=== PATIENT | male | born 1940 | race Caucasian/White ===

== ENCOUNTER 2020-06-05 11:39 | Outpatient (RCR) | payer MEDICARE, BC, SELFPAY | END 2020-06-06 23:59 | disposition home or self-care (01) | LOC: SR3 11:39 | PROVIDERS: Family Provider Internal Medicine; PCP Internal Medicine; Referring Provider Family Medicine; Visit Provider Family Medicine | DX: Z86.73 Personal history of transient ischemic attack (TIA), and cerebral infarction without residual deficits (principal) | CPT/HCPCS: 92523; 92610; 97162; 97167 ==

== ENCOUNTER 2020-06-07 06:00 | Outpatient (RCR) | payer MEDICARE, BC, SELFPAY | END 2020-07-07 23:59 | disposition home or self-care (01) | LOC: SR3 06:00 | PROVIDERS: Family Provider Internal Medicine; PCP Internal Medicine; Referring Provider Family Medicine; Visit Provider Family Medicine | DX: I69.30 Unspecified sequelae of cerebral infarction (principal) | CPT/HCPCS: 92507; 92526; 97110; 97112; 97116 ==

== ENCOUNTER 2020-07-08 06:00 | Outpatient (RCR) | payer MEDICARE, BC, SELFPAY | END 2020-08-06 23:59 | disposition home or self-care (01) | LOC: SR3 06:00 | PROVIDERS: Family Provider Internal Medicine; PCP Family Medicine; Referring Provider Family Medicine; Visit Provider Family Medicine | DX: Z86.73 Personal history of transient ischemic attack (TIA), and cerebral infarction without residual deficits (principal) | CPT/HCPCS: 92507; 92523; 92526 ==

== ENCOUNTER 2020-09-03 12:13 | Emergency (ER) | payer MEDICARE, BC, SELFPAY ==
[2020-09-03 12:27] VITALS: BP 137/70; PULSE 73; RESP 19; TEMP 37.9; O2SAT 96; BMI 25.8
--- NOTE | 2020-09-03 12:33 | CT_ITS ---
WS: [id number] CT cervical spin wo con* [id number] REASON FOR EXAM: pain IV CONTRAST ADMINISTERED: Nonenhanced TOTAL EXAM DLP: 734.[address] scans at [facility] use at least one of these dose optimization techniques: automat ed exposure control; mA and/or kV adjustment per patient size (includes targeted exams where dose is matched to clinical indication); or iterative reconstruction. FINDINGS: The odontoid in the atlantoaxial articulations are intact. No significant cervical vertebral body compression deformity. Degenerative cervical disc disease from C4 to C7 which produces reversal of the normal lordosis of th e cervical spine with mild anterior subluxation of C4 on C5. Facet joints at C4-C5 demonstrate signif icant degenerative change with normal alignment and no fracture. CT/CT cervical spin wo con* [id number] IMPRESSION: Multilevel degenerative spondylosis. No fracture or dislocation.
--- NOTE | 2020-09-03 12:34 | CT_ITS ---
WS: [id number] CT head wo con* 10588 REASON FOR EXAM: fall, injury IV CONTRAST ADMINISTERED: Noncontrast. TOTAL EXAM DLP: 896.[address] scans at [facility] use at least one of these dose optimization techniques: automat ed exposure control; mA and/or kV adjustment per patient size (includes targeted exams where dose is matched to clinical indication); or iterative reconstruction. FINDINGS: Small soft tissue hematoma over the right frontal region. No midline shift or other significant mass effect. No findings of intracranial hemorrhage and no extra-axial fluid collection. Encephalomalacia in the right frontal region with dilatation of the ipsilateral ventricle. Small foci of CSF density just superior to the left basal ganglia. No acute focal brain parenchymal abnormality within the cerebral hemispheres, brainstem, or cerebellar hemispheres. Mild to moderate symmetric global atrophy with enlargement of CSF spaces. The bony calvarium is intact. There are findings of chronic inflammatory sinus disease involving the sphenoid and ethmoid sinuses. Degenerative changes in the right temporomandibular joint. CT/CT head wo con* [id number] IMPRESSION: Previous infarct right frontal region with encephalomalacia and anterior horn d ilatation. 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 No acute intracranial finding. Examination appears unchanged compared to 018.
--- NOTE | 2020-09-03 12:34 | CT_ITS ---
WS: [id number] CT facial bones wo con* [id number] REASON FOR EXAM: fall/injury IV CONTRAST ADMINISTERED: Noncontrast TOTAL EXAM DLP: 784.[address] scans at [facility] use at least one of these dose optimization techniques: automat ed exposure control; mA and/or kV adjustment per patient size (includes targeted exams where dose is matched to clinical indication); or iterative reconstruction. FINDINGS: Soft tissue hematoma over the right frontal region. Superior and inferior nasal spines are intact. Zygomatic arches and bony structure of the orbits are intact. Bony sinus structure are intact. Chronic sinusitis changes in the sphenoid and ethmoid sinuses. Iterative changes in the temporomandibular joint. CT/CT facial bones wo con* [id number] IMPRESSION: No facial bone fracture.
--- NOTE | 2020-09-03 12:37 | ED_ITS ---
HPI - Fall General: Chief Complaint: Fall Stated Complaint: FALL, HIT FACE, HEMATOMA, NOSE BLEED Time Seen by Provider: 09/03/20 12:14 Source: patient, family and EMS Mode of arrival: EMS Limitations: no limitations History of Present Illness: HPI Narrative: Mr. Guillen is a nice 80-year-old male who comes in after a fall at home. He was trying to get dressed with assistance of his as he is somewhat unstable normally. He fell forward landing on his face on the ground. He was not knocked unconscious but he has abrasions and bleeding from his nose and forehead. He denies any neck pain or stiffness. Of note the patient is on Eliquis. Patient denies any other complaints or injuries. EMS feels the patient may be a little confused and having a hard time recalling answers but otherwise he has no other complaints. Patient's states that he has been treated for cellulitis of his face. He is on antibiotics now for this. She says overall the cellulitis is better now than it was before although his nose looks somewhat more red since the fall. Associated symptoms-after fall: Denies abdominal pain, chest pain, confusion, difficulty walking, headache(s), hematuria, lightheadedness, neck pain or vertigo Review of Systems Const: Denies: fever(s), chills, body aches, fatigue, malaise or diaphoresis Eyes: Denies: change in vision, blurry vision, photophobia, eye discomfort, eye discharge, eye redness or yellow eyes ENMT: Denies: throat pain, odynophagia, hoarseness, swelling of lips/tongue, ear or mastoid pain, ear discharge, change in hearing or nasal discharge Card: Denies: chest pain, palpitations, irregular heart rhythm, edema, lightheadedness, syncope, pre-syncope, dyspnea on exertion or orthopnea Resp: Denies: dyspnea, productive cough, non-productive cough, wheezing, hemoptysis or chest congestion GI: Denies: abdominal pain, nausea, vomiting, hematemesis, coffee ground emesis, heartburn, diarrhea, constipation, GI cramping, hematochezia or melena : Denies: flank pain, dysuria, urinary frequency, urinary urgency or hematuria Musc: Denies: neck pain, back pain, extremity pain, extremity swelling, joint pain, joint swelling, joint redness, joint warmth or joint stiffness Skin/Breast: Denies: rash, pruritus, erythema, skin pain or skin tenderness Neuro: Denies: headache(s), numbness in extremities, weakness in extremities, sensory changes, lack of coordination, difficulty walking, dizziness, vertigo, confusion, Slurred speech present or seizure-like activity Cole/Lymph: Denies: easy bruising, easy bleeding, petechiae, purpura or enlarged lymph nodes All/Imm: Denies: urticaria, throat swelling, tongue swelling, facial swelling or acute wheezing PFSH ED PFSH: Social History (Updated 07/09/20 @ 10:26 by Sharon Coffman LPN) Smoking and tobacco status: never smoked Physical Exam Const: COMMON NORMALS: no acute distress, patient oriented x3, no limitations and alert GENERAL APPEARANCE: cooperative HENMT: COMMON NORMALS: normocephalic, external ears normal and EAC's normal HEAD & SCALP: normal to inspection, normocephalic and other (Abrasion noted over right eyebrow) FACE & SINUS: face symmetric and other (abrasions to the forehead) NOSE: Other nasal findings present (No septal hematoma. Nose with moderate cellulitis.) EXTERNAL EAR: Yes external ears normal EXTERNAL AUDITORY CANAL: EAC's normal MOUTH: Normal oral and palatal mucosa present, lip normal and tongue normal Eye: COMMON NORMALS: Equal, round and reactive pupils present and conjunctivae normal GENERAL EYE: appearance normal, both eyes and all related structures ALIGNMENT: Yes alignment normal PERIORBITAL: periorbital findings normal EYELID: eyelids normal CONJUNCTIVA: Yes conjunctivae normal SCLERA: sclerae normal PUPIL: Yes Equal, round and reactive pupils present Neck/C-Spine: COMMON NORMALS: full ROM, no lymphadenopathy, supple, no meningeal signs and no JVD GENERAL: Yes normal visual inspection and Yes trachea midline Chest: COMMONS NORMALS: normal inspection of the chest and normal palpation of entire chest wall Resp: COMMON NORMALS: normal respiratory effort, No retractions, No use of accessory muscles and clear to auscultation bilaterally EFFORT & INSPECTION: Yes able to speak in complete sentences and Yes symmetric chest movement AUSCULTATION: clear to auscultation bilaterally, no crackles, no rales, no rhonchi and no wheezes Cardio: COMMON NORMALS: no JVD, regular rate, regular rhythm, S1 normal heart sound present and S2 normal heart sound present RATE: regular rate RHYTHM: regular rhythm HEART SOUNDS: S1 normal heart sound present, S2 normal heart sound present, no click, no gallops, no murmurs and no rubs GI: COMMON NORMALS: Soft to palpation and No hepatosplenomegaly present PALPATION: Yes Soft to palpation, No Tenderness to palpation present (GI), No Guarding due to palpation present (GI), No Rigid due to palpation, Yes No hepatosplenomegaly present, No Hernia present, No Palpable mass present and No Pulsatile mass present : COMMON NORMALS: Yes no CVA tenderness BLADDER/KIDNEY EXAM: Yes no CVA tenderness Back/Pelvis: COMMON NORMALS: no CVA tenderness, thoracic and lumbar spine normal to inspection, no thoracic nor lumbar tenderness and thoraco-lumbar ROM normal Extremity: COMMON NORMALS: normal to inspection, full ROM, capillary refill normal, no joint enlargement, no clubbing, cyanosis or edema and no calf tenderness Neuro: COMMON NORMALS: patient oriented x3, CN's II-XII intact bilaterally, moves all extremities, no focal motor deficits and no sensory deficits noted SENSORIUM/ORIENTATION: Yes alert MENINGEAL SIGNS: Yes no meningeal signs SPEECH: speech normal Psych: COMMON NORMALS: mental status grossly normal, Normal thought process present, cooperative, normal affect, speech normal and activity/motor behavior normal SPEECH: Yes normal speech THOUGHT PROCESS: Normal thought process present Skin: COMMON NORMALS: no rashes or lesions noted, turgor normal, no jaundice, no petechiae and no mottling GENERAL SKIN EXAM: no rashes or lesions noted and turgor normal Course Vital Signs: Vital signs: Vital Signs Temperature 99.3 F 09/03/20 13:39 Pulse Rate 89 09/03/20 15:00 Respiratory Rate 19 H 09/03/20 15:00 Blood Pressure 124/70 09/03/20 15:00 Pulse Oximetry 94 09/03/20 15:00 MDM - Fall MDM Narrative: Medical decision making narrative: There is no evidence of intracranial hemorrhage, facial fractures or cervical spine fractures on the patient's CAT scans. Please see each individual CT scan for reports. Patient's creatinine was elevated but his states this has been this way since he had a injury to his kidney during an aortic procedure in the past. There is no evidence of hyperkalemia. Patient was given a liter normal saline here in gram of IV cefazolin for his nose. He is already on antibiotics for his nose. As time is gone on here his redness and erythema have markedly improved. I believe he can go home but I believe he is going to need another course of antibiotics. The agrees with this plan. She agrees to have him follow-up with his doctor this week for recheck. Lab Data: Labs: Lab Results 09/03/20 09/03/20 09/03/20 Range/Units 12:58 12:58 12:58 WBC 9.5 (4.0-10.0) 10^3/ uL RBC 4.08 L (4.1-5.3) 10^6/u L Hgb 12.6 (11.7-16.6) g/dL Hct 39.4 L (42.0-52.0) % MCV 96.6 H (80-94) fL MCH 30.9 (28.0-34.0) pg MCHC 32.0 (30.0-36.0) g/dL RDW 13.7 (12.1-15.1) % Plt Count 216 (130-400) 10^3/c mm MPV 10.6 H (7.4-10.4) fL Neut % (Auto) 76.1 % Lymph % (Auto) 5.4 % Emmons % (Auto) 13.6 % Eos % (Auto) 3.9 % Baso % (Auto) 0.6 % Neut # (Auto) 7.21 (1.8-7.7) 10^3/u L Lymph # (Auto) 0.5 L (0.8-4.8) 10^3/u L Emmons # (Auto) 1.3 H (0.2-0.9) 10^3/u L Eos # (Auto) 0.4 (0.0-0.8) 10^3/u L Baso # (Auto) 0.1 (0.0-0.1) 10^3/u L Nucleated RBC % (a uto) 0 % Nucleated RBCs # 0.0 /100WBC Sodium 132 L (136-145) mmol/L Potassium 5.0 (3.5-5.1) mmol/L Chloride 96 L (98-107) mmol/L Carbon Dioxide 25 (22-29) mmol/L Anion Gap 16.0 (5-19) BUN 25 H (8-23) mg/dL Creatinine 2.2 H (0.7-1.2) mg/dL GFR Calculation Not Reportable Glucose 135 H (65-115) mg/dL Calculated Osmolal ity 280 L (285-295) mOsm/k g Lactic Acid 1.3 (0.5-2.2) mmol/L Calcium 8.7 (8.5-10.5) mg/dL Total Bilirubin 0.5 (0.15-1.2) mg/dL AST 22 (0-40) U/L ALT 19 (0-41) U/L Alkaline Phosphata se 96 (40-130) IU/L Total Protein 7.2 (6.6-8.7) g/dL Albumin 3.8 (3.5-5.2) g/dL Globulin 3.4 (1.3-4.6) g/dL Urine Color (Yellow) Urine Appearance (CLEAR) Urine pH (5-7) Ur Specific Gravit y (1.005-1.030) Urine Protein (Negative) Urine Glucose (UA) (Normal) Urine Ketones (Negative) Urine Blood (Negative) Urine Nitrate (Negative) Urine Bilirubin (Negative) Urine Urobilinogen (Negative) mg/dL Ur Leukocyte Wendi ase (Negative) Urine RBC (0-2) /hpf Urine WBC (0-5) /hpf Ur Squamous Epith Cells (0-5) /hpf Amorphous Sediment Urine Bacteria (NONE) /hpf 09/03/20 Range/Units 14:50 WBC (4.0-10.0) 10^3/ uL RBC (4.1-5.3) 10^6/u L Hgb (11.7-16.6) g/dL Hct (42.0-52.0) % MCV (80-94) fL MCH (28.0-34.0) pg MCHC (30.0-36.0) g/dL RDW (12.1-15.1) % Plt Count (130-400) 10^3/c mm MPV (7.4-10.4) fL Neut % (Auto) % Lymph % (Auto) % Emmons % (Auto) % Eos % (Auto) % Baso % (Auto) % Neut # (Auto) (1.8-7.7) 10^3/u L Lymph # (Auto) (0.8-4.8) 10^3/u L Emmons # (Auto) (0.2-0.9) 10^3/u L Eos # (Auto) (0.0-0.8) 10^3/u L Baso # (Auto) (0.0-0.1) 10^3/u L Nucleated RBC % (a uto) % Nucleated RBCs # /100WBC Sodium (136-145) mmol/L Potassium (3.5-5.1) mmol/L Chloride (98-107) mmol/L Carbon Dioxide (22-29) mmol/L Anion Gap (5-19) BUN (8-23) mg/dL Creatinine (0.7-1.2) mg/dL GFR Calculation Glucose (65-115) mg/dL Calculated Osmolal ity (285-295) mOsm/k g Lactic Acid (0.5-2.2) mmol/L Calcium (8.5-10.5) mg/dL Total Bilirubin (0.15-1.2) mg/dL AST (0-40) U/L ALT (0-41) U/L Alkaline Phosphata se (40-130) IU/L Total Protein (6.6-8.7) g/dL Albumin (3.5-5.2) g/dL Globulin (1.3-4.6) g/dL Urine Color Yellow (Yellow) Urine Appearance Clear (CLEAR) Urine pH 5 (5-7) Ur Specific Gravit y 1.020 (1.005-1.030) Urine Protein Neg (Negative) Urine Glucose (UA) Norm (Normal) Urine Ketones Negative (Negative) Urine Blood Neg (Negative) Urine Nitrate Negative (Negative) Urine Bilirubin Neg (Negative) Urine Urobilinogen 1 H (Negative) mg/dL Ur Leukocyte Wendi ase Negative (Negative) Urine RBC None (0-2) /hpf Urine WBC 0-4 H (0-5) /hpf Ur Squamous Epith Cells 0-4 H (0-5) /hpf Amorphous Sediment Not Reportable Urine Bacteria None (NONE) /hpf Imaging Data^: CT Head: Radiologist's impression: [employer] [address] [address] Scan Report Signed Patient: Ap Guillen Unit #: [id number] : 1940 Age/Sex: 80 / M ADM Date: 09/03/20 Loc: ER Room/Bed: Attending Dr: Ordering Provider/Ordering MD: Va Mercer DO Date of Service: 09/03/20 Procedure(s): CT head wo con* [id number] Accession Number(s): [id number] Report Number: [id number] WS: [id number] CT head wo con* [id number] REASON FOR EXAM: fall, injury IV CONTRAST ADMINISTERED: Noncontrast. TOTAL EXAM DLP: 896.[address] scans at [facility] use at least one of these dose optimization techniques: automated exposure control; mA and/or kV adjustment per patient size (includes targeted exams where dose is matched to clinical indication); or iterative reconstruction. FINDINGS: Small soft tissue hematoma over the right frontal region. No midline shift or other significant mass effect. No findings of intracranial hemorrhage and no extra-axial fluid collection. Encephalomalacia in the right frontal region with dilatation of the ipsilateral ventricle. Small foci of CSF density just superior to the left basal ganglia. No acute focal brain parenchymal abnormality within the cerebral hemispheres, brainstem, or cerebellar hemispheres. Mild to moderate symmetric global atrophy with enlargement of CSF spaces. The bony calvarium is intact. There are findings of chronic inflammatory sinus disease involving the sphenoid and ethmoid sinuses. Degenerative changes in the right temporomandibular joint. CT/CT head wo con* [id number] IMPRESSION: Previous infarct right frontal region with encephalomalacia and anterior horn dilatation. 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 No acute intracranial finding. Examination appears unchanged compared to 018. Dictated By: Gonsalo Talbot Jr, MD Signed By: Gonsalo Talbot Jr, MD Signed Date/Time: 09/03/20 1330 DD/ 1323 CT Cervical Spine: Radiologist's impression: [facility] [address] [place] [address] CT Scan Report Signed Patient: Ap Guillen Unit #: [id number] : 1940 A cct#:[id number] Age/Sex: 80 / M ADM Date: 09/03/20 Loc: ER Room/Bed: Attending Dr: Ordering Provider/Ordering MD: Va Mercer DO Date of Service: 09/03/20 Procedure(s): CT cervical spin wo con* [id number] Accession Number(s): [id number] Report Number: [id number] WS: [id number] CT cervical spin wo con* [id number] REASON FOR EXAM: pain IV CONTRAST ADMINISTERED: Nonenhanced TOTAL EXAM DLP: 734.[address] scans at [facility] use at least one of these dose optimization techniques: automated exposure control; mA and/or kV adjustment per patient size (includes targeted exams where dose is matched to clinical indication); or iterative reconstruction. FINDINGS: The odontoid in the atlantoaxial articulations are intact. No significant cervical vertebral body compression deformity. Degenerative cervical disc disease from C4 to C7 which produces reversal of the normal lordosis of the cervical spine with mild anterior subluxation of C4 on C5. Facet joints at C4-C5 demonstrate significant degenerative change with normal alignment and no fracture. CT/CT cervical spin wo con* [id number] IMPRESSION: Multilevel degenerative spondylosis. No fracture or dislocation. Dictated By: Gonsalo Talbot Jr, MD Signed By: Gonsalo Talbot Jr, MD Signed Date/Time: 09/03/20 1337 DD/ 1334 CT Facial Bones: Radiologist's impression: [address] [address] [address] Scan Report Signed Patient: Ap Guillen Unit #: [id number] : 1940 Age/Sex: 80 / M ADM Date: 09/03/20 Loc: ER Room/Bed: Attending Dr: Ordering Provider/Ordering MD: Va Mercer DO Date of Service: 09/03/20 Procedure(s): CT facial bones wo con* [id number] Accession Number(s): [id number] Report Number: [id number] WS: [id number] CT facial bones wo con* [id number] REASON FOR EXAM: fall/injury IV CONTRAST ADMINISTERED: Noncontrast TOTAL EXAM DLP: 784.[address] scans at [facility] use at least one of these dose optimization techniques: automated exposure control; mA and/or kV adjustment per patient size (includes targeted exams where dose is matched to clinical indication); or iterative reconstruction. FINDINGS: Soft tissue hematoma over the right frontal region. Superior and inferior nasal spines are intact. Zygomatic arches and bony structure of the orbits are intact. Bony sinus structure are intact. Chronic sinusitis changes in the sphenoid and ethmoid sinuses. Iterative changes in the temporomandibular joint. CT/CT facial bones wo con* [id number] IMPRESSION: No facial bone fracture. Dictated By: Gonsalo Talbot Jr, MD Signed By: Gonsalo Talbot Jr, MD Signed Date/Time: 09/03/201332 DD/ 133 EKG Data^: EKG 1: Attestation: I personally reviewed and interpreted this EKG as follows: Interpretation: 1423 -normal sinus rhythm at 68 beats a minute, left axis deviation, no acute ST or T wave changes. No blocks, normal intervals Discharge Plan Discharge Patient Disposition: Home Clinical Impression: Cellulitis of face, Abrasion of face Condition: Stable Prescriptions: New Bactrim DS 800-160 mg tablet 2 tab PO Q12H 10 Days Qty: 40 RF: 0 Augmentin 875-125 mg tablet 1 tab PO BID 10 Days Qty: 20 RF: 0 No Action pantoprazole [Protonix] 40 mg tablet,delayed release (DR/EC) 40 mg PO DAILY RF: 0 Eliquis 5 mg tablet 5 mg PO BID@ RF: 0 lisinopril 30 mg tablet 30 mg PO DAILY@0900 RF: 0 tramadol 50 mg tablet 50 mg PO TID PRN (Reason: Pain) RF: 0 montelukast 10 mg tablet 10 mg PO DAILY@2100 RF: 0 venlafaxine 150 mg tablet extended release 24hr 150 mg PO DAILY@0900 RF: 0 alendronate 70 mg tablet 70 mg PO Q7D RF: 0 aspirin 81 mg tablet,delayed release (DR/EC) 81 mg PO DAILY@0900 RF: 0 atorvastatin 80 mg tablet 80 mg PO DAILY@2100 RF: 0 metoprolol tartrate 100 mg tablet 100 mg PO BID@ RF: 0 Bactrim DS 800-160 mg Tablet 1 tab PO BID RF: 0 cephalexin 500 mg Tablet 500 mg PO QID RF: 0 multivitamin Tablet 1 tab PO DAILY@09 RF: 0 Vitamin C 1,000 mg Tablet 1 g PO DAILY@2100 RF: 0 cetirizine 10 mg Tablet 10 mg PO DAILY@899 RF: 0 Fish Oil 1,000 mg Capsule 1 cap PO DAILY@899 RF: 0 Vitamin D3 25 mcg (1,000 unit) Tablet,Chewable 25 mcg PO BID@ RF: 0 Discharge Orders: Discharge ED (Routine); Ordered 09/03/20 Ordered By: Va Mercer Referrals: David Escobar MD [Primary Care Provider] - Patient Instructions: Cellulitis (ED) Activity Restrictions/Additional Instructions: Please return to the ER immediately for any of the signs or symptoms listed on your discharge instruction sheets, worsening/changing of your symptoms, you are not getting better as quickly as expected, or for ANY other cause or concerns. Return to the ER for worsening of the swelling on your face, new onset of fever, vomiting, or for any other cause for concern. Take the antibiotics as I have prescribed you and discard the remaining antibiotics you were previously taking. 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
[2020-09-03 12:48] VITALS: BP 137/70; PULSE 74; RESP 18; TEMP 37.9; O2SAT 94
[2020-09-03] MEDS: acetaminophen 500 mg Tablet 1000 MG PO (13:05)
[2020-09-03 13:10] LABS: Basophils # 0.1 10^3/uL (0.0-0.1); Basophils % 0.6 %; Eosinophils # 0.4 10^3/uL (0.0-0.8); Eosinophils % 3.9 %; Hematocrit 39.4 % (42.0-52.0); Hemoglobin 12.6 g/dL (11.7-16.6); Lymphocytes # 0.5 10^3/uL (0.8-4.8); Lymphocytes % 5.4 %; Mean Corpuscular Hemoglobin 30.9 pg (28.0-34.0); Mean Corpuscular Volume 96.6 fL (80-94); Mean Platelet Volume 10.6 fL (7.4-10.4); Monocytes # 1.3 10^3/uL (0.2-0.9); Monocytes % 13.6 %; Neutrophils # 7.21 10^3/uL (1.8-7.7); Neutrophils % 76.1 %; Nucleated Red Blood Cells % 0 %; Platelet Count 216 10^3/cmm (130-400); Red Blood Count 4.08 10^6/uL (4.1-5.3); Red Cell Distribution Width 13.7 % (12.1-15.1); White Blood Count 9.5 10^3/uL (4.0-10.0)
[2020-09-03 13:34] LABS: Alanine Aminotransferase 19 U/L (0-41); Albumin Level 3.8 g/dL (3.5-5.2); Alkaline Phosphatase 96 IU/L (40-130); Aspartate Amino Transferase 22 U/L (0-40); Blood Urea Nitrogen 25 mg/dL (8-23); Calcium 8.7 mg/dL (8.5-10.5); Carbon Dioxide 25 mmol/L (22-29); Chloride 96 mmol/L (98-107); Globulin 3.4 g/dL (1.3-4.6); Glucose 135 mg/dL (65-115); Lactic Sepsis W/Reflex 1.3 mmol/L (0.5-2.2); Osmolality Calculated 280 mOsm/kg (285-295); Sodium 132 mmol/L (136-145); Total Bilirubin 0.5 mg/dL (0.15-1.2); Total Protein 7.2 g/dL (6.6-8.7)
[2020-09-03 13:39] VITALS: BP 130/52; PULSE 70; RESP 16; TEMP 37.4; O2SAT 97
[2020-09-03 14:00] VITALS: BP 123/69; PULSE 94; RESP 17; O2SAT 96
[2020-09-03] MEDS: ceFAZolin 1,000 MG in sodium chloride 0.9% (plus) 50 ML 100 MG IV (14:09)
[2020-09-03] MEDS: sodium chloride 0.9% 1,000 ML 999 ML IV (14:13)
[2020-09-03 15:00] VITALS: BP 124/70; PULSE 89; RESP 19; O2SAT 94
[2020-09-03 15:31] LABS: Bilirubin Urine Neg (Negative); Blood Urine Neg (Negative); Glucose Urine UA Norm (Normal); Ketones Urine Negative (Negative); Leukocyte Esterase Urine Negative (Negative); Nitrate Urine Negative (Negative); Protein Urine Neg (Negative); Urine Appearance Clear (CLEAR); Urine Color Yellow (Yellow); Urobilinogen Urine 1 mg/dL (Negative); pH Urine 5 (5-7)
[2020-09-03 15:34] LABS: Squamous Epithelial Cell Urine 0-4 /hpf (0-5); WBC Urine 0-4 /hpf (0-5)
[2020-09-03 16:14] VITALS: BP 124/70; PULSE 68; RESP 18; TEMP 37.2; O2SAT 98
== END 2020-09-03 16:17 | disposition home or self-care (01) ==
PROVIDERS: Emergency Provider Emergency Medicine; PCP Family Medicine
DX: S00.31XA Abrasion of nose, initial encounter (principal); S00.81XA Abrasion of other part of head, initial encounter; W19.XXXA Unspecified fall, initial encounter; Y92.009 Unspecified place in unspecified non-institutional (private) residence as the place of occurrence of the external cause
CPT/HCPCS: 70450; 70486; 72125; 80053; 81001; 83605; 85025; 96365; 99284; J0690; J7030

== ENCOUNTER 2020-09-08 15:03 | Emergency (ER) | payer MEDICARE, BC, SELFPAY ==
[2020-09-08 15:53] VITALS: BP 100/68; PULSE 95; RESP 15; TEMP 36.7; O2SAT 95; BMI 25.8
[2020-09-08 17:46] LABS: Basophils # 0.1 10^3/uL (0.0-0.1); Basophils % 0.8 %; Eosinophils # 0.2 10^3/uL (0.0-0.8); Eosinophils % 2.6 %; Hematocrit 45.8 % (42.0-52.0); Hemoglobin 13.8 g/dL (11.7-16.6); Lymphocytes # 0.9 10^3/uL (0.8-4.8); Mean Corpuscular HGB Conc 30.1 g/dL (30.0-36.0); Mean Corpuscular Hemoglobin 31.2 pg (28.0-34.0); Mean Corpuscular Volume 103.6 fL (80-94); Mean Platelet Volume 10.7 fL (7.4-10.4); Monocytes # 0.9 10^3/uL (0.2-0.9); Monocytes % 10.7 %; Neutrophils # 6.53 10^3/uL (1.8-7.7); Neutrophils % 75.2 %; Nucleated Red Blood Cells % 0 %; Platelet Count 203 10^3/cmm (130-400); Red Blood Count 4.42 10^6/uL (4.1-5.3); Red Cell Distribution Width 13.3 % (12.1-15.1); White Blood Count 8.7 10^3/uL (4.0-10.0)
[2020-09-08 18:29] LABS: Albumin Level 3.4 g/dL (3.5-5.2); Alkaline Phosphatase 106 IU/L (40-130); Blood Urea Nitrogen 27 mg/dL (8-23); Calcium 9.2 mg/dL (8.5-10.5); Carbon Dioxide 16 mmol/L (22-29); Chloride 97 mmol/L (98-107); Globulin 4.1 g/dL (1.3-4.6); Glucose 140 mg/dL (65-115); Lipase 50 U/L (13-60); Osmolality Calculated 269 mOsm/kg (285-295); Sodium 126 mmol/L (136-145); Total Bilirubin 0.2 mg/dL (0.15-1.2); Total Protein 7.5 g/dL (6.6-8.7)
[2020-09-08 18:30] LABS: Alanine Aminotransferase 33 U/L (0-41); Anion Gap 19.3 (5-19); Aspartate Amino Transferase 43 U/L (0-40); Potassium 6.3 mmol/L (3.5-5.1)
== END 2020-09-08 18:31 | disposition left against medical advice (07) ==
LOC: ER 15:54
PROVIDERS: Physician Assistant; Emergency Provider Family Medicine; PCP Family Medicine
DX: Z53.21 Procedure and treatment not carried out due to patient leaving prior to being seen by health care provider (principal)
CPT/HCPCS: 80053; 83690; 85025

== ENCOUNTER 2020-09-09 15:07 | Inpatient (IN) | payer MEDICARE, BC, SELFPAY ==
[2020-09-09 15:21] VITALS: BP 105/59; PULSE 52; RESP 18; TEMP 36.7; O2SAT 96; BMI 25.8
[2020-09-09 15:51] VITALS: BP 122/66; PULSE 60; RESP 19; O2SAT 98
[2020-09-09] MEDS: ondansetron 2 mg/ML SDV 2 mL 4 MG IVP (16:25)
--- NOTE | 2020-09-09 16:44 | ED_ITS ---
HPI - Weakness General: Chief complaint: ER Hold Stated complaint: GENERAL WEAKNESS Time Seen by Provider: 09/09/20 15:38 History of Present Illness: MD Complaint: generalized weakness Onset (ago): week(s) Duration: constant and progressively worsening Location: generalized Severity: moderate Relieving factors: none Exacerbating factors: none Associated symptoms: Reports confusion and decreased appetite; Denies chest pain, chills, melena, diaphoresis, dysuria, easy bruising, fever(s), headache(s), myalgias, nausea, rash, short of breath, syncope or vomiting Review of Systems Const: Denies: fever(s), chills or diaphoresis ENMT: Denies: throat pain, ear or mastoid pain, nasal discharge or nasal congestion Card: Denies: chest pain or syncope Resp: Denies: dyspnea, productive cough or non-productive cough GI: Denies: nausea, vomiting or melena : Denies: dysuria Skin/Breast: Denies: rash or pruritus Neuro: Reports: confusion; Denies: headache(s) Cole/Lymph: Denies: easy bruising PFSH ED PFSH: Medical History (Updated 09/11/20 @ 07:20 by Ruddy Jackson DO) Aphasia CAD (coronary artery disease) Cellulitis of face CKD (chronic kidney disease) CVA (cerebral vascular accident) Right hemiparesis Surgical History (Updated 09/09/20 @ 20:24 by Chante Desir MD) H/O hernia repair History of cardiac cath Family History (Updated 09/09/20 @ 20:25 by Chante Desir MD) Other Cancer Social History (Updated 09/09/20 @ 20:25 by Chante Desir MD) Smoking and tobacco status: former smoker Alcohol intake: never Household members: spouse Housing: House Physical Exam Const: COMMON NORMALS: no acute distress GENERAL APPEARANCE: cooperative and comfortable ORIENTATION/CONSCIOUSNESS: Yes awake, Yes oriented to person, Yes oriented to place and Yes oriented to time HENMT: COMMON NORMALS: normocephalic, atraumatic and hearing grossly normal bilaterally HEAD & SCALP: normocephalic and atraumatic Eye: COMMON NORMALS: Equal, round and reactive pupils present, EOMs intact bilaterally, conjunctivae normal and no scleral icterus CONJUNCTIVA: Yes conjunctivae normal PUPIL: Yes Equal, round and reactive pupils present Neck/C-Spine: COMMON NORMALS: no JVD Resp: COMMON NORMALS: normal respiratory effort, No retractions, No use of accessory muscles and clear to auscultation bilaterally AUSCULTATION: clear to auscultation bilaterally Cardio: COMMON NORMALS: no JVD, regular rate, regular rhythm and No murmurs present (Cardio) RATE: regular rate RHYTHM: regular rhythm GI: COMMON NORMALS: Soft to palpation and No hepatosplenomegaly present AUSCULTATION: Yes normoactive bowel sounds PALPATION: Yes Soft to palpation, No Tenderness to palpation present (GI), No Guarding due to palpation present (GI) and Yes No hepatosplenomegaly present Extremity: COMMON NORMALS: normal to inspection, capillary refill normal, no clubbing, cyanosis or edema, no calf tenderness and no pedal edema Neuro: SENSORIUM/ORIENTATION: Yes oriented to person, Yes oriented to place and Yes oriented to time Skin: COMMON NORMALS: no rashes or lesions noted NARRATIVE SKIN EXAM: Evolving cellulitis with dry eschars in the bowl of the nose and the forehead. GENERAL SKIN EXAM: no rashes or lesions noted Course Vital Signs: Vital signs: Vital Signs Temperature 98.3 F 09/11/20 03:29 Pulse Rate 109 H 09/11/20 03:29 Respiratory Rate 23 H 09/11/20 03:29 Blood Pressure 130/65 09/11/20 03:29 Pulse Oximetry 97 09/11/20 03:29 MDM - Weakness MDM Narrative: Medical decision making narrative: Acute kidney injury with hyperkalemia. Will admit discussed with hospitalist orders are written Lab Data: Labs: Lab Results 09/09/20 09/09/20 09/09/20 Range/Units 16:25 16:25 16:25 WBC 7.7 (4.0-10.0) 10^3/ uL RBC 4.16 (4.1-5.3) 10^6/u L Hgb 12.8 (11.7-16.6) g/dL Hct 39.7 L (42.0-52.0) % MCV 95.4 H D (80-94) fL MCH 30.8 (28.0-34.0) pg MCHC 32.2 D (30.0-36.0) g/dL RDW 13.4 (12.1-15.1) % Plt Count 251 (130-400) 10^3/c mm MPV 10.7 H (7.4-10.4) fL Neut % (Auto) 64.9 % Lymph % (Auto) 16.6 % [place] % (Auto) 12.4 % Eos % (Auto) 5.0 % Baso % (Auto) 0.4 % Neut # (Auto) 4.98 (1.8-7.7) 10^3/u L Lymph # (Auto) 1.3 (0.8-4.8) 10^3/u L [place] # (Auto) 1.0 H (0.2-0.9) 10^3/u L Eos # (Auto) 0.4 (0.0-0.8) 10^3/u L Baso # (Auto) 0.0 (0.0-0.1) 10^3/u L Nucleated RBC % (a uto) 0 % Nucleated RBCs # 0.0 /100WBC Sodium 131 L (136-145) mmol/L Potassium 6.0 H (3.5-5.1) mmol/L Chloride 97 L (98-107) mmol/L Carbon Dioxide 21 L (22-29) mmol/L Anion Gap 19.0 (5-19) BUN 34 H (8-23) mg/dL Creatinine 2.9 H (0.7-1.2) mg/dL GFR Calculation Not Reportable Glucose 98 (65-115) mg/dL Calculated Osmolal ity 280 L (285-295) mOsm/k g Calcium 9.2 (8.5-10.5) mg/dL Total Bilirubin 0.2 (0.15-1.2) mg/dL AST 40 (0-40) U/L ALT 38 (0-41) U/L Alkaline Phosphata se 112 (40-130) IU/L Total Protein 7.5 (6.6-8.7) g/dL Albumin 3.9 (3.5-5.2) g/dL Globulin 3.6 (1.3-4.6) g/dL Vitamin B12 616 (232-1245) pg/mL TSH 0.51 (0.27-4.20) uIU/ mL Urine Color (Yellow) Urine Appearance (CLEAR) Urine pH (5-7) Ur Specific Gravit y (1.005-1.030) Urine Protein (Negative) Urine Glucose (UA) (Normal) Urine Ketones (Negative) Urine Blood (Negative) Urine Nitrate (Negative) Urine Bilirubin (Negative) Urine Urobilinogen (Negative) mg/dL Ur Leukocyte Wendi ase (Negative) 09/09/20 Range/Units 16:39 WBC (4.0-10.0) 10^3/ uL RBC (4.1-5.3) 10^6/u L Hgb (11.7-16.6) g/dL Hct (42.0-52.0) % MCV (80-94) fL MCH (28.0-34.0) pg MCHC (30.0-36.0) g/dL RDW (12.1-15.1) % Plt Count (130-400) 10^3/c mm MPV (7.4-10.4) fL Neut % (Auto) % Lymph % (Auto) % [place] % (Auto) % Eos % (Auto) % Baso % (Auto) % Neut # (Auto) (1.8-7.7) 10^3/u L Lymph # (Auto) (0.8-4.8) 10^3/u L [place] # (Auto) (0.2-0.9) 10^3/u L Eos # (Auto) (0.0-0.8) 10^3/u L Baso # (Auto) (0.0-0.1) 10^3/u L Nucleated RBC % (a uto) % Nucleated RBCs # /100WBC Sodium (136-145) mmol/L Potassium (3.5-5.1) mmol/L Chloride (98-107) mmol/L Carbon Dioxide (22-29) mmol/L Anion Gap (5-19) BUN (8-23) mg/dL Creatinine (0.7-1.2) mg/dL GFR Calculation Glucose (65-115) mg/dL Calculated Osmolal ity (285-295) mOsm/k g Calcium (8.5-10.5) mg/dL Total Bilirubin (0.15-1.2) mg/dL AST (0-40) U/L ALT (0-41) U/L Alkaline Phosphata se (40-130) IU/L Total Protein (6.6-8.7) g/dL Albumin (3.5-5.2) g/dL Globulin (1.3-4.6) g/dL Vitamin B12 (232-1245) pg/mL TSH (0.27-4.20) uIU/ mL Urine Color Yellow (Yellow) Urine Appearance Clear (CLEAR) Urine pH 5 (5-7) Ur Specific Gravit y 1.020 (1.005-1.030) Urine Protein Neg (Negative) Urine Glucose (UA) Norm (Normal) Urine Ketones Negative (Negative) Urine Blood Neg (Negative) Urine Nitrate Negative (Negative) Urine Bilirubin Neg (Negative) Urine Urobilinogen Norm (Negative) mg/dL Ur Leukocyte Wendi ase Negative (Negative) Discharge Plan Discharge Admit Provider: Chante Desir Clinical Impression: MOE (acute kidney injury), Hyperkalemia Condition: Stable Discharge Diet: As Directed Coding Level of Care Code ED [employer] Builder for g Fwd Exam Comprehensive
[2020-09-09 16:45] LABS: Add Urine Microscopic? NO; Charge for UA Resulting for Rev
[2020-09-09 16:53] LABS: Basophils % 0.4 %; Eosinophils # 0.4 10^3/uL (0.0-0.8); Hematocrit 39.7 % (42.0-52.0); Hemoglobin 12.8 g/dL (11.7-16.6); Lymphocytes # 1.3 10^3/uL (0.8-4.8); Lymphocytes % 16.6 %; Mean Corpuscular HGB Conc 32.2 g/dL (30.0-36.0); Mean Corpuscular Hemoglobin 30.8 pg (28.0-34.0); Mean Corpuscular Volume 95.4 fL (80-94); Mean Platelet Volume 10.7 fL (7.4-10.4); Monocytes % 12.4 %; Neutrophils # 4.98 10^3/uL (1.8-7.7); Neutrophils % 64.9 %; Nucleated Red Blood Cells % 0 %; Platelet Count 251 10^3/cmm (130-400); Red Blood Count 4.16 10^6/uL (4.1-5.3); Red Cell Distribution Width 13.4 % (12.1-15.1); White Blood Count 7.7 10^3/uL (4.0-10.0)
[2020-09-09 17:00] VITALS: BP 118/56; PULSE 54; RESP 18; O2SAT 98
[2020-09-09 17:02] LABS: Urine Color Yellow (Yellow)
[2020-09-09 17:03] LABS: Bilirubin Urine Neg (Negative); Blood Urine Neg (Negative); Glucose Urine UA Norm (Normal); Ketones Urine Negative (Negative); Leukocyte Esterase Urine Negative (Negative); Nitrate Urine Negative (Negative); Protein Urine Neg (Negative); Urine Appearance Clear (CLEAR); Urobilinogen Urine Norm (Negative); pH Urine 5 (5-7)
[2020-09-09 17:32] LABS: Alanine Aminotransferase 38 U/L (0-41); Albumin Level 3.9 g/dL (3.5-5.2); Alkaline Phosphatase 112 IU/L (40-130); Aspartate Amino Transferase 40 U/L (0-40); Blood Urea Nitrogen 34 mg/dL (8-23); Calcium 9.2 mg/dL (8.5-10.5); Carbon Dioxide 21 mmol/L (22-29); Chloride 97 mmol/L (98-107); Globulin 3.6 g/dL (1.3-4.6); Glucose 98 mg/dL (65-115); Osmolality Calculated 280 mOsm/kg (285-295); Sodium 131 mmol/L (136-145); Total Bilirubin 0.2 mg/dL (0.15-1.2); Total Protein 7.5 g/dL (6.6-8.7)
--- NOTE | 2020-09-09 17:49 | XRR_ITS ---
PROCEDURE INFORMATION: Exam: XR Chest Exam date and time: 09/09/2020 5:49 PM Age: 80 years old Clinical indication: Cough; Prior surgery; Surgery date: 6+ months; Surgery type: Stint; Additional info: Dyspnea/cough TECHNIQUE: Imaging protocol: XR of the chest. Views: 1 view. COMPARISON: [facility] Chest 2 views 09/19/2017 4:01 PM FINDINGS: Lungs: Unremarkable. No consolidation. Pleural spaces: Unremarkable. No pleural effusion. No pneumothorax. Heart/Mediastinum: Unremarkable. No cardiomegaly. Diaphragm: Nonspecific moderate elevation of the right hemidiaphragm, new from most recent comparison. Bones/joints: Unremarkable. XR/XR chest 1V portable [id number] IMPRESSION: No acute findings.
--- NOTE | 2020-09-09 17:49 | ECG_ITS ---
[facility] Test Date: 2020-09-09 Pat Name: Ap Guillen Department: Room: Gender: Male Vamp Throater: : 1940 Requested By: Ruddy Lopez Order Number: [id number] Reading MD: ROSA OCAMPO Measurements Intervals [place] Rate: 55 P: 37 TX: 169 QRS: 11 QRSD: 89 T: -2 QT: 435 QTc: 418 Interpretive Statements SINUS BRADYCARDIA Compared to ECG 06/17/2017 00:02:49 ST (T wave) deviation no longer present Electronically Signed On 09-09-2020 22:31:33 CDT by ROSA OCAMPO [id number]
[2020-09-09 18:00] VITALS: BP 120/76; PULSE 68; O2SAT 92
--- NOTE | 2020-09-09 19:21 | PC.NURSE ---
Report from NEFTALY Morgan
[2020-09-09 20:00] VITALS: BP 120/76; PULSE 57; RESP 19; O2SAT 97
--- NOTE | 2020-09-09 20:22 | P.HP_ITS ---
Providers/Chief Complaint Primary Care Provider: David Escobar MD Chief Complaint: GENERAL WEAKNESS History of Present Illness Ap Guillen is a 80 year old male who has history of chronic kidney disease, recurrent CVA, right-sided hemiparesis, aphasia presented today with chief complaint of generalized weakness and fatigue. is at the bedside who is stating that about 6 days ago he started experiencing swelling of his eyes bilaterally, CT scan of face was done which was unremarkable he was put on Bactrim and Augmentin. His eye swelling improved, cellulitis improved however 2 days before his arrival in the ER he started experiencing multiple episode of emesis. He has not taken Bactrim in last 2 days. Patient endorsing poor p.o. intake and decreased urine output. No active chest pain shortness of breath nausea, vomiting or abdominal pain Diagnostic work-up in the ER revealed normal CBC, BMP revealed hyperkalemia potassium 6.0, normal anion gap, he is not acidotic, I will give him Kayexalate, calcium gluconate, insulin 10 units along with D50 amp, albuterol and hold off on bicarb for now, UA unremarkable, chest x-ray unremarkable EKG showed sinus bradycardia, is concerned because he uses a walker for ambulation but in last 2 to 3 days he has not been able to do so however no new strokelike sympto ms noticed he has baseline aphasia/dysarthria and right-sided hemiparesis, he sustained a fall and hit his right side of forehead however no active bleeding noticed, CT head unremarkable Review of Systems Const: Reports: chills, body aches, change in weight and fatigue Eyes: Denies: change in vision ENMT: Denies: throat pain Card: Denies: chest pain Resp: Denies: dyspnea GI: Reports: nausea and vomiting : Denies: flank pain Musc: Denies: neck pain Skin/Breast: Reports: lesions Neuro: Reports: difficulty walking and frequent falls Psych: Denies: anxiety Endo: Denies: polyuria Cole/Lymph: Denies: easy bruising All/Imm: Denies: urticaria Medications/Allergies Home Medications Medication Instructions Recorded Confirmed Last Taken Type alendronate 70 mg tablet 70 mg PO Q7D tab 07/09/20 09/03/20 08/31/20 History apixaban 5 mg tablet 5 mg PO BID@07/09/20 09/03/20 09/03/20 History aspirin 81 mg tablet,delayed 81 mg PO DAILY@89907/09/20 09/03/20 09/03/20 History release lisinopril 30 mg tablet 30 mg PO DAILY@89907/09/20 09/03/20 09/03/20 History montelukast 10 mg tablet 10 mg PO DAILY@209907/09/20 09/03/20 09/02/20 History pantoprazole 40 mg tablet,delayed 40 mg PO DAILY 07/09/20 09/03/20 09/02/20 History release tramadol 50 mg tablet 50 mg PO TID PRN 07/09/20 09/03/20 Unknown History venlafaxine 150 mg tablet,extended 150 mg PO DAILY@89907/09/20 09/03/2008/08 History release 24 hr amoxicillin-pot clavulanate 1 tab PO BID 10 Days #20 tab 09/03/20 Unknown Rx [Augmentin] ascorbic acid (vitamin C) [Vitamin 1 g PO DAILY@209909/03/20 09/03/20 09/02/20 History C] atorvastatin 80 mg PO DAILY@209909/03/20 09/03/20 09/02/20 History cephalexin 500 mg PO QID 09/03/20 09/03/20 09/03/20 History cetirizine 10 mg PO DAILY@89909/03/20 09/03/20 09/03/20 History cholecalciferol (vitamin D3) 25 mcg PO BID@09/03/20 09/03/20 09/03/20 History [Vitamin D3] metoprolol tartrate 100 mg PO BID@09/03/20 09/03/20 09/03/20 History multivitamin 1 tab PO DAILY@89909/03/20 09/03/20 09/03/20 History omega-3 fatty acids-vitamin E 1 cap PO DAILY@89909/03/20 09/03/20 09/03/20 History [Fish Oil] sulfamethoxazole-trimethoprim 1 tab PO BID 09/03/20 09/03/20 09/03/20 History [Bactrim DS] sulfamethoxazole-trimethoprim 2 tab PO Q12H 10 Days #40 tab 09/03/20 Unknown Rx [Bactrim DS] Allergies Allergy/AdvReac Type Severity Reaction Status Date / Time acetylcysteine Allergy nausea/vomi Verified 09/03/20 12:27 ting PFSH Acute PFSH: Medical History (Updated 09/09/20 @ 20:24 by Chante Desir MD) Aphasia CAD (coronary artery disease) Cellulitis of face CKD (chronic kidney disease) CVA (cerebral vascular accident) Right hemiparesis Surgical History (Updated 09/09/20 @ 20:24 by Chante Desir MD) H/O hernia repair History of cardiac cath Family History (Updated 09/09/20 @ 20:25 by Chante Desir MD) Other Cancer Social History (Updated 09/09/20 @ 20:25 by Chante Desir MD) Smoking and tobacco status: former smoker Alcohol intake: never Substance/Drug Use: never Household members: spouse Housing: House Vitals/I&O/Wt Last Vital Signs Temp 98.1 F 09/09/20 15:21 Pulse 57 L 09/09/20 20:00 Resp 19 H 09/09/20 20:00 BP 120/76 09/09/20 20:00 Pulse Ox 97 09/09/20 20:00 Weight last 48 hrs Weight 79.379 kg Physical Exam Narrative: EXAM NARRATIVE: Elderly male Appears stated age Clinically looks dehydrated Right-sided hemiparesis Dysarthria noted EOMI, PERRLA GCS 15 awake alert oriented x3 at the bedside S1, S2 sinus rhythm Abdomen soft nontender bowel sound present Lower extremity no edema gangrene ulcer No new strokelike findings Appropriate mood and affect No joint swelling Right forehead bruise noticed without any active bleeding, mild swelling Data : 09/09/20 16:25 09/09/20 16:25 A&P Assessment and plan (1) MEO (acute kidney injury): Status: Acute (2) Abrasion of face: Status: Acute Qualifiers: Encounter type: initial encounter Qualified Code(s): S00.81XA - Abrasion of other part of head, initial encounter (3) Hyperkalemia: Status: Acute Additional A&P Information Acute on chronic kidney disease This seems secondary to dehydration and use of Bactrim Will start normal saline at 75 mL/h Face cellulitis has improved discontinue antibiotic Hold lisinopril Anticipating improvement with fluid resuscitation Patient does not have a learning center coordinator would recommend outpatient follow-up, is stating that he developed contrast-induced nephropathy after his cardiac cath and since then his kidney function has been abnormal Recurrent CVAs Last CVA 5 months ago He is on Eliquis is endorsing recurrent falls at home but would like to continue his antico agulation for now because of his history of recurrent strokes No new strokelike findings noted I will decrease the dose of Eliquis to 2.5 twice a day because of worsening creatinine PT evaluation in the morning Check TSH and B12 level Hyperkalemia: Given calcium gluconate, Kayexalate, albuterol, insulin and D50 He is not acidotic, EKG showing sinus bradycardia, hold metoprolol Full code Renal dialysis diet DVT prophylaxis not indicated currently on low-dose of Eliquis He is vaccinated with mRNA vaccine, completed both doses Attestations Medical Necessity Statement*: Anticipating discharge within 48 hours overnight monitoring needed because of risk of worsening kidney function Time Spent in Patient Care: 16 - 35 minutes Coding Level of Care Code Acute 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
--- NOTE | 2020-09-09 20:51 | PC.NURSE ---
Pt resting, at bedside. Repositioned for comfort; no further needs identified at this time.
[2020-09-09] MEDS: insulin regular-human 100 units/1 mL 10 UNIT IVP (20:56)
[2020-09-09] MEDS: calcium gluconate 0.1 gm/mL 10% SDV 10mL 1 GM IVP (21:03)
[2020-09-09] MEDS: dextrose 50% syringe 50 mL 25 ML IVP (21:03)
[2020-09-09] MEDS: sodium polystyrene sulfonate 15 gm/60 mL Btl PO (21:03)
[2020-09-09] MEDS: sodium chloride 0.9% 1,000 ML 75 ML IV (21:04)
[2020-09-09 21:54] VITALS: BP 122/80; PULSE 85; RESP 22; O2SAT 95
[2020-09-09 22:05] LABS: Thyroid Stimulating Hormone 0.51 uIU/mL (0.27-4.20); Vitamin B12 616 pg/mL (232-1245)
[2020-09-10] VITALS (11 sets, daily range): BP systolic 105–145; BP diastolic 62–83; PULSE 69–100; RESP 16–24; TEMP 36.7–36.9; O2SAT 95–98; BMI 24.9
[2020-09-10] MEDS: apixaban 5 mg Tablet 2.5 MG PO ×2 (04:03→16:18)
[2020-09-10] MEDS: atorvastatin 40 mg Tablet 80 MG PO ×2 (04:03→21:19)
[2020-09-10 04:37] LABS: Blood Urea Nitrogen 30 mg/dL (8-23); Carbon Dioxide 22 mmol/L (22-29); Chloride 97 mmol/L (98-107); Glucose 86 mg/dL (65-115); Osmolality Calculated 277 mOsm/kg (285-295); Sodium 131 mmol/L (136-145)
[2020-09-10] MEDS: aspirin 81 mg EC Tablet PO (09:32)
[2020-09-10] MEDS: pantoprazole DR 40 mg Tablet PO (09:32)
--- NOTE | 2020-09-10 10:55 | PC.NURSE ---
NS due at 0950 moved to 1230 d/t delay in infusion of previous bag. previous bag still running.
--- NOTE | 2020-09-10 12:36 | CT_ITS ---
WS: [id number] CT LUMBAR SPINE, noncontrast. HISTORY: difficulty walking TECHNIQUE: Contiguous 2.5 mm axial imaging are performed. Sagittal and coronal reformats are submitte d and reviewed. All CT scans at [facility] use at least one of these dose optimization te chniques: automated exposure control; mA and/or kV adjustment per patient size (includes targeted exa ms where dose is matched to clinical indication); or iterative reconstruction. IV contrast: None DLP: 1848.41 mGy.cm COMPARISON: None available. Severe degenerative changes throughout the lumbar spine. LEFT curvature of the lumbar spine with diff use osteopenia and advanced degenerative disc disease. Endplate osteophytes at all vertebral levels. L3 and L4 retrolisthesis by 4 mm. No fractures. Bilateral pars defects at L5. Endovascular stent grafting of the abdominal aorta. Very large [place] abdominal aortic aneurysm is in completely visualized but previously described on 07/15/2020. L1-2: Diffuse osteophytic ridging and annular disc bulging. Bilateral facet joint arthritis. Moderate to severe bilateral subarticular stenosis and mild bilateral foraminal stenosis. L2-3: Marked annular disc bulging and osteophytic ridging. Vertebral body osteophytes encroach upon t he ventral thecal sac. Osteophytes extend into the lateral and subarticular recesses causing signific ant stenosis. Mild central stenosis and bilateral foraminal stenosis, RIGHT greater than LEFT. L3-4: Diffuse osteophytic ridging with osteophytes encroaching upon the ventral thecal sac causing de formity. Moderate central stenosis with severe osteophyte encroachment into the lateral recesses and subarticular foramina. Mild RIGHT with severe LEFT foraminal stenosis. L4-5: Diffuse osteophytic ridging and annular disc bulging. Bilateral moderate facet joint arthritis. Osteophytes extend into the LEFT paracentral portion of the thecal sac. Severe LEFT subarticular rec ess and foraminal stenosis. Moderate on the RIGHT. L5-S1: Broad-based disc bulging to the RIGHT causing mild RIGHT subarticular recess and foraminal pk nosis. Mild bilateral facet joint arthritis. Age-indeterminate but at least partially healed L2 and L3 RIGHT transverse process fractures. Atrophied RIGHT kidney. CT/CT lumbar spine wo con* [id number] IMPRESSION: 1. 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 Multifocal a reas of stenosis. Majority of the stenosis is due to hypertrophic osteophyte di sease. 2. Moderate to severe bilateral subarticular recess stenosis at L1-2. 3. Mild central and bilateral foraminal stenosis at L2-3. 4. Moderate central stenosis with significant osteophyte encroachment into the lateral recesses and subarticular foramen at at L3-4 with severe LEFT foramina l stenosis. 5. LEFT subarticular recess and foraminal stenosis is severe with moderate on the RIGHT at L4-5. 6. Mild RIGHT subarticular recess and foraminal stenosis at L5-S1. 7. Bilateral pars defects at L5. 8. Status post endovascular stent grafting of the abdominal aorta. 9. At least subacute to remote fractures involving the RIGHT L2 and L3 transve rse processes.
--- NOTE | 2020-09-10 12:36 | CT_ITS ---
WS: [id number] CT THORACIC SPINE HISTORY: difficulty walking TECHNIQUE: Contiguous 2.5 mm axial images are reviewed to thoracic spine. Images are reformatted in s agittal and coronal planes. All CT scans at [facility] use at least one of these dose opt imization techniques: automated exposure control; mA and/or kV adjustment per patient size (includes targeted exams where dose is matched to clinical indication); or iterative reconstruction. DLP: 1215.91 mGy.cm COMPARISON: None available. Very slight straightening of the normal thoracic kyphosis. Minimal compression fracture involving the superior endplate of T3. Mild disc space narrowing throughout with small endplate osteophytes. Cervical vertebral body osteophytosis in the lower cervical spine. T1-2: No significant stenosis. T2-3: Normal. T3-4: No significant stenosis. T4-5: Very mild RIGHT foraminal narrowing. T5-6: Normal. T6-7: Normal. T7-8: Normal. T8-9: Vertebral body osteophytes causing mild foraminal narrowing. T9-10: Asymmetric hypertrophic bone formation on the LEFT. Facet joint osteophyte encroaching into t he LEFT lateral thecal sac with only mild foraminal narrowing on the LEFT. There is an additional timbo tral disc protrusion with mild deformity of the ventral thecal sac. T10-11: Small osteophytes encroach into the posterior lateral thecal sac with mild RIGHT foraminal n arrowing. T11-12: Bilateral hypertrophic changes involving the facet joint slightly greater on the RIGHT. Mode rate RIGHT and mild LEFT foraminal stenosis. Again noted is aneurysmal dilatation through the aortic arch with partial calcification. 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 Nevertheless this is been present on multiple prior years extending back at least u ntil 2016. CT/CT thoracic spin wo con* [id number] IMPRESSION: 1. No high-grade central or foraminal stenosis throughout the thoracic spine. 2. Age indeterminate but remote appearing minimal T3 compression fracture. 3. Moderate RIGHT foraminal stenosis at T11-12. Small central disc protrusion at T9-10 with minimal deformity of the ventral thecal sac.
[2020-09-10 13:35] LABS: Creatine Phosphokinase 55 U/L (39-308)
[2020-09-10] MEDS: sodium chloride 0.9% 1,000 ML 75 ML IV (17:01)
--- NOTE | 2020-09-10 18:12 | P.PN_ITS ---
Subjective Subjective: Interval history: He is hard of hearing, but currently denies any complaints. He is oriented x3. is accompanying him at bedside. He has had difficulty getting up to walk, requiring assistance reportedly from his menus to people. Previously walking with a walker. History of chronic back problems, prior CVA. Vitals/I&O/Wt Last Vital Signs Temp 98.4 F 09/10/20 15:58 Pulse 83 09/10/20 15:58 Resp 18 09/10/20 15:58 BP 112/70 09/10/20 15:58 Pulse Ox 97 09/10/20 15:58 09/10/20 09/10/20 09/10/20 06:59 14:59 22:59 Intake Total 1000 / 1000 Output Total 100 / 100 Balance 1000 / 1000 -100 / 900 Weight last 48 hrs Weight 76.657 kg Weight 79.379 kg Physical Exam Const: COMMON NORMALS: no acute distress, patient oriented x3 and alert GENERAL APPEARANCE: cooperative ORIENTATION/CONSCIOUSNESS: Yes awake OTHER : Hard of hearing, but answers questions, responds when spoken to loudly close to his ear. HENMT: COMMON NORMALS: oropharynx normal Neck/C-Spine: COMMON NORMALS: no meningeal signs and no JVD Resp: COMMON NORMALS: normal respiratory effort and clear to auscultation bilaterally AUSCULTATION: clear to auscultation bilaterally Cardio: COMMON NORMALS: no JVD, regular rhythm, S1 normal heart sound present, S2 normal heart sound present and No murmurs present (Cardio) RHYTHM: regular rhythm HEART SOUNDS: S1 normal heart sound present and S2 normal heart sound present GI: COMMON NORMALS: Normal to inspection, nondistended, normoactive bowel sounds present, Soft to palpation and non-tender PALPATION: Yes Soft to palpation Back/Pelvis: OTHER: Mild lower back pain with straight leg raise, but no s hooting pain Extremity: COMMON NORMALS: no joint enlargement and no pedal edema Neuro: RENY COMA SCALE: other (Somewhat sluggish, with hard of hearing, but cooperates well, follows commands.) COMMON NORMALS: patient oriented x3 and moves all extremities SENSORIUM/ORIENTATION: Yes alert MENINGEAL SIGNS: Yes no meningeal signs COORDINATION/BALANCE: [id number] test normal SPEECH: speech normal SENSORY EXAM: Yes Normal double simultaneous st imulation for sensation MOTOR EXAM: Pronator motor function not present ( Upper or lower.) and Other motor observations present (3+/5 BL LE) COORDINATION: [id number] test normal OTHER: No trouble tracking. Visual jones full to confrontation. Skin: COMMON NORMALS: no rashes or lesions noted GENERAL SKIN EXAM: no rashes or lesions noted Data : 09/09/20 16:25 09/10/20 04:10 Micro: Microbiology 09/09/20 21:31 Blood Culture - Preliminary Blood SPECIMEN COLLECTED 09/09/20 21:10 Blood Culture - Preliminary Blood SPECIMEN COLLECTED A&P Assessment and plan (1) Difficulty in walking: Acute metabolic encephalopathy if was present now appears to be resolving. Acute kidney injury appears to be improving. Hyperkalemia improved with treatment. He does have chronic problems with his back, normally walks with a walker. As well as history of prior CVA. Currently does not appear to exhibit new focal neurologic deficits. Here currently has been requiring assistance as per , who is concerned if things stayed that way would not be able to help him at home. Earlier reportedly required as many as 2 people to help him get up. We requested for orthostatic blood pressure assessment. COVID-19 antigen. CK, TSH requested and are normal. There is no sign of urinary tract infection. No sign of pneumonia on x-ray. He is not hypoxic. Blood pressure not orthostatic laying to sitting. We did request CT thoracic and lumbar spine, with finding of multilevel degenerative changes with neuroforaminal and central stenosis, as well as noted T3 compression fracture. He has not had severe pain. He appears to have cooperated well with therapy. We will go ahead and reassess with PT, OT. Discussed with his . He would benefit from continued therapy after discharge. If group home facility is not an option due to payment issues, perhaps home health could be considered if he is able to get up and around with minimal assistance required from his . Discussed other options including additional help from other family members or hiring caregiver. Status: Acute (2) MOE (acute kidney injury): Improving, creatinine down to 2.6. September 03 creatinine was noted 2.2. We do not have other more recent values. Discussed with him and his suspicion of chronic kidney disease. Discussed follow-up with nephrology, both verbalized agreement. Status: Acute (3) Hyperkalemia: Status: Acute Additional A&P Information Facial cellulitis: Resolving. Bactrim discontinued. Recurrent CVAs Last CVA 5 months ago He is on Eliquis is endorsing recurrent falls at home but would like to continue his anticoagulation for now because of his history of recurrent strokes No new strokelike findings noted Eliquis to 2.5 twice a day because of worsening creatinine Hyperkalemia: Resolved. Given calcium gluconate, Kayexalate, albuterol, insulin and D50 Attestations Medical Necessity Statement*: Continue hospitalization for reassessment of mobilization to allow return home where he lives with his elderly who is unable to assist him if he is requiring significant support to mobilize, reassessment of renal function response to gentle fluid challenge. Coding Level of Care Code Acute Licensed Psychologist Director for Art Villanueva Diagnoses Difficulty in walking R26.2 MOE (acute kidney injury) N17.9 Hyperkalemia E87.5
[2020-09-10 18:22] LABS: SARS Covid-2 Antigen Negative (Negative)
[2020-09-11 03:29] VITALS: BP 130/65; PULSE 109; RESP 23; TEMP 36.8; O2SAT 97
[2020-09-11 05:40] LABS: Basophils % 0.5 %; Eosinophils # 0.4 10^3/uL (0.0-0.8); Eosinophils % 5.5 %; Hematocrit 36.1 % (42.0-52.0); Hemoglobin 11.9 g/dL (11.7-16.6); Lymphocytes % 13.6 %; Mean Corpuscular Hemoglobin 31.3 pg (28.0-34.0); Mean Platelet Volume 10.5 fL (7.4-10.4); Monocytes # 0.9 10^3/uL (0.2-0.9); Monocytes % 11.4 %; Neutrophils # 5.19 10^3/uL (1.8-7.7); Neutrophils % 68.2 %; Nucleated Red Blood Cells % 0 %; Platelet Count 252 10^3/cmm (130-400); Red Cell Distribution Width 13.2 % (12.1-15.1); White Blood Count 7.6 10^3/uL (4.0-10.0)
--- NOTE | 2020-09-11 05:55 | PC.NURSE ---
Shift Note Frequent safety and comfort rounds continue. Orders and/or nursing care completed as indicated. Patient monitored for response to intervention and treatment(s). Education provided includes[how to use his call light and the importance of leaving his IV in his arm to maintain getting fluids and medications]. Patient and/or freight representative[verbalized understanding, but did require reinforcement along with another IV placement].
[2020-09-11 06:06] LABS: Blood Urea Nitrogen 22 mg/dL (8-23); Calcium 8.6 mg/dL (8.5-10.5); Carbon Dioxide 22 mmol/L (22-29); Chloride 97 mmol/L (98-107); Glucose 119 mg/dL (65-115); Osmolality Calculated 274 mOsm/kg (285-295); Sodium 130 mmol/L (136-145)
[2020-09-11 06:07] LABS: Anion Gap 16.3 (5-19); Potassium 5.3 mmol/L (3.5-5.1)
[2020-09-11 07:29] VITALS: BP 153/76; PULSE 115; RESP 18; TEMP 37.1; O2SAT 95
[2020-09-11] MEDS: pantoprazole DR 40 mg Tablet PO (07:45)
[2020-09-11] MEDS: apixaban 5 mg Tablet 2.5 MG PO ×2 (07:45→20:56)
[2020-09-11] MEDS: aspirin 81 mg EC Tablet PO (07:45)
[2020-09-11] MEDS: ondansetron 2 mg/ML SDV 2 mL 4 MG IVP (09:05)
--- NOTE | 2020-09-11 10:21 | PC.CHAP ---
Pastoral Care Encounter/Spiritual Assessment Type of Contact [] Declined attorney at law visit [] Patient/Family/Request visit [] Outpatient visit [] Follow-up visit [] Physician referral [] Code/Alert [X] Routine visit [] Staff referral [] Actively dying [] Patient sleeping [] Family support [] [] Out of room [] Palliative care [] [X] Receiving care in room [] Pre-surgical visit [] Trauma [x] Long length of stay [] ICU visit [] Other: Relational/Emotional Strength [x] Patient feels connected with others/family/visitors/staff [] Distress [] Loneliness/isolation [] Abandonment Spirituality of Patient [x] Person of Sneha [] Attends Jainism of their Sneha [x] Believes in Prayer [] Reads Bible or Muslim materials [] There are Spiritual issues to be addressed Launch Manager Interventions [x] Prayer [x] Active listening [x] Non-anxious presence [x] Spiritual/emotional support [] Crisis/trauma care [x] Spiritual counseling [] Bereavement support [] Provided bereavement packet [] Provided Bible/devotional materials [] Provided toy/stuffed animal, coloring book to patient or family member [] Provided Communion [] Anointing/[place] [] Salvation [x] Completed spiritual assessment [] Other: Impact on Illness or Injury [] Angry [x] Fearful [] Anxious [] Often cries [] Exhaustion [x] Unable to work [] Unable to attend mu-ism [] Unable to walk/stand [] Unable to read [] Unable to drive [] Unable to eat/drink [] Unable to sleep [] Unable to be with family [] Patient intubated [] Other: Summary he was sick at his stomic, his said she didn't know because of the complactions has had cancer what will need nto be done while is in [facility],or when he can go home +1 Time spent with patient 10 mins
[2020-09-11 11:28] VITALS: BP 144/77; PULSE 117; RESP 17; TEMP 36.8; O2SAT 95
--- NOTE | 2020-09-11 12:22 | P.PN_ITS ---
Subjective Subjective: Interval history: He did fairly well with physical therapy yesterday, got up. Today, however, he reported getting quite dizzy, was not able to work with PT or get up. Became nauseated, had to be given Zofran. Subsequently very sleepy, difficult to arouse. Vitals/I&O/Wt Last Vital Signs Temp 98.3 F 09/11/20 11:28 Pulse 117 H 09/11/20 11:28 Resp 17 09/11/20 11:28 BP 144/77 09/11/20 11:28 Pulse Ox 95 09/11/20 11:28 09/10/20 09/11/20 09/11/20 22:59 06:59 14:59 Intake Total 240 / 1240 0 / 0 Output Total 100 / 100 Balance 140 / 1140 0 / 0 Weight last 48 hrs Weight 76.657 kg Weight 79.379 kg Physical Exam Const: COMMON NORMALS: no acute distress GENERAL APPEARANCE: lethargic ORIENTATION/CONSCIOUSNESS: Yes lethargic OTHER: During my examination he is lethargic. HENMT: COMMON NORMALS: oropharynx normal Neck/C-Spine: COMMON NORMALS: no meningeal signs and no JVD Resp: COMMON NORMALS: normal respiratory effort and clear to auscultation bilaterally AUSCULTATION: clear to auscultation bilaterally Cardio: COMMON NORMALS: no JVD, regular rhythm, S1 normal heart sound present, S2 normal heart sound present and No murmurs present (Cardio) RHYTHM: regular rhythm HEART SOUNDS: S1 normal heart sound present and S2 normal heart sound present GI: COMMON NORMALS: Normal to inspection, nondistended, normoactive bowel sounds present, Soft to palpation and non-tender PALPATION: Yes Soft to palpation Back/Pelvis: OTHER: Mild lower back pain with straight leg raise, but no shooting pain Extremity: COMMON NORMALS: no joint enlargement and no pedal edema Neuro: COMMON NORMALS: moves all extremities SENSORIUM/ORIENTATION: Yes lethargic MENINGEAL SIGNS: Yes no meningeal signs Skin: COMMON NORMALS: no rashes or lesions noted GENERAL SKIN EXAM: no rashes or lesions noted Data : 09/11/20 04:39 09/11/20 04:39 Micro: Microbiology 09/09/20 21:31 Blood Culture - Preliminary Blood NEGATIVE TO DATE 09/09/20 21:10 Blood Culture - Preliminary Blood NEGATIVE TO DATE A&P Assessment and plan (1) Difficulty in walking: Today became dizzy, difficult to say for vertigo, but was visibly uncomfortable. Became nauseated, had to have Zofran. Subsequently somnolent. Difficult to arouse. Unclear whether he may have had vertigo, however, has history of prior CVA. Will request additional assessment by MRI brain. Another concern depending on how his mental status progresses through today may be secondary to over or under medication with venlafaxine given recent renal function fluctuations. For now the medication is on hold due to kidney injury. He otherwise did quite well with physical therapy yesterday. Pending additional reassessment given the above difficulties experienced today. Yesterday orthostatic blood pressures negative. CK, TSH normal. COVID-19 rapid antigen negative. No suggestion of pneumonia on chest x-ray. Urinalysis with UTI. CT thoracic and lumbar spine, with finding of multilevel degenerative changes with neuroforaminal and central stenosis, as well as noted T3 compression fracture. Discussed with his at bedside. Status: Acute (2) MOE (acute kidney injury): Improving. Creatinine down to 2.2. Status: Acute (3) Hyperkalemia: Potassium 5.3. Continue low potassium diet. Hold lisinopril. Status: Acute (4) Acute encephalopathy: As above Status: Acute (5) Degenerative joint disease of spine: Status: Acute Attestations Medical Necessity Statement*: Admission of over 2 midnights is going to needed for assessment and management of acute encephalopathy with fluctuating renal function, polypharmacy, possible vertigo, and gentleman with history of multiple prior CVA. Coding Level of Care Code Acute Education Faculty Member for g Fwd Diagnoses Difficulty in walking R26.2 MOE (acute kidney injury) N17.9 Hyperkalemia E87.5 Acute encephalopathy G93.40 Degenerative joint disease of spine M47.9
[2020-09-11 15:49] VITALS: BP 105/66; PULSE 111; RESP 18; TEMP 36.5; O2SAT 96
[2020-09-11 20:00] VITALS: BP 117/84; PULSE 117; RESP 18; TEMP 37.3; O2SAT 95
[2020-09-11] MEDS: atorvastatin 40 mg Tablet 80 MG PO (20:56)
[2020-09-11] MEDS: metoprolol tartrate 50 mg Tablet PO (20:56)
[2020-09-12 00:15] VITALS: BP 124/77; PULSE 75; RESP 18; TEMP 36.9; O2SAT 96
[2020-09-12 04:40] VITALS: BP 105/73; PULSE 85; RESP 18; TEMP 36.9; O2SAT 94
[2020-09-12 05:42] LABS: Basophils # 0.1 10^3/uL (0.0-0.1); Basophils % 0.7 %; Eosinophils # 0.7 10^3/uL (0.0-0.8); Eosinophils % 7.9 %; Hematocrit 40.7 % (42.0-52.0); Lymphocytes # 1.7 10^3/uL (0.8-4.8); Mean Corpuscular HGB Conc 31.9 g/dL (30.0-36.0); Mean Corpuscular Hemoglobin 30.8 pg (28.0-34.0); Mean Corpuscular Volume 96.4 fL (80-94); Mean Platelet Volume 10.5 fL (7.4-10.4); Monocytes # 1.1 10^3/uL (0.2-0.9); Monocytes % 13.5 %; Neutrophils # 4.75 10^3/uL (1.8-7.7); Neutrophils % 56.8 %; Nucleated Red Blood Cells % 0 %; Platelet Count 291 10^3/cmm (130-400); Red Blood Count 4.22 10^6/uL (4.1-5.3); Red Cell Distribution Width 13.5 % (12.1-15.1); White Blood Count 8.4 10^3/uL (4.0-10.0)
[2020-09-12 05:58] LABS: Alanine Aminotransferase 35 U/L (0-41); Albumin Level 3.3 g/dL (3.5-5.2); Alkaline Phosphatase 97 IU/L (40-130); Anion Gap 15.3 (5-19); Aspartate Amino Transferase 38 U/L (0-40); Blood Urea Nitrogen 20 mg/dL (8-23); Carbon Dioxide 23 mmol/L (22-29); Chloride 101 mmol/L (98-107); Globulin 3.6 g/dL (1.3-4.6); Glucose 100 mg/dL (65-115); Osmolality Calculated 281 mOsm/kg (285-295); Potassium 5.3 mmol/L (3.5-5.1); Sodium 134 mmol/L (136-145); Total Bilirubin 0.4 mg/dL (0.15-1.2); Total Protein 6.9 g/dL (6.6-8.7)
[2020-09-12 08:00] VITALS: BP 100/61; PULSE 79; RESP 14; TEMP 36.8; O2SAT 97
[2020-09-12] MEDS: apixaban 5 mg Tablet 2.5 MG PO ×2 (09:58→20:08)
[2020-09-12] MEDS: pantoprazole DR 40 mg Tablet PO (09:58)
[2020-09-12] MEDS: aspirin 81 mg EC Tablet PO (09:58)
[2020-09-12] MEDS: metoprolol tartrate 50 mg Tablet PO ×2 (09:58→20:08)
--- NOTE | 2020-09-12 10:15 | MR_ITS ---
WS: [id number] MRI BRAIN WITHOUT CONTRAST HISTORY: vertigo, Hx CVA COMPARISON: 04/24/2015, CT head 09/03/2020 TECHNIQUE: Diffusion imaging, multiplanar T1, T2 and FLAIR imaging obtained. No evidence for acute infarct or hemorrhage. Booker-white matter differentiation is normal. Moderate atrophy bilaterally. Moderate size remote LEFT MCA territory infarct. Moderate confluent per iventricular hyperintensities. Greatest involving the LEFT lateral ventricle and the area of prior in farct. There are multiple small lacunae in the [place] radiata on the LEFT. Ventricles and extra-axial spaces are prominent on the basis of atrophy. No inferior displacement of cerebellar tonsils. The sella turcica and pituitary gland are unremarkabl e. Dural venous sinuses and [place] of [place] demonstrate no abnormality on this unenhanced studies. Paranasal sinuses: Mucoperiosteal thickening in the RIGHT sphenoid sinus. There is a additional inter mediate signal within the LEFT sphenoid sinus from chronic sinus disease. Similar findings were seen on the prior examination. No air-fluid levels. Mastoid air cells: Normal. Calvarium and scalp: Intact. MR/MR head wo con* [id number] IMPRESSION: 1. No acute infarct. 2. Moderate atrophy remote LEFT MCA territory infarct. Numerous prior lacunar infarcts in the LEFT [place] radiata and moderate small vessel ischemic disease. 3. Sphenoid sinusitis.
[2020-09-12 11:47] VITALS: BP 111/61; PULSE 78; RESP 16; TEMP 36.8; O2SAT 97
--- NOTE | 2020-09-12 12:30 | PC.CHAP ---
Pastoral Care Encounter/Spiritual Assessment Type of Contact [] Declined oil field laborer visit [] Patient/Family/Request visit [] Outpatient visit [xx] Follow-up visit [] Physician referral [] Code/Alert [xx] Routine visit [] Staff referral [] Actively dying [] Patient sleeping [] Family support [] [] Out of room [] Palliative care [] [] Receiving care in room [] Pre-surgical visit [] Trauma [xx] Long length of stay [] ICU visit [] Other: Relational/Emotional Strength [xx] Patient feels connected with others/family/visitors/staff [] Distress [] Loneliness/isolation [] Abandonment Spirituality of Patient [xx] Person of Sneha [] Attends Sabianist of their Sneha [xx] Believes in Prayer [xx] Reads Bible or Mandaen materials [] There are Spiritual issues to be addressed Public Message Service Supervisor Interventions [xx] Prayer [xx] Active listening [xx] Non-anxious presence [] Spiritual/emotional support [] Crisis/trauma care [] Spiritual counseling [] Bereavement support [] Provided bereavement packet [] Provided Bible/devotional materials [] Provided toy/stuffed animal, coloring book to patient or family member [] Provided Communion [] Anointing/[place] [] Salvation [xx] Completed spiritual assessment [] Other: Impact on Illness or Injury [] Angry [] Fearful [] Anxious [] Often cries [] Exhaustion [] Unable to work [] Unable to attend taoism [] Unable to walk/stand [] Unable to read [] Unable to drive [] Unable to eat/drink [] Unable to sleep [] Unable to be with family [] Patient intubated [] Other: Summary Patient transferred to Med/Surg floor. Spouse was present. She and oil field laborer conversed as patient was not very communicative as he did not feel well. Patient stated he did feel better than when he arrived in [facility]. Time spent with patient 6 minutes
--- NOTE | 2020-09-12 14:35 | PC.NURSE ---
MRI Patient is off the med surg floor for scheduled MRI.
[2020-09-12 15:46] VITALS: BP 103/63; PULSE 72; RESP 14; TEMP 36.9; O2SAT 95
--- NOTE | 2020-09-12 17:14 | P.DS_ITS ---
Discharge Providers Date of Admission: 09/11/20 12:31 Date of Discharge: September 12, 2020 Attending Provider at Admission: Chante Desir MD Attending Provider at Discharge: Radames Joiner Primary Care Provider: David Escobar MD Diagnoses at Discharge Discharge Diagnosis (1) Difficulty in walking: Status: Acute (2) MOE (acute kidney injury): Status: Acute (3) Hyperkalemia: Status: Acute (4) Acute encephalopathy: Status: Acute (5) Degenerative joint disease of spine: Status: Acute Reason for Visit Reason for Visit: GENERAL WEAKNESS Hospital Course Hospital Course Pleasant 80-year-old gentleman with prior history of multiple CVA, chronic right-sided hemiparesis, aphasia, history of chronic back problems, following with pain clinic, history of chronic kidney disease, recently with facial cellulitis treated with Bactrim, Augmentin, was hospitalized after presenting with generalized weakness, difficulty walking, poor oral intake, decreased urine output, emesis, transient acute encephalopathy. Noted hyperkalemic on presentation with potassium of 6, with acute kidney injury, creatinine of 2.9. Baseline not entirely clear, but appears to be around 2.2. He received Kayexalate, calcium gluconate, insulin and dextrose, albuterol. Lisinopril was held. Bactrim was discontinued. Received fluid challenge, gentle IV hydration. Hyperkalemia had improved. MOE has been improving. During hospitalization due to some mental status change initially with lethargy, as well as nausea, vomiting, dizziness, venlafaxine has been held. Due to prior history of CVA, reported dizziness, as well as chronic focal findings and difficulty in determining whether fracture stroke may be present, was assessed by MRI which showed only old CVA. He has since been feeling much better. Has been working with physical therapy, getting up with a walker. Due to difficulties walking his back was assessed with thoracic and lumbar CT spine, with finding of age- indeterminate remote appearing minimal T3 compression fracture, moderate right foraminal stenosis at T11-12, small central disc protrusion at T9-T10, advanced degenerative spondylosis throughout lumbar spine, multifocal areas of stenosis with majority of stenosis due to hypertrophic osteophyte disease. Moderate to severe bilateral subarticular recess stenosis at L1-2, mild central and bilateral foraminal stenosis at L2-3, moderate central stenosis with significant osteophyte encroachment into the lateral recess and subarticular foramen at L3-4 with severe left femoral stenosis. Left subarticular recess and foraminal stenosis severe with moderate on the right at L4-5. Mild right subarticular recess and foraminal stenosis at L5-S1. Bilateral pars defects at L5. At least subacute to remote fractures involving right L2 and L3 transverse processes. Due to significant degenerative changes, compounded also by prior CVA, he would benefit from continued physical therapy which is requested for him through home health. Discussing with his she is agreeable with continuation of therapy at home with home health. Discussed follow-up with primary provider as well, consideration of discussion of referral to medical laboratory specialist. At the follow-up visit please additionally reassess renal function, potassium. For now he is asked to hold his usual venlafaxine dose of 150 mg. He will start in 2 days lower dose of venlafaxine 75 mg, however, please adjust as appropriate on reassessment of renal function. He is asked to hold lisinopril due to hyperkalemia, MOE. Antibiotics are discontinued, currently with noted resolution of facial cellulitis. He is asked to avoid Bactrim in the future. He is asked to follow-up with nephrology. Physical Exam Const: COMMON NORMALS: no acute distress GENERAL APPEARANCE: lethargic ORIENTATION/CONSCIOUSNESS: Yes lethargic OTHER: Awake, alert, pleasant, conversant but with moderate aphasia. HENMT: COMMON NORMALS: oropharynx normal Neck/C-Spine: COMMON NORMALS: no meningeal signs and no JVD Resp: COMMON NORMALS: normal respiratory effort and clear to auscultation bilaterally AUSCULTATION: clear to auscultation bilaterally Cardio: COMMON NORMALS: no JVD, regular rhythm, S1 normal heart sound present, S2 normal heart sound present and No murmurs present (Cardio) RHYTHM: regular rhythm HEART SOUNDS: S1 normal heart sound present and S2 normal heart sound present GI: COMMON NORMALS: Normal to inspection, nondistended, normoactive bowel sounds present, Soft to palpation and non-tender PALPATION: Yes Soft to palpation Back/Pelvis: OTHER: Mild lower back pain with straight leg raise, but no shooting pain Extremity: COMMON NORMALS: no joint enlargement and no pedal edema Neuro: RENY COMA SCALE: other (Somewhat sluggish, with hard of hearing, but cooperates well, follows commands.) COMMON NORMALS: moves all extremities SENSORIUM/ORIENTATION: Yes lethargic MENINGEAL SIGNS: Yes no meningeal signs COORDINATION/BALANCE: [id number] test normal SPEECH: abnormal speech Details: garbled (At least moderate chronic aphasia) SENSORY EXAM: Yes Normal double simultaneous stimulation for sensation MOTOR EXAM: Pronator motor function not present COORDINATION: [id number]-it-[id number] test normal OTHER: No trouble tracking. Skin: COMMON NORMALS: no rashes or lesions noted GENERAL SKIN EXAM: no rashes or lesions noted Discharge Data Data Completed and Pending: Completed Studies During Hospitalization Category Date Time Status CT lumbar spine w o con* [id number] Routi ne Cat Scan 09/10/20 12:[address] thoracic spin wo con* [id number] Rout ine Cat Scan 09/10/20 12:36 Completed XR chest 1V clive ble [id number] Stat Exams 09/09/20 17:49 Completed MR head wo con* [id number] Routine MRI 09/12/20 10:15 Completed Pending at discharge Category Date Time Status Blood Culture Sta t Lab 09/09/20 21:31 Results Complete Blood Co unt w/Auto AM LABS Lab 09/13/20 04:00 Ordered Complete Blood Co unt w/Auto AM LABS Lab 09/14/20 04:00 Ordered Comprehensive Met abolic Panel AM LA BS Lab 09/13/20 04:00 Ordered Comprehensive Met abolic Panel AM LA BS Lab 09/14/20 04:00 Ordered MR head wo con* [id number] Routine MRI 09/12/20 10:15 Unverified Labs from last 24 hours 09/12/20 09/12/20 04:35 04:35 WBC 8.4 RBC 4.22 Hgb 13.0 Hct 40.7 L MCV 96.4 H MCH 30.8 MCHC 31.9 RDW 13.5 Plt Count 291 MPV 10.5 H Neut % (Auto) 56.8 Lymph % (Auto) 20.0 [place] % (Auto) 13.5 Eos % (Auto) 7.9 Baso % (Auto) 0.7 Neut # (Auto) 4.75 Lymph # (Auto) 1.7 [place] # (Auto) 1.1 H Eos # (Auto) 0.7 Baso # (Auto) 0.1 Nucleated RBC % (a uto) 0 Nucleated RBCs # 0.0 Sodium 134 L Potassium 5.3 H Chloride 101 Carbon Dioxide 23 Anion Gap 15.3 BUN 20 Creatinine 2.1 H GFR Calculation Not Reportable Glucose 100 Calculated Osmolal ity 281 L Calcium 9.0 Total Bilirubin 0.4 AST 38 ALT 35 Alkaline Phosphata se 97 Total Protein 6.9 Albumin 3.3 L Globulin 3.6 Vitals: Last Vital Signs Temp 98.4 F 09/12/20 15:46 Pulse 72 09/12/20 15:46 Resp 14 09/12/20 15:46 BP 103/63 09/12/20 15:46 Pulse Ox 95 09/12/20 15:46 Discharge Plan Discharge Patient Disposition: Home Health Service Condition: Stable Prescriptions: New venlafaxine 75 mg tablet extended release 24hr 75 mg PO DAILY Qty: 14 RF: 0 Continued pantoprazole [Protonix] 40 mg tablet,delayed release (DR/EC) 40 mg PO DAILY@ RF: 0 Eliquis 5 mg tablet 5 mg PO BID@ RF: 0 tramadol 50 mg tablet 50 mg PO DAILY@ RF: 0 montelukast 10 mg tablet 10 mg PO DAILY@2099 RF: 0 alendronate 70 mg tablet 70 mg PO Q7D RF: 0 aspirin 81 mg tablet,delayed release (DR/EC) 81 mg PO DAILY@899 RF: 0 Flonase 50 mcg/actuation [place],Suspension 1 - 2 spray INTRANASAL DAILY PRN (Reason: Allergy Symptoms) RF: 0 atorvastatin 80 mg tablet 80 mg PO DAILY@2099 RF: 0 metoprolol tartrate 100 mg tablet 100 mg PO BID@ RF: 0 ascorbic acid (vitamin C) [Vitamin C] 1,000 mg Tablet 1 g PO DAILY@2099 RF: 0 cetirizine 10 mg Tablet 10 mg PO DAILY@899 RF: 0 Fish Oil 1,000 mg Capsule 1 cap PO DAILY@899 RF: 0 cholecalciferol (vitamin D3) [Vitamin D3] 25 mcg (1,000 unit) Tablet,Chewable 25 mcg PO BID@ RF: 0 Held multivitamin Tablet 1 tab PO DAILY@899 RF: 0 Hold Instructions: Resume on 10/10/20. Discontinued lisinopril 30 mg tablet 30 mg PO DAILY@ RF: 0 venlafaxine 150 mg tablet extended release 24hr 150 mg PO DAILY@0900 RF: 0 sulfamethoxazole-trimethoprim [Bactrim DS] 800-160 mg tablet 2 tab PO Q12H 10 Days Qty: 40 RF: 0 amoxicillin-pot clavulanate [Augmentin] 875-125 mg tablet 1 tab PO BID 10 Days Qty: 20 RF: 0 Discharge Orders: Discharge Order (Routine); Ordered 09/12/20 Ordered By: Radames Joiner Referrals: Nephrology [Provider Group] - 1 week [facility] ([facility]) [Outside] David Escobar MD [Primary Care Provider] - 4-7 days Discharge Diet: As Directed Discharge Activity: Increase activity as tolerated and As per PT/OT instructions Patient Instructions: Acute Kidney Injury (GEN), Potassium Content of Foods List (GEN), Hyperkalemia (GEN) Activity Restrictions/Additional Instructions: Please follow-up with your primary doctor to reassess your kidney function after acute kidney injury superimposed on chronic kidney disease, reassess potassium level due to hyperkalemia. Due to acute kidney injury, please hold venlafaxine usual dose for now. In 2 days time please start the lower dose prescribed venlafaxine 75 mg until you see your primary provider and kidney function is reassessed to determine whether he can resume your previous dose. Please avoid potassium supplements. Hold your multivitamin for now in case it contains potassium. Please avoid potassium rich foods (see attached list). Please hold lisinopril for now as it can also contribute to accumulation of potassium in your body and sometimes contribute to rising creatinine. Please talk to your doctor with regards to when you can restart lisinopril again. Please do not take Bactrim. Please continue to use your walker. Continue exercise as instructed by physical therapy. Please follow-up with your primary doctor with regards to multilevel degenerative changes seen on CT scan of your back with neuroforaminal and central canal narrowing. Discharge Attestations Time Spent in Discharge Care*: greater than 30 min Quality Metrics Clinical Quality Measures During this hospital stay, did patient experience: None Coding Level of Care Code Acute Chg FW DC note Diagnoses Difficulty in walking R26.2 MOE (acute kidney injury) N17.9 Hyperkalemia E87.5 Acute encephalopathy G93.40 Degenerative joint disease of spine M47.9
[2020-09-12 19:50] VITALS: BP 102/63; PULSE 83; RESP 18; TEMP 37.2; O2SAT 95
[2020-09-12] MEDS: atorvastatin 40 mg Tablet 80 MG PO (20:08)
[2020-09-13] VITALS (8 sets, daily range): BP systolic 88–118; BP diastolic 41–72; PULSE 61–98; RESP 15–20; TEMP 36.3–37.2; O2SAT 94–98
[2020-09-13 05:24] LABS: Basophils # 0.1 10^3/uL (0.0-0.1); Basophils % 0.7 %; Eosinophils # 0.7 10^3/uL (0.0-0.8); Eosinophils % 7.9 %; Hematocrit 39.5 % (42.0-52.0); Hemoglobin 12.9 g/dL (11.7-16.6); Lymphocytes # 2.2 10^3/uL (0.8-4.8); Lymphocytes % 25.6 %; Mean Corpuscular HGB Conc 32.7 g/dL (30.0-36.0); Mean Corpuscular Hemoglobin 31.1 pg (28.0-34.0); Mean Corpuscular Volume 95.2 fL (80-94); Mean Platelet Volume 10.1 fL (7.4-10.4); Monocytes % 11.9 %; Neutrophils # 4.65 10^3/uL (1.8-7.7); Nucleated Red Blood Cells % 0 %; Platelet Count 306 10^3/cmm (130-400); Red Blood Count 4.15 10^6/uL (4.1-5.3); Red Cell Distribution Width 13.5 % (12.1-15.1); White Blood Count 8.8 10^3/uL (4.0-10.0)
[2020-09-13 05:53] LABS: Alanine Aminotransferase 45 U/L (0-41); Albumin Level 3.3 g/dL (3.5-5.2); Alkaline Phosphatase 100 IU/L (40-130); Anion Gap 14.7 (5-19); Aspartate Amino Transferase 42 U/L (0-40); Blood Urea Nitrogen 24 mg/dL (8-23); Calcium 8.8 mg/dL (8.5-10.5); Carbon Dioxide 23 mmol/L (22-29); Chloride 98 mmol/L (98-107); Globulin 3.3 g/dL (1.3-4.6); Glucose 98 mg/dL (65-115); Osmolality Calculated 276 mOsm/kg (285-295); Potassium 4.7 mmol/L (3.5-5.1); Sodium 131 mmol/L (136-145); Total Bilirubin 0.4 mg/dL (0.15-1.2); Total Protein 6.6 g/dL (6.6-8.7)
--- NOTE | 2020-09-13 11:07 | P.PN_ITS ---
Subjective Subjective: Interval history: Yesterday just prior to discharge ate well. Then was getting up with the nurse to the bathroom, but was having more difficulty walking, nurse had to support him quite a bit. [place] dizzy. Subsequently became nauseated, vomited. Was unsteady on his legs. is concerned that he has a tendency to fall over backwards. She would not be able to catch him. At the moment while resting in bed he denies dizziness. Currently he is feeling okay. Denies chest pain or pressure. Vitals/I&O/Wt Last Vital Signs Temp 97.6 F 09/13/20 08:52 Pulse 82 09/13/20 08:52 Resp 15 09/13/20 08:52 BP 88/41 09/13/20 08:52 Pulse Ox 97 09/13/20 08:52 09/12/20 09/13/20 09/13/20 22:59 06:59 14:59 Intake Total 240 / 720 Balance 240 / 720 Physical Exam Const: COMMON NORMALS: no acute distress GENERAL APPEARANCE: lethargic ORIENTATION/CONSCIOUSNESS: Yes lethargic OTHER: Awake, alert, pleasant, conversant but with moderate aphasia. HENMT: COMMON NORMALS: oropharynx normal Neck/C-Spine: COMMON NORMALS: no meningeal signs and no JVD Resp: COMMON NORMALS: normal respiratory effort and clear to auscultation bilaterally AUSCULTATION: clear to auscultation bilaterally Cardio: COMMON NORMALS: no JVD, regular rhythm, S1 normal heart sound present, S2 normal heart sound present and No murmurs present (Cardio) RHYTHM: regular rhythm HEART SOUNDS: S1 normal heart sound present and S2 normal heart sound present GI: COMMON NORMALS: Normal to inspection, nondistended, normoactive bowel sounds present, Soft to palpation and non-tender PALPATION: Yes Soft to palpation Back/Pelvis: OTHER: Mild lower back pain with straight leg raise, but no shooting pain Extremity: COMMON NORMALS: no joint enlargement and no pedal edema Neuro: RENY COMA SCALE: other (Somewhat sluggish, with hard of hearing, but cooperates well, follows commands.) COMMON NORMALS: moves all extremities SENSORIUM/ORIENTATION: Yes lethargic MENINGEAL SIGNS: Yes no meningeal signs COORDINATION/BALANCE: [id number] test normal SPEECH: abnormal speech Details: garbled (At least moderate chronic aphasia) SENSORY EXAM: Yes Normal double simultaneous stimulation for sensation MOTOR EXAM: Pronator motor function not present COORDINATION: [id number]-ap-[id number] test normal OTHER: No trouble tracking. Skin: COMMON NORMALS: no rashes or lesions noted GENERAL SKIN EXAM: no rashes or lesions noted Data : 09/13/20 04:40 09/13/20 04:40 A&P Assessment and plan (1) Difficulty in walking: Yesterday prior to discharge had again difficulty getting to the bathroom, unsteady in his legs, felt dizzy, subsequently vomited. Added meclizine as needed. Unfortunately appears to have combination of prior CVA, with gait difficulties, chronic right-sided weakness, combined with severe degenerative changes of his spine, as well as currently episodes of vertigo. reports tendency to fall over backwards even with walker. She would not be able to support or catch him if he were to be falling. At this time continue meclizine. Continue working with physical therapy. Will reassess orthostatic blood pressure as well. Discussed with case management continued pursuit of placement to retirement facility given his significant difficulties with mobilization. He otherwise is motivated. MRI brain with multiple prior strokes. Venlafaxine on hold. Prior orthostatic blood pressures negative. CK, TSH normal. COVID-19 rapid antigen negative. No suggestion of pneumonia on chest x-ray. Urinalysis with UTI. CT thoracic and lumbar spine, with finding of multilevel degenerative changes with neuroforaminal and central stenosis, as well as noted T3 compression fracture. Status: Acute (2) MOE (acute kidney injury): Improving. Appears to have returned to his prior baseline. Status: Acute (3) Hyperkalemia: Resolved. Continue low potassium diet. Hold lisinopril. Status: Acute (4) Acute encephalopathy: As above Status: Acute (5) Degenerative joint disease of spine: Status: Acute Attestations Medical Necessity Statement*: Continue admission for assessment and management of difficulty with mobilization even with a walker, unsteady gait, episodes of vertigo, in a gentleman with multiple prior CVA, severe degenerative changes of his back, advanced age, unable currently to return home safely living only with elderly who could not assist him in case of loss of balance or fall. 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
[2020-09-13] MEDS: apixaban 5 mg Tablet 2.5 MG PO ×2 (11:15→21:20)
[2020-09-13] MEDS: aspirin 81 mg EC Tablet PO (11:16)
[2020-09-13] MEDS: pantoprazole DR 40 mg Tablet PO (11:17)
[2020-09-13] MEDS: metoprolol tartrate 50 mg Tablet PO ×2 (11:20→21:20)
[2020-09-13] MEDS: atorvastatin 40 mg Tablet 80 MG PO (21:20)
[2020-09-14 03:42] VITALS: BP 100/65; PULSE 68; RESP 18; TEMP 36.4; O2SAT 97
[2020-09-14 05:04] LABS: Basophils # 0.1 10^3/uL (0.0-0.1); Basophils % 0.7 %; Eosinophils # 0.7 10^3/uL (0.0-0.8); Eosinophils % 8.5 %; Hematocrit 39.8 % (42.0-52.0); Hemoglobin 12.8 g/dL (11.7-16.6); Lymphocytes # 2.4 10^3/uL (0.8-4.8); Lymphocytes % 27.4 %; Mean Corpuscular HGB Conc 32.2 g/dL (30.0-36.0); Mean Corpuscular Hemoglobin 30.4 pg (28.0-34.0); Mean Corpuscular Volume 94.5 fL (80-94); Mean Platelet Volume 9.7 fL (7.4-10.4); Monocytes % 11.3 %; Neutrophils # 4.41 10^3/uL (1.8-7.7); Neutrophils % 50.8 %; Nucleated Red Blood Cells % 0 %; Platelet Count 329 10^3/cmm (130-400); Red Blood Count 4.21 10^6/uL (4.1-5.3); Red Cell Distribution Width 13.4 % (12.1-15.1); White Blood Count 8.7 10^3/uL (4.0-10.0)
[2020-09-14 05:29] LABS: Alanine Aminotransferase 42 U/L (0-41); Albumin Level 3.4 g/dL (3.5-5.2); Alkaline Phosphatase 93 IU/L (40-130); Anion Gap 15.7 (5-19); Aspartate Amino Transferase 39 U/L (0-40); Blood Urea Nitrogen 21 mg/dL (8-23); Calcium 8.6 mg/dL (8.5-10.5); Carbon Dioxide 23 mmol/L (22-29); Chloride 97 mmol/L (98-107); Glucose 100 mg/dL (65-115); Osmolality Calculated 275 mOsm/kg (285-295); Potassium 4.7 mmol/L (3.5-5.1); Sodium 131 mmol/L (136-145); Total Bilirubin 0.4 mg/dL (0.15-1.2); Total Protein 6.4 g/dL (6.6-8.7)
[2020-09-14 07:29] VITALS: BP 119/72; PULSE 81; RESP 20; TEMP 36.9; O2SAT 98
[2020-09-14] MEDS: aspirin 81 mg EC Tablet PO (08:29)
[2020-09-14] MEDS: apixaban 5 mg Tablet 2.5 MG PO ×2 (08:30→21:22)
[2020-09-14] MEDS: metoprolol tartrate 50 mg Tablet PO ×2 (08:30→21:22)
[2020-09-14] MEDS: pantoprazole DR 40 mg Tablet PO (08:30)
[2020-09-14 12:00] VITALS: BP 99/62; PULSE 68; RESP 20; TEMP 36.8; O2SAT 95
--- NOTE | 2020-09-14 12:31 | PM.PN ---
Subjective Subjective: Interval history: Currently sitting up in a chair. Denies dizziness. Denies chest pain or pressure. Denies trouble breathing. No nausea. So far has not had recurrent vomiting. No abdominal discomfort. Vitals/I&O/Wt Last Vital Signs Temp 98.2 F 09/14/20 12:00 Pulse 68 09/14/20 12:00 Resp 20 H 09/14/20 12:00 BP 99/62 09/14/20 12:00 Pulse Ox 95 09/14/20 12:00 09/13/20 09/14/20 09/14/20 22:59 06:59 14:59 Intake Total 980 / 980 Output Total 0 / 0 Balance 980 / 980 0 / 980 Physical Exam Const: COMMON NORMALS: no acute distress GENERAL APPEARANCE: lethargic ORIENTATION/CONSCIOUSNESS: Yes lethargic OTHER: Awake, alert, pleasant, conversant but with moderate to severe aphasia. HENMT: COMMON NORMALS: oropharynx normal Neck/C-Spine: COMMON NORMALS: no meningeal signs and no JVD Resp: COMMON NORMALS: normal respiratory effort and clear to auscultation bilaterally AUSCULTATION: clear to auscultation bilaterally Cardio: COMMON NORMALS: no JVD, regular rhythm, S1 normal heart sound present, S2 normal heart sound present and No murmurs present (Cardio) RHYTHM: regular rhythm HEART SOUNDS: S1 normal heart sound present and S2 normal heart sound present GI: COMMON NORMALS: Normal to inspection, nondistended, normoactive bowel sounds present, Soft to palpation and non-tender PALPATION: Yes Soft to palpation Back/Pelvis: OTHER: Mild lower back pain with straight leg raise, but no shooting pain Extremity: COMMON NORMALS: no joint enlargement and no pedal edema Neuro: RENY COMA SCALE: other (Somewhat sluggish, with hard of hearing, but cooperates well, follows commands.) COMMON NORMALS: moves all extremities SENSORIUM/ORIENTATION: Yes lethargic MENINGEAL SIGNS: Yes no meningeal signs COORDINATION/BALANCE: [id number]-ow-[id number] test normal SPEECH: abnormal speech Details: garbled (At least moderate chronic aphasia) SENSORY EXAM: Yes Normal double simultaneous stimulation for sensation MOTOR EXAM: Pronator motor function not present COORDINATION: [id number]-qs-pvee test normal OTHER: No trouble tracking. Skin: COMMON NORMALS: no rashes or lesions noted GENERAL SKIN EXAM: no rashes or lesions noted Data : 09/14/20 04:33 09/14/20 04:33 A&P Assessment and plan (1) Difficulty in walking: Continue meclizine as needed for any episodes of vertigo. Repeat orthostatic blood pressure with mild decrease from laying to sitting from 118-108 systolic blood pressure. Renal function continues to improve. Will trial to resume lower dose of venlafaxine to see if might tolerate continuation at discharge. Continue attempts to mobilize with physical therapy. Attempts at discharge home unsuccessful. Unfortunately appears to have combination of prior CVA, with gait difficulties, chronic right-sided weakness, combined with severe degenerative changes of his spine, as well as currently episodes of vertigo. reports tendency to fall over backwards even with walker. She would not be able to support or catch him if he were to be falling. At this time continue meclizine. Continue working with physical therapy. Discussed with case management continued pursuit of placement to [facility] given his significant difficulties with mobilization. He otherwise is motivated. MRI brain with multiple prior strokes. Venlafaxine on hold. Prior orthostatic blood pressures negative. CK, TSH normal. COVID-19 rapid antigen negative. No suggestion of pneumonia on chest x-ray. Urinalysis with UTI. CT thoracic and lumbar spine, with finding of multilevel degenerative changes with neuroforaminal and central stenosis, as well as noted T3 compression fracture. Status: Acute (2) MOE (acute kidney injury): Improving. Appears to have returned to his prior baseline. Status: Acute (3) Hyperkalemia: Resolved. Continue low potassium diet. Hold lisinopril. Status: Acute (4) Acute encephalopathy: As above Status: Acute (5) Degenerative joint disease of spine: Status: Acute Attestations Medical Necessity Statement*: Continue admission for attempted resumption of venlafaxine to see if may be able to continue after discharge, optimization of treatment of episodes of vertigo, continued attempts at mobilization, physical therapy secondary to multifactorial inability to ambulate, with multiple prior CVA, with chronic right-sided weakness, with severe degenerative changes of the spine, episodic vertigo. Unable to return home. Coding Level of Care Code Acute [employer]essel [employer] for [employer] Diagnoses Difficulty in walking R26.2 MOE (acute kidney injury) N17.9 Hyperkalemia E87.5 Acute encephalopathy G93.40 Degenerative joint disease of spine M47.9
--- NOTE | 2020-09-14 12:34 | PC.SOCIAL ---
IMM Update Pg. 2of IMM Updated and reviewed with patient, verbalized understanding. Copy provided. Initialed, dated, and timed copy in chart.
[2020-09-14 16:00] VITALS: BP 109/66; PULSE 67; RESP 16; TEMP 36.8; O2SAT 92
[2020-09-14] MEDS: venlafaxine 75 mg Tablet 37.5 MG PO (17:36)
--- NOTE | 2020-09-14 18:30 | PC.NURSE ---
incontinent of urine. clean depend put on, dario area cleaned, protective barrier cream put on. staff assist x2
[2020-09-14 20:00] VITALS: BP 114/67; PULSE 84; RESP 18; TEMP 37.1; O2SAT 95
[2020-09-14] MEDS: atorvastatin 40 mg Tablet 80 MG PO (21:22)
[2020-09-15] VITALS: BP 102/63; PULSE 65; RESP 18; TEMP 36.9; O2SAT 92
[2020-09-15 03:58] VITALS: BP 120/78; PULSE 75; RESP 18; TEMP 37.1; O2SAT 97
--- NOTE | 2020-09-15 06:33 | PC.NURSE ---
Shift Note Frequent safety and comfort rounds continue. Orders and/or nursing care completed as indicated. Patient monitored for response to intervention and treatment(s). Education provided includes the use of call light when needing assistance. Patient and/or inside sales account representative verbalized understanding, yet requires reinforcement. Will continue to monitor.
[2020-09-15 07:52] VITALS: BP 106/66; BP 109/63; PULSE 113; PULSE 77; RESP 18; TEMP 36.3; TEMP 36.8; O2SAT 94; O2SAT 96
[2020-09-15] MEDS: aspirin 81 mg EC Tablet PO (09:02)
[2020-09-15] MEDS: pantoprazole DR 40 mg Tablet PO (09:02)
[2020-09-15] MEDS: venlafaxine 75 mg Tablet 37.5 MG PO (09:02)
[2020-09-15] MEDS: apixaban 5 mg Tablet 2.5 MG PO (09:02)
[2020-09-15] MEDS: metoprolol tartrate 50 mg Tablet PO (09:02)
[2020-09-15 10:28] LABS: SARS Covid-2 Antigen Negative (Negative)
--- NOTE | 2020-09-15 11:22 | P.DS_ITS ---
Discharge Providers Date of Admission: 09/11/20 12:31 Date of Discharge: September 15, 2020 Attending Provider at Admission: Chante Desir MD Attending Provider at Discharge: Juan Castle MD Primary Care Provider: David Escobar MD Diagnoses at Discharge Discharge Diagnosis (1) Difficulty in walking: Status: Acute (2) MOE (acute kidney injury): Status: Acute (3) Hyperkalemia: Status: Acute (4) Acute encephalopathy: Status: Acute (5) Degenerative joint disease of spine: Status: Acute Reason for Visit Reason for Visit: GENERAL WEAKNESS Hospital Course Hospital Course Pleasant 80-year-old gentleman with prior history of multiple CVA, chronic right-sided hemiparesis, aphasia, history of chronic back problems, following with pain clinic, history of chronic kidney disease, recently with facial cellulitis treated with Bactrim, Augmentin, was hospitalized after presenting with generalized weakness, difficulty walking, poor oral intake, decreased urine output, emesis, transient acute encephalopathy. Noted hyperkalemic on presentation with potassium of 6, with acute kidney injury, creatinine of 2.9. Baseline not entirely clear, but appears to be around 2.2. He received Kayexalate, calcium gluconate, insulin and dextrose, albuterol. Lisinopril was held. Bactrim was discontinued. Received fluid challenge, gentle IV hydration. Hyperkalemia had improved. MOE has been improving. During hospitalization due to some mental status change initially with lethargy, as well as nausea, vomiting, dizziness, venlafaxine has been held. Due to prior history of CVA, reported dizziness, as well as chronic focal findings and difficulty in determining whether fracture stroke may be present, was assessed by MRI which showed only old CVA. He has since been feeling much better. Has been working with physical therapy, getting up with a walker. Due to difficulties walking h is back was assessed with thoracic and lumbar CT spine, with finding of age- indeterminate remote appearing minimal T3 compression fracture, moderate right foraminal stenosis at T11-12, small central disc protrusion at T9-T10, advanced degenerative spondylosis throughout lumbar spine, multifocal areas of stenosis with majority of stenosis due to hypertrophic osteophyte disease. Moderate to severe bilateral subarticular recess stenosis at L1-2, mild central and bilateral foraminal stenosis at L2-3, moderate central stenosis with significant osteophyte encroachment into the lateral recess and subarticular foramen at L3-4 with severe left femoral stenosis. Left subarticular recess and foraminal stenosis severe with moderate on the right at L4-5. Mild right subarticular recess and foraminal stenosis at L5-S1. Bilateral pars defects at L5. At least subacute to remote fractures involving right L2 and L3 transverse processes. Due to significant degenerative changes, compounded also by prior CVA, he would benefit from continued physical therapy which is requested for him through home health. Discussing with his she is agreeable with continuation of therapy at home with home health. Discussed follow-up with primary provider as well, consideration of discussion of referral to contracts specialist. Patient remained in hospital after initial attempts at discharge secondary to concern of falls, dizziness. Toprol dosing was adjusted. Venlafaxine was eventually reinitiated. Meclizine was added as needed. MRI of brain was obtained which demonstrated prior left MCA territory infarct, but no acute infarct. Secondary to concerns of falling, weakness, he was transferred to a residential facility for further rehabilitation. Physical Exam Narrative: EXAM NARRATIVE: General exam no apparent distress Neurologic: Conversive, right upper extremity weakness noted. Neck is supple no lymphadenopathy thyromegaly Cardiovascular regular rate and rhythm Lungs clear Abdomen is soft with positive bowel sounds Extremities no cyanosis clubbing or edema Discharge Data Data Completed and Pending: Completed Studies During Hospitalization Category Date Time Status CT lumbar spine w o con* [id number] Routi ne Cat Scan 09/10/20 12:[address] thoracic spin wo con* [id number] Rout ine Cat Scan 09/10/20 12:36 Completed XR chest 1V clive ble [id number] Stat Exams 09/09/20 17:49 Completed MR head wo con* [id number] Routine MRI 09/12/20 10:15 Completed Pending at discharge Category Date Time Status Comprehensive Met abolic Panel AM LA BS Lab 09/16/20 04:00 Ordered Comprehensive Met abolic Panel AM LA BS Lab 09/17/20 04:00 Ordered Comprehensive Met abolic Panel Routi ne Lab 09/15/20 06:51 Ordered MR head wo con* [id number] Routine MRI 09/12/20 10:15 Unverified Labs from last 24 hours 09/15/20 09/15/20 09:00 04:27 Sodium Cancelled Potassium Cancelled Chloride Cancelled Carbon Dioxide Cancelled Anion Gap Cancelled BUN Cancelled Creatinine Cancelled GFR Calculation Cancelled Glucose Cancelled Calculated Osmolal ity Cancelled Calcium Cancelled Total Bilirubin Cancelled AST Cancelled ALT Cancelled Alkaline Phosphata se Cancelled Total Protein Cancelled Albumin Cancelled Globulin Cancelled SARS-CoV-2 Ag (Rap id) Negative Vitals: Last Vital Signs Temp 97.4 F L 09/15/20 07:52 Pulse 113 H 09/15/20 07:52 Resp 18 09/15/20 07:52 BP 106/66 09/15/20 07:52 Pulse Ox 94 09/15/20 07:52 Discharge Plan Discharge Patient Disposition: Xfer SNF Condition: Stable Prescriptions: New venlafaxine 75 mg tablet extended release 24hr 75 mg PO DAILY Qty: 14 RF: 0 meclizine 25 mg Tablet 25 mg PO TID PRN (Reason: Dizziness) Qty: 30 RF: 0 metoprolol tartrate 75 mg tablet 75 mg PO BID Qty: 60 RF: 0 Continued pantoprazole [Protonix] 40 mg tablet,delayed release (DR/EC) 40 mg PO DAILY@ RF: 0 Eliquis 5 mg tablet 5 mg PO BID@ RF: 0 montelukast 10 mg tablet 10 mg PO DAILY@2099 RF: 0 alendronate 70 mg tablet 70 mg PO Q7D RF: 0 aspirin 81 mg tablet,delayed release (DR/EC) 81 mg PO DAILY@899 RF: 0 fluticasone propionate 50 mcg/actuation [place],Suspension 1 - 2 spray INTRANASAL DAILY PRN (Reason: Allergy Symptoms) RF: 0 atorvastatin 80 mg tablet 80 mg PO DAILY@2099 RF: 0 ascorbic acid (vitamin C) [Vitamin C] 1,000 mg Tablet 1 g PO DAILY@2099 RF: 0 cetirizine 10 mg Tablet 10 mg PO DAILY@899 RF: 0 omega-3 fatty acids-vitamin E 1,000 mg Capsule 1 cap PO DAILY@899 RF: 0 cholecalciferol (vitamin D3) [Vitamin D3] 25 mcg (1,000 unit) Tablet,Chewable 25 mcg PO BID@ RF: 0 Discontinued lisinopril 30 mg tablet 30 mg PO DAILY@ RF: 0 tramadol 50 mg tablet 50 mg PO DAILY@ RF: 0 venlafaxine 150 mg tablet extended release 24hr 150 mg PO DAILY@899 RF: 0 metoprolol tartrate 100 mg tablet 100 mg PO BID@ RF: 0 multivitamin Tablet 1 tab PO DAILY@0900 RF: 0 Hold Instructions: Resume on 10/10/20. sulfamethoxazole-trimethoprim [Bactrim DS] 800-160 mg tablet 2 tab PO Q12H 10 Days Qty: 40 RF: 0 amoxicillin-pot clavulanate [Augmentin] 875-125 mg tablet 1 tab PO BID 10 Days Qty: 20 RF: 0 Discharge Orders: Discharge Order (Routine); Ordered 09/15/20 Ordered By: Juan Castle Referrals: Nephrology [Provider Group] - 1 week (Refferral needs to be sent by PCP ) [facility] ([facility]) [Outside] David Escobar MD [Primary Care Provider] - 4-7 days (Please call Tuesday to schedule a follow up appointment and send a refferal to nephrology.) Discharge Diet: As Directed Discharge Activity: Increase activity as tolerated and As per PT/OT instructions Patient Instructions: Acute Kidney Injury (GEN), Potassium Content of Foods List (GEN), Hyperkalemia (GEN) Activity Restrictions/Additional Instructions: Follow-up with primary care provider at residential facility 3 to 5 days. CBC and BMP on follow-up. Discharge Attestations Time Spent in Discharge Care*: greater than 30 min Quality Metrics Clinical Quality Measures During this hospital stay, did patient experience: None Coding Level of Care Code Acute Chg FW DC note Diagnoses Difficulty in walking R26.2 MOE (acute kidney injury) N17.9 Hyperkalemia E87.5 Acute encephalopathy G93.40 Degenerative joint disease of spine M47.9
[2020-09-15 11:29] VITALS: BP 107/59; PULSE 58; RESP 18; TEMP 36.8; O2SAT 97
[2020-09-15 12:18] LABS: Alanine Aminotransferase 38 U/L (0-41); Albumin Level 3.1 g/dL (3.5-5.2); Alkaline Phosphatase 88 IU/L (40-130); Anion Gap 11.9 (5-19); Aspartate Amino Transferase 34 U/L (0-40); Blood Urea Nitrogen 23 mg/dL (8-23); Calcium 8.5 mg/dL (8.5-10.5); Carbon Dioxide 26 mmol/L (22-29); Chloride 100 mmol/L (98-107); Globulin 3.1 g/dL (1.3-4.6); Glucose 120 mg/dL (65-115); Osmolality Calculated 281 mOsm/kg (285-295); Potassium 4.9 mmol/L (3.5-5.1); Sodium 133 mmol/L (136-145); Total Bilirubin 0.3 mg/dL (0.15-1.2); Total Protein 6.2 g/dL (6.6-8.7)
[2020-09-15 14:34] VITALS: BP 107/59; PULSE 58; RESP 18; TEMP 36.8; O2SAT 97
--- NOTE | 2020-09-15 14:34 | PC.NURSE ---
Discharge Note Patient discharged to SNF via [facility] accompanied by motorcoach driver. Discharge instructions reviewed with patient and/or passenger service representative. Mobile pharmacy medications and/or prescriptions provided. Belongings/home medications returned.
== END 2020-09-15 14:35 | disposition skilled nursing facility (03) | DRG 682 ==
LOC: ER 15:38 → ER IP 09-10 01:12 → MEDSURG 09-10 14:22
PROVIDERS: Internal Medicine; Admitting Provider Internal Medicine; Emergency Provider Family Medicine; PCP Family Medicine; Visit Provider Internal Medicine
DX: N17.9 Acute kidney failure, unspecified (principal); G93.41 Metabolic encephalopathy; L03.211 Cellulitis of face; I69.951 Hemiplegia and hemiparesis following unspecified cerebrovascular disease affecting right dominant side; N39.0 Urinary tract infection, site not specified; N18.9 Chronic kidney disease, unspecified; I69.920 Aphasia following unspecified cerebrovascular disease; E87.5 Hyperkalemia; W19.XXXA Unspecified fall, initial encounter; I25.10 Atherosclerotic heart disease of native coronary artery without angina pectoris; Z87.891 Personal history of nicotine dependence; S00.81XA Abrasion of other part of head, initial encounter; E86.0 Dehydration; M51.34 Other intervertebral disc degeneration, thoracic region; M48.061 Spinal stenosis, lumbar region without neurogenic claudication; Z79.01 Long term (current) use of anticoagulants; Z79.82 Long term (current) use of aspirin; M51.24 Other intervertebral disc displacement, thoracic region
CPT/HCPCS: 36415; 70551; 71045; 72128; 72131; 80048; 80053; 81003; 82550; 82607; 83690; 84443; 85025; 87040; 87426; 93005; 96361; 96374; 96375; 97116; 97162; 97530; 99285; G0378; J0610; J1815; J2405; J7030

== ENCOUNTER → 2020-11-12 14:09 | Outpatient (BNVA) | payer MEDICARE, BC, SELFPAY | PROVIDERS: PCP Family Medicine; Visit Provider Urology | DX: R31.0 Gross hematuria (principal); N17.9 Acute kidney failure, unspecified | CPT/HCPCS: 81003; 87086; 88112 ==

== ENCOUNTER 2021-05-07 09:36 | Emergency (ER) | payer MEDICARE, BC, SELFPAY ==
[2021-05-07] VITALS (7 sets, daily range): BP systolic 105–141; BP diastolic 67–90; PULSE 57–66; RESP 12–20; TEMP 36.6; O2SAT 92–97; BMI 25.8
--- NOTE | 2021-05-07 09:40 | W.ED.ABDPA2 ---
HPI - Abdominal Pain General: Chief Complaint: Abdominal Pain Stated Complaint: ABD PAIN LEFT QUAD Time Seen by Provider: 05/07/21 09:39 Source: patient Mode of arrival: EMS Limitations: other (Hearing impairment) History of Present Illness: 80-year-old male presents emergency room with epigastric left upper quadrant abdominal pain. Patient's reports he was diagnosed with cancer in [place] but he cannot tell me what kind of cancer he has there is no indication of a diagnosis of the records really have here. EMS reported he has been dry heaving he denies any chest pain or shortness of breath he denies any hematemesis coffee-ground emesis. Is difficult to communicate with because of hearing impairment. No dysuria urgency or frequency no hematuria. He does have a history of BPH. During exam and history patient intermittently complains of pain in the epigastric left upper quadrant area has a spasmodic-like nature to it. MD elicited complaint: abdominal pain Pertinent past history: other (Report the patient has been diagnosed with cancer although he cannot tell me what kind he states he was at [place]) Onset (ago): unknown Pain Consistency: constant Location: Epigastric and LUQ Severity: moderate Quality: stabbing Radiation: none Migration to: no migration Exacerbating factors: nothing Relieving factors: nothing Associated Symptoms: Reports anorexia and bloating; Denies belching Review of Systems GI: Reports: bloating; Denies: belching [facility] ED PFSH: Medical History Aphasia CAD (coronary artery disease) Cellulitis of face CKD (chronic kidney disease) CVA (cerebral vascular accident) Dyslipidemia Hypertension Surgical History History of coronary artery stent placement Status post colonoscopy Status post endovascular aneurysm repair (EVAR) Status post right inguinal hernia repair Family History Mother , at age 93 No problems noted. Father , at age 77 AA (aortic aneurysm) Cancer throat and lung Social History Smoking and tobacco status: never smoked Alcohol intake: never Household members: spouse Housing: House Marital status: Current occupational status: retired History of recent travel: No Physical Exam Const: COMMON NORMALS: no acute distress GENERAL APPEARANCE: cooperative and comfortable ORIENTATION/CONSCIOUSNESS: Yes awake, Yes oriented to person, Yes oriented to place and Yes oriented to time HENMT: COMMON NORMALS: normocephalic, atraumatic, hearing grossly normal bilaterally, external ears normal, EAC's normal, TM's normal bilaterally, Normal nasal mucous membranes and turbinates present, moist oral mucous membranes and oropharynx normal HEAD & SCALP: normocephalic and atraumatic NOSE: Normal nasal mucous membranes and turbinates present EXTERNAL EAR: Yes external ears normal EXTERNAL AUDITORY CANAL: EAC's normal TYMPANIC MEMBRANE: TM's normal bilaterally Neck/C-Spine: COMMON NORMALS: no JVD Resp: COMMON NORMALS: normal respiratory effort, No retractions, No use of accessory muscles and clear to auscultation bilaterally AUSCULTATION: clear to auscultation bilaterally Cardio: COMMON NORMALS: no JVD, regular rate, regular rhythm and No murmurs present (Cardio) RATE: regular rate RHYTHM: regular rhythm GI: COMMON NORMALS: Soft to palpation and No hepatosplenomegaly present AUSCULTATION: Yes normoactive bowel sounds PALPATION: Yes Soft to palpation, No Tenderness to palpation present (GI), No Guarding due to palpation present (GI) and Yes No hepatosplenomegaly present Extremity: COMMON NORMALS: normal to inspection, capillary refill normal, no clubbing, cyanosis or edema, no calf tenderness and no pedal edema Neuro: SENSORIUM/ORIENTATION: Yes oriented to person, Yes oriented to place and Yes oriented to time Skin: COMMON NORMALS: no rashes or lesions noted GENERAL SKIN EXAM: no rashes or lesions noted Course Vital Signs: Vital signs: Vital Signs Temperature 97.8 F 05/07/21 09:45 Pulse Rate 60 05/07/21 13:45 Respiratory Rate 13 05/07/21 13:45 Blood Pressure 133/77 05/07/21 13:45 Pulse Oximetry 94 05/07/21 13:45 MDM - Abdominal Pain Medical Decision Making CT normal white count normal. Question on the CT of possible basilar pneumonia he does have a little bit of increased cough we will start him on some oral antibiotics his sats have been good discharge patient on increase his tramadol to every 6 out of as needed usually to head trauma as needed evidently there is a diagnosis of cancer but I do not have record of it we are unable to get it in the patient told us he did not want to discuss his he has only evidently keeping it from her. When she was in the room he did not ask about the diagnosis specifically to avoid that when she was outside the room I asked he said it was diagnosed in [place] but with not give any more specifics. Medical Records I reviewed the patient's medical records. Lab Data I reviewed the patient's lab results. : 05/07/21 09:30 05/07/21 09:30 Labs/Radiology: Radiology Impressions Abdomen/Pelvis CT 05/07/21 09:48 IMPRESSION: 1. Large hiatal hernia. 2. Stable noncontrast evaluation of the endovascular graft repair of abdominal aortic aneurysm. No increase in size of the [place] aneurysm and no periaortic fluid collection. 3. No adenopathy or ascites. 4. Bilateral lower lobe areas of pneumonitis and emphysema. 5. Severe RIGHT renal atrophy and mild LEFT renal atrophy. Laboratory Results WBC 7.5 10^3/uL (4.0-10.0) 05/07/21 09:30 RBC 3.07 10^6/uL (4.1-5.3) L 05/07/21 09:30 Hgb 8.0 g/dL (11.7-16.6) L 05/07/21 09:30 Hct 26.8 % (42.0-52.0) L 05/07/21 09:30 MCV 87.3 fl (80-94) 05/07/21 09:30 MCH 26.1 pg (28.0-34.0) L 05/07/21 09:30 MCHC 29.9 g/dL (30.0-36.0) L 05/07/21 09:30 RDW 14.7 % (12.1-15.1) 05/07/21 09:30 Plt Count 293 10^3/cmm (130-400) 05/07/21 09:30 MPV 10.7 fL (7.4-10.4) H 05/07/21 09:30 Neut % (Auto) 54.6 % 05/07/21 09:30 Lymph % (Auto) 20.1 % 05/07/21 09:30 [place] % (Auto) 8.4 % 05/07/21 09:30 Eos % (Auto) 15.7 % 05/07/21 09:30 Baso % (Auto) 0.8 % 05/07/21 09:30 Neut # (Auto) 4.08 10^3/uL (1.8-7.7) 05/07/21 09:30 Lymph # (Auto) 1.5 10^3/uL (0.8-4.8) 05/07/21 09:30 [place] # (Auto) 0.6 10^3/uL (0.2-0.9) 05/07/21 09:30 Eos # (Auto) 1.2 10^3/uL (0.0-0.8) H 05/07/21 09:30 Baso # (Auto) 0.1 10^3/uL (0.0-0.1) 05/07/21 09:30 Nucleated RBC % (auto) 0 % 05/07/21 09:30 Nucleated RBCs # 0.0 /100WBC 05/07/21 09:30 Sodium 138 mmol/L (136-145) 05/07/21 09:30 Potassium 4.4 mmol/L (3.5-5.1) 05/07/21 09:30 Chloride 102 mmol/L (98-107) 05/07/21 09:30 Carbon Dioxide 26 mmol/L (22-29) 05/07/21 09:30 Anion Gap 14.4 (5-19) 05/07/21 09:30 BUN 23 mg/dL (8-23) 05/07/21 09:30 Creatinine 2.2 mg/dL (0.7-1.2) H 05/07/21 09:30 GFR Calculation Not Reportable 05/07/21 09:30 Glucose 123 mg/dL (65-115) H 05/07/21 09:30 Calculated Osmolality 291 mOsm/kg (285-295) 05/07/21 09:30 Calcium 9.5 mg/dL (8.5-10.5) 05/07/21 09:30 Total Bilirubin 0.3 mg/dL (0.15-1.2) 05/07/21 09:30 AST 20 U/L (0-40) 05/07/21 09:30 ALT 13 U/L (0-41) 05/07/21 09:30 Alkaline Phosphatase 93 IU/L (40-130) 05/07/21 09:30 Creatine Kinase 36 U/L (39-308) L 05/07/21 09:30 Total Protein 6.8 g/dL (6.6-8.7) 05/07/21 09:30 Albumin 4.2 g/dL (3.5-5.2) 05/07/21 09:30 Globulin 2.6 g/dL (1.3-4.6) 05/07/21 09:30 Lipase 49 U/L (13-60) 05/07/21 09:30 Urine Color Yellow (Yellow) 05/07/21 12:21 Urine Appearance Clear (CLEAR) 05/07/21 12:21 Urine pH 6.5 (5-7) 05/07/21 12:21 Ur Specific [place] 1.010 (1.005-1.030) 05/07/21 12:21 Urine Protein Neg (Negative) 05/07/21 12:21 Urine Glucose (UA) Norm (Normal) 05/07/21 12:21 Urine Ketones Negative (Negative) 05/07/21 12:21 Urine Blood Neg (Negative) 05/07/21 12:21 Urine Nitrate Negative (Negative) 05/07/21 12:21 Urine Bilirubin Neg (Negative) 05/07/21 12:21 Urine Urobilinogen Neg mg/dL (Negative) 05/07/21 12:21 Ur Leukocyte Esterase Negative (Negative) 05/07/21 12:21 Discharge Plan Discharge Patient Disposition: Home Clinical Impression: Abdominal pain, Gastroesophageal reflux disease, Pneumonia Condition: Stable Prescriptions: New ondansetron HCl 4 mg tablet 4 mg PO Q6H PRN (Reason: nausea and vomiting) Qty: 20 0RF levofloxacin 750 mg tablet 750 mg PO DAILY 7 Days 0RF Changed tramadol 50 mg tablet 50 mg PO QID PRN (Reason: Abdominal Discomfort) Qty: 40 0RF Protonix 40 mg tablet,delayed release (DR/EC) 40 mg PO BID Qty: 60 0RF No Action Eliquis 5 mg tablet 5 mg PO BID@, 0RF montelukast 10 mg tablet 10 mg PO DAILY@2100 0RF alendronate 70 mg tablet 70 mg PO Q7D 0RF Rx Instructions: On Tuesday aspirin 81 mg tablet,delayed release (DR/EC) 81 mg PO DAILY@0900 0RF metoprolol tartrate 75 mg tablet 75 mg PO BID 0RF lisinopril 30 mg tablet 30 mg PO DAILY 0RF omega-3 fatty acids [Fish Oil Concentrate] 1,000 mg capsule 1,000 mg PO DAILY 0RF multivitamin Tablet 1 tab PO DAILY 0RF fluticasone propionate 50 mcg/actuation [place],Suspension 1 - 2 spray INTRANASAL DAILY PRN (Reason: Allergy Symptoms) 0RF venlafaxine 75 mg tablet extended release 24hr 75 mg PO DAILY Qty: 14 0RF meclizine 25 mg Tablet 25 mg PO TID PRN (Reason: Dizziness) Qty: 30 0RF atorvastatin 80 mg tablet 80 mg PO DAILY@2100 0RF ascorbic acid (vitamin C) [Vitamin C] 1,000 mg Tablet 1 g PO DAILY@2100 0RF cetirizine 10 mg Tablet 10 mg PO DAILY@0900 0RF cholecalciferol (vitamin D3) [Vitamin D3] 25 mcg (1,000 unit) Tablet,Chewable 25 mcg PO BID@,21 0RF Discharge Orders: Discharge ED (Routine); Ordered 05/07/21 Ordered By: Ruddy Jackson Referrals: David Escobar MD [Primary Care Provider] - Patient Instructions: Abdominal Pain (ED), Opioid Safety Coding Level of Care Code ED Bookkeeping Clerk for Art Villanueva
--- NOTE | 2021-05-07 09:48 | CT_ITS ---
WS: [id number] CT ABDOMEN AND PELVIS NONCONTRAST HISTORY: Abdominal pain. TECHNIQUE: Imaging performed through the abdomen and pelvis. Coronal and sagittal reformats are submi tted. All CT scans at [facility] use at least one of these dose optimization techniques: auto mated exposure control; mA and/or kV adjustment per patient size (includes targeted exams where dose is matched to clinical indication); or iterative reconstruction. DLP: 1878.63 mGy.cm COMPARISON: 07/15/2020 Lower thorax: Chronic emphysematous changes at the lung bases with mild pneumonitis. Small amount of pleural thickening at the lung bases. Heart is normal size. No pericardial effusion. Large hiatal her anuj. Liver: Normal size liver. No mass or bile duct dilatation. Gallbladder: Normal gallbladder. Pancreas: Normal size and attenuation. Normal pancreatic duct. No pancreatitis or mass. Spleen: Normal. Adrenal glands: Normal. No mass. Right kidney: Severe atrophy and cortical thinning. Left kidney: Mild atrophy and cortical thinning with perinephric stranding. Kidney measures 9.8 cm in length. Aorta: Extensive atherosclerotic plaque throughout the aorta. Patient is status post endovascular gra ft repair. The graft repair begins at the level of the renal arteries and extends to the anterior ane urysm. There are bilateral iliac artery extensions of the graft. The [place] aneurysm is lobulated wit h a maximum transverse diameter of 8.1 cm. Size of the aneurysm has not significantly increased or ch anged since the prior study. Calcifications are normally distributed in the periphery of the aneurysm . The lobulated contour is similar to the prior study. No periaortic hematoma. No increased density w ithin the thrombus. Iliac arteries are prominent bilaterally. Ectatic LEFT common iliac artery with s light aneurysmal dilatation to 1.6 cm is stable. Additional bilateral short segment renal artery sten ts. No free fluid, intraperitoneal air or significant lymphadenopathy. GI tract: No obstruction. Moderate fecal retention. No evidence for appendicitis. Abdominal wall: Negative. No hernia. Pelvis: Prostate gland encroachment into the urinary bladder. Normally distended urinary bladder. No free fluid or adenopathy within the pelvis. Inguinal canals are patent bilaterally containing fat . Osseous structures: Advanced degenerative changes in the lumbar spine. Bilateral pars defects at L5. No lumbar spine fracture. Prior healed fractures involving the transverse processes of L1 and L2 on t he LEFT. CT/CT abdomen pelvis wo con [id number] IMPRESSION: 1. Large hiatal hernia. 2. Stable noncontrast evaluation of the endovascular graft repair of abdominal aortic aneurysm. No increase in size of the [place] aneurysm and no periaortic fluid collection. 3. No adenopathy or ascites. 4. Bilateral lower lobe areas of pneumonitis and emphysema. 5. Severe RIGHT renal atrophy and mild LEFT renal atrophy.
[2021-05-07 10:04] LABS: Basophils # 0.1 10^3/uL (0.0-0.1); Basophils % 0.8 %; Eosinophils # 1.2 10^3/uL (0.0-0.8); Eosinophils % 15.7 %; Hematocrit 26.8 % (42.0-52.0); Lymphocytes # 1.5 10^3/uL (0.8-4.8); Lymphocytes % 20.1 %; Mean Corpuscular HGB Conc 29.9 g/dL (30.0-36.0); Mean Corpuscular Hemoglobin 26.1 pg (28.0-34.0); Mean Corpuscular Volume 87.3 fl (80-94); Mean Platelet Volume 10.7 fL (7.4-10.4); Monocytes # 0.6 10^3/uL (0.2-0.9); Monocytes % 8.4 %; Neutrophils # 4.08 10^3/uL (1.8-7.7); Neutrophils % 54.6 %; Nucleated Red Blood Cells % 0 %; Platelet Count 293 10^3/cmm (130-400); Red Blood Count 3.07 10^6/uL (4.1-5.3); Red Cell Distribution Width 14.7 % (12.1-15.1); White Blood Count 7.5 10^3/uL (4.0-10.0)
--- NOTE | 2021-05-07 10:24 | PC.NURSE ---
PT DENIES BEING ABLE TO PROVIDE URINE SPECIMEN AT THIS TIME. PROVIDED WITH URINAL IF HE IS ABLE TO PROVIDE SPECIMEN. PT HAS RIGHT SIDED WEAKNESS AND FACIAL ASYMMETRY FROM PREVIOUS STROKE.
[2021-05-07 10:29] LABS: Alanine Aminotransferase 13 U/L (0-41); Albumin Level 4.2 g/dL (3.5-5.2); Alkaline Phosphatase 93 IU/L (40-130); Anion Gap 14.4 (5-19); Aspartate Amino Transferase 20 U/L (0-40); Blood Urea Nitrogen 23 mg/dL (8-23); Calcium 9.5 mg/dL (8.5-10.5); Carbon Dioxide 26 mmol/L (22-29); Chloride 102 mmol/L (98-107); Creatine Phosphokinase 36 U/L (39-308); Globulin 2.6 g/dL (1.3-4.6); Glucose 123 mg/dL (65-115); Lipase 49 U/L (13-60); Osmolality Calculated 291 mOsm/kg (285-295); Potassium 4.4 mmol/L (3.5-5.1); Sodium 138 mmol/L (136-145); Total Bilirubin 0.3 mg/dL (0.15-1.2); Total Protein 6.8 g/dL (6.6-8.7)
[2021-05-07 12:31] LABS: Add Urine Microscopic? NO; Charge for UA Resulting for Rev
[2021-05-07 12:35] LABS: Bilirubin Urine Neg (Negative); Blood Urine Neg (Negative); Glucose Urine UA Norm (Normal); Ketones Urine Negative (Negative); Leukocyte Esterase Urine Negative (Negative); Nitrate Urine Negative (Negative); Protein Urine Neg (Negative); Urine Appearance Clear (CLEAR); Urine Color Yellow (Yellow); Urobilinogen Urine Neg (Negative); pH Urine 6.5 (5-7)
[2021-05-07] MEDS: morphine 4 mg/mL SDV 1 mL IVP (13:31)
[2021-05-07] MEDS: ondansetron 2 mg/ML SDV 2 mL 4 MG IVP (13:31)
== END 2021-05-07 14:20 | disposition home or self-care (01) ==
PROVIDERS: Emergency Provider Family Medicine; PCP Family Medicine
DX: K21.9 Gastro-esophageal reflux disease without esophagitis (principal); J18.9 Pneumonia, unspecified organism; I25.10 Atherosclerotic heart disease of native coronary artery without angina pectoris; I12.9 Hypertensive chronic kidney disease with stage 1 through stage 4 chronic kidney disease, or unspecified chronic kidney disease; N18.9 Chronic kidney disease, unspecified; H91.90 Unspecified hearing loss, unspecified ear; Z86.73 Personal history of transient ischemic attack (TIA), and cerebral infarction without residual deficits
CPT/HCPCS: 74176; 80053; 81003; 82550; 83690; 85025; 96374; 96375; 99284; J2270; J2405

== ENCOUNTER → 2021-06-03 14:31 | Outpatient (BNVA) | payer MEDICARE, BC, SELFPAY | PROVIDERS: PCP Family Medicine; Visit Provider Family Medicine | DX: E78.5 Hyperlipidemia, unspecified (principal); I10 Essential (primary) hypertension; I25.10 Atherosclerotic heart disease of native coronary artery without angina pectoris; I63.9 Cerebral infarction, unspecified; N18.9 Chronic kidney disease, unspecified; R47.01 Aphasia; Z76.89 Persons encountering health services in other specified circumstances | CPT/HCPCS: 80053; 85025 ==

== ENCOUNTER 2021-06-04 16:57 | Emergency (ER) | payer MEDICARE, BC, SELFPAY ==
[2021-06-04] VITALS (16 sets, daily range): BP systolic 122–143; BP diastolic 51–81; PULSE 60–90; RESP 13–26; TEMP 36.4–36.6; O2SAT 88–100; BMI 27.3
--- NOTE | 2021-06-04 17:30 | CTR_ITS ---
PROCEDURE INFORMATION: Exam: CT Angiography Abdomen and Pelvis With Contrast, GI Bleeding Exam date and time: 06/04/2021 7:26 PM Age: 80 years old Clinical indication: Other: Low hemoglobin; Prior surgery; Surgery date: 6+ months; Surgery type: History of evar S/P revision in 2019; Patient HX: Hemoglobin 6.3; Additional info: Evar, evaluate for leaking, low hemoglobin TECHNIQUE: Imaging protocol: Computed tomographic angiography of the abdomen and pelvis with contrast. 3D rendering (Not supervised by radiologist): MIP and/or 3D reconstructed images were created by the technologist. Radiation optimization: All CT scans at this facility use at least one of these dose optimization techniques: automated exposure control; mA and/or kV adjustment per patient size (includes targeted exams where dose is matched to clinical indication); or iterative reconstruction. Contrast material: VISI; Contrast volume: 95 ml; Contrast route: INTRAVENOUS (IV); COMPARISON: CT abdomen pelvis wo con [id number] 05/07/2021 10:49 AM RADIATION DOSE METRICS: Total DLP (mGy-cm): 912.95 FINDINGS: Diaphragm: Redemonstration of a large hiatal hernia without change from prior. Aorta: Large abdominal aortic aneurysm is treated with EVAR. Excluded aneurysm sac measures up to 8.2 cm in the transaxial plane; 8.4 cm diameter previously. Negative for periaortic fat stranding or hematoma. No definite endoleak seen. 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 Mild severity stenosis of the SMA origin. ROCKY origin is occluded. Renal arteries: Stent within the proximal left renal artery with moderate stenosis of the origin. Occluded stent of the right renal artery origin. 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 Previous stent graft placement. 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 Previous stent graft placement. Liver: No mass. Gallbladder and bile ducts: Unremarkable. No calcified stones. No ductal dilation. Pancreas: Unremarkable. No mass. No ductal dilation. Spleen: Unremarkable. No splenomegaly. Adrenal glands: Normal. No mass. 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 Mild to moderate left renal cortical atrophy unchanged from prior. No hydronephrosis. No renal stones. Stomach and bowel: Unremarkable. No active gastrointestinal bleeding. No obstruction. No mucosal thickening. No intraluminal contrast extravasation. Appendix: No evidence of appendicitis. Intraperitoneal space: Unremarkable. No free air. No significant fluid collection. Lymph nodes: Unremarkable. No enlarged lymph nodes. Urinary bladder: Unremarkable. No mass. Reproductive: Moderate severity prostatomegaly stable from comparison. Bones/joints: No acute fracture. No dislocation. Soft tissues: Unremarkable. CT/CT angio abdomen pelvis [id number] IMPRESSION: 1. Negative for acute abdominopelvic pathology. 2. Stable appearance from comparison imaging.
--- NOTE | 2021-06-04 17:48 | W.ED.GENADLT ---
HPI - General Adult General: Chief complaint: Recheck/Abnormal Lab/Rx Stated complaint: Rajendra Doc sent over Time Seen by Provider: 06/04/21 17:30 History of Present Illness: Patient is an 80-year-old male with history of EVAR s/p revision in [address] [place] [address] Townsend, CAD, CKD, CVA on Eliquis presenting to the emergency room for evaluation of low hemoglobin. Patient was seen and recently evaluated by Dr. Drew. Patient had routine blood work that was performed on 06/03 2021 which showed a hemoglobin 6.3. Patient denies any melena/hematochezia, hx of cirrhosis, hematemesis, or other source of bleeding. She tells me that he has been having intermittent abdominal pain for the last 3 weeks now is worsening. Patient denies any chest pain, shortness breath, palpitation, lightheadedness, nausea/vomiting, fever/chill, abdominal complaints or complaints. Onset: unknown Duration:ongoing Location:home Severity:moderate Associated symptoms: Deny chest pain, dyspnea, nausea, rash, palpitations or vomiting Review of Systems Const: Denies: fever(s) or chills Eyes: Denies: change in vision ENMT: Denies: mouth pain Card: Denies: chest pain or palpitations Resp: Denies: dyspnea or non-productive cough GI: Reports: abdominal pain; Denies: nausea, vomiting or diarrhea : Denies: dysuria Musc: Denies: extremity pain Skin/Breast: Denies: rash or new lesions Neuro: Denies: weakness in extremities Psych: Reports: other (Normal mood) Cole/Lymph: Denies: easy bruising PFS ED PFSH: Medical History Aphasia CAD (coronary artery disease) Cellulitis of face CKD (chronic kidney disease) CVA (cerebral vascular accident) Dyslipidemia Hypertension Surgical History History of coronary artery stent placement Status post colonoscopy Status post endovascular aneurysm repair (EVAR) Status post right inguinal hernia repair Family History Mother , at age 93 No problems noted. Father , at age 77 AA (aortic aneurysm) Cancer throat and lung Other Hypertension Social History Smoking and tobacco status: never smoked Alcohol intake: never Household members: spouse Housing: House Marital status: Current occupational status: retired History of recent travel: No Physical Exam Const: COMMON NORMALS: alert HENMT: COMMON NORMALS: atraumatic HEAD & SCALP: atraumatic MOUTH: moist mucous membranes not abnormal Eye: COMMON NORMALS: EOMs intact bilaterally and conjunctivae normal CONJUNCTIVA: Yes conjunctivae normal Neck/C-Spine: COMMON NORMALS: full ROM and supple Resp: COMMON NORMALS: normal respiratory effort and clear to auscultation bilaterally AUSCULTATION: clear to auscultation bilaterally Cardio: COMMON NORMALS: regular rate RATE: regular rate GI: COMMON NORMALS: Soft to palpation and non-tender PALPATION: Yes Soft to palpation OTHER: No focal TTP. NO guarding rebound, guarding, rigidity. No CVA tenderness to percussion. Neg Salazar/Neg McBurney's point tenderness, no suprabupic tenderness to palpation. +hemoocult positive brown/dark stool Extremity: COMMON NORMALS: full ROM Neuro: SENSORIUM/ORIENTATION: Yes alert MOTOR EXAM: No Abnormal motor strength present and Other motor observations present (no focal motor deficits) Psych: COMMON NORMALS: speech normal SPEECH: Yes normal speech MOOD & AFFECT: Yes euthymic mood Course Vital Signs: Vital signs: Vital Signs Temperature 98.2 F 06/05/21 00:50 Pulse Rate 65 06/05/21 02:00 Respiratory Rate 16 06/05/21 02:00 Blood Pressure 137/59 06/05/21 02:00 Pulse Oximetry 95 06/05/21 02:00 MDM - General Adult Medical Decision Making 80-year-old male with a history of EVAR s/p revision in 2019, CKD, CVA on Eliquis presenting to the emergency room for concerns for his low hemoglobin. Patient initially had a O2 sat in triag eof 88% that improved without any intervention to greater than 95%. Patient has no focal complaints at this time. Rectal exam showed hemoocult positive brown/dark stool Hemoglobin is of 6.2 CTA abdomen pelvis did not show any signs of endoleak or aortic complications. Rectal exam is negative for any hemoocult positive stool. Not suspect aortic endograft problem. Creatinine of 2.0 similar to baseline. He received IVF after CT study. patient received 2 units of blood in the emergency room. Given the patient has had Hemoccult positive stool, hemoglobin 6.2, ongoing abdominal pain, no GI services at our hospital, have offered transfer for EGD. Patient and family agrees with transfer for EGD. Case was discussed with Dr. Boyle who agreed with the transfer to [facility] for GI evaluation and possible EGD. Disposition: Transfer to outside hospital Lab Data : 06/04/21 18:30 06/04/21 18:30 Radiology Impressions Abdomen/Pelvis CTA 06/04/21 17:30 IMPRESSION: 1. Negative for acute abdominopelvic pathology. 2. Stable appearance from comparison imaging. Laboratory Results WBC 6.4 10^3/uL (4.0-10.0) 06/04/21 18:30 RBC 2.56 10^6/uL (4.1-5.3) L 06/04/21 18: Hgb 6.2 g/dL (11.7-16.6) L* 06/04/21 18: Hct 21.5 % (42.0-52.0) L 06/04/21 18: MCV 84.0 fl (80-94) 06/04/21 18: MCH 24.2 pg (28.0-34.0) L 06/04/21 18: MCHC 28.8 g/dL (30.0-36.0) L 06/04/21 18: RDW 15.3 % (12.1-15.1) H 06/04/21 18: Plt Count 244 10^3/cmm (130-400) 06/04/21 18: MPV 10.8 fL (7.4-10.4) H 06/04/21 18: Neut % (Auto) 56.1 % 06/04/21 18: Lymph % (Auto) 22.8 % 06/04/21 18: [place] % (Auto) 10.0 % 06/04/21 18: Eos % (Auto) 10.3 % 06/04/21 18: Baso % (Auto) 0.5 % 06/04/21 18: Neut # (Auto) 3.60 10^3/uL (1.8-7.7) 06/04/21 18:30 Lymph # (Auto) 1.5 10^3/uL (0.8-4.8) 06/04/21 18:30 [place] # (Auto) 0.6 10^3/uL (0.2-0.9) 06/04/21 18:30 Eos # (Auto) 0.7 10^3/uL (0.0-0.8) 06/04/21 18:30 Baso # (Auto) 0.0 10^3/uL (0.0-0.1) 06/04/21 18:30 Nucleated RBC % (auto) 0 % 06/04/21 18:30 Nucleated RBCs # 0.0 /100WBC 06/04/21 18:30 PT 16.60 SECONDS (12.1-14.9) H 06/04/21 18:30 INR 1.30 (0.8-1.2) H 06/04/21 18:30 APTT 35.9 SECONDS (23.9-36.7) 06/04/21 18:30 Sodium 135 mmol/L (136-145) L 06/04/21 18:30 Potassium 4.8 mmol/L (3.5-5.1) 06/04/21 18:30 Chloride 101 mmol/L (98-107) 06/04/21 18:30 Carbon Dioxide 25 mmol/L (22-29) 06/04/21 18:30 Anion Gap 13.8 (5-19) 06/04/21 18:30 BUN 22 mg/dL (8-23) 06/04/21 18:30 Creatinine 2.0 mg/dL (0.7-1.2) H 06/04/21 18:30 GFR Calculation Not Reportable 06/04/21 18:30 Glucose 107 mg/dL (65-115) 06/04/21 18:30 Calculated Osmolality 284 mOsm/kg (285-295) L 06/04/21 18:30 Calcium 9.2 mg/dL (8.5-10.5) 06/04/21 18:30 Total Bilirubin 0.2 mg/dL (0.15-1.2) 06/04/21 18:30 AST 24 U/L (0-40) 06/04/21 18:30 ALT 14 U/L (0-41) 06/04/21 18:30 Alkaline Phosphatase 96 IU/L (40-130) 06/04/21 18:30 Total Protein 7.2 g/dL (6.6-8.7) 06/04/21 18:30 Albumin 3.8 g/dL (3.5-5.2) 06/04/21 18:30 Globulin 3.4 g/dL (1.3-4.6) 06/04/21 18:30 Lipase 59 U/L (13-60) 06/04/21 18:30 Blood Type O Positive 06/04/21 18:59 Rho(D) Type Positive 06/04/21 18:59 Antibody Screen Negative 06/04/21 18:59 Crossmatch See Detail 06/04/21 18:59 Imaging Data Other Imaging: Radiologist's impression: [employer] [address] [address] Scan Report Signed Patient: Ap Guillen Unit #: [id number] : 1940 Age/Sex: 80 / M ADM Date: 06/04/21 Loc: ER Room/Bed: Attending Dr: Ordering Provider/Ordering MD: Siobhan Vogel MD Date of Service: 06/04/21 Procedure(s): CT angio abdomen pelvis [id number] Accession Number(s): [id number] Report Number: [id number] PROCEDURE INFORMATION: Exam: CT Angiography Abdomen and Pelvis With Contrast, GI Bleeding Exam date and time: 06/04/2021 7:26 PM Age: 80 years old Clinical indication: Other: Low hemoglobin; Prior surgery; Surgery date: 6+ months; Surgery type: History of evar S/P revision in 2019; Patient HX: Hemoglobin 6.3; Additional info: Evar, evaluate for leaking, low hemoglobin TECHNIQUE: Imaging protocol: Computed tomographic angiography of the abdomen and pelvis with contrast. 3D rendering (Not supervised by radiologist): MIP and/or 3D reconstructed images were created by the technologist. Radiation optimization: All CT scans at this facility use at least one of these dose optimization techniques: automated exposure control; mA and/or kV adjustment per patient size (includes targeted exams where dose is matched to clinical indication); or iterative reconstruction. Contrast material: VISI; Contrast volume: 95 ml; Contrast route: INTRAVENOUS (IV);? COMPARISON: CT abdomen pelvis con [id number] 05/07/2021 10:49 AM RADIATION DOSE METRICS: Total DLP (mGy-cm): 912.95 FINDINGS: Diaphragm: Redemonstration of a large hiatal hernia without change from prior. Aorta: Large abdominal aortic aneurysm is treated with EVAR. Excluded aneurysm sac measures up to 8.2 cm in the transaxial plane; 8.4 cm diameter previously. Negative for periaortic fat stranding or hematoma. No definite endoleak seen. 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 Mild severity stenosis of the SMA origin. ROCKY origin is occluded. Renal arteries: Stent within the proximal left renal artery with moderate stenosis of the origin. Occluded stent of the right renal artery origin. 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 Previous stent graft placement. 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 Previous stent graft placement. Liver: No mass. Gallbladder and bile ducts: Unremarkable. No calcified stones. No ductal dilation. Pancreas: Unremarkable. No mass. No ductal dilation. Spleen: Unremarkable. No splenomegaly. Adrenal glands: Normal. No mass. 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 Mild to moderate left renal cortical atrophy unchanged from prior. No hydronephrosis. No renal stones. Stomach and bowel: Unremarkable. No active gastrointestinal bleeding. No obstruction. No mucosal thickening.? No intraluminal contrast extravasation. Appendix: No evidence of appendicitis. Intraperitoneal space: Unremarkable. No free air. No significant fluid collection. Lymph nodes: Unremarkable. No enlarged lymph nodes. Urinary bladder: Unremarkable. No mass. Reproductive: Moderate severity prostatomegaly stable from comparison. Bones/joints: No acute fracture. No dislocation. Soft tissues: Unremarkable. CT/CT angio abdomen pelvis [id number] IMPRESSION: 1. Negative for acute abdominopelvic pathology. 2. Stable appearance from comparison imaging. ? Dictated By: George Ingram Signed By: George Ingram Signed Date/Time: 06/04/212011 DD/ 25 Discharge Plan Discharge Patient Disposition: Transfer to ED Clinical Impression: GI bleed, Anemia, Guaiac positive stools Condition: Stable Prescriptions: No Action Eliquis 5 mg tablet 5 mg PO BID@ 0RF montelukast 10 mg tablet 10 mg PO DAILY@2100 0RF alendronate 70 mg tablet 70 mg PO Q7D 0RF Rx Instructions: On Tuesday aspirin 81 mg tablet,delayed release (DR/EC) 81 mg PO DAILY@0900 0RF metoprolol tartrate 75 mg tablet 75 mg PO BID 0RF omega-3 fatty acids [Fish Oil Concentrate] 1,000 mg capsule 1,000 mg PO DAILY 0RF multivitamin Tablet 1 tab PO DAILY 0RF venlafaxine 150 mg capsule,extended release 24hr 150 mg PO DAILY 0RF valsartan 320 mg tablet 320 mg PO DAILY 0RF fluticasone propionate 50 mcg/actuation [place],Suspension 1 - 2 spray INTRANASAL DAILY PRN (Reason: Allergy Symptoms) 0RF meclizine 25 mg Tablet 25 mg PO TID PRN (Reason: Dizziness) Qty: 30 0RF atorvastatin 80 mg tablet 80 mg PO DAILY@2099 0RF ascorbic acid (vitamin C) [Vitamin C] 1,000 mg Tablet 1 g PO DAILY@2099 0RF cetirizine 10 mg Tablet 10 mg PO DAILY@0900 0RF cholecalciferol (vitamin D3) [Vitamin D3] 25 mcg (1,000 unit) Tablet,Chewable 25 mcg PO BID@ 0RF ondansetron HCl 4 mg tablet 4 mg PO Q6H PRN (Reason: nausea and vomiting) Qty: 20 0RF tramadol 50 mg tablet 50 mg PO QID PRN (Reason: Abdominal Discomfort) Qty: 40 0RF Protonix 40 mg tablet,delayed release (DR/EC) 40 mg PO BID Qty: 60 0RF Referrals: David Escobar MD [Primary Care Provider] - Coding Level of Care Code ED Sales Team Leader for Chg Fwd Exam Comprehensive
--- NOTE | 2021-06-04 18:30 | PC.NURSE ---
This RN and charge hand attempted IV placement, unable to get line. Notified Dr. Vogel, he is attempting placement at this time.
[2021-06-04 18:46] LABS: Basophils % 0.5 %; Eosinophils # 0.7 10^3/uL (0.0-0.8); Eosinophils % 10.3 %; Hematocrit 21.5 % (42.0-52.0); Lymphocytes # 1.5 10^3/uL (0.8-4.8); Lymphocytes % 22.8 %; Mean Corpuscular HGB Conc 28.8 g/dL (30.0-36.0); Mean Corpuscular Hemoglobin 24.2 pg (28.0-34.0); Mean Platelet Volume 10.8 fL (7.4-10.4); Monocytes # 0.6 10^3/uL (0.2-0.9); Neutrophils % 56.1 %; Nucleated Red Blood Cells % 0 %; Platelet Count 244 10^3/cmm (130-400); Red Blood Count 2.56 10^6/uL (4.1-5.3); Red Cell Distribution Width 15.3 % (12.1-15.1); White Blood Count 6.4 10^3/uL (4.0-10.0)
[2021-06-04 18:48] LABS: Hemoglobin 6.2 g/dL (11.7-16.6)
--- NOTE | 2021-06-04 18:49 | PC.NURSE ---
Dr. Vogel verbally given the critical value of hemoglobin of 6.2.
[2021-06-04 19:01] LABS: Partial Thromboplastin Time 35.9 SECONDS (23.9-36.7)
[2021-06-04 19:02] LABS: Alanine Aminotransferase 14 U/L (0-41); Albumin Level 3.8 g/dL (3.5-5.2); Alkaline Phosphatase 96 IU/L (40-130); Anion Gap 13.8 (5-19); Aspartate Amino Transferase 24 U/L (0-40); Blood Urea Nitrogen 22 mg/dL (8-23); Calcium 9.2 mg/dL (8.5-10.5); Carbon Dioxide 25 mmol/L (22-29); Chloride 101 mmol/L (98-107); Globulin 3.4 g/dL (1.3-4.6); Glucose 107 mg/dL (65-115); Lipase 59 U/L (13-60); Osmolality Calculated 284 mOsm/kg (285-295); Potassium 4.8 mmol/L (3.5-5.1); Sodium 135 mmol/L (136-145); Total Bilirubin 0.2 mg/dL (0.15-1.2); Total Protein 7.2 g/dL (6.6-8.7)
[2021-06-04] MEDS: iodixanol 320 mg/mL 100mL Btl IV (19:37)
[2021-06-04] MEDS: sodium chloride 0.9% 500 ML IV (20:18)
[2021-06-04] MEDS: sodium chloride 0.9% 100 mL Bag 50 ML IV (20:19)
--- NOTE | 2021-06-04 21:10 | PC.NURSE ---
pt tolerating infusing well at this time
[2021-06-05] VITALS: BP 138/60; PULSE 61; RESP 16; O2SAT 96
[2021-06-05 00:30] VITALS: BP 138/58; PULSE 60; RESP 15; O2SAT 97
[2021-06-05 00:50] VITALS: BP 138/48; PULSE 60; RESP 18; TEMP 36.8; O2SAT 98
[2021-06-05 01:00] VITALS: BP 136/48; PULSE 62; RESP 15; O2SAT 97
--- NOTE | 2021-06-05 01:23 | PC.NURSE ---
Intake called from [facility], with bed placement, pt going to [place], 6b RM 6222 bed 1. Report call to [phone]
[2021-06-05] MEDS: pantoprazole 40 mg SDV 80 MG IVP (01:25)
[2021-06-05 01:30] VITALS: BP 143/55; PULSE 62; RESP 16; O2SAT 96
[2021-06-05 02:00] VITALS: BP 137/59; PULSE 65; RESP 16; O2SAT 95
--- NOTE | 2021-06-05 02:06 | PC.NURSE ---
report called to [place] at [facility] at [phone] pt going to room 6167, spouse notified of pt's room number and where he is transfering, pt signed consent to transfer and has no questions at this time
== END 2021-06-05 02:54 ==
PROVIDERS: Emergency Provider Emergency Medicine; PCP Family Medicine
DX: K92.2 Gastrointestinal hemorrhage, unspecified (principal); D64.9 Anemia, unspecified; I12.9 Hypertensive chronic kidney disease with stage 1 through stage 4 chronic kidney disease, or unspecified chronic kidney disease; N18.9 Chronic kidney disease, unspecified; E78.5 Hyperlipidemia, unspecified; I25.10 Atherosclerotic heart disease of native coronary artery without angina pectoris; Z79.01 Long term (current) use of anticoagulants; Z86.73 Personal history of transient ischemic attack (TIA), and cerebral infarction without residual deficits
CPT/HCPCS: 36430; 74174; 80053; 83690; 85025; 85610; 85730; 86850; 86900; 86920; 96361; 96374; 99285; C9113; J7040; P9016; Q9967

== ENCOUNTER → 2021-06-10 16:17 | Outpatient (BNVA) | payer MEDICARE, BC, SELFPAY | PROVIDERS: PCP Family Medicine; Visit Provider Family Medicine | DX: D64.9 Anemia, unspecified (principal) | CPT/HCPCS: 85025 ==

== ENCOUNTER 2021-07-27 12:20 | Outpatient (CLI) | payer MEDICARE, BC, SELFPAY ==
[2021-07-27 12:41] LABS: Add Urine Microscopic? NO; Charge for UA Resulting for Rev
[2021-07-27 13:24] LABS: Bilirubin Urine Neg (Negative); Blood Urine Neg (Negative); Glucose Urine UA Norm (Normal); Ketones Urine Negative (Negative); Leukocyte Esterase Urine Negative (Negative); Nitrate Urine Negative (Negative); Protein Urine Neg (Negative); Urine Appearance Clear (CLEAR); Urine Color Yellow (Yellow); Urobilinogen Urine Norm (Negative); pH Urine 5 (5-7)
== END 2021-07-27 12:21 | disposition home or self-care (01) ==
LOC: LAB 12:23
PROVIDERS: PCP Family Medicine; Visit Provider Family Medicine
DX: Z01.89 Encounter for other specified special examinations (principal)
CPT/HCPCS: 81003

== ENCOUNTER 2021-09-04 11:27 | Outpatient (CLI) | payer MEDICARE, BC, SELFPAY ==
[2021-09-04 11:43] LABS: Basophils # 0.1 10^3/uL (0.0-0.1); Basophils % 0.7 %; Eosinophils # 1.1 10^3/uL (0.0-0.8); Eosinophils % 15.6 %; Hematocrit 24.5 % (42.0-52.0); Lymphocytes # 1.4 10^3/uL (0.8-4.8); Lymphocytes % 19.9 %; Mean Corpuscular HGB Conc 28.6 g/dL (30.0-36.0); Mean Corpuscular Hemoglobin 23.2 pg (28.0-34.0); Mean Corpuscular Volume 81.1 fl (80-94); Mean Platelet Volume 10.6 fL (7.4-10.4); Monocytes # 0.7 10^3/uL (0.2-0.9); Monocytes % 9.6 %; Neutrophils # 3.67 10^3/uL (1.8-7.7); Neutrophils % 53.9 %; Nucleated Red Blood Cells % 0 %; Platelet Count 284 10^3/cmm (130-400); Red Blood Count 3.02 10^6/uL (4.1-5.3); Red Cell Distribution Width 16.2 % (12.1-15.1); White Blood Count 6.8 10^3/uL (4.0-10.0)
== END 2021-09-04 11:28 | disposition home or self-care (01) ==
LOC: LAB 11:32
PROVIDERS: PCP Family Medicine; Visit Provider Family Medicine
DX: D50.9 Iron deficiency anemia, unspecified (principal); R53.1 Weakness
CPT/HCPCS: 85025

== ENCOUNTER 2021-09-21 12:11 | Observation (INO) | payer MEDICARE, BC, SELFPAY ==
[2021-09-21] VITALS (12 sets, daily range): BP systolic 107–171; BP diastolic 55–91; PULSE 58–92; RESP 12–24; TEMP 36.4–36.8; O2SAT 90–99; BMI 25.8; BMI 27.2
--- NOTE | 2021-09-21 12:45 | W.ED.GENADLT ---
HPI - General Adult General: Chief complaint: Recheck/Abnormal Lab/Rx Stated complaint: abnormal labs Time Seen by Provider: 09/21/21 12:41 History of Present Illness: Patient is an 81-year-old male with a history of recurrent anemia presenting to the emergency room for evaluation of fatigue and lightheadedness in the setting of abnormal lab work-up. Patient had routine blood work that was performed earlier today showed hemoglobin 7. Patient tells me over the last few days she has been coming increasingly lightheaded. Patient denies any melena hematochezia. Most recently on 05/2021, patient was transferred to [facility] for concerns of anemia in the setting of Eliquis use. Patient had melanotic stool at that time. Patient did not undergo EGD or colonoscopy. Patient has EGD and colonoscopy scheduled outpatient for 09/28/2021. Patient is currently on Eliquis. Patient denies any history of cirrhosis, NSAID use, or recent melena/hematochezia. Onset: chronic Duration:ongoing Location:home Severity:moderate/severe Associated symptoms: Reports malaise; Deny chest pain, dyspnea, nausea, rash, palpitations or vomiting Review of Systems Const: Reports: fatigue, malaise and other (+generalized weakness); Denies: fever(s) or chills Eyes: Denies: change in vision ENMT: Denies: mouth pain Card: Denies: chest pain or palpitations Resp: Denies: dyspnea or non-productive cough GI: Denies: abdominal pain, nausea, vomiting or diarrhea : Denies: dysuria Musc: Denies: extremity pain Skin/Breast: Denies: rash or new lesions Neuro: Denies: weakness in extremities Psych: Reports: other (Normal mood) Cole/Lymph: Denies: easy bruising PFSH ED PFSH: Medical History Aphasia CAD (coronary artery disease) Cellulitis of face CKD (chronic kidney disease) CVA (cerebral vascular accident) Dyslipidemia Hypertension Surgical History History of coronary artery stent placement Status post colonoscopy Status post endovascular aneurysm repair (EVAR) Status post right inguinal hernia repair Family History Mother , at age 93 No problems noted. Father , at age 77 AA (aortic aneurysm) Cancer throat and lung Other Hypertension Social History Smoking and tobacco status: never smoked Alcohol intake: never Household members: spouse Housing: House Marital status: Current occupational status: retired History of recent travel: No Physical Exam Const: COMMON NORMALS: alert HENMT: COMMON NORMALS: atraumatic HEAD & SCALP: atraumatic MOUTH: moist mucous membranes not abnormal Eye: COMMON NORMALS: EOMs intact bilaterally OTHER: +conjunctival pallor b/l Neck/C-Spine: COMMON NORMALS: full ROM and supple Resp: COMMON NORMALS: normal respiratory effort and clear to auscultation bilaterally AUSCULTATION: clear to auscultation bilaterally Cardio: COMMON NORMALS: regular rate RATE: regular rate GI: COMMON NORMALS: Soft to palpation and non-tender PALPATION: Yes Soft to palpation OTHER: No focal TTP. NO guarding rebound, guarding, rigidity. No CVA tenderness to percussion. Neg Salazar/Neg McBurney's point tenderness, no suprabupic tenderness to palpation. Extremity: COMMON NORMALS: full ROM Neuro: SENSORIUM/ORIENTATION: Yes alert MOTOR EXAM: No Abnormal motor strength present and Other motor observations present (no focal motor deficits) Psych: COMMON NORMALS: speech normal SPEECH: Yes normal speech MOOD & AFFECT: Yes euthymic mood Course Vital Signs: Vital signs: Vital Signs Temperature 97.6 F 09/21/21 12:36 Pulse Rate 71 09/21/21 12:36 Respiratory Rate 16 09/21/21 12:36 Blood Pressure 107/65 09/21/21 12:36 Pulse Oximetry 98 09/21/21 12:36 Oxygen Delivery Me thod 09/21/21 12:36 MDM - General Adult Medical Decision Making 81-year-old male with history of recurrent anemia presenting to the emergency room for abnormal routine blood work in the setting of generalized weakness and fatigue. On exam, patient is noted to have conjunctival pallor. Rest of exam unremarkable. Patient is hemodynamically stable. Patient is noted to have hemoglobin 6.8. This point, patient still not underwent EGD or colonoscopy. Patient received Protonix. He received 2 units of blood. Patient will be admitted to hospital for EGD and colonoscopy for concerns of GI bleed. Patient received Protonix. I discussed with Dr. Russo who assessed patient at bedside with recommendation for EGD and bowel prep with colonoscopy tomorrow afternoon. Disposition: admission Lab Data : 09/21/21 12:55 09/21/21 12:55 Laboratory Results WBC 7.6 10^3/uL (4.0-10.0) 09/21/21 12:55 RBC 2.91 10^6/uL (4.1-5.3) L 09/21/21 12:55 Hgb 6.8 g/dL (11.7-16.6) L 09/21/21 12:55 Hct 23.9 % (42.0-52.0) L 09/21/21 12:55 MCV 82.1 fl (80-94) 09/21/21 12:55 MCH 23.4 pg (28.0-34.0) L 09/21/21 12:55 MCHC 28.5 g/dL (30.0-36.0) L 09/21/21 12:55 RDW 17.0 % (12.1-15.1) H 09/21/21 12:55 Plt Count 323 10^3/cmm (130-400) 09/21/21 12:55 MPV 10.5 fL (7.4-10.4) H 09/21/21 12:55 Neut % (Auto) 59.2 % 09/21/21 12:55 Lymph % (Auto) 15.6 % 09/21/21 12:55 [place] % (Auto) 11.6 % 09/21/21 12:55 Eos % (Auto) 12.5 % 09/21/21 12:55 Baso % (Auto) 0.7 % 09/21/21 12:55 Neut # (Auto) 4.49 10^3/uL (1.8-7.7) 09/21/21 12:55 Lymph # (Auto) 1.2 10^3/uL (0.8-4.8) 09/21/21 12:55 [place] # (Auto) 0.9 10^3/uL (0.2-0.9) 09/21/21 12:55 Eos # (Auto) 1.0 10^3/uL (0.0-0.8) H 09/21/21 12:55 Baso # (Auto) 0.1 10^3/uL (0.0-0.1) 09/21/21 12:55 Nucleated RBC % (auto) 0 % 09/21/21 12:55 Nucleated RBCs # 0.0 /100WBC 09/21/21 12:55 Sodium 137 mmol/L (136-145) 09/21/21 12:55 Potassium 4.5 mmol/L (3.5-5.1) 09/21/21 12:55 Chloride 101 mmol/L (98-107) 09/21/21 12:55 Carbon Dioxide 27 mmol/L (22-29) 09/21/21 12:55 Anion Gap 13.5 (5-19) 09/21/21 12:55 BUN 24 mg/dL (8-23) H 09/21/21 12:55 Creatinine 1.8 mg/dL (0.7-1.2) H 09/21/21 12:55 GFR Calculation Not Reportable 09/21/21 12:55 Glucose 154 mg/dL (65-115) H 09/21/21 12:55 Calculated Osmolality 291 mOsm/kg (285-295) 09/21/21 12:55 Calcium 8.8 mg/dL (8.5-10.5) 09/21/21 12:55 Blood Type O Positive 09/21/21 12:55 Rho(D) Type Positive 09/21/21 12:55 Discharge Plan Discharge Patient Disposition: Admitted As Inpatient Clinical Impression: Anemia, GI bleed Condition: Stable Coding Level of Care Code ED Tool Grinder Set Up Operator Gear for Chg Fwd Exam Comprehensive
[2021-09-21 13:05] LABS: Basophils # 0.1 10^3/uL (0.0-0.1); Basophils % 0.7 %; Eosinophils % 12.5 %; Hematocrit 23.9 % (42.0-52.0); Hemoglobin 6.8 g/dL (11.7-16.6); Lymphocytes # 1.2 10^3/uL (0.8-4.8); Lymphocytes % 15.6 %; Mean Corpuscular HGB Conc 28.5 g/dL (30.0-36.0); Mean Corpuscular Hemoglobin 23.4 pg (28.0-34.0); Mean Corpuscular Volume 82.1 fl (80-94); Mean Platelet Volume 10.5 fL (7.4-10.4); Monocytes # 0.9 10^3/uL (0.2-0.9); Monocytes % 11.6 %; Neutrophils # 4.49 10^3/uL (1.8-7.7); Neutrophils % 59.2 %; Nucleated Red Blood Cells % 0 %; Platelet Count 323 10^3/cmm (130-400); Red Blood Count 2.91 10^6/uL (4.1-5.3); White Blood Count 7.6 10^3/uL (4.0-10.0)
[2021-09-21 13:25] LABS: Anion Gap 13.5 (5-19); Blood Urea Nitrogen 24 mg/dL (8-23); Calcium 8.8 mg/dL (8.5-10.5); Carbon Dioxide 27 mmol/L (22-29); Chloride 101 mmol/L (98-107); Glucose 154 mg/dL (65-115); Osmolality Calculated 291 mOsm/kg (285-295); Potassium 4.5 mmol/L (3.5-5.1); Sodium 137 mmol/L (136-145)
[2021-09-21] MEDS: pantoprazole 40 mg SDV 80 MG IVP (13:36)
[2021-09-21] MEDS: sodium chloride 0.9% 100 mL Bag 50 ML IV (13:37)
--- NOTE | 2021-09-21 13:53 | P.HP_ITS ---
Providers/Chief Complaint Admitting Physician: Keily Leroy MD Primary Care Provider: Local: Zenon Sprague DO In [place]: David Escobar Chief Complaint: abnormal labs History of Present Illness Ap Guillen is a 81 year old male who presented to the emergency room with chief complaint of low blood count. Patient had had labs done last Tuesday and was called today and told to present to the emergency room as he needed a transfusion again. Mr. Guillen has been having issues with anemia for some time. Him and his have been in the process of slowly relocating to [facility]. They have established primary care there since they spend the majority of their time in that area but they also follow with tropin are not here locally when they come back to the [facility]. He has been having issues with significant anemia dating at least back to May or June of this year when he was found to have a very low hemoglobin. He received a blood transfusion at [facility] in [place] but did not have any invasive evaluation for source of bleeding. He is chronically on Eliquis due to a history of recurrent stroke and there had been concern about taking him off of Eliquis for procedure as I understand it. He had followed up here in August and was noted to have a hemoglobin of 7. About 2 weeks ago he saw primary care provider, electrician powerhouse and a GI specialist and [place]. He had lab work done at that time and again required transfusion of a unit of packed red blood cells. The lab that was done last Tuesday, collected via home health lab draw, was follow-up after that transfusion 2 weeks ago in [place]. I am not sure exactly what the value came back at but in the emergency room today hemoglobin is at 6.8 again. Patient has not been consistent with evaluating whether or not his stools are melanotic or getting his 's assistance in determining. He has not had any nosebleeds or other areas of bleeding reported. Back in December of last year he did have some bright red blood noted in his underwear at 1 point in time and was felt to have hemorrhoids. By the time he was seen by surgery symptoms had improved. Last colonoscopy was in 2014. He had an adenomatous polyp removed from the descending colon. reports that Mr. Guillen has frequent gagging. Not necessarily associated with oral intake, can occur at any point in time. He has cough that is more notable in the heading repairer hours of the day as is the gagging, but can occur anytime. With his prior strokes he has known expressive aphasia. He is better about it than he used to be after therapy. No known difficulty physically swallowing per . Has chronic right-sided weakness. When specifically questioned both Mr. Guillen and his indicate that he has been weaker than usual and more short of breath than usual lately. But it is only in retrospect that she can identify that as he has difficulty at baseline. Patient's primary care provider had scheduled him for EGD and colonoscopy in [place] on September 28. Given the recurrent blood loss and repeated need for transfusion, patient is being admitted for further evaluation of potential source of bleeding, particularly given that he needs to ideally stay on Eliquis. Eliquis was started after patient's strokes. He has no known history of atrial fibrillation or other arrhythmia. After his first stroke in which she had right-sided weakness, he underwent further evaluation with what sounds like a CHALINO and was found to have a hole in his heart . Eliquis was started after that. He had a subsequent stroke with expressive aphasia. Attempt was made to repair the hole in his heart but it was not able to be identified at that point in time. He has been told that he needs to stay on Eliquis or similar anticoagulant for the rest of his life. In addition patient has a history of aortic aneurysm with 2 stents placed. 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 History is obtained primarily from Mrs. Guillen although Mr. Guillen acknowledges parts that are correct or might need a little bit more explanation. He is aware when he is not able to get his words across appropriately and with time can get very close to what he is trying to say and will iterate if what was understood is what he meant with yes and no fairly consistently. Review of Systems Const: Denies: fever(s), chills, change in appetite or change in weight ENMT: Reports: other (Frequent gagging most notable in the morning associated with cough); Denies: throat pain, odynophagia, bleeding gums, nasal congestion or epistaxis Card: Reports: dyspnea on exertion; Denies: chest pain, irregular heart rhythm, edema or orthopnea Resp: Reports: dyspnea and non-productive cough (Frequent in the morning associated with some gagging); Denies: productive cough or hemoptysis GI: Reports: heartburn, constipation and other (Unclear if any blood in the stool or black tarry stool); Denies: abdominal pain, nausea, hematemesis, coffee ground emesis, dysphagia, early satiety, diarrhea, change in bowel habits, pain on defecation or rectal pain : Reports: other (No recent gross blood in urine); Denies: dysuria Musc: Reports: back pain (Chronic), limited range of motion (Primarily on right side but functional) and other (Right hand contractures) Skin/Breast: Denies: rash, pruritus or sores Neuro: Reports: numbness in extremities (Chronic right-sided weakness mild paresthesias), weakness in extremities (Chronic right-sided weakness), difficulty walking (No recent change from baseline) and other (Chronic expressive aphasia unchanged from baseline); Denies: headache(s) or involuntary movements Psych: Reports: depression; Denies: anxiety Cole/Lymph: Denies: easy bruising or easy bleeding Medications/Allergies Home Medications Medication Instructions Recorded Confirmed Last Taken Type alendronate 70 mg tablet 70 mg PO Q7D 07/09/20 09/21/21 09/16/21 History apixaban 5 mg tablet (Eliquis) 5 mg PO BID@07/09/20 09/21/21 09/21/21 History aspirin 81 mg tablet,delayed 81 mg PO DAILY@89907/09/20 09/21/21 09/21/21 History release montelukast 10 mg tablet 10 mg PO DAILY@209907/09/20 09/21/21 09/20/21 History ascorbic acid (vitamin C) 1,000 mg 1 g PO DAILY@209909/03/20 09/21/21 09/20/21 History tablet (Vitamin C) atorvastatin 80 mg tablet 80 mg PO DAILY@209909/03/20 09/21/21 09/20/21 History cetirizine 10 mg tablet 10 mg PO DAILY@89909/03/20 09/21/21 09/21/21 History cholecalciferol (vitamin D3) 25 25 mcg PO BID@09/03/20 09/21/21 09/21/21 History mcg (1,000 unit) chewable tablet (Vitamin D3) multivitamin 1 tab PO QAM 11/12/20 09/21/21 Unknown History ondansetron HCl 4 mg tablet 4 mg PO Q6H PRN nausea and 05/07/21 09/21/21 Unknown Rx vomiting #20 tabs pantoprazole 40 mg tablet,delayed 40 mg PO BID #60 tabs 05/07/21 09/21/21 09/21/21 Rx release (Protonix) valsartan 320 mg tablet 320 mg PO QPM 06/03/21 09/21/21 09/20/21 History venlafaxine 150 mg 150 mg PO QAM 06/03/21 09/21/21 09/21/21 09:00 History capsule,extended release 24 hr metoprolol tartrate 50 mg tablet 75 mg PO BID 09/21/21 09/21/21 09/21/21 History omega-3 fatty acids 1,000 mg 1,000 mg PO QAM 09/21/21 09/21/21 09/21/21 History capsule tramadol 50 mg tablet 50 mg PO BID@,09/21/21 09/21/21 09/21/21 History Allergies Allergy/AdvReac Type Severity Reaction Status Date / Time acetylcysteine Allergy nausea/vomi Verified 08/17/21 13:33 ting PFSH Acute PFSH: Medical History (Updated 09/21/21 @ 20:19 by Keily Leroy MD) CKD (chronic kidney disease) Single functioning kidney per CVA (cerebral vascular accident) 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 Reported to have hole in his heart but later when attempt was made to repair it was not identified. On chronic anticoagulation with Eliquis, initiated at outside facility, due to history of recurrent strokes. Degenerative joint disease of spine Dyslipidemia Expressive aphasia Hypertension Osteoporosis Peripheral artery disease Vitamin D deficiency Surgical History (Updated 09/21/21 @ 19:57 by Keily Leroy MD) History of cataract surgery History of intravascular stent placement renal artery and aortic stents Status post colonoscopy 2014 adenomatous polyp Status post endovascular aneurysm repair (EVAR) Status post herniorrhaphy right inguinal hernia Status post right inguinal hernia repair Family History Mother , at age 93 No problems noted. 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 Vitals/I&O/Wt Last Vital Signs Temp 97.6 F 09/21/21 12:36 Pulse 71 09/21/21 12:36 Resp 16 09/21/21 12:36 BP 107/65 09/21/21 12:36 Pulse Ox 98 09/21/21 12:36 O2 Del Method 09/21/21 12:36 Weight last 48 hrs Weight 79.379 kg Physical Exam Narrative: Constitutional: Awake and alert, able to agree with the history that provides as well as provide some information himself, cooperative HEENT: Normocephalic, pupils are equally reactive, extraocular movements intact, oropharynx with dentures noted, dry membranes Neck: Supple Respiratory: Clear to auscultation bilaterally without any rales rhonchi or wheezes noted Cardiovascular: Regular rate and rhythm, no murmurs gallops or rubs Abdomen: Soft, nontender, positive bowel sounds Extremities: Contractures noted of the right hand and to a lesser degree right foot primarily to the toes, able to use hand to vocational nurse, no pitting edema Skin: Pale, no rashes Neuro: Expressive aphasia apparent but with time patient can find words to get the majority of his points across, looks to his to do most of his talking, strength right upper extremity less than left upper extremity, strength right lower extremity also less than left lower extremity but not as apparent as in the upper, hyperreflexivity noted in both feet, toes upgoing, no tremors Psych: Normal affect Data : 09/21/21 12:55 09/21/21 12:55 Other Labs: Laboratory Results WBC 7.6 10^3/uL (4.0-10.0) 09/21/21 12:55 RBC 2.91 10^6/uL (4.1-5.3) L 09/21/21 12:55 Hgb 6.8 g/dL (11.7-16.6) L 09/21/21 12:55 Hct 23.9 % (42.0-52.0) L 09/21/21 12:55 MCV 82.1 fl (80-94) 09/21/21 12:55 MCH 23.4 pg (28.0-34.0) L 09/21/21 12:55 MCHC 28.5 g/dL (30.0-36.0) L 09/21/21 12:55 RDW 17.0 % (12.1-15.1) H 09/21/21 12:55 Plt Count 323 10^3/cmm (130-400) 09/21/21 12: MPV 10.5 fL (7.4-10.4) H 09/21/21 12:55 Neut % (Auto) 59.2 % 09/21/21 12:55 Lymph % (Auto) 15.6 % 09/21/21 12:55 Rooks % (Auto) 11.6 % 09/21/21 12:55 Eos % (Auto) 12.5 % 09/21/21 12:55 Baso % (Auto) 0.7 % 09/21/21 12:55 Neut # (Auto) 4.49 10^3/uL (1.8-7.7) 09/21/21 12:55 Lymph # (Auto) 1.2 10^3/uL (0.8-4.8) 09/21/21 12:55 Rooks # (Auto) 0.9 10^3/uL (0.2-0.9) 09/21/21 12:55 Eos # (Auto) 1.0 10^3/uL (0.0-0.8) H 09/21/21 12:55 Baso # (Auto) 0.1 10^3/uL (0.0-0.1) 09/21/21 12:55 Nucleated RBC % (auto) 0 % 09/21/21 12:55 Nucleated RBCs # 0.0 /100WBC 09/21/21 12:55 Sodium 137 mmol/L (136-145) 09/21/21 12:55 Potassium 4.5 mmol/L (3.5-5.1) 09/21/21 12:55 Chloride 101 mmol/L (98-107) 09/21/21 12:55 Carbon Dioxide 27 mmol/L (22-29) 09/21/21 12:55 Anion Gap 13.5 (5-19) 09/21/21 12:55 BUN 24 mg/dL (8-23) H 09/21/21 12:55 Creatinine 1.8 mg/dL (0.7-1.2) H 09/21/21 12:55 GFR Calculation Not Reportable 09/21/21 12:55 Glucose 154 mg/dL (65-115) H 09/21/21 12:55 Calculated Osmolality 291 mOsm/kg (285-295) 09/21/21 12:55 Calcium 8.8 mg/dL (8.5-10.5) 09/21/21 12:55 Blood Type O Positive 09/21/21 12:55 Rho(D) Type Positive 09/21/21 12:55 Antibody Screen Negative 09/21/21 12:55 Crossmatch See Detail 09/21/21 12:55 A&P Assessment and plan (1) Anemia: Type currently unknown, has been evaluated by hematology in [place], who has referred patient to GI for endoscopy. Requiring blood transfusion for 2nd time in several weeks. No reported gross blood loss, but preseumptively having GI losses based on history. Normocytic. Has had full workup with labs at hematology appointments though results not currently available. Patient is symptomatic with increased weakness and shortness of breath with activity on focussed review of how he has been doing last few days. Platelets are okay. No reported fever or new confusion. 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 (4) CKD (chronic kidney disease): Appears to be near baseline renal function, though BUN may be trending upwards Status: Chronic Qualifiers: Chronic kidney disease stage: stage 3 (moderate) Chronic kidney disease stage 3 subtype: stage 3b (GFR 30-44) Qualified Code(s): N18.32 - Chronic kidney disease, stage 3b (5) Hypertension: Chronically on metoprolol and valsartan Status: Chronic Qualifiers: Hypertension type: renovascular hypertension Qualified Code(s): I15.0 - Renovascular hypertension (6) Dyslipidemia: Chronically on statin Status: Chronic (7) Degenerative joint disease of spine: With chronic back pain for which he is on tramadol Status: Chronic (8) Aphasia: Chronic expressive aphasia secondary to CVA, can find many words but struggles with others, prefers conversations regarding history come from Status: Chronic (9) Osteoporosis: Chronically on alendronate, unclear if maintaining upright position 30 minutes after taking Status: Chronic Plan Seasonal allergies on chronic cetirizine and singulair Depression on chronic venlafaxine Peripheral artery disease Observation admission for now Repeat H&H after transfusion Continue PPI Hold alendronate and vitamin C pending results of EGD and colonoscopy GI prep for colonoscopy to begin this evening Consultation with Dr. Russo who will perform EGD and colonoscopy tomorrow Hold Eliquis and aspirin for now Holding unessential vitamins at least for now preprocedure Other home medications have been continued for now including beta-blockade, arb and statin therapy Home tramadol for back pain Supportive care otherwise SCDs for DVT prophylaxis while Eliquis is held No pharmacological DVT prophylaxis secondary to anemia requiring transfusion Findings, concerns and plans were discussed with patient's as well as him and both were given an opportunity to ask questions Disposition plans: Anticipate discharge home with and outpatient follow-up to primary care provider, hematology in [place] plus or minus GI provider there versus follow-up with Dr. Russo here depending on results of endoscopy tomorrow. Primary decision to make is whether or not it is safe to continue El iquis. Patient is at high risk of recurrent stroke not on anticoagulation based on available history but given need for transfusion twice in the past couple of weeks between 2 different facilities at significant risk if anticoagulation is continued in the setting of specified source of bleeding. CODE STATUS was discussed with Mr. Guillen as well as his . Patient is okay with short-term resuscitation but would not want long-term life support nor would he want resuscitative efforts if it was known ahead of time that his clinical condition would be even worse than it is now. Full code order has been entered per discussion. is his decision maker should he be unable to make his own decisions Attestations Medical Necessity Statement*: Currently anticipate a stay less than two midnights in a gentleman requiring transfusion for the second time in the last few weeks who is on chronic a nticoagulation. Hemoglobin was 6.8 with increased shortness of breath and weakness over the last couple of days on retrospective review. Plan is for endoscopy tomorrow to discern if there is an identifiable source of bleeding and facilitate future plan of care. 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
[2021-09-21] MEDS: pantoprazole DR 40 mg Tablet PO (18:11)
[2021-09-21] MEDS: sodium chloride 0.9% 1,000 ML 30 ML IV (18:12)
[2021-09-21] MEDS: bisacodyl 5 mg Tablet 10 MG PO ×2 (18:41→22:50)
[2021-09-21] MEDS: peg /e-lyte soln 4,000 mL Btl 4000 ML PO (18:42)
[2021-09-21] MEDS: ondansetron 2 mg/ML SDV 2 mL 4 MG IVP (19:15)
[2021-09-21 20:47] LABS: Iron 17 ug/dL (59-158); Percent Saturation 4.4 % (20-50); Total Iron Binding Capacity 386 mcg/dl; Unsaturated Iron Binding 369 ug/dL (112-347)
[2021-09-21] MEDS: metoprolol tartrate 50 mg Tablet 75 MG PO (21:07)
[2021-09-21] MEDS: TRAMadol 50 mg Tablet PO (21:07)
[2021-09-21] MEDS: montelukast sodium 10 mg Tablet PO (21:07)
[2021-09-21] MEDS: atorvastatin 40 mg Tablet 80 MG PO (21:08)
[2021-09-21] MEDS: losartan 50 mg Tablet 100 MG PO (22:50)
[2021-09-22] VITALS (9 sets, daily range): BP systolic 97–148; BP diastolic 54–81; PULSE 53–77; RESP 12–18; TEMP 35.7–37; O2SAT 91–100
[2021-09-22 05:39] LABS: Basophils # 0.1 10^3/uL (0.0-0.1); Basophils % 0.6 %; Eosinophils # 0.9 10^3/uL (0.0-0.8); Eosinophils % 11.5 %; Hemoglobin 8.5 g/dL (11.7-16.6); Lymphocytes # 1.7 10^3/uL (0.8-4.8); Lymphocytes % 21.9 %; Mean Corpuscular HGB Conc 29.3 g/dL (30.0-36.0); Mean Corpuscular Hemoglobin 25.1 pg (28.0-34.0); Mean Corpuscular Volume 85.8 fl (80-94); Mean Platelet Volume 10.2 fL (7.4-10.4); Monocytes # 1.2 10^3/uL (0.2-0.9); Monocytes % 15.3 %; Neutrophils # 3.96 10^3/uL (1.8-7.7); Neutrophils % 50.4 %; Nucleated Red Blood Cells % 0 %; Platelet Count 240 10^3/cmm (130-400); Red Blood Count 3.38 10^6/uL (4.1-5.3); Red Cell Distribution Width 16.8 % (12.1-15.1); White Blood Count 7.9 10^3/uL (4.0-10.0)
[2021-09-22 06:36] LABS: Vitamin B12 690 pg/mL (232-1245)
[2021-09-22] MEDS: venlafaxine ER (24HR) 150 mg Capsule PO (06:49)
[2021-09-22] MEDS: pantoprazole DR 40 mg Tablet PO ×2 (08:13→17:26)
[2021-09-22] MEDS: cetirizine 10 mg Tablet PO (08:13)
[2021-09-22] MEDS: TRAMadol 50 mg Tablet PO ×2 (08:13→22:43)
[2021-09-22] MEDS: metoprolol tartrate 50 mg Tablet 75 MG PO (08:14)
--- NOTE | 2021-09-22 11:06 | PC.NURSE ---
Patient taken to GI lab by GI lab staff.
--- NOTE | 2021-09-22 11:21 | ANES.PREANE2 ---
Pre-Anesthetic Assessment Height/Weight: Height 1.75 m Weight 83.642 kg Temp Pulse Resp BP Pulse Ox O2 Del Method 97.8 F 55 L 18 143/68 98 09/22/21 11:13 09/22/21 11:13 09/22/21 11:13 09/22/21 11:13 09/22/21 11:13 09/22/21 11:13 Preop Diagnosis: Blood loss anemia Operation Date: 09/22/21 12:00 Proposed Procedures p EGD(Not Applicable) - Sam Russo MD s Colonoscopy(Not Applicable) - Sam Russo MD Familial anesthetic complications: None Was Beta Mera taken within 24 hours: Yes Was Clonidine taken within 24 hours: N/A Last intake: > 8hrs Social No alcohol and No tobacco Exam alert, clear to auscultation bilaterally and regular rate & rhythm Airway Mallampati: Class III Dentition: false Pulmonary None reported CV/HEM Anemia and Hypertension aortic aneurysm w/ stents Chronic Renal Insufficiency GI Gastroesophageal Reflux Disease Metabolic Hyperlipidemia Neuropsych Cerebrovascular Accident (expressive aphasia and R hemiplegia) Anesthetic Plan ASA status: 4 Anesthesia: MAC Other: patient gags frequently per patient's . No hx of aspiration or difficulty swallowing. Occurs randomly Risk of > 500 ml blood loss (7ml/kg in children): No Medications/Allergies Home Medications Medication Instructions Recorded Confirmed Last Taken Type alendronate 70 mg tablet 70 mg PO Q7D 07/09/20 09/21/21 09/16/21 History apixaban 5 mg tablet (Eliquis) 5 mg PO BID@07/09/20 09/21/21 09/21/21 History aspirin 81 mg tablet,delayed 81 mg PO DAILY@89907/09/20 09/21/21 09/21/21 History release montelukast 10 mg tablet 10 mg PO DAILY@209907/09/20 09/21/21 09/20/21 History ascorbic acid (vitamin C) 1,000 mg 1 g PO DAILY@209909/03/20 09/21/21 09/20/21 History tablet (Vitamin C) atorvastatin 80 mg tablet 80 mg PO DAILY@209909/03/20 09/21/21 09/20/21 History cetirizine 10 mg tablet 10 mg PO DAILY@89909/03/20 09/21/21 09/21/21 History cholecalciferol (vitamin D3) 25 25 mcg PO BID@09/03/20 09/21/21 09/21/21 History mcg (1,000 unit) chewable tablet (Vitamin D3) multivitamin 1 tab PO QAM 11/12/20 09/21/21 Unknown History ondansetron HCl 4 mg tablet 4 mg PO Q6H PRN nausea and 05/07/21 09/21/21 Unknown Rx vomiting #20 tabs pantoprazole 40 mg tablet,delayed 40 mg PO BID #60 tabs 05/07/21 09/21/21 09/21/21 Rx release (Protonix) valsartan 320 mg tablet 320 mg PO QPM 06/03/21 09/21/21 09/20/21 History venlafaxine 150 mg 150 mg PO QAM 06/03/21 09/21/21 09/21/21 09:00 History capsule,extended release 24 hr metoprolol tartrate 50 mg tablet 75 mg PO BID 09/21/21 09/21/21 09/21/21 History omega-3 fatty acids 1,000 mg 1,000 mg PO QAM 09/21/21 09/21/21 09/21/21 History capsule tramadol 50 mg tablet 50 mg PO BID@09/21/21 09/21/21 09/21/21 History Allergies Allergy/AdvReac Type Severity Reaction Status Date / Time acetylcysteine Allergy nausea/vomi Verified 08/17/21 13:33 ting Current Medications Generic Name Dose Route Start Last Admin Trade Name Freq PRN Reason Stop Dose Admin Atorvastatin Calcium 80 mg 09/21/21 21:00 09/21/21 21:08 Atorvastatin 40 Mg Tablet PO 80 mg BEDTIME ENZO Administration Cetirizine HCl 10 mg 09/22/21 09:00 09/22/21 08:13 Cetirizine 10 Mg Tablet PO 10 mg DAILY@0900 ENZO Administration Sodium Chloride 1,000 mls @ 30 mls/hr 09/21/21 16:30 09/21/21 18:12 Sodium Chloride 0.9% IV 09/22/21 16:29 30 mls/hr .Q24H ONE Administration Losartan Potassium 100 mg 09/21/21 21:00 09/21/21 22:50 Losartan 50 Mg Tablet PO 100 mg BEDTIME ENZO Administration Metoprolol Tartrate 75 mg 09/21/21 21:00 09/22/21 08:14 Metoprolol Tartrate 50 Mg Tablet PO 75 mg BID@0900,2100 ENZO Administration Montelukast Sodium 10 mg 09/21/21 21:00 09/21/21 21:07 Montelukast Sodium 10 Mg Tablet PO 10 mg DAILY@2100 ENZO Administration Ondansetron HCl 4 mg 09/21/21 17:35 09/21/21 19:15 Ondansetron 2 Mg/Ml Sdv 2 Ml IVP 4 mg Q8H PRN Administration vomiting, or N/V if npo Pantoprazole Sodium 40 mg 09/21/21 18:00 09/22/21 08:[address] 40 Mg Tablet PO 40 mg BID ENZO Administration Tramadol HCl 50 mg 09/21/21 21:00 09/22/21 08:13 Tramadol 50 Mg Tablet PO 50 mg BID@09,21 ENZO Administration Venlafaxine HCl 150 mg 09/22/21 06:00 09/22/21 06:49 Venlafaxine Er (24hr) 150 Mg Capsule PO 150 mg QAM ENZO Administration [facility] Anesthesia Medical History (Updated 09/21/21 @ 20:19 by Keily Leroy MD) CKD (chronic kidney disease) Single functioning kidney per CVA (cerebral vascular accident) 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 Reported to have hole in his heart but later when attempt was made to repair it was not identified. On chronic anticoagulation with Eliquis, initiated at outside facility, due to history of recurrent strokes. Degenerative joint disease of spine Dyslipidemia Expressive aphasia Hypertension Osteoporosis Peripheral artery disease Vitamin D deficiency Surgical History (Updated 09/21/21 @ 19:57 by Keily Leroy MD) History of cataract surgery History of intravascular stent placement renal artery and aortic stents Status post colonoscopy 2014 adenomatous polyp Status post endovascular aneurysm repair (EVAR) Status post herniorrhaphy right inguinal hernia Status post right inguinal hernia repair Family History Mother , at age 93 No problems noted. 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 Data Anesthesia : 09/22/21 05:32 09/21/21 12:55 Short CBC 09/21/21 09/22/21 Range/Units 12:55 05:32 WBC 7.6 7.9 (4.0-10.0) 10^3/uL Hgb 6.8 L 8.5 L (11.7-16.6) g/dL Hct 23.9 L 29.0 L (42.0-52.0) % MCV 82.1 85.8 (80-94) fl Plt Count 323 240 (130-400) 10^3/cmm Neut % (Auto) 59.2 50.4 % Neut # (Auto) 4.49 3.96 (1.8-7.7) 10^3/uL BMP 09/21/21 12:55 Sodium 137 Potassium 4.5 Chloride 101 Carbon Dioxide 27 BUN 24 H Creatinine 1.8 H Glucose 154 H Calcium 8.8 Blood Bank 09/21/21 12:55 Blood Type O Positive Rho(D) Type Positive Antibody Screen Negative Cardiac Studies: No Data to Display
[2021-09-22] MEDS: sodium chloride 0.9% 1,000 ML 30 ML IV (11:23)
--- NOTE | 2021-09-22 12:24 | P.PN_ITS ---
Subjective Subjective: H&P reviewed Patient is endorsing feeling better Hemoglobin 8.5, creatinine at baseline Patient looks euvolemic No active complaints is also at the bedside does not want to stop aspirin or Eliquis however this is third blood transfusion will be considered major GI bleed We will follow-up after endoscopy results, at this point I would hold the anti coagulating agent along aspirin Vitals/I&O/Wt Last Vital Signs Temp 97.8 F 09/22/21 11:13 Pulse 55 L 09/22/21 11:13 Resp 18 09/22/21 11:13 BP 143/68 09/22/21 11:13 Pulse Ox 98 09/22/21 11:13 O2 Del Method 09/22/21 11:13 09/21/21 09/22/21 09/22/21 22:59 06:59 14:59 Intake Total 470 / 470 120 / 590 504 / 504 Output Total 150 / 150 1000 / 1000 Balance 320 / 320 120 / 440 -496 / -496 Weight last 48 hrs Weight 83.642 kg Weight 79.379 kg Physical Exam Narrative: Patient looks euvolemic Hemodynamically stable Currently on room air at the bedside Patient has nonfocal neuro exam Currently saturating well on room air Abdomen is soft bowel sound present S1, S2 I do not appreciate any murmur Patient seems to have some underlying dementia he has poor attention span Data : 09/22/21 05:32 09/21/21 12:55 A&P Assessment and plan (1) Blood loss anemia: Status: Acute (2) CKD (chronic kidney disease): Status: Chronic Qualifiers: Chronic kidney disease stage: stage 3 (moderate) Chronic kidney disease stage 3 subtype: stage 3b (GFR 30-44) Qualified Code(s): N18.32 - Chronic kidney disease, stage 3b (3) CVA (cerebral vascular accident): Status: Chronic Qualifiers: CVA mechanism: thrombosis Precerebral and cerebral artery: other cer ebral artery Qualified Code(s): 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 Guillen is very skeptical about holding anticoagulating agent and is under the impression that he can list any antiplatelet or anticoagulating agent dose for risk of stroke I had a long discussion regarding ways benefits and the risk and then deciding with the help of a facility manager histology regarding continuation of anticoagulating agent is stating that facility manager histology is in [place] and she can probably get an early appointment Her biggest concern right now is related to stroke patient has had 3 blood transfusions which will be considered major GI bleed He also fell last week, has been using a walker Currently hemodynamically stable Will make further recommendations after EGD and colonoscopy report today Sinus bradycardia, cut back on metoprolol down to 25 mg from 75 mg Full code DVT prophylaxis SCDs He does take high-dose valsartan, currently on losartan watch closely his blood pressure for now Attestations Medical Necessity Statement*: Anticipating discharge later today versus tomorrow Time Spent in Patient Care: 30 Coding Level of Care Code Acute 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
--- NOTE | 2021-09-22 12:27 | PM.CONSULT ---
Providers/Reason For Consult Consulting Physician/Specialty*: Medicine endoscopy Reason for Consult*: Blood loss anemia Requesting Physician: Phrase Attending Physician: Keily Leroy MD Primary Care Provider: Zenon Sprague DO History of Present Illness History of Present Illness Ap Giullen is a 81 year old male who presented to the emergency department with a hemoglobin of 6.8. He has presented and represented with fairly significant anemia a time or 2. Once we transferred him to [place] and no endoscopic evaluation was undertaken. They kept him on his Eliquis and he continued to dwindle down on his hemoglobin. He has a history of A. fib and that is what the Eliquis is for. His last endoscopy was many many years ago. He has trouble deciding if he sees red blood in his stool or black tarry stool. Review of Systems Const: Denies: fever(s), chills, change in appetite or change in weight ENMT: Reports: other (Frequent gagging most notable in the morning associated with cough); Denies: throat pain, odynophagia, bleeding gums, nasal congestion or epistaxis Card: Reports: dyspnea on exertion; Denies: chest pain, irregular heart rhythm, edema or orthopnea Resp: Reports: dyspnea and non-productive cough (Frequent in the morning associated with some gagging); Denies: productive cough or hemoptysis GI: Reports: heartburn, constipation and other (Unclear if any blood in the stool or black tarry stool); Denies: abdominal pain, nausea, hematemesis, coffee ground emesis, dysphagia, early satiety, diarrhea, change in bowel habits, pain on defecation or rectal pain : Reports: other (No recent gross blood in urine); Denies: dysuria Musc: Reports: back pain (Chronic), limited range of motion (Primarily on right side but functional) and other (Right hand contractures) Skin/Breast: Denies: rash, pruritus or sores Neuro: Reports: numbness in extremities (Chronic right-sided weakness mild paresthesias), weakness in extremities (Chronic right-sided weakness), difficulty walking (No recent change from baseline) and other (Chronic expressive aphasia unchanged from baseline); Denies: headache(s) or involuntary movements Psych: Reports: depression; Denies: anxiety Cole/Lymph: Denies: easy bruising or easy bleeding Medications/Allergies Home Medications Medication Instructions Recorded Confirmed Last Taken Type alendronate 70 mg tablet 70 mg PO Q7D 07/09/20 09/21/21 09/16/21 History apixaban 5 mg tablet (Eliquis) 5 mg PO BID@07/09/20 09/21/21 09/21/21 History aspirin 81 mg tablet,delayed 81 mg PO DAILY@89907/09/20 09/21/21 09/21/21 History release montelukast 10 mg tablet 10 mg PO DAILY@209907/09/20 09/21/21 09/20/21 History ascorbic acid (vitamin C) 1,000 mg 1 g PO DAILY@209909/03/20 09/21/21 09/20/21 History tablet (Vitamin C) atorvastatin 80 mg tablet 80 mg PO DAILY@209909/03/20 09/21/21 09/20/21 History cetirizine 10 mg tablet 10 mg PO DAILY@89909/03/20 09/21/21 09/21/21 History cholecalciferol (vitamin D3) 25 25 mcg PO BID@09/03/20 09/21/21 09/21/21 History mcg (1,000 unit) chewable tablet (Vitamin D3) multivitamin 1 tab PO QAM 11/12/20 09/21/21 Unknown History ondansetron HCl 4 mg tablet 4 mg PO Q6H PRN nausea and 05/07/21 09/21/21 Unknown Rx vomiting #20 tabs pantoprazole 40 mg tablet,delayed 40 mg PO BID #60 tabs 05/07/21 09/21/21 09/21/21 Rx release (Protonix) valsartan 320 mg tablet 320 mg PO QPM 06/03/21 09/21/21 09/20/21 History venlafaxine 150 mg 150 mg PO QAM 06/03/21 09/21/21 09/21/21 09:00 History capsule,extended release 24 hr metoprolol tartrate 50 mg tablet 75 mg PO BID 09/21/21 09/21/21 09/21/21 History omega-3 fatty acids 1,000 mg 1,000 mg PO QAM 09/21/21 09/21/21 09/21/21 History capsule tramadol 50 mg tablet 50 mg PO BID@09/21/21 09/21/21 09/21/21 History Allergies Allergy/AdvReac Type Severity Reaction Status Date / Time acetylcysteine Allergy nausea/vomi Verified 08/17/21 13:33 ting Current Medications Generic Name Dose Route Start Last Admin Trade Name Davidq PRN Reason Stop Dose Admin Atorvastatin Calcium 80 mg 09/21/21 21:00 09/21/21 21:08 Atorvastatin 40 Mg Tablet PO 80 mg BEDTIME ENZO Administration Cetirizine HCl 10 mg 09/22/21 09:00 09/22/21 08:13 Cetirizine 10 Mg Tablet PO 10 mg DAILY@0900 ENZO Administration Sodium Chloride 1,000 mls @ 30 mls/hr 09/21/21 16:30 09/22/21 11:00 Sodium Chloride 0.9% IV 09/22/21 16:29 0 mls/hr .Q24H ONE Infusion Sodium Chloride 1,000 mls @ 30 mls/hr 09/22/21 11:15 09/22/21 11:23 Sodium Chloride 0.9% IV 09/23/21 11:14 30 mls/hr .Q24H ENZO Administration Losartan Potassium 100 mg 09/21/21 21:00 09/21/21 22:50 Losartan 50 Mg Tablet PO 100 mg BEDTIME ENZO Administration Metoprolol Tartrate 75 mg 09/21/21 21:00 09/22/21 08:14 Metoprolol Tartrate 50 Mg Tablet PO 75 mg BID@0900,2100 ENZO Administration Montelukast Sodium 10 mg 09/21/21 21:00 09/21/21 21:07 Montelukast Sodium 10 Mg Tablet PO 10 mg DAILY@2100 ENZO Administration Ondansetron HCl 4 mg 09/21/21 17:35 09/21/21 19:15 Ondansetron 2 Mg/Ml Sdv 2 Ml IVP 4 mg Q8H PRN Administration vomiting, or N/V if npo Pantoprazole Sodium 40 mg 09/21/21 18:00 09/22/21 08:[address] 40 Mg Tablet PO 40 mg BID ENZO Administration Tramadol HCl 50 mg 09/21/21 21:00 09/22/21 08:13 Tramadol 50 Mg Tablet PO 50 mg BID@ ENZO Administration Venlafaxine HCl 150 mg 09/22/21 06:00 09/22/21 06:49 Venlafaxine Er (24hr) 150 Mg Capsule PO 150 mg QAM ENZO Administration PFSH Acute PFSH: Medical History (Updated 09/22/21 @ 12:29 by Sam Russo MD) CKD (chronic kidney disease) Single functioning kidney per CVA (cerebral vascular accident) 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 Reported to have hole in his heart but later when attempt was made to repair it was not identified. On chronic anticoagulation with Eliquis, initiated at outside facility, due to history of recurrent strokes. Degenerative joint disease of spine Dyslipidemia Expressive aphasia Hypertension Osteoporosis Peripheral artery disease Vitamin D deficiency Surgical History (Updated 09/21/21 @ 19:57 by Keily Leroy MD) History of cataract surgery History of intravascular stent placement renal artery and aortic stents Status post colonoscopy 2014 adenomatous polyp Status post endovascular aneurysm repair (EVAR) Status post herniorrhaphy right inguinal hernia Status post right inguinal hernia repair Family History Mother , at age 93 No problems noted. Father , at age 77 AA (aortic aneurysm) Cancer throat and lung Other Hypertension Social History (Updated 09/21/21 @ 20:19 by Keily Leroy MD) Smoking and tobacco status: never smoked Alcohol intake: never Substance/Drug Use: never Household members: spouse Housing: House Marital status: Current occupational status: retired Vitals/I&O/Wt Last Vital Signs Temp 97.8 F 09/22/21 11:13 Pulse 55 L 09/22/21 11:13 Resp 18 09/22/21 11:13 BP 143/68 09/22/21 11:13 Pulse Ox 98 09/22/21 11:13 O2 Del Method 09/22/21 11:13 09/21/21 09/22/21 09/22/21 22:59 06:59 14:59 Intake Total 470 / 470 120 / 590 504 / 504 Output Total 150 / 150 1000 / 1000 Balance 320 / 320 120 / 440 -496 / -496 Weight last 48 hrs Weight 184 lb 6.4 oz Weight 175 lb Physical Exam Narrative: On examination he appeared in no distress. Vital signs as documented. Skin warm and dry and without overt rashes. Neck without JVD. Lungs clear. Heart exam notable for regular rhythm, normal sounds and absence of murmurs, rubs or gallops. Abdomen unremarkable and without evidence of organomegaly, masses, or abdominal aortic enlargement. Data : 09/22/21 05:32 09/21/21 12:55 A&P Assessment and plan (1) Blood loss anemia: If he is to stay on Eliquis, we will need to definitively outline his GI bleeding situation. He seems like he has been passed around quite a bit over the last year or so. We will plan on admission with inpatient upper and lower endoscopy. 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
--- NOTE | 2021-09-22 13:33 | ANE.PACU2 ---
Inpatient post-anesthesia follow up: Airway intact: Yes Vital signs: Temperature 97.0 F Pulse Rate 53 Respiratory Rate 18 Blood Pressure 107/56 Pulse Oximetry 98 Oxygen Delivery Me thod Room Air Oxygen Flow Rate 3 Fraction of Inspir ed Oxygen Hydration adequate: Yes Nausea and vomiting: No Pain level: 1 Mental status: Baseline
[2021-09-22] MEDS: losartan 50 mg Tablet 25 MG PO (22:42)
[2021-09-22] MEDS: atorvastatin 40 mg Tablet 80 MG PO (22:43)
[2021-09-23 05:33] LABS: Blood Urea Nitrogen 19 mg/dL (8-23); Calcium 8.5 mg/dL (8.5-10.5); Carbon Dioxide 24 mmol/L (22-29); Chloride 103 mmol/L (98-107); Glucose 90 mg/dL (65-115); Osmolality Calculated 286 mOsm/kg (285-295); Sodium 137 mmol/L (136-145)
[2021-09-23 05:34] LABS: Anion Gap 14.9 (5-19); Potassium 4.9 mmol/L (3.5-5.1)
[2021-09-23] MEDS: venlafaxine ER (24HR) 150 mg Capsule PO (05:54)
[2021-09-23] MEDS: pantoprazole DR 40 mg Tablet PO (08:10)
[2021-09-23] MEDS: cetirizine 10 mg Tablet PO (08:10)
[2021-09-23] MEDS: TRAMadol 50 mg Tablet PO (08:10)
[2021-09-23 08:18] VITALS: BP 155/59; PULSE 71; RESP 17; TEMP 36.7; O2SAT 89
[2021-09-23 08:27] LABS: Basophils % 0.6 %; Eosinophils # 0.9 10^3/uL (0.0-0.8); Eosinophils % 12.8 %; Hematocrit 29.4 % (42.0-52.0); Hemoglobin 8.9 g/dL (11.7-16.6); Lymphocytes # 1.3 10^3/uL (0.8-4.8); Lymphocytes % 17.6 %; Mean Corpuscular HGB Conc 30.3 g/dL (30.0-36.0); Mean Corpuscular Hemoglobin 25.2 pg (28.0-34.0); Mean Corpuscular Volume 83.3 fl (80-94); Mean Platelet Volume 10.2 fL (7.4-10.4); Monocytes # 0.9 10^3/uL (0.2-0.9); Monocytes % 12.3 %; Neutrophils % 56.4 %; Nucleated Red Blood Cells % 0 %; Platelet Count 238 10^3/cmm (130-400); Red Blood Count 3.53 10^6/uL (4.1-5.3); Red Cell Distribution Width 17.1 % (12.1-15.1); White Blood Count 7.1 10^3/uL (4.0-10.0)
[2021-09-23 10:15] VITALS: O2SAT 94
--- NOTE | 2021-09-23 11:10 | P.DS_ITS ---
Discharge Providers Date of Admission: 09/21/21 13:36 Date of Discharge: September 23, 2021 Attending Provider at Admission: Keily Leroy MD Attending Provider at Discharge: Chante Desir MD Primary Care Provider: Zenon Sprague DO Diagnoses at Discharge Discharge Diagnosis (1) Blood loss anemia: Status: Acute (2) CKD (chronic kidney disease): Status: Chronic Qualifiers: Chronic kidney disease stage: stage 3 (moderate) Chronic kidney disease stage 3 subtype: stage 3b (GFR 30-44) Qualified Code(s): N18.32 - Chronic kidney disease, stage 3b Permanent problem details: Single functioning kidney per (3) CVA (cerebral vascular accident): Status: Chronic Qualifiers: CVA mechanism: thrombosis Precerebral and cerebral artery: other cerebral artery Qualified Code(s): 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 Reported to have hole in his heart but later when attempt was made to repair it was not identified. On chronic anticoagulation with Eliquis, initiated at outside facility, due to history of recurrent strokes. 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 Leroy. Admitting detailed 81-year-old male who carries history of recurrent GI bleed, presented to the hospital for abnormal CBC with hemoglobin below 7. Patient was hemodynamically stable. He has seen chocolate maker and svp research & ebusiness operations at [facility]. He was supposed to get EGD and colonoscopy on September 28 however because of abnormal CBC he was referred to the ER. Received 2 unit PRBC, requiring blood transfusion for second time in the last few weeks. EGD and colonoscopy done by Dr. Russo which was unremarkable. I spoke with Dr. Naranjo his chocolate maker phone number [phone] who recommended continuing aspirin considering the fact EGD and colonoscopy did not show active ulcers. He told me that his Eliquis was for DVT not for prevention of stroke. CHALINO ruled out intracardiac shunt. This was conveyed to the as well who was present in the room. At the time of discharge she will get aspirin will CBC follow-up within 3 days and then after a week. Mrs. Guillen is very reluctant to discontinue any antiplatelet therapy for now. I did tell her that Eliquis was for prevention of DVT and PE it was not prescribed for CVA. No history of A. fib. No intracardiac shunt. Patient remained hemodynamically stable in the hospital. Hemoglobin at the time of discharge 8.9. H&H at admission 6.8 I have recommended pill endoscopy and follow-up with the GI in case of recurrent GI bleed, melanotic stools. Mrs. Guillen is aware Physical Exam Narrative: Patient has residual aphasia from previous CVA Baseline mild cognitive impairment S1, S2 Abdomen soft Awake and alert Currently doing well on room air Nonfocal neuro exam Hemodynamically stable Discharge Data Studies Completed and Pending Laboratory Results WBC 7.1 10^3/uL (4.0-10.0) 09/23/21 08:16 Corrected WBC Cancelled 09/23/21 05:00 RBC 3.53 10^6/uL (4.1-5.3) L 09/23/21 08:16 Hgb 8.9 g/dL (11.7-16.6) L 09/23/21 08:16 Hct 29.4 % (42.0-52.0) L 09/23/21 08:16 MCV 83.3 fl (80-94) 09/23/21 08:16 MCH 25.2 pg (28.0-34.0) L 09/23/21 08:16 MCHC 30.3 g/dL (30.0-36.0) 09/23/21 08:16 RDW 17.1 % (12.1-15.1) H 09/23/21 08:16 Plt Count 238 10^3/cmm (130-400) 09/23/21 08:16 MPV 10.2 fL (7.4-10.4) 09/23/21 08:16 Gran % Cancelled 09/23/21 05:00 Neut % (Auto) 56.4 % 09/23/21 08:16 Lymph % (Auto) 17.6 % 09/23/21 08:16 [place] % (Auto) 12.3 % 09/23/21 08:16 Eos % (Auto) 12.8 % 09/23/21 08:16 Baso % (Auto) 0.6 % 09/23/21 08:16 Neut # (Auto) 4.00 10^3/uL (1.8-7.7) 09/23/21 08:16 Lymph # (Auto) 1.3 10^3/uL (0.8-4.8) 09/23/21 08:16 [place] # (Auto) 0.9 10^3/uL (0.2-0.9) 09/23/21 08:16 Eos # (Auto) 0.9 10^3/uL (0.0-0.8) H 09/23/21 08:16 Baso # (Auto) 0.0 10^3/uL (0.0-0.1) 09/23/21 08:16 Absolute Gran (auto) Cancelled 09/23/21 05:00 Nucleated RBC % (auto) 0 % 09/23/21 08:16 Nucleated RBCs # 0.0 /100WBC 09/23/21 08:16 Sodium 137 mmol/L (136-145) 09/23/21 05:00 Potassium 4.9 mmol/L (3.5-5.1) 09/23/21 05:00 Chloride 103 mmol/L (98-107) 09/23/21 05:00 Carbon Dioxide 24 mmol/L (22-29) 09/23/21 05:00 Anion Gap 14.9 (5-19) 09/23/21 05:00 BUN 19 mg/dL (8-23) 09/23/21 05:00 Creatinine 1.9 mg/dL (0.7-1.2) H 09/23/21 05:00 GFR Calculation Not Reportable 09/23/21 05:00 Glucose 90 mg/dL (65-115) 09/23/21 05:00 Calculated Osmolality 286 mOsm/kg (285-295) 09/23/21 05:00 Calcium 8.5 mg/dL (8.5-10.5) 09/23/21 05:00 Iron 17 ug/dL (59-158) L 09/21/21 12:55 TIBC 386 mcg/dl 09/21/21 12:55 % Saturation 4.4 % (20-50) L 09/21/21 12:55 Unsat Iron Binding 369 ug/dL (112-347) H 09/21/21 12:55 Vitamin B12 690 pg/mL (232-1245) 09/21/21 12:55 Blood Type O Positive 09/21/21 12:55 Rho(D) Type Positive 09/21/21 12:55 Antibody Screen Negative 09/21/21 12:55 Crossmatch See Detail 09/21/21 12:55 Vitals Last Vital Signs Temp 98.0 F 09/23/21 08:18 Pulse 71 09/23/21 08:18 Resp 17 09/23/21 08:18 BP 155/59 09/23/21 08:18 Pulse Ox 94 09/23/21 10:15 O2 Del Method 09/23/21 10:15 O2 Flow Rate 3 09/22/21 13:01 Discharge Plan Discharge Patient Disposition: Home Condition: Stable Prescriptions: New sucralfate 100 mg/mL suspension 1 g PO BID 56 Days Qty: 1120 0RF Continued montelukast 10 mg tablet 10 mg PO DAILY@2100 alendronate 70 mg tablet 70 mg PO Q7D Rx Instructions: ON TUE aspirin 81 mg tablet,delayed release (DR/EC) 81 mg PO DAILY@0900 multivitamin Tablet 1 tab PO QAM venlafaxine 150 mg capsule,extended release 24hr 150 mg PO QAM valsartan 320 mg tablet 320 mg PO QPM atorvastatin 80 mg tablet 80 mg PO DAILY@2100 ascorbic acid (vitamin C) [Vitamin C] 1,000 mg Tablet 1 g PO DAILY@2100 cetirizine 10 mg Tablet 10 mg PO DAILY@0900 cholecalciferol (vitamin D3) [Vitamin D3] 25 mcg (1,000 unit) Tablet,Chewable 25 mcg PO BID@ ondansetron HCl 4 mg tablet 4 mg PO Q6H PRN (Reason: nausea and vomiting) Qty: 20 0RF metoprolol tartrate 50 mg tablet 75 mg PO BID Fish Oil Concentrate 1,000 mg Capsule 1,000 mg PO QAM tramadol 50 mg tablet 50 mg PO BID@ pantoprazole [Protonix] 40 mg tablet,delayed release (DR/EC) 40 mg PO BID Qty: 60 3RF Discontinued Eliquis 5 mg tablet 5 mg PO BID@, Discharge Orders: Discharge Order (Routine); Ordered 09/23/21 Ordered By: Chante Desir Other Ambulatory Orders: Complete Blood Count w/Auto (Routine) Timeframe: 3 Days Location: Determined by Patient Ordered By: Chante Desir Complete Blood Count w/Auto (Routine) Timeframe: 1 Week Location: Determined by Patient Ordered By: Chante Desir Referrals: Zenon Sprague DO [Primary Care Provider] - 7-10 days Discharge Diet: Cardiac Discharge Activity: Use walker/crutches as instructed Patient Instructions: GI Discharge Instructions, Opioid Safety Discharge Attestations Time Spent in Discharge Care*: less than 30 min Quality Metrics Clinical Quality Measures [ No reported AMI, CVA or VTE this stay] Coding Level of Care Code Acute Chg FW DC note Diagnoses Blood loss anemia D50.0 CKD (chronic kidney disease) N18.32 Chronic kidney disease stage: stage 3 (moderate) Chronic kidney disease stage 3 subtype: stage 3b (GFR 30-44) CVA (cerebral vascular accident) I63.39 CVA mechanism: thrombosis Precerebral and cerebral artery: other cerebral artery Aphasia R47.01 Degenerative joint disease of spine M47.9 Chronic anticoagulation Z79.01 Osteoporosis M81.0 Anemia D64.9
[2021-09-23 11:17] VITALS: BP 165/68; PULSE 74; RESP 16; TEMP 36.5; O2SAT 98
[2021-09-23 13:58] VITALS: BP 165/68; PULSE 74; RESP 16; TEMP 36.5; O2SAT 98
== END 2021-09-23 13:58 | disposition home health service (06) ==
LOC: ER 14:20 → MEDSURG 15:19
PROVIDERS: Internal Medicine; Admitting Provider Hospitalist; Emergency Provider Emergency Medicine; PCP Family Medicine; Visit Provider Internal Medicine
PROC: 0DJ08ZZ Inspection of Upper Intestinal Tract, Via Natural or Artificial Opening Endoscopic (ICD-10-PCS; CPT 43235; principal; 2021-09-22 12:00)
PROC: 0DJD8ZZ Inspection of Lower Intestinal Tract, Via Natural or Artificial Opening Endoscopic (ICD-10-PCS; CPT 45378; 2021-09-22 12:00)
DX: D50.0 Iron deficiency anemia secondary to blood loss (chronic) (principal); N18.32 Chronic kidney disease, stage 3b; I63.39 Cerebral infarction due to thrombosis of other cerebral artery; R47.01 Aphasia; M47.9 Spondylosis, unspecified; Z79.01 Long term (current) use of anticoagulants; M81.0 Age-related osteoporosis without current pathological fracture; D64.9 Anemia, unspecified; Z79.82 Long term (current) use of aspirin; Z86.73 Personal history of transient ischemic attack (TIA), and cerebral infarction without residual deficits; E55.9 Vitamin D deficiency, unspecified; E78.5 Hyperlipidemia, unspecified; I15.0 Renovascular hypertension
CPT/HCPCS: 36415; 36430; 43235; 45378; 80048; 82607; 83540; 83550; 85025; 86850; 86900; 86920; 96374; 99285; C9113; G0378; J2405; J2704; J7030; P9016

== ENCOUNTER 2021-09-30 15:19 | Outpatient (CLI) | payer MEDICARE, BC, SELFPAY ==
[2021-09-30 15:52] LABS: Basophils # 0.1 10^3/uL (0.0-0.1); Basophils % 0.7 %; Eosinophils # 1.3 10^3/uL (0.0-0.8); Eosinophils % 13.9 %; Hematocrit 34.8 % (42.0-52.0); Hemoglobin 10.3 g/dL (11.7-16.6); Lymphocytes # 1.4 10^3/uL (0.8-4.8); Lymphocytes % 14.4 %; Mean Corpuscular HGB Conc 29.6 g/dL (30.0-36.0); Mean Corpuscular Hemoglobin 25.1 pg (28.0-34.0); Mean Corpuscular Volume 84.7 fl (80-94); Mean Platelet Volume 11.2 fL (7.4-10.4); Monocytes # 1.1 10^3/uL (0.2-0.9); Monocytes % 11.6 %; Neutrophils # 5.62 10^3/uL (1.8-7.7); Neutrophils % 58.8 %; Nucleated Red Blood Cells % 0 %; Platelet Count 247 10^3/cmm (130-400); Red Blood Count 4.11 10^6/uL (4.1-5.3); Red Cell Distribution Width 17.6 % (12.1-15.1); White Blood Count 9.6 10^3/uL (4.0-10.0)
== END 2021-09-30 15:20 | disposition home or self-care (01) ==
LOC: LAB 15:24
PROVIDERS: PCP Family Medicine; Visit Provider Internal Medicine
DX: D64.9 Anemia, unspecified (principal)
CPT/HCPCS: 85025

== ENCOUNTER 2021-10-14 14:10 | Outpatient (CLI) | payer MEDICARE, BC, SELFPAY ==
[2021-10-14 15:38] LABS: Basophils # 0.1 10^3/uL (0.0-0.1); Basophils % 0.6 %; Eosinophils # 1.5 10^3/uL (0.0-0.8); Eosinophils % 15.6 %; Hematocrit 32.7 % (42.0-52.0); Hemoglobin 9.7 g/dL (11.7-16.6); Lymphocytes # 1.4 10^3/uL (0.8-4.8); Mean Corpuscular HGB Conc 29.7 g/dL (30.0-36.0); Mean Corpuscular Hemoglobin 25.2 pg (28.0-34.0); Mean Corpuscular Volume 84.9 fl (80-94); Mean Platelet Volume 10.7 fL (7.4-10.4); Monocytes % 10.8 %; Neutrophils # 5.63 10^3/uL (1.8-7.7); Neutrophils % 58.3 %; Nucleated Red Blood Cells % 0 %; Platelet Count 272 10^3/cmm (130-400); Red Blood Count 3.85 10^6/uL (4.1-5.3); Red Cell Distribution Width 19.7 % (12.1-15.1); White Blood Count 9.7 10^3/uL (4.0-10.0)
== END 2021-10-14 14:11 | disposition home or self-care (01) ==
PROVIDERS: PCP Family Medicine; Visit Provider Family Medicine
DX: R79.9 Abnormal finding of blood chemistry, unspecified (principal)
CPT/HCPCS: 85025

== ENCOUNTER 2023-02-14 14:40 | Outpatient (CLI) | payer MEDICARE, BC, SELFPAY ==
[2023-02-14 15:02] LABS: Basophils # 0.1 10^3/uL (0.0-0.1); Basophils % 0.6 %; Eosinophils # 1.4 10^3/uL (0.0-0.8); Eosinophils % 17.7 %; Hematocrit 42.5 % (37-53); Lymphocytes # 1.5 10^3/uL (0.8-4.8); Lymphocytes % 18.6 %; Mean Corpuscular Hemoglobin 31.3 pg (27-33); Mean Corpuscular Volume 97.9 fl (82-101); Mean Platelet Volume 9.9 fL (7.4-10.4); Monocytes # 0.7 10^3/uL (0.2-0.9); Monocytes % 8.6 %; Neutrophils # 4.33 10^3/uL (1.8-7.7); Neutrophils % 53.5 %; Nucleated Red Blood Cells % 0 %; Platelet Count 186 10^3/cmm (157-399); Red Blood Count 4.34 10^6/uL (3.85-5.65); Red Cell Distribution Width 13.8 % (12.1-15.1)
[2023-02-14 15:21] LABS: Alanine Aminotransferase 19 U/L (0-41); Albumin Level 3.6 g/dL (3.5-5.2); Alkaline Phosphatase 113 U/L (40-130); Anion Gap 14.4 (5-19); Aspartate Amino Transferase 18 U/L (0-40); Blood Urea Nitrogen 20 mg/dL (8-23); Calcium 9.1 mg/dL (8.5-10.5); Carbon Dioxide 27 mmol/L (22-29); Chloride 101 mmol/L (98-107); Ferritin 210 ng/mL (30-400); Globulin 3.4 g/dL (1.3-4.6); Glucose 128 mg/dL (65-115); Iron 74 ug/dL (59-158); Osmolality Calculated 290 mOsm/kg (285-295); Potassium 4.4 mmol/L (3.5-5.1); Sodium 138 mmol/L (136-145); Total Bilirubin 0.3 mg/dL (0.15-1.2)
== END 2023-02-14 14:41 | disposition home or self-care (01) ==
LOC: LAB 14:46
PROVIDERS: PCP Family Medicine; Visit Provider Nurse Practitioner
DX: N18.9 Chronic kidney disease, unspecified (principal); D63.1 Anemia in chronic kidney disease; H61.23 Impacted cerumen, bilateral; Z86.73 Personal history of transient ischemic attack (TIA), and cerebral infarction without residual deficits
CPT/HCPCS: 36415; 80053; 82728; 83540; 85025

== ENCOUNTER 2023-08-25 09:34 | Inpatient (IN) | payer MEDICARE, BC, SELFPAY ==
[2023-08-25 09:36] VITALS: BP 137/77; PULSE 82; TEMP 36.7; O2SAT 98
--- NOTE | 2023-08-25 09:45 | CT_ITS ---
WS: [id number] CT HEAD TECHNIQUE: Noncontrast CT of the head obtained from the skullbase to the vertex. CLINICAL INFORMATION: trauma COMPARISON: CT 09/03/2020 and MRI 09/12/2020 DLP: 2230.[address] scans at [facility] use at least one of these dose optimization techniques: automated e xposure control; mA and/or kV adjustment per patient size (includes targeted exams where dose is matc hed to clinical indication); or iterative reconstruction. FINDINGS: No evidence of intracranial hemorrhage or mass effect. Ventricular system and basal cisterns are dawkins nt. Moderate small vessel changes with moderate parenchymal volume loss. No extra-axial fluid collect ions. No evidence of mass or mass effect. Vascular calcification. Chronic infarct in the LEFT frontal lobe with encephalomalacia. Chronic lacunar infarcts in the LEFT centrum semiovale and basal ganglia . Tiny chronic lacunar infarct in the RIGHT caudate. Tiny chronic lacunar infarct LEFT thalamus. Wall erian degeneration of the midbrain. Increased attenuation inspissated secretions in the sphenoid sinus compatible with sinusitis. Vascula r calcification. Mastoid air cells are well aerated. CT/CT head wo con* [id number] IMPRESSION: 1. No evidence of intracranial hemorrhage or mass effect. 2. Sphenoid sinusitis with inspissated secretions. 3. Moderate small vessel changes with moderate parenchymal volume loss. 4. Vascular calcification. 5. No acute intracranial findings.
--- NOTE | 2023-08-25 09:45 | CT_ITS ---
WS: [id number] CT LUMBAR SPINE TECHNIQUE: Noncontrast CT of the lumbar spine with coronal and sagittal reformatted images. CLINICAL INFORMATION: low back pain COMPARISON: None. DLP: 598.[address] scans at [facility] use at least one of these dose optimization techniques: automated e xposure control; mA and/or kV adjustment per patient size (includes targeted exams where dose is matc hed to clinical indication); or iterative reconstruction. FINDINGS: Lumbar curve convex LEFT. Advanced spondylitic changes. No acute appearing compression fractures. Dis c space narrowing throughout the lumbar spine worse at L1-L2 L2-L3 and L3-L4 with disc osteophyte com plexes. 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 Partially visualized atr ophic RIGHT kidney. Chronic spondylolysis L5-S1. No significant anterolisthesis. L1-L2: Slight retrolisthesis with disc space narrowing. Disc osteophyte complex with mild bilateral f oraminal narrowing. L2-L3: Disc osteophyte complex with moderate central canal stenosis. Effacement of ventral thecal sac . Moderate facet arthropathy. Mild bilateral foraminal narrowing. L3-L4: Disc osteophyte complex with moderate central canal stenosis. Moderate facet arthropathy. Mild bilateral foraminal narrowing. L4-L5: Disc osteophyte complex with slight effacement of the ventral thecal sac and narrowing subarti cular recess. Moderate facet arthropathy. Mild RIGHT foraminal narrowing. L5-S1: Chronic spondylolysis. No significant anterolisthesis. Spinal canal is patent. Foramen are pat ent. Moderate facet arthropathy. CT/CT lumbar spine wo con* [id number] IMPRESSION: 1. Lumbar curve with moderate to advanced spondylitic changes 2. 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 No acute fractures.
--- NOTE | 2023-08-25 09:45 | W.ED.WEAKNES ---
HPI - Weakness General: Chief complaint: Weakness Stated complaint: fall, weakness Time Seen by Provider: 08/25/23 09:39 History of Present Illness: 83-year-old male with a history of previous stroke presents emergency room via EMS has had several falls at home. He slipped and fell to the floor yesterday did not seem to hurt anything his helped him get up his heard him fall to the floor as he was trying to get out of bed again this morning seem to complain of pain in his right hip and pelvic region. He previously had a pretty extensive stroke he is very difficult to understand and has significant loss of function on the right side. He appears to be at his baseline according to his there is no complaint of fever sweats chills chest pain. Associated symptoms: Denies chest pain, chills, dysuria or fever(s) Review of Systems Const: Denies: fever(s) or chills Card: Denies: chest pain Resp: Denies: dyspnea GI: Denies: abdominal pain : Denies: dysuria, urinary frequency or urinary urgency Musc: Denies: neck pain or back pain Skin/Breast: Denies: rash PFSH ED PFSH: Medical History (Updated 08/25/23 @ 16:29 by Ruddy Jackson DO) Hypertension Aphasia Expressive aphasia Vitamin D deficiency Peripheral artery disease Anemia Osteoporosis Expressive aphasia Chronic anticoagulation Eliquis due to CVA history Dyslipidemia Degenerative joint disease of spine CVA (cerebral vascular accident) 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 Reported to have hole in his heart but later when attempt was made to repair it was not identified. On chronic anticoagulation with Eliquis, initiated at outside facility, due to history of recurrent strokes. CKD (chronic kidney disease) Single functioning kidney per Surgical History Status post herniorrhaphy right inguinal hernia History of cataract surgery History of intravascular stent placement renal artery and aortic stents Status post endovascular aneurysm repair (EVAR) Status post right inguinal hernia repair Status post colonoscopy 2015 adenomatous polyp Family History Mother , at age 93 No problems noted. Father , at age 77 AA (aortic aneurysm) Cancer throat and lung Other Hypertension Social History Smoking and tobacco/nicotine status: never used tobacco/nicotine Alcohol intake: never Substance/Drug Use: never Household members: spouse Housing: House Marital status: Current occupational status: retired Physical Exam Const: COMMON NORMALS: no acute distress GENERAL APPEARANCE: cooperative and comfortable ORIENTATION/CONSCIOUSNESS: Yes awake, Yes oriented to person, Yes oriented to place and Yes oriented to time HENMT: COMMON NORMALS: normocephalic, atraumatic and hearing grossly normal bilaterally HEAD & SCALP: normocephalic and atraumatic Resp: COMMON NORMALS: normal respiratory effort, No retractions, No use of accessory muscles and clear to auscultation bilaterally AUSCULTATION: clear to auscultation bilaterally Cardio: COMMON NORMALS: regular rate, regular rhythm and No murmurs present (Cardio) RATE: regular rate RHYTHM: regular rhythm GI: COMMON NORMALS: Soft to palpation and No hepatosplenomegaly present AUSCULTATION: Yes normoactive bowel sounds PALPATION: Yes Soft to palpation, No Tenderness to palpation present (GI), No Guarding due to palpation present (GI) and Yes No hepatosplenomegaly present Extremity: COMMON NORMALS: normal to inspection, capillary refill normal, no clubbing, cyanosis or edema, no calf tenderness and no pedal edema Neuro: SENSORIUM/ORIENTATION: Yes oriented to person, Yes oriented to place and Yes oriented to time Skin: COMMON NORMALS: no rashes or lesions noted GENERAL SKIN EXAM: no rashes or lesions noted Course Vital Signs: Vital signs: Vital Signs Temperature 98.1 F 08/25/23 09:36 Pulse Rate 82 08/25/23 09:36 Blood Pressure 139/75 08/25/23 12:35 Pulse Oximetry 97 08/25/23 14:04 Oxygen Delivery Me thod Room Air 08/25/23 14:04 MDM - Weakness Medical Decision Making Chest x-ray shows bilateral basilar interstitial pneumonia. White count elevated increased confusion weakness will admit started on IV antibiotic discussed with hospitalist orders written Medical Records I reviewed the patient's medical records. Lab Data I reviewed the patient's lab results. 08/25/23 10:09 08/25/23 10:[address] 08/25/23 09:45 IMPRESSION: 1. No evidence of intracranial hemorrhage or mass effect. 2. Sphenoid sinusitis with inspissated secretions. 3. Moderate small vessel changes with moderate parenchymal volume loss. 4. Vascular calcification. 5. No acute intracranial findings. Lumbar Spine CT 08/25/23 09:45 IMPRESSION: 1. Lumbar curve with moderate to advanced spondylitic changes 2. 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 No acute fractures. Hip/Pelvis X-Ray 08/25/23 10:04 IMPRESSION: No acute findings. Chest X-Ray 08/25/23 10:42 IMPRESSION: Bibasilar interstitial pneumonia Laboratory Results WBC 16.31 10^3/uL (3.29-11.43) H 08/25/23 10:09 RBC 4.43 10^6/uL (3.85-5.65) 08/25/23 10:09 Hgb 13.70 g/dL (11.27-16.99) 08/25/23 10:09 Hct 42.0 % (37-53) 08/25/23 10:09 MCV 94.8 fl (82-101) 08/25/23 10:09 MCH 30.9 pg (27-33) 08/25/23 10:09 MCHC 32.6 g/dL (30-55) 08/25/23 10:09 RDW 14.0 % (12.1-15.1) 08/25/23 10:09 Plt Count 159 10^3/cmm (157-399) 08/25/23 10:09 MPV 10.1 fL (7.4-10.4) 08/25/23 10:09 Neut % (Auto) 85.8 % 08/25/23 10:09 Lymph % (Auto) 4.8 % 08/25/23 10:09 [place] % (Auto) 7.1 % 08/25/23 10:09 Eos % (Auto) 1.5 % 08/25/23 10:09 Baso % (Auto) 0.2 % 08/25/23 10:09 Neut # (Auto) 13.99 10^3/uL (1.8-7.7) H 08/25/23 10:09 Lymph # (Auto) 0.8 10^3/uL (0.8-4.8) 08/25/23 10:09 [place] # (Auto) 1.2 10^3/uL (0.2-0.9) H 08/25/23 10:09 Eos # (Auto) 0.3 10^3/uL (0.0-0.8) 08/25/23 10:09 Baso # (Auto) 0.0 10^3/uL (0.0-0.1) 08/25/23 10:09 Nucleated RBC % (auto) 0 % 08/25/23 10:09 Nucleated RBCs # 0.0 /100WBC 08/25/23 10:09 D-Dimer 5.58 ug/mLFEU (0-0.59) H 08/25/23 10:09 Sodium 136 mmol/L (136-145) 08/25/23 10:09 Potassium 4.1 mmol/L (3.5-5.1) 08/25/23 10:09 Chloride 101 mmol/L (98-107) 08/25/23 10:09 Carbon Dioxide 23 mmol/L (22-29) 08/25/23 10:09 Anion Gap 16.1 (5-19) 08/25/23 10:09 BUN 23 mg/dL (8-23) 08/25/23 10:09 Creatinine 1.9 mg/dL (0.7-1.2) H 08/25/23 10:09 GFR Calculation Not Reportable 08/25/23 10:09 Glucose 143 mg/dL (65-115) H 08/25/23 10:09 Estimat Average Glucose 128 08/25/23 10:09 Hemoglobin A1c 6.1 % (4.0-6.0) H 08/25/23 10:09 Calculated Osmolality 288 mOsm/kg (285-295) 08/25/23 10:09 Lactic Acid 1.7 mmol/L (0.5-2.2) 08/25/23 10:09 Calcium 8.8 mg/dL (8.5-10.5) 08/25/23 10:09 Total Bilirubin 0.8 mg/dL (0.15-1.2) 08/25/23 10:09 AST 15 U/L (0-40) 08/25/23 10:09 ALT 18 U/L (0-41) 08/25/23 10:09 Alkaline Phosphatase 100 U/L (40-130) 08/25/23 10:09 Total Protein 6.9 g/dL (6.6-8.7) 08/25/23 10:09 Albumin 3.6 g/dL (3.5-5.2) 08/25/23 10:09 Globulin 3.3 g/dL (1.3-4.6) 08/25/23 10:09 Vitamin B12 357 pg/mL (232-1245) 08/25/23 10:09 All radiology interpretation(s) finalized by discharge Discharge Plan Discharge Patient Disposition: Admitted As Inpatient Admit Provider: Chante Desir Clinical Impression: Pneumonia Condition: Stable Coding Level of Care Code ED 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
--- NOTE | 2023-08-25 10:04 | XRR_ITS ---
PROCEDURE INFORMATION: Exam: XR Right Hip Exam date and time: 08/25/2023 10:31 AM Age: 83 years old Clinical indication: Injury or trauma; Fall; Blunt trauma (contusions or hematomas); Right; Hip; Additional info: Pain TECHNIQUE: Imaging protocol: Radiologic exam of the right hip. Views: 1 view hip with pelvis when performed. COMPARISON: CT angio abdomen pelvis [id number] 06/04/2021 7:26 PM FINDINGS: Bones/joints: Unremarkable. No acute fracture. Soft tissues: Unremarkable. XR/XR hip RT 2-3V wo/w pel* [id number] IMPRESSION: No acute findings.
[2023-08-25 10:16] LABS: Basophils % 0.2 %; Eosinophils # 0.3 10^3/uL (0.0-0.8); Eosinophils % 1.5 %; Lymphocytes # 0.8 10^3/uL (0.8-4.8); Lymphocytes % 4.8 %; Mean Corpuscular HGB Conc 32.6 g/dL (30-55); Mean Corpuscular Hemoglobin 30.9 pg (27-33); Mean Corpuscular Volume 94.8 fl (82-101); Mean Platelet Volume 10.1 fL (7.4-10.4); Monocytes # 1.2 10^3/uL (0.2-0.9); Monocytes % 7.1 %; Neutrophils # 13.99 10^3/uL (1.8-7.7); Neutrophils % 85.8 %; Nucleated Red Blood Cells % 0 %; Platelet Count 159 10^3/cmm (157-399); Red Blood Count 4.43 10^6/uL (3.85-5.65); White Blood Count 16.31 10^3/uL (3.29-11.43)
[2023-08-25 10:34] LABS: Alanine Aminotransferase 18 U/L (0-41); Albumin Level 3.6 g/dL (3.5-5.2); Alkaline Phosphatase 100 U/L (40-130); Anion Gap 16.1 (5-19); Aspartate Amino Transferase 15 U/L (0-40); Blood Urea Nitrogen 23 mg/dL (8-23); Calcium 8.8 mg/dL (8.5-10.5); Carbon Dioxide 23 mmol/L (22-29); Chloride 101 mmol/L (98-107); Globulin 3.3 g/dL (1.3-4.6); Glucose 143 mg/dL (65-115); Osmolality Calculated 288 mOsm/kg (285-295); Potassium 4.1 mmol/L (3.5-5.1); Sodium 136 mmol/L (136-145); Total Bilirubin 0.8 mg/dL (0.15-1.2); Total Protein 6.9 g/dL (6.6-8.7)
--- NOTE | 2023-08-25 10:42 | XRR_ITS ---
PROCEDURE INFORMATION: Exam: XR Chest Exam date and time: 08/25/2023 10:57 AM Age: 83 years old Clinical indication: Cough and dyspnea; Prior surgery; Surgery date: 6+ months; Surgery type: Stint 5 years ago; Additional info: Dyspnea/cough TECHNIQUE: Imaging protocol: Radiologic exam of the chest. Views: 1 view. COMPARISON: CR XR chest 1V portable [id number] 09/09/2020 6:00 PM FINDINGS: Lungs: There is hazy interstitial infiltrate involving both lung bases. The upper lung jones are clear. Pleural spaces: Unremarkable. No pleural effusion. No pneumothorax. Heart/Mediastinum: Unremarkable. No cardiomegaly. Bones/joints: Unremarkable. XR/XR chest 1V portable [id number] IMPRESSION: Bibasilar interstitial pneumonia
--- NOTE | 2023-08-25 10:45 | PC.PHAR ---
PTS' CARRIES UPDATED LIST OF CURRENT MEDICATIONS FOR VERIFICATION, IF NEEDED.
[2023-08-25 11:36] VITALS: BP 119/72; O2SAT 99
--- NOTE | 2023-08-25 11:55 | P.HP_ITS ---
Providers/Chief Complaint 2 Primary Care Provider: Zenon Sprague DO Chief Complaint: fall, weakness History of Present Illness Ap Guillen is a 83 year old male with history of expressive aphasia, multiple strokes, chronic aspiration presented today with chief complaint of not doing well with generalized weakness and fatigue. As per the who is at the bedside stating that for last 3 to 4 days he has been very weak and lethargic normally he is very sedentary only walks from 1 room to another and watches TV most of the time, previously when he was at [facility] his physical therapy sessions really helped and he started walking more but at home he does not do much. Today she brought him in the hospital because his knees were buckling and she was scared that he will fall again he has had multiple falls in the last 3 days. There is no focal deficit, is stating that he normally eats in a reclined position which causes more coughing spells. No chest pain, fever or recent diarrhea. Patient does not use oxygen. Chest x-ray consistent with aspiration pneumonia Patient clinically is dry Patient is hypertensive Currently on room air requested D-dimer Review of Systems 2 Const: Denies: fever(s) Eyes: Denies: change in vision ENMT: Denies: throat pain Card: Denies: chest pain Resp: Reports: dyspnea Medications/Allergies Home Medications Medication Instructions Recorded Confirmed Last Taken Type aspirin 81 mg tablet,delayed 81 mg PO DAILY@89907/09/20 08/25/23 08/25/23 History release montelukast 10 mg tablet 10 mg PO DAILY@209907/09/20 08/25/23 08/24/23 History ascorbic acid (vitamin C) 1,000 mg 1 g PO DAILY@209909/03/20 08/25/23 08/24/23 History tablet (Vitamin C) atorvastatin 80 mg tablet 80 mg PO DAILY@209909/03/20 08/25/23 08/24/23 History cetirizine 10 mg tablet 10 mg PO DAILY@89909/03/20 08/25/23 08/25/23 History cholecalciferol (vitamin D3) 25 25 mcg PO BID@09/03/20 08/25/23 08/25/23 History mcg (1,000 unit) chewable tablet (Vitamin D3) multivitamin 1 tab PO QAM 11/12/20 08/25/23 08/25/23 History valsartan 320 mg tablet 320 mg PO QPM 06/03/21 08/25/23 08/24/23 History venlafaxine 150 mg 150 mg PO QAM 06/03/21 08/25/23 08/25/23 History capsule,extended release 24 hr metoprolol tartrate 50 mg tablet 75 mg PO BID 09/21/21 08/25/23 08/25/23 History omega-3 fatty acids 1,000 mg 1,000 mg PO QAM 09/21/21 08/25/23 08/25/23 History capsule tramadol 50 mg tablet 50 mg PO BID@09/21/21 08/25/23 08/25/23 History pantoprazole 40 mg tablet,delayed 40 mg PO BID #60 tabs 09/23/21 08/25/23 08/25/23 Rx release (Protonix) dextromethorphan-guaifenesin 30 1 tab PO Q12H PRN Congestion 08/25/23 08/25/23 Unknown History mg-600 mg tablet extended hr (Mucinex DM) ferrous sulfate 325 mg (65 mg 325 mg PO DAILY 08/25/23 08/25/23 08/25/23 History iron) tablet lidocaine 5 % topical patch 1 patch transdermal DAILY PRN Pain 08/25/23 08/25/23 Unknown History naloxone 4 mg/actuation nasal spray See Rx Instructions .Route .COMPLEX 08/25/23 08/25/23 Unknown History Allergies Allergy/AdvReac Type Severity Reaction Status Date / Time acetylcysteine Allergy nausea/vomi Verified 08/25/23 09:42 ting PFSH Acute 2 PFSH: Medical History (Updated 08/25/23 @ 12:18 by Chante Desir MD) Hypertension Aphasia Expressive aphasia Vitamin D deficiency Peripheral artery disease Anemia Osteoporosis Expressive aphasia Chronic anticoagulation Eliquis due to CVA history Dyslipidemia Degenerative joint disease of spine CVA (cerebral vascular accident) 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 Reported to have hole in his heart but later when attempt was made to repair it was not identified. On chronic anticoagulation with Eliquis, initiated at outside facility, due to history of recurrent strokes. CKD (chronic kidney disease) Single functioning kidney per Surgical History Status post herniorrhaphy right inguinal hernia History of cataract surgery History of intravascular stent placement renal artery and aortic stents Status post endovascular aneurysm repair (EVAR) Status post right inguinal hernia repair Status post colonoscopy 2015 adenomatous polyp Family History Mother , at age 93 No problems noted. Father , at age 77 AA (aortic aneurysm) Cancer throat and lung Other Hypertension Social History Smoking and tobacco/nicotine status: never used tobacco/nicotine Alcohol intake: never Substance/Drug Use: never Household members: spouse Housing: House Marital status: Current occupational status: retired Vitals/I&O/Wt Last Vital Signs Temp 98.1 F 08/25/23 09:36 Pulse 82 08/25/23 09:36 BP 119/72 08/25/23 11:36 Pulse Ox 99 08/25/23 11:36 O2 Del Method Room Air 08/25/23 09:36 Physical Exam 2 Narrative: Patient is dry Currently on room air Hypertensive Awake and alert Right-sided chronic weakness Expressive aphasia No swelling of lower extremity S1, S2 Currently on room air Abdomen soft Bilateral breath sound without adventitious rhonchi or crackles Data 08/25/23 10:09 08/25/23 10:09 Micro: Microbiology 08/25/23 11:05 Blood Culture - Preliminary Blood SPECIMEN COLLECTED 08/25/23 11:08 Blood Culture - Preliminary Blood SPECIMEN COLLECTED A&P Assessment and plan (1) Risk for falls: (2) Aspiration pneumonia: (3) Generalized weakness: (4) Acute kidney injury superimposed on chronic kidney disease: Plan Generalized weakness and fatigue Aspiration pneumonia Request PT and speech therapy Will start p.o. diet Patient was on regular diet at home Start Zosyn Patient not current oxygen, afebrile Sedentary lifestyle Recurrent stroke with expressive aphasia right-sided weakness Patient not on Eliquis anymore at risk of recurrent falls I would recommend holding off on Eliquis for now Hypertensive urgency, Hold valsartan, continue metoprolol, add hydralazine and amlodipine Acute on chronic kidney disease Patient looks dry Start IV fluids Hold losartan Bladder scan on as-needed basis Rule out post renal obstruction Full code . Diet Speech therapy recommended DVT prophylaxis covered with heparin Patient may need short-term rehab Most of the information has been taken from the , patient has aggressive failure, previous record reveals that patient has history of recurrent stroke with expressive aphasia, right-sided weakness, was on Eliquis Attestations 2 Medical Necessity Statement*: Patient will need short-term rehab Diagnoses Risk for falls Z91.81 Aspiration pneumonia J69.0 Generalized weakness R53.1 Acute kidney injury superimposed on chronic kidney disease N17.9; N18.9
[2023-08-25 12:09] LABS: Lactic Sepsis W/Reflex 1.7 mmol/L (0.5-2.2)
[2023-08-25 12:35] VITALS: BP 139/75; O2SAT 97
[2023-08-25 12:35] LABS: D Dimer 5.58 ug/mLFEU (0-0.59)
--- NOTE | 2023-08-25 13:16 | USCV_ITS ---
Ap Guillen Age: 83 Gender: M : 1940 Exam Date: 08/25/2023 18:09 Ordering Phys: Chante Desir MD Technologist: SAVANNA Exam Location: [facility] – [place] Indication: chf BP: 137 / 69 HR: 69 Rhythm: Sinus Technical Quality: Adequate MEASUREMENTS (Male / Female) Normal Values 2D ECHO LV Diastolic Diameter PLAX 3.4 cm 4.2 - 5.9 / 3.9 - 5.3 cm IVS Diastolic Thickness 2.1 cm 0.6 - 1.0 / 0.6 - 0.9 cm IVS Systolic Thickness 2.4 cm LVPW Diastolic Thickness 1.6 cm 0.6 - 1.0 / 0.6 - 0.9 cm LVPW Systolic Thickness 1.6 cm LVOT Diameter 1.9 cm LV Ejection Fraction 2D Teich 61.6 % LV Ejection Fraction MOD 4C 73.8 % LV Ejection Fraction MOD 2C 51.8 % LV Ejection Fraction 2C AL 52.6 % LA Diameter 3.0 cm Aorta at Sinotubular Diameter 3.4 cm IVC Diameter 1.9 cm M-MODE LA Ao Ratio MM 0.8 AV Cusp Separation MM 1.8 cm DOPPLER AV Peak Velocity 146.0 cm/s LVOT Peak Velocity 142.0 cm/s AV Area Cont Eq vti 3.1 cm squared AV Area Cont Eq pk 2.7 cm squared MV Peak Velocity 102.0 cm/s MV Area PHT 2.8 cm squared Mitral E to A Ratio 0.8 PV Peak Velocity 144.0 cm/s FINDINGS Left Ventricle Normal left ventricular size, systolic function and wall thickness, with no regional wall motion abnormalities. Grade I/IV diastolic dysfunction (abnormal relaxation filling pattern), normal to mildly elevated filling pressures. Left ventricular ejection fraction is estimated at 65 %. Right Ventricle Normal right ventricular size and systolic function. Normal right ventricular systolic pressure. Right Atrium The right atrium is normal in size. Left Atrium The left atrium is normal in size. Mitral Valve Structurally normal mitral valve without significant stenosis or prolapse. There is no mitral regurgitation. Aortic Valve Structurally normal aortic valve without significant sclerosis or stenosis. There is no aortic regurgitation. Tricuspid Valve Structurally normal tricuspid valve without significant stenosis or regurgitation. Pulmonary artery systolic pressure is normal. Pulmonic Valve Pulmonic valve not well visualized. Trace pulmonary valve regurgitation. Pericardium Normal pericardium without effusion. Aorta Normal ascending aorta dimension. IVC The inferior vena cava appears normal. CONCLUSIONS Normal left ventricular size, systolic function and wall thickness, with no regional wall motion abnormalities. Grade I/IV diastolic dysfunction (abnormal relaxation filling pattern), normal to mildly elevated filling pressures. Left ventricular ejection fraction is estimated at 65 %. No change from previous study of 04/23/15 Dr. George Junior MD (Electronically Signed) Final Date: 26 August 2023 12:44 S
--- NOTE | 2023-08-25 13:35 | ECG_ITS ---
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 Measurements Intervals [place] Rate: 72 P: 34 AR: 182 QRS: 9 QRSD: 78 T: 44 QT: 351 QTc: 385 Interpretive Statements SINUS RHYTHM Compared to ECG 09/09/2020 17:54:51 Sinus bradycardia no longer present Electronically Signed On 08-25-2023 22:29:18 CDT by Lucho Naik M.D. [email or web address] Medical [email or web address] citizens hospitalDigital Message [id number]
[2023-08-25 14:03] LABS: Vitamin B12 357 pg/mL (232-1245)
[2023-08-25 14:04] VITALS: O2SAT 97
[2023-08-25] MEDS: piperacillin-tazobactam 3.375 GM in sodium chloride 0.9% (plus) 50 ML IV ×2 (14:09→21:19)
[2023-08-25] MEDS: sodium chloride 0.9% 1,000 ML 75 ML IV (14:09)
[2023-08-25] MEDS: heparin 5,000 unit/mL INJ 1 mL 5000 UNIT SUBCUT (14:12)
[2023-08-25] MEDS: methylPREDNISolone sod succ 40 mg/mL INJ IVP (14:12)
[2023-08-25 14:14] VITALS: BP 137/69; PULSE 72; RESP 16; TEMP 36.6; O2SAT 94
[2023-08-25 14:19] LABS: Estmated Average Glucose 128; Hemoglobin A1C 6.1 % (4.0-6.0)
[2023-08-25] MEDS: metoprolol tartrate 50 mg Tablet 25 MG PO (17:16)
[2023-08-25] MEDS: hyDRALAzine 25 mg Tablet PO (17:17)
[2023-08-25 18:37] LABS: Urine Appearance Slightly Cloudy (CLEAR); Urine Color Yellow (Yellow)
[2023-08-25 18:38] LABS: Add Urine Microscopic? YES; Bilirubin Urine Neg (Negative); Blood Urine 3+ (Negative); Glucose Urine UA Norm (Normal); Ketones Urine 1+ (Negative); Leukocyte Esterase Urine 2+ (Negative); Nitrate Urine Positive (Negative); Protein Urine Trace (Negative); Specific Gravity, Urine 1.015 (1.005-1.030); Urobilinogen Urine Norm (Negative); pH Urine 5 (5-7)
[2023-08-25 18:42] LABS: Add Urine Culture? Yes; Bacteria Urine 2+ /hpf; Oval Fat Bodies Urine 1+ /hpf; RBC Urine 25-40 /hpf (0-2); Transitional Epi Cells Urine 0-4 /hpf; WBC Urine 80-100 /hpf (0-5)
[2023-08-25 20:00] VITALS: BP 121/61; PULSE 73; RESP 17; TEMP 36.6; O2SAT 92
[2023-08-25] MEDS: atorvastatin 40 mg Tablet 80 MG PO (21:19)
--- NOTE | 2023-08-25 22:19 | USCV_ITS ---
Ap Guillen Age: 83 Gender: M : 1940 Exam Date: 08/25/2023 22:58 Ordering Phys: Chante Desir MD Technologist: SAVANNA Exam Location: [facility] – [place] Indication: swelling HISTORY: swelling PROCEDURES: Venous duplex imaging was performed in bilateral lower extremities. The following venous structures were evaluated: common femoral vein, profunda vein, proximal portion of the greater saphenous vein, superficial femoral vein, and the popliteal vein. In addition, the posterior tibial veins were evaluated. Serial compression, augmentation maneuvers, and spectral Doppler flow evaluation were performed, which were normal. Bilaterally, the common femoral, superficial femoral, profunda femoral, popliteal, posterior tibial, and greater saphenous veins were identified and interrogated in the standard fashion. These veins were found to be easily compressible with spontaneous blood flow. No evidence of thrombus noted. CONCLUSIONS No evidence of right lower extremity DVT. No evidence of left lower extremity DVT. Oliver Berg MD (Electronically Signed) Final Date: 26 August 2023 12:28 S
[2023-08-26] VITALS: BP 119/60; PULSE 63; RESP 17; TEMP 36.6; O2SAT 92
[2023-08-26] MEDS: heparin 5,000 unit/mL INJ 1 mL 5000 UNIT SUBCUT ×2 (02:47→13:55)
[2023-08-26] MEDS: methylPREDNISolone sod succ 40 mg/mL INJ IVP (02:47)
[2023-08-26 04:00] VITALS: BP 143/65; PULSE 64; RESP 18; TEMP 36.5; O2SAT 96
[2023-08-26] MEDS: piperacillin-tazobactam 3.375 GM in sodium chloride 0.9% (plus) 50 ML IV ×3 (06:10→22:35)
[2023-08-26 06:20] LABS: Basophils % 0.1 %; Hematocrit 41.1 % (37-53); Lymphocytes # 0.7 10^3/uL (0.8-4.8); Lymphocytes % 3.4 %; Mean Corpuscular HGB Conc 33.1 g/dL (30-55); Mean Corpuscular Hemoglobin 31.1 pg (27-33); Mean Corpuscular Volume 94.1 fl (82-101); Mean Platelet Volume 10.5 fL (7.4-10.4); Monocytes # 0.3 10^3/uL (0.2-0.9); Monocytes % 1.5 %; Neutrophils # 18.22 10^3/uL (1.8-7.7); Neutrophils % 94.2 %; Nucleated Red Blood Cells % 0 %; Platelet Count 168 10^3/cmm (157-399); Red Blood Count 4.37 10^6/uL (3.85-5.65); White Blood Count 19.35 10^3/uL (3.29-11.43)
[2023-08-26 06:48] LABS: Potassium 4.3 mmol/L (3.5-5.1); Sodium 135 mmol/L (136-145)
[2023-08-26 06:49] LABS: Anion Gap 16.3 (5-19); Blood Urea Nitrogen 24 mg/dL (8-23); C Reactive Protein 110.4 mg/L (0.0-4.9); Calcium 8.4 mg/dL (8.5-10.5); Carbon Dioxide 21 mmol/L (22-29); Chloride 102 mmol/L (98-107); Creatinine Clr Calc Pharmacy 35.3011; Glucose 152 mg/dL (65-115); Magnesium 2.1 mg/dL (1.7-2.3); Osmolality Calculated 287 mOsm/kg (285-295); Phosphorus 2.4 mg/dL (2.5-4.5)
[2023-08-26 07:44] VITALS: BP 127/66; PULSE 60; RESP 16; TEMP 36.8; O2SAT 96
[2023-08-26] MEDS: aspirin 81 mg EC Tablet PO (08:32)
[2023-08-26] MEDS: hyDRALAzine 25 mg Tablet PO ×2 (08:32→17:40)
[2023-08-26] MEDS: metoprolol tartrate 50 mg Tablet 25 MG PO ×2 (08:32→17:40)
[2023-08-26] MEDS: amlodipine 10 mg Tablet PO (08:32)
[2023-08-26] MEDS: sennosides-docusate Tablet 1 TAB PO (08:33)
--- NOTE | 2023-08-26 11:05 | P.PN_ITS ---
Subjective 2 Subjective: Pt eating diet this morning WBC 19k steroids induced expressive aphasia Vitals/I&O/Wt Last Vital Signs Temp 98.2 F 08/26/23 07:44 Pulse 60 08/26/23 07:44 Resp 16 08/26/23 07:44 BP 127/66 08/26/23 07:44 Pulse Ox 96 08/26/23 07:44 O2 Del Method Room Air 08/26/23 07:44 08/25/23 08/26/23 08/26/23 22:59 06:59 14:59 Intake Total 290 / 290 1050 / 1340 290 / 290 Balance 290 / 290 1050 / 1340 290 / 290 Weight last 48 hrs Weight 83.461 kg Weight 81.647 kg Physical Exam 2 Narrative: Lying supine eating BF no new focal def expressive apahsia abd soft dehydartion improving on RA Data 08/26/23 05:55 08/26/23 05:55 Micro: Microbiology 08/25/23 18:05 Bacterial Antigens - Final Urine,Clean Catch 08/25/23 11:05 Blood Culture - Preliminary Blood SPECIMEN COLLECTED 08/25/23 11:08 Blood Culture - Preliminary Blood SPECIMEN COLLECTED A&P Assessment and plan (1) Risk for falls: (2) Acute kidney injury superimposed on chronic kidney disease: (3) Aphasia: (4) Aspiration pneumonia: (5) Bibasilar crackles: (6) Generalized weakness: Plan Aspiration pneumonia ST recommended level 5 dysphagia diet Dc steroids wbc worsenig due to steroids Continue zosyn No fever on RA culture neg Uti on zosyn bladder scan as needed Dimer high off eliquis for concern of gi bleed request venous doppler if cr below 1.7 then can do cta chest by tomorrow Acute on ch kidney dz improved with iv fluids lives w dvt on board disposition Home once wbc below 15K Attestations 2 Medical Necessity Statement*: dc in next 48 hrs Diagnoses Risk for falls Z91.81 Acute kidney injury superimposed on chronic kidney disease N17.9; N18.9 Aphasia R47.01 Aspiration pneumonia J69.0 Bibasilar crackles R09.89 Generalized weakness R53.1
[2023-08-26 11:33] VITALS: BP 103/58; PULSE 74; RESP 14; TEMP 36.8; O2SAT 96
--- NOTE | 2023-08-26 12:48 | PC.SOCIAL ---
IMM updated IMM dated placed in chart and copy given to patient
[2023-08-26 16:00] VITALS: BP 119/65; PULSE 76; RESP 16; TEMP 36.6; O2SAT 95
[2023-08-26 19:55] VITALS: BP 131/68; PULSE 86; RESP 15; TEMP 36.6; O2SAT 97
[2023-08-26] MEDS: atorvastatin 40 mg Tablet 80 MG PO (20:28)
[2023-08-27] VITALS (7 sets, daily range): BP systolic 113–138; BP diastolic 60–83; PULSE 67–88; RESP 12–17; TEMP 36.4–37.1; O2SAT 94–98
[2023-08-27] MEDS: heparin 5,000 unit/mL INJ 1 mL 5000 UNIT SUBCUT ×2 (01:18→14:25)
[2023-08-27 04:00] LABS: Basophils % 0.2 %; Eosinophils # 0.1 10^3/uL (0.0-0.8); Eosinophils % 0.2 %; Hematocrit 41.8 % (37-53); Lymphocytes # 1.6 10^3/uL (0.8-4.8); Lymphocytes % 6.7 %; Mean Corpuscular HGB Conc 32.1 g/dL (30-55); Mean Corpuscular Hemoglobin 30.9 pg (27-33); Mean Corpuscular Volume 96.5 fl (82-101); Mean Platelet Volume 10.8 fL (7.4-10.4); Monocytes # 1.4 10^3/uL (0.2-0.9); Neutrophils # 19.84 10^3/uL (1.8-7.7); Neutrophils % 86.3 %; Nucleated Red Blood Cells % 0 %; Platelet Count 199 10^3/cmm (157-399); Red Blood Count 4.33 10^6/uL (3.85-5.65); Red Cell Distribution Width 14.1 % (12.1-15.1); White Blood Count 22.99 10^3/uL (3.29-11.43)
[2023-08-27 04:30] LABS: Blood Urea Nitrogen 32 mg/dL (8-23); Calcium 8.7 mg/dL (8.5-10.5); Carbon Dioxide 22 mmol/L (22-29); Chloride 107 mmol/L (98-107); Creatinine Clr Calc Pharmacy 31.5852; Glucose 132 mg/dL (65-115); Osmolality Calculated 299 mOsm/kg (285-295); Sodium 140 mmol/L (136-145)
[2023-08-27] MEDS: piperacillin-tazobactam 3.375 GM in sodium chloride 0.9% (plus) 50 ML IV ×3 (06:23→21:11)
[2023-08-27] MEDS: hyDRALAzine 25 mg Tablet PO ×2 (08:31→17:39)
[2023-08-27] MEDS: sennosides-docusate Tablet 1 TAB PO (08:31)
[2023-08-27] MEDS: metoprolol tartrate 50 mg Tablet 25 MG PO ×2 (08:31→17:38)
[2023-08-27] MEDS: aspirin 81 mg EC Tablet PO (08:32)
[2023-08-27] MEDS: amlodipine 10 mg Tablet PO (08:32)
--- NOTE | 2023-08-27 11:54 | XRR_ITS ---
PROCEDURE INFORMATION: Exam: XR Chest Exam date and time: 08/27/2023 4:22 PM Age: 83 years old Clinical indication: Prior surgery; Surgery date: 6+ months; Surgery type: Thoracic aortic aneurism; Patient HX: Cough; Possible aspiration; Eval for pneumonia; Elevated wbc TECHNIQUE: Imaging protocol: Radiologic exam of the chest. Views: 1 view. COMPARISON: CR XR chest 1V portable [id number] 08/25/2023 10:57 AM FINDINGS: Lungs: No focal consolidation. Mild fibrotic changes in both lungs. Chronic right-sided rib fractures. Pleural spaces: No evidence of pneumothorax. No evidence of pleural effusion. Heart/Mediastinum: Cardiomediastinal silhouette is within normal limits. Moderate hiatal hernia. Bones/joints: No evidence of acute osseous abnormality. XR/XR chest 1V portable [id number] IMPRESSION: 1. No acute cardiopulmonary abnormality. 2. Hiatal hernia.
--- NOTE | 2023-08-27 17:26 | P.PN_ITS ---
Subjective 2 Subjective: Reports that he feels ok today. Was a little sick to his stomach earlier. Denies pain at this time. Vitals/I&O/Wt Last Vital Signs Temp 97.6 F 08/27/23 16:00 Pulse 67 08/27/23 16:00 Resp 16 08/27/23 16:00 BP 120/83 08/27/23 11:21 Pulse Ox 98 08/27/23 16:00 O2 Del Method Room Air 08/27/23 16:00 08/27/23 08/27/23 08/27/23 06:59 14:59 22:59 Intake Total 50 / 630.000 410 / 410 Output Total 0 / 0 Balance 50 / 630.000 410 / 410 Weight last 48 hrs Weight 183 lb 14.4 oz Weight 184 lb Physical Exam 2 Narrative: General: Cooperative patient in no apparent distress. HEENT: Normocephalic, Atraumatic. External ears normal. Nasal passages patent without drainage. MMM. Heart: RRR. Resp: bibasilar rales. Abd: Soft, non-tender. Non-distended. Extremities: No edema. Skin: No rash or lesions on exposed areas. Neuro: No new focal motor or sensory loss. apraxia of speech. Data 08/27/23 03:26 08/27/23 03:26 Micro: Microbiology 08/25/23 18:05 Urine Culture - Preliminary Urine,Clean Catch Gram Negative Rods A&P Assessment and plan (1) Risk for falls: (2) Acute kidney injury superimposed on chronic kidney disease: (3) Aphasia: (4) Aspiration pneumonia: (5) Bibasilar crackles: (6) Generalized weakness: Plan 83 y/o M admitted for aspiration pneumonia. Continue close inpatient monitoring. WBC count remains elevated. Up to 22k with neutrophilia. May be in part due to steroids. Currently D/C'd and will recheck counts in am. Will repeat CXR this afternoon. Recheck am labs. ST recommended level 5 dysphagia diet Urine Cx shows GNR. Will await ID and sensitivities. D-Dimer elevated. Currently on heparin for VTE ppx. No DVT seen on Doppler. Cr remains elevated to 1.9. Will hold on CTA for now. May consider if Cr improves. Will recheck AM labs. Continue Zosyn for UTI and Aspiration PNA treatment. Code Status: full IVF: None DVT PPx: Heparin GI PPx: None ABx: Zosyn Diet: Dysphagia Level 6 Discharge plan: Home when appropriate. Attestations 2 Medical Necessity Statement*: Will need continued hospital stay for UTI and aspiration PNA treatment, increasing WBC count, pending culture ID and Sensitivities and IV antibiotics. Coding Level of Care Code Acute Code for Chg Fwd Moderate MDM includes number and complexity of problems actively addressed during encounter, amount and/or complexity of data reviewed/ordered and described risk of complication, morbidity or mortality of management as documented Diagnoses Risk for falls Z91.81 Acute kidney injury superimposed on chronic kidney disease N17.9; N18.9 Aphasia R47.01 Aspiration pneumonia J69.0 Bibasilar crackles R09.89 Generalized weakness R53.1
[2023-08-27] MEDS: atorvastatin 40 mg Tablet 80 MG PO (21:11)
[2023-08-28] MEDS: heparin 5,000 unit/mL INJ 1 mL 5000 UNIT SUBCUT ×2 (02:18→15:00)
[2023-08-28 04:00] VITALS: BP 116/63; PULSE 67; RESP 15; TEMP 37.2; O2SAT 92
[2023-08-28 04:04] LABS: Basophils % 0.4 %; Eosinophils # 0.6 10^3/uL (0.0-0.8); Eosinophils % 6.4 %; Hematocrit 41.3 % (37-53); Lymphocytes # 1.7 10^3/uL (0.8-4.8); Lymphocytes % 18.3 %; Mean Corpuscular HGB Conc 32.7 g/dL (30-55); Mean Corpuscular Volume 94.9 fl (82-101); Mean Platelet Volume 11.3 fL (7.4-10.4); Monocytes # 0.9 10^3/uL (0.2-0.9); Monocytes % 9.7 %; Neutrophils # 5.94 10^3/uL (1.8-7.7); Neutrophils % 64.5 %; Nucleated Red Blood Cells % 0 %; Platelet Count 219 10^3/cmm (157-399); Red Blood Count 4.35 10^6/uL (3.85-5.65); Red Cell Distribution Width 14.1 % (12.1-15.1)
[2023-08-28 04:32] LABS: Procalcitonin 0.12 ng/mL (0-0.5)
[2023-08-28 04:37] LABS: Folate Level 5.5 ng/mL (4.5-32.2)
[2023-08-28 04:47] LABS: Alkaline Phosphatase 82 U/L (40-130); Calcium 8.5 mg/dL (8.5-10.5); Carbon Dioxide 22 mmol/L (22-29); Chloride 106 mmol/L (98-107); Creatinine Clr Calc Pharmacy 37.3906; Globulin 3.3 g/dL (1.3-4.6); Magnesium 2.1 mg/dL (1.7-2.3); Osmolality Calculated 291 mOsm/kg (285-295); Phosphorus 2.6 mg/dL (2.5-4.5); Sodium 138 mmol/L (136-145); Total Bilirubin 0.4 mg/dL (0.15-1.2)
[2023-08-28 05:12] LABS: Alanine Aminotransferase 25 U/L (0-41); Albumin Level 3.3 g/dL (3.5-5.2); Anion Gap 16.2 (5-19); Aspartate Amino Transferase 20 U/L (0-40); Blood Urea Nitrogen 26 mg/dL (8-23); Glucose 119 mg/dL (65-115); Potassium 4.2 mmol/L (3.5-5.1); Total Protein 6.2 g/dL (6.6-8.7)
[2023-08-28 05:25] LABS: C Reactive Protein 26.7 mg/L (0.0-4.9)
[2023-08-28 05:27] LABS: Vitamin B12 384 pg/mL (232-1245)
[2023-08-28] MEDS: piperacillin-tazobactam 3.375 GM in sodium chloride 0.9% (plus) 50 ML IV ×3 (06:36→21:02)
[2023-08-28 07:29] VITALS: BP 137/67; PULSE 80; RESP 16; TEMP 36.8; O2SAT 97
[2023-08-28] MEDS: sennosides-docusate Tablet 1 TAB PO (09:38)
[2023-08-28] MEDS: amlodipine 10 mg Tablet PO (09:38)
[2023-08-28] MEDS: metoprolol tartrate 50 mg Tablet 25 MG PO ×2 (09:39→17:45)
[2023-08-28] MEDS: hyDRALAzine 25 mg Tablet PO ×2 (09:39→17:45)
[2023-08-28] MEDS: aspirin 81 mg EC Tablet PO (09:39)
[2023-08-28 10:13] LABS: C.Diff PCR (Lab) NEGATIVE (Negative)
[2023-08-28] MEDS: acetaminophen 500 mg Tablet PO ×2 (11:10→17:42)
[2023-08-28 12:00] VITALS: BP 117/59; PULSE 73; RESP 18; TEMP 36.8; O2SAT 95
--- NOTE | 2023-08-28 13:24 | P.PN_ITS ---
Subjective 2 Subjective: Seen this morning. WBC count has normalized. Urine culture growing gram- negative rods. Bacterial antigens negative, blood cultures negative to date. Venous Dopplers negative for DVT Chest x-ray from admission does show bibasilar interstitial pneumonia. Head CT negative for acute stroke. Creatinine 1.7 today. D-dimer 5.58. Patient is not hypoxic and on room air saturating 95%. C-reactive protein 110 UA positive for 80-100 WBCs on admission. present at bedside Vitals/I&O/Wt Last Vital Signs Temp 98.8 F 08/27/23 23:54 Pulse 75 08/27/23 23:54 Resp 17 08/27/23 23:54 BP 116/60 08/27/23 23:54 Pulse Ox 95 08/27/23 23:54 O2 Del Method Room Air 08/27/23 23:54 08/27/23 08/27/23 08/28/23 14:59 22:59 06:59 Intake Total 410 / 410 290 / 700 50 / 750 Balance 410 / 410 290 / 700 50 / 750 Weight last 48 hrs Weight 83.416 kg Weight 83.461 kg Physical Exam 2 Narrative: General: Cooperative patient in no apparent distress. HEENT: Normocephalic, Atraumatic. External ears normal. Nasal passages patent without drainage. Heart: RRR. Normal S1-S2 Resp: Clear to auscultation bilaterally, mild rhonchi bilaterally Abd: Soft, non-tender. Non-distended. Extremities: No edema. Neuro: Able to move all 4 extremities, no focal deficits Data 08/28/23 03:31 08/28/23 03:31 Micro: Microbiology 08/25/23 18:05 Urine Culture - Preliminary Urine,Clean Catch Gram Negative Rods A&P Assessment and plan (1) Risk for falls: (2) Hypertension: Qualifiers: Hypertension type: renovascular hypertension Qualified Code(s): I15.0 - Renovascular hypertension (3) Aphasia: (4) Aspiration pneumonia: (5) Pneumonia: (6) Generalized weakness: (7) History of GI bleed: (8) History of stroke: Plan #Bilateral pneumonia #History of multiple strokes, expressive aphasia, chronic aspiration #Generalized weakness and fatigue most likely secondary to above #Hypertension #GERD #History of GI bleed? #CKD, creatinine at baseline 1.7-1.9 range. ? Patient presented to the hospital with generalized weakness fatigue and not feeling well for the last 3 to 4 days. He was previously at a [facility] and physical therapy sessions helped and patient started doing more but at home he does not do so much. He came to the hospital because his knees were buckling and family member was concerned that he will fall again. He did have multiple falls in the last couple of days. He was diagnosed with aspiration pneumonia. D-dimer 5.52. Patient not hypoxic and on room air saturating 95%. Does have chronic right-sided weakness. Expressive aphasia. Speech therapy, physical therapy requested. Placed on Zosyn. Held off of Eliquis secondary to risk of falls. Will not restart at this time either. Blood pressure was elevated on admission. Metoprolol hydralazine amlodipine continued. Valsartan was stopped. He was placed on IV fluids. Patient was given steroids on admission. WBC count 19,000. On admission was 16,000. It then trended up to 22,000 and then normalized. Speech therapy has recommended dysphagia level 5 diet. Steroids were discontinued due to of admission. Venous Dopplers negative for DVT. I will hold off on CTA secondary to CKD. Urine cultures are positive for gram- negative rods. May consider VQ scan. -Continue Zosyn at this time ? Await urine culture ? Blood cultures negative to date ? Patient is at risk of falls ? Physical therapy, Occupational Therapy ordered ? Continue Protonix 40 twice daily, atorvastatin 80, aspirin 81, amlodipine 10, metoprolol 50 twice daily. Losartan held. Continue venlafaxine 150 daily. ? Check sputum Gram stain culture ? Will check procalcitonin ? Check CRP, ESR ? DuoNeb every 6 hours as needed ? Aspiration precautions -Physical therapy has recommended home health ? if pt continues to improve, may dc home in next 24-48 hours Full code DVT prophylaxis: Heparin SQ twice daily Attestations 2 Medical Necessity Statement*: Plan for discharge in next 24 to 48 hours as leukocytosis improves. Diagnoses Risk for falls Z91.81 Renovascular hypertension I15.0 Hypertension type: renovascular hypertension Aphasia R47.01 Aspiration pneumonia J69.0 Pneumonia J18.9 Generalized weakness R53.1 History of GI bleed Z87.19 History of stroke Z86.73
[2023-08-28 14:50] VITALS: O2SAT 95
[2023-08-28 17:45] VITALS: BP 159/77
[2023-08-28 20:00] VITALS: BP 132/73; PULSE 85; RESP 17; TEMP 36.8; O2SAT 96
[2023-08-28] MEDS: atorvastatin 40 mg Tablet 80 MG PO (21:02)
[2023-08-29] VITALS (7 sets, daily range): BP systolic 118–149; BP diastolic 72–86; PULSE 75–100; RESP 17–20; TEMP 36.3–37; O2SAT 91–96
[2023-08-29] MEDS: heparin 5,000 unit/mL INJ 1 mL 5000 UNIT SUBCUT ×2 (02:26→15:07)
[2023-08-29 04:37] LABS: Basophils % 0.5 %; Eosinophils # 0.8 10^3/uL (0.0-0.8); Eosinophils % 9.6 %; Hematocrit 43.2 % (37-53); Lymphocytes # 1.8 10^3/uL (0.8-4.8); Lymphocytes % 19.9 %; Mean Corpuscular HGB Conc 31.9 g/dL (30-55); Mean Corpuscular Hemoglobin 30.5 pg (27-33); Mean Corpuscular Volume 95.4 fl (82-101); Mean Platelet Volume 10.3 fL (7.4-10.4); Monocytes # 0.9 10^3/uL (0.2-0.9); Monocytes % 10.7 %; Neutrophils # 5.12 10^3/uL (1.8-7.7); Neutrophils % 58.3 %; Nucleated Red Blood Cells % 0 %; Platelet Count 229 10^3/cmm (157-399); Red Blood Count 4.53 10^6/uL (3.85-5.65); Red Cell Distribution Width 14.2 % (12.1-15.1); White Blood Count 8.78 10^3/uL (3.29-11.43)
[2023-08-29 04:53] LABS: Anion Gap 15.1 (5-19); Blood Urea Nitrogen 19 mg/dL (8-23); Calcium 8.9 mg/dL (8.5-10.5); Carbon Dioxide 25 mmol/L (22-29); Chloride 106 mmol/L (98-107); Creatinine Clr Calc Pharmacy 34.8026; Glucose 126 mg/dL (65-115); Osmolality Calculated 298 mOsm/kg (285-295); Phosphorus 2.8 mg/dL (2.5-4.5); Potassium 4.1 mmol/L (3.5-5.1); Sodium 142 mmol/L (136-145)
[2023-08-29] MEDS: piperacillin-tazobactam 3.375 GM in sodium chloride 0.9% (plus) 50 ML IV (06:11)
[2023-08-29] MEDS: hyDRALAzine 25 mg Tablet PO ×2 (09:53→18:10)
[2023-08-29] MEDS: metoprolol tartrate 50 mg Tablet 25 MG PO ×2 (09:53→18:10)
[2023-08-29] MEDS: aspirin 81 mg EC Tablet PO (09:54)
[2023-08-29] MEDS: amlodipine 10 mg Tablet PO (09:54)
[2023-08-29] MEDS: morphine IR 15 mg Tablet PO (10:19)
--- NOTE | 2023-08-29 15:52 | P.PN_ITS ---
Subjective 2 Subjective: Leukocytosis remains resolved at 8.78 today. Urine culture updated to reflect E. coli sensitive to fluoroquinolones. Patient denies any new complaints today. Medications: Reviewed: Yes Vitals/I&O/Wt Last Vital Signs Temp 97.6 F 08/29/23 15:27 Pulse 91 08/29/23 15:27 Resp 17 08/29/23 15:27 BP 118/76 08/29/23 15:27 Pulse Ox 95 08/29/23 15:27 O2 Del Method Room Air 08/29/23 15:27 08/29/23 08/29/23 08/29/23 06:59 14:59 22:59 Intake Total 50 / 390 530 / 530 Balance 50 / 390 530 / 530 Weight last 48 hrs Weight 80.785 kg Weight 82.871 kg Physical Exam 2 Narrative: General: No acute distress, AO x3 HEENT: PERRLA, pupils bilaterally equal and reactive, pallors not present Chest: Normal vesicular breath sounds, no added sounds, equal good air entry bilaterally CVS: S1-S2 regular, no murmurs, no tachycardia, no gallops, no rubs Abdomen: Soft, nontender, no organomegaly, bowel sounds present Neuro: Residual right-sided neurodeficits, severe aphasia, extremely hard of hearing. Data 08/29/23 04:08 08/29/23 04:08 Micro: Microbiology 08/25/23 18:05 Urine Culture - Final Urine,Clean Catch Escherichia coli NAME: Ap Guillen LOC: [facility] U #: [id number] AGE/SX: 83/M ROOM: 273 R E08/25/[address]: Makayla Eastman MD : 1940 BED: 1 D IS: FAX #: STATUS: ADM IN TLOC: Spec #: [id number] [place]: 08/25/23 Status: COMP Req #: [id number] Recd: 08/25/23-[address]: Ruddy Jackson DO Src: Urine CC SpDesc: Ordered: Procedure Result Verified Site Urine Culture Final 08/28/23-1223 Organism 1 Escherichia coli [place] Count >100,000 CFU/ml DAY 2 E coli M.I.C. RX --------- ------ * Amikacin <=16 S * Amoxicillin/Clavulanate >16/8 R * Ampicillin >16 R * Ampicillin/Sulbactam 16/8 I * Aztreonam <=4 S * Cefepime <=8 S * Ceftriaxone <=1 S * Cefuroxime 16 I * Ciprofloxacin <=1 S * Gentamicin <=2 S * Imipenem <=1 S * Levofloxacin <=2 S * Nitrofurantoin <=32 S * Tetracycline <=4 S * Trimethoprim/Sulfamethoxazole <=2/38 S * Piperacillin/Tazobactam <=16 S Urine Culture Preliminary (changed) 08/27/23 Organism 1 Gram Negative Rods [place] Count >100,000 CFU/ml DAY 1, RESULTS TO FOLLOW A&P Assessment and plan (1) Risk for falls: (2) Hypertension: Qualifiers: Hypertension type: renovascular hypertension Qualified Code(s): I15.0 - Renovascular hypertension (3) Aphasia: (4) Aspiration pneumonia: (5) Pneumonia: (6) Generalized weakness: (7) History of GI bleed: (8) History of stroke: Plan #Bilateral pneumonia #History of multiple strokes, expressive aphasia, chronic aspiration #Generalized weakness and fatigue most likely secondary to above #Hypertension #GERD #History of GI bleed? #CKD, creatinine at baseline 1.7-1.9 range. ? Patient presented to the hospital with generalized weakness fatigue and not feeling well for the last 3 to 4 days. [facility] was [facility] at a [facility] and physical therapy sessions helped and patient started doing more but at home he does not do so much. He came to the hospital because his knees were buckling and family member was concerned that he will fall again. He did have multiple falls in the last couple of days. He was diagnosed with aspiration pneumonia. D-dimer 5.52. Patient not hypoxic and on room air saturating 95%. Does have chronic right-sided weakness. Expressive aphasia. Speech therapy, physical therapy requested. Placed on Zosyn. Held off of Eliquis secondary to risk of falls. Will not restart at this time either. Blood pressure was elevated on admission. Metoprolol hydralazine amlodipine continued. Valsartan was stopped. He was placed on IV fluids. Patient was given steroids on admission. WBC count 19,000. On admission was 16,000. It then trended up to 22,000 and then normalized. Speech therapy has recommended dysphagia level 5 diet. Steroids were discontinued due to of admission. Venous Dopplers negative for DVT. I will hold off on CTA secondary to CKD. Urine cultures are positive for gram- negative rods. May consider VQ scan. -Continue Zosyn at this time ? Await urine culture ? Blood cultures negative to date ? Patient is at risk of falls ? Physical therapy, Occupational Therapy ordered ? Continue Protonix 40 twice daily, atorvastatin 80, aspirin 81, amlodipine 10, metoprolol 50 twice daily. Losartan held. Continue venlafaxine 150 daily. ? Check sputum Gram stain culture ? Will check procalcitonin ? Check CRP, ESR ? DuoNeb every 6 hours as needed ? Aspiration precautions -Physical therapy has recommended home health ? if pt continues to improve, may dc home in next 24-48 hours Full code DVT prophylaxis: Heparin SQ twice daily August 29, 2023. Patient states he is starting to feel stronger. reports that patient was taken off Eliquis in the past due to a history of possible GI bleeding. She states that patient was initially diagnosed with a PFO which was thought to be a cause of his recurrent strokes in the past. He used to be on Eliquis for this reason. At some point he was taken to the OR for correction of PFO, however at the time of surgery it appears no PFO was found. Additionally patient was noted to have dropped his hemoglobin, he underwent EGD and colonoscopy, no active source of bleeding was found. He was thought to have slow GI bleeding and therefore Eliquis was discontinued. He has been off Eliquis for over a month now. 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 He was last admitted in [place] for an aspiration pneumonia approximately 1 year ago. The does not recall if he has ever had a formal modified barium swallow. PEG tube has not been needed to be recommended in the past. Patient has been evaluated by speech therapy and recommended dysphagia level 5 diet. There was some concern for possible PE given elevated D-dimer, however CTA was deferred given patient was not hypoxic, high risk of KIMBERLY for CTA evaluation. Lower extremity Doppler was negative for DVT.Chest x-ray upon admission had shown bibasilar interstitial pneumonia, most likely thought to be related to aspiration from chronic swallowing trouble. Patient was on Zosyn which has been changed today to levofloxacin 750 mg p.o. daily, this will provide coverage for both pneumonia and for UTI. Urine culture showing E. coli sensitive to fluoroquinolones. Change IV to oral antibiotics today. Anticipate discharge over the upcoming 24 hours if continues to do well. Arrangements being made for outpatient PT. Attestations 2 Medical Necessity Statement*: Change IV to oral antibiotics, assess for stability over the next 24 hours. Coding Level of Care Code Acute Code for Chg Fwd Moderate MDM includes number and complexity of problems actively addressed during encounter, amount and/or complexity of data reviewed/ordered and described risk of complication, morbidity or mortality of management as documented Diagnoses Risk for falls Z91.81 Renovascular hypertension I15.0 Hypertension type: renovascular hypertension Aphasia R47.01 Aspiration pneumonia J69.0 Pneumonia J18.9 Generalized weakness R53.1 History of GI bleed Z87.19 History of stroke Z86.73
[2023-08-29] MEDS: atorvastatin 40 mg Tablet 80 MG PO (20:51)
[2023-08-30] VITALS: BP 133/73; PULSE 67; RESP 16; TEMP 36.4; O2SAT 94
[2023-08-30] MEDS: heparin 5,000 unit/mL INJ 1 mL 5000 UNIT SUBCUT (01:24)
[2023-08-30 04:00] VITALS: BP 151/68; PULSE 79; RESP 18; TEMP 36.7; O2SAT 97
[2023-08-30 07:33] VITALS: BP 140/73; PULSE 76; RESP 16; TEMP 36.7; O2SAT 96
[2023-08-30] MEDS: levoFLOXacin 750 mg Tablet PO (08:11)
[2023-08-30] MEDS: sennosides-docusate Tablet 1 TAB PO (08:11)
[2023-08-30] MEDS: hyDRALAzine 25 mg Tablet PO (08:11)
[2023-08-30] MEDS: metoprolol tartrate 50 mg Tablet 25 MG PO (08:11)
[2023-08-30] MEDS: amlodipine 10 mg Tablet PO (08:11)
[2023-08-30] MEDS: aspirin 81 mg EC Tablet PO (08:12)
[2023-08-30] MEDS: acetaminophen 500 mg Tablet PO (10:57)
[2023-08-30 11:50] VITALS: BP 115/71; PULSE 81; RESP 17; TEMP 36.4; O2SAT 97
[2023-08-30 13:52] VITALS: BP 115/71; PULSE 81; RESP 17; TEMP 36.4; O2SAT 97
--- NOTE | 2023-08-30 16:31 | PM.DCS ---
Discharge Providers Date of Admission: 08/25/23 12:23 Date of Discharge: August 30, 2023 Attending Provider at Admission: Chante Desir MD Attending Provider at Discharge: Makayla Eastman MD Primary Care Provider: Zenon Sprague DO Diagnoses at Discharge Discharge Diagnosis (1) Risk for falls: Status: Chronic (2) Hypertension: Status: Acute Qualifiers: Hypertension type: renovascular hypertension Qualified Code(s): I15.0 - Renovascular hypertension (3) Aphasia: Status: Acute Permanent problem details: Expressive aphasia (4) Aspiration pneumonia: Status: Acute (5) Pneumonia: Status: Acute (6) Generalized weakness: Status: Acute (7) History of GI bleed: Status: Acute (8) History of stroke: Status: Acute Reason for Visit Reason for Visit: fall, weakness Hospital Course Hospital Course Ap Guillen is a 83 year old male with history of expressive aphasia, multiple strokes, chronic aspiration who was brought by his to the hospital after having sustained multiple recurrent falls at home. Typically he is able to ambulate with a walker in the house, however has not been able to do so recently over the past week due to increased lethargy. Patient had baseline right-sided weakness, no new focal deficits were found on exam. He was hypertensive upon admission and several medications were adjusted. Patient's valsartan was placed on hold due to MOE, changed to amlodipine 10 mg daily. He had leukocytosis initially upon arrival, was diagnosed with a UTI and aspiration pneumonia during course of his admission. He was evaluated by speech therapy and recommended dysphagia level 5 diet. reported that patient has had chronic aspiration for several years as well throughout the result of the stroke. Previously had required admission for an aspiration pneumonia 1 year ago in [place]. It appears he also used to be on Eliquis at this time and was then discontinued due to GI bleeding. Patient was treated during the course of his admission with IV piperacillin/tazobactam. Urine culture grew E. coli susceptible to fluoroquinolones. Antibiotics were transitioned to oral levofloxacin 750 mg daily at the time of discharge to provide coverage for both pneumonia and UTI. Leukocytosis resolved during admission course. He was evaluated by physical therapy, was found to have abnormal tonal influences as a result of the stroke, decreased endurance and decreased strength. Discussed acute rehab with the patient, however patient refused placement. He elected to return home with home health services. These were arranged at the time of discharge. Patient is back to baseline at the time of his discharge. Physical Exam Narrative: General: No acute distress, AO x3 HEENT: PERRLA, pupils bilaterally equal and reactive, pallors not present Chest: Normal vesicular breath sounds, no added sounds, equal good air entry bilaterally CVS: S1-S2 regular, no murmurs, no tachycardia, no gallops, no rubs Abdomen: Soft, nontender, no organomegaly, bowel sounds present Neuro: Baseline right-sided motor weakness, baseline expressive aphasia, baseline facial deformity, AO x3 Discharge Data Studies Completed and Pending Completed Studies During Hospitalization Category Date Time Status CT head wo con* [id number] Stat Cat Scan 08/25/23 09:[address] lumbar spine wo con* [id number] Stat Cat Scan 08/25/23 09:45 Completed XR chest 1V portable [id number] Routine Exams 08/27/23 11:54 Completed XR chest 1V portable [id number] Stat Exams 08/25/23 10:42 Completed XR hip RT 2-3V wo/w pel* [id number] Stat Exams 08/25/23 10:04 [place] [id number] Routine Ultrasound 08/25/23 22:19 Completed CV. echo complete* [id number] Routine Ultrasound 08/25/23 13:16 Completed Radiology Impressions Head CT 08/25/23 09:45 IMPRESSION: 1. No evidence of intracranial hemorrhage or mass effect. 2. Sphenoid sinusitis with inspissated secretions. 3. Moderate small vessel changes with moderate parenchymal volume loss. 4. Vascular calcification. 5. No acute intracranial findings. Lumbar Spine CT 08/25/23 09:45 IMPRESSION: 1. Lumbar curve with moderate to advanced spondylitic changes 2. 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 No acute fractures. Hip/Pelvis X-Ray 08/25/23 10:04 IMPRESSION: No acute findings. Chest X-Ray 08/27/23 11:54 IMPRESSION: 1. No acute cardiopulmonary abnormality. 2. Hiatal hernia. Laboratory Results WBC 8.78 10^3/uL (3.29-11.43) 08/29/23 04:08 RBC 4.53 10^6/uL (3.85-5.65) 08/29/23 04:08 Hgb 13.80 g/dL (11.27-16.99) 08/29/23 04:08 Hct 43.2 % (37-53) 08/29/23 04:08 MCV 95.4 fl (82-101) 08/29/23 04:08 MCH 30.5 pg (27-33) 08/29/23 04:08 MCHC 31.9 g/dL (30-55) 08/29/23 04:08 RDW 14.2 % (12.1-15.1) 08/29/23 04:08 Plt Count 229 10^3/cmm (157-399) 08/29/23 04:08 MPV 10.3 fL (7.4-10.4) 08/29/23 04:08 Neut % (Auto) 58.3 % 08/29/23 04:08 Lymph % (Auto) 19.9 % 08/29/23 04:08 Cameron % (Auto) 10.7 % 08/29/23 04:08 Eos % (Auto) 9.6 % 08/29/23 04:08 Baso % (Auto) 0.5 % 08/29/23 04:08 Neut # (Auto) 5.12 10^3/uL (1.8-7.7) 08/29/23 04:08 Lymph # (Auto) 1.8 10^3/uL (0.8-4.8) 08/29/23 04:08 Cameron # (Auto) 0.9 10^3/uL (0.2-0.9) 08/29/23 04:08 Eos # (Auto) 0.8 10^3/uL (0.0-0.8) 08/29/23 04:08 Baso # (Auto) 0.0 10^3/uL (0.0-0.1) 08/29/23 04:08 Nucleated RBC % (auto) 0 % 08/29/23 04:08 Nucleated RBCs # 0.0 /100WBC 08/29/23 04:08 D-Dimer 5.58 ug/mLFEU (0-0.59) H 08/25/23 10:09 Sodium 142 mmol/L (136-145) 08/29/23 04:08 Potassium 4.1 mmol/L (3.5-5.1) 08/29/23 04:08 Chloride 106 mmol/L (98-107) 08/29/23 04:08 Carbon Dioxide 25 mmol/L (22-29) 08/29/23 04:08 Anion Gap 15.1 (5-19) 08/29/23 04:08 BUN 19 mg/dL (8-23) 08/29/23 04:08 Creatinine 1.7 mg/dL (0.7-1.2) H 08/29/23 04:08 GFR Calculation Not Reportable 08/29/23 04:08 Glucose 126 mg/dL (65-115) H 08/29/23 04:08 Estimat Average Glucose 128 08/25/23 10:09 Hemoglobin A1c 6.1 % (4.0-6.0) H 08/25/23 10:09 Calculated Osmolality 298 mOsm/kg (285-295) H 08/29/23 04:08 Lactic Acid 1.7 mmol/L (0.5-2.2) 08/25/23 10:09 Calcium 8.9 mg/dL (8.5-10.5) 08/29/23 04:08 Phosphorus 2.8 mg/dL (2.5-4.5) 08/29/23 04:08 Magnesium 2.1 mg/dL (1.7-2.3) 08/28/23 03:31 Total Bilirubin 0.4 mg/dL (0.15-1.2) 08/28/23 03:31 AST 20 U/L (0-40) 08/28/23 03:31 ALT 25 U/L (0-41) 08/28/23 03:31 Alkaline Phosphatase 82 U/L (40-130) 08/28/23 03:31 C-Reactive Protein 26.7 mg/L (0.0-4.9) H 08/28/23 03:31 Total Protein 6.2 g/dL (6.6-8.7) L 08/28/23 03:31 Albumin 3.3 g/dL (3.5-5.2) L 08/28/23 03:31 Globulin 3.3 g/dL (1.3-4.6) 08/28/23 03:31 Vitamin B12 384 pg/mL (232-1245) 08/28/23 03:31 Folate 5.5 ng/mL (4.5-32.2) 08/28/23 03:31 Procalcitonin 0.12 ng/mL (0-0.5) 08/28/23 03:31 TSH 1.80 uIU/mL (0.27-4.20) 08/28/23 03:31 Urine Color Yellow (Yellow) 08/25/23 18:05 Urine Appearance Slightly cloudy (CLEAR) 08/25/23 18:05 Urine pH 5 (5-7) 08/25/23 18:05 Ur Specific [place] 1.015 (1.005-1.030) 08/25/23 18:05 Urine Protein Trace (Negative) 08/25/23 18:05 Urine Glucose (UA) Norm (Normal) 08/25/23 18:05 Urine Ketones 1+ (Negative) H 08/25/23 18:05 Urine Blood 3+ (Negative) H 08/25/23 18:05 Urine Nitrate Positive (Negative) A 08/25/23 18:05 Urine Bilirubin Neg (Negative) 08/25/23 18:05 Urine Urobilinogen Norm mg/dL (Negative) 08/25/23 18:05 Ur Leukocyte Esterase 2+ (Negative) H 08/25/23 18:05 Urine RBC 25-40 /hpf (0-2) H 08/25/23 18:05 Urine WBC 80-100 /hpf (0-5) H 08/25/23 18:05 Ur Squamous Epith Cells None /hpf (0-5) 08/25/23 18:05 Ur Transition Epith Cell 0-4 /hpf 08/25/23 18:05 Amorphous Sediment Not Reportable 08/25/23 18:05 Urine Bacteria 2+ /hpf (NONE) H 08/25/23 18:05 Urine Mucus None /hpf 08/25/23 18:05 Ur Oval Fat Bodies 1+ /hpf 08/25/23 18:05 C. difficile (PCR) Negative (Negative) 08/28/23 08:58 Vitals Last Vital Signs Temp 97.6 F 08/30/23 13:52 Pulse 81 08/30/23 13:52 Resp 17 08/30/23 13:52 BP 115/71 08/30/23 13:52 Pulse Ox 97 08/30/23 13:52 O2 Del Method Room Air 08/30/23 11:50 Discharge Plan Discharge Patient Disposition: Home Condition: Stable Prescriptions: New amlodipine 10 mg Tablet 10 mg PO DAILY Qty: 90 0RF levofloxacin 750 mg tablet 750 mg PO DAILY 5 Days Qty: 5 0RF atorvastatin 40 mg Tablet 80 mg PO DAILY@2100 Qty: 0 0RF Effexor XR 150 mg capsule,extended release 24hr 150 mg PO DAILY Qty: 30 0RF Continued montelukast 10 mg tablet 10 mg PO DAILY@2100 aspirin 81 mg tablet,delayed release (DR/EC) 81 mg PO DAILY@0900 multivitamin Tablet 1 tab PO QAM ascorbic acid (vitamin C) [Vitamin C] 1,000 mg Tablet 1 g PO DAILY@2100 cetirizine 10 mg Tablet 10 mg PO DAILY@0900 cholecalciferol (vitamin D3) [Vitamin D3] 25 mcg (1,000 unit) Tablet,Chewable 25 mcg PO BID@, omega-3 fatty acids 1,000 mg Capsule 1,000 mg PO QAM tramadol 50 mg tablet 50 mg PO BID@, pantoprazole [Protonix] 40 mg tablet,delayed release (DR/EC) 40 mg PO BID Qty: 60 3RF ferrous sulfate 325 mg (65 mg iron) Tablet 325 mg PO DAILY lidocaine 5 % adhesive patch,medicated 1 patch transdermal DAILY PRN (Reason: Pain) Mucinex DM 30-600 mg Tablet Extended Release 12 Hr 1 tab PO Q12H PRN (Reason: Congestion) naloxone 4 mg/actuation spray,non-aerosol See Rx Instructions .ROUTE .COMPLEX Rx Instructions: USE 1 SPRAY IN ONE NOSTRIL ALTERNATING NOSTRILS EVERY 3 MINUTES IF NO OR MINIMAL RESPONSE. Changed metoprolol tartrate 50 mg tablet 50 mg PO BID Qty: 30 0RF Discontinued venlafaxine 150 mg capsule,extended release 24hr 150 mg PO QAM valsartan 320 mg tablet 320 mg PO QPM atorvastatin 80 mg tablet 80 mg PO DAILY@2100 Discharge Orders: Discharge Order (Routine); Ordered 08/30/23 Ordered By: Makayla Eastman Other Ambulatory Orders: Physical Therapy Eval and Treat Outpatient (Order) Timeframe: 3 Days Facility: [facility] - Location: Physical Therapy Ordered By: Makayla Eastman Speech Language Pathology Eval and Treat Outpatient (Order) Timeframe: 3 Days Facility: [facility] - Location: [facility] Ordered By: Makayla Eastman Referrals: Zenon Sprague DO [Primary Care Provider] - 09/13/23 3:00 pm Discharge Diet: As Directed Discharge Activity: Resume usual activity Patient Instructions: Amoxicillin/Clavulanate Potassium (By mouth), Amlodipine (By mouth), Opioid Safety Discharge Attestations Time Spent in Discharge Care*: greater than 30 min Quality Metrics Clinical Quality Measures [ No reported AMI, CVA or VTE this stay] Coding Level of Care Code Acute Code for Chg Fwd Diagnoses Risk for falls Z91.81 Renovascular hypertension I15.0 Hypertension type: renovascular hypertension Aphasia R47.01 Aspiration pneumonia J69.0 Pneumonia J18.9 Generalized weakness R53.1 History of GI bleed Z87.19 History of stroke Z86.73
== END 2023-08-30 12:50 | disposition home health service (06) | DRG 178 ==
LOC: ER 10:16 → MEDSURG 12:24
PROVIDERS: Internal Medicine; Admitting Provider Internal Medicine; Emergency Provider Family Medicine; PCP Family Medicine; Visit Provider Student in an Organized Health Care Education/Training Program
DX: J69.0 Pneumonitis due to inhalation of food and vomit (principal); I69.351 Hemiplegia and hemiparesis following cerebral infarction affecting right dominant side; N17.9 Acute kidney failure, unspecified; N39.0 Urinary tract infection, site not specified; Z16.23 Resistance to quinolones and fluoroquinolones; I69.320 Aphasia following cerebral infarction; I16.0 Hypertensive urgency; I10 Essential (primary) hypertension; R29.6 Repeated falls; I73.9 Peripheral vascular disease, unspecified; E78.5 Hyperlipidemia, unspecified; I12.9 Hypertensive chronic kidney disease with stage 1 through stage 4 chronic kidney disease, or unspecified chronic kidney disease; N18.9 Chronic kidney disease, unspecified; Z86.718 Personal history of other venous thrombosis and embolism; Z79.01 Long term (current) use of anticoagulants; E86.0 Dehydration; K21.9 Gastro-esophageal reflux disease without esophagitis; B96.20 Unspecified Escherichia coli [E. coli] as the cause of diseases classified elsewhere
CPT/HCPCS: 36415; 70450; 71045; 72131; 73502; 80048; 80053; 81001; 82607; 82746; 83036; 83605; 83735; 84100; 84145; 84443; 85025; 85378; 86140; 86403; 87040; 87077; 87086; 87186; 87493; 92523; 92526; 92610; 93005; 93306; 93970; 94664; 96372; 97110; 97116; 97161; 97165; 97530; 97535; 99285; J1644; J2543; J2919; J7030

== ENCOUNTER 2023-08-31 08:37 | Emergency (ER) | payer MEDICARE, BC, SELFPAY ==
[2023-08-31 08:38] VITALS: BP 114/95; PULSE 96; RESP 20; TEMP 36.4; O2SAT 95
--- NOTE | 2023-08-31 08:42 | CT_ITS ---
WS: [id number] CT THORACIC SPINE HISTORY: Traumatic upper back pain TECHNIQUE: Contiguous 2.5 mm axial images are reviewed to thoracic spine. Images are reformatted in s agittal and coronal planes. All CT scans at [facility] use at least one of these dose optimiz ation techniques: automated exposure control; mA and/or kV adjustment per patient size (includes targ eted exams where dose is matched to clinical indication); or iterative reconstruction. DLP: 1528.26 mGy.cm COMPARISON: 09/10/2020 Mild curvature and scoliosis thoracic spine. Remote T3 mild anterior wedging is unchanged. Disc space s are mildly narrowed. No acute fractures are identified. Spinous processes and transverse processes appear intact and normal. Hypertrophic bone involving several of the ribs posteriorly in a paraspinal location from prior fractures with healing. No acute rib fracture identified. Interstitial lung disease and volume loss and poor inspiration. Atherosclerosis throughout the thorac ic aorta. 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 CT/CT thoracic spin wo con* [id number] IMPRESSION: 1. No acute thoracic spine fracture. 2. Degenerative changes as above. 3. 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
--- NOTE | 2023-08-31 08:42 | CT_ITS ---
WS: [id number] CT CERVICAL SPINE HISTORY: fall, neck pain TECHNIQUE: Contiguous 2.0 mm axial imaging performed through the entire cervical spine. Sagittal and coronal reformats also performed. All CT scans at [facility] use at least one of these dose o ptimization techniques: automated exposure control; mA and/or kV adjustment per patient size (include s targeted exams where dose is matched to clinical indication); or iterative reconstruction. DLP: 1759.35 mGy.cm COMPARISON: 09/03/2020 Scoliosis and degenerative changes throughout the cervical spine with mild progression since 1. No cervical spine fracture identified. Facet joints are normally aligned. Lateral masses of C1 and C2 are aligned. Odontoid process is intact. Multilevel facet joint arthritis with central and forami nal stenosis. Most severe stenosis at C5-6 and C6-7 due to osteophyte and facet disease. Lung apices are clear. Cervical carotid artery atherosclerotic plaque. CT/CT cervical spin wo con* [id number] IMPRESSION: 1. No acute cervical spine fracture. 2. Advanced degenerative changes and spondylosis throughout the cervical spine . Multilevel facet joint arthritis and stenoses.
--- NOTE | 2023-08-31 08:42 | CT_ITS ---
WS: [email or web address] CT HEAD NONCONTRAST HISTORY: fall, head injury TECHNIQUE: Contiguous axial imaging performed through the brain in 2.5 mm imaging. Bone and soft tiss ue windows. Sagittal and coronal reformats reviewed. All CT scans at [facility] use at least one of these dose optimization techniques: automated exposure control; mA and/or kV adjustment per pa tient size (includes targeted exams where dose is matched to clinical indication); or iterative recon struction. DLP: 1759.35 mGy.cm COMPARISON: 08/25/2023 No acute intracranial hemorrhage, midline shift or mass effect. Moderate volume loss and small vessel disease. Prior LEFT frontal lobe infarct. Prior lacunar infarct s LEFT [place] radiata and basal ganglia. Ventricles: Mild dilatation of the ventricles secondary to volume loss and atrophy. Paranasal sinuses: Dense inspissated secretions in the sphenoid sinuses similar to the prior study. Mastoid air cells: Well pneumatized. Calvarium and scalp: Skull is intact with no soft tissue edema or swelling. CT/CT head wo con* [id number] IMPRESSION: 1. No acute intracranial hemorrhage or edema. 2. Moderate volume loss and atrophy with small vessel disease. 3. Prior lacunar infarcts in the LEFT [place] radiata and basal ganglia.
--- NOTE | 2023-08-31 08:42 | CT_ITS ---
WS: [id number] CT LUMBAR SPINE, noncontrast. HISTORY: low back pain TECHNIQUE: Contiguous 2.0 mm axial imaging are performed. Sagittal and coronal reformats are submitte d and reviewed. All CT scans at [facility] use at least one of these dose optimization techni ques: automated exposure control; mA and/or kV adjustment per patient size (includes targeted exams w here dose is matched to clinical indication); or iterative reconstruction. IV contrast: None DLP: 1528.26 mGy.cm COMPARISON: 08/25/2023 Scoliosis with severe degenerative disc disease and spondylosis throughout the lumbar spine. Advanced degenerative changes throughout the disc spaces with osteophytosis. No acute lumbar spine fracture i s identified. Spinous processes and transverse processes are intact. There is mild retrolisthesis of L1-L4. Multilevel areas of central and foraminal stenosis as of facet arthritis is very similar to the prior study of 08/25/2023. Prior endovascular graft repair abdominal aorta. There is no adjacent hematoma. Severe atrophy of the RIGHT kidney. LEFT kidney is not identified. Proximal RIGHT renal artery stent. CT/CT lumbar spine wo con* [id number] IMPRESSION: 1. No acute lumbar spine fracture. Recent study from 08/25/2023 was reviewed. S imilar appearance of the vertebral bodies and discs. No acute fracture. 2. Severe lumbar spondylosis. 3. Endovascular graft repair abdominal aorta.
--- NOTE | 2023-08-31 08:58 | W.ED.FALL ---
HPI - Fall General: Chief Complaint: Fall Stated Complaint: fall, back/neck pain Time Seen by Provider: 08/31/23 08:41 History of Present Illness: 83-year-old man with a history of stroke with fairly severe right-sided deficit, hypertension, dyslipidemia, chronic kidney disease and a recent admission to the hospital where he was treated for pneumonia. He was sent home yesterday. This morning he fell between the toilet and the bathtub and could not get up so an ambulance was called. He was having some mild neck pain and may or may not of hit his head. He is pretty poor historian. No obvious deformities. No bruising. No lacerations. Review of Systems General: Reports: ROS unobtainable due to mental status PFSH ED PFSH: Medical History (Updated 08/31/23 @ 11:31 by Mary Ramos MD) Pneumonia Acute kidney injury superimposed on chronic kidney disease Generalized weakness Aspiration pneumonia Bibasilar crackles Risk for falls Hypertension Aphasia Expressive aphasia Vitamin D deficiency Peripheral artery disease Anemia Osteoporosis Expressive aphasia Chronic anticoagulation Eliquis due to CVA history Dyslipidemia Degenerative joint disease of spine CVA (cerebral vascular accident) 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 Reported to have hole in his heart but later when attempt was made to repair it was not identified. On chronic anticoagulation with Eliquis, initiated at outside facility, due to history of recurrent strokes. CKD (chronic kidney disease) Single functioning kidney per Surgical History Status post herniorrhaphy right inguinal hernia History of cataract surgery History of intravascular stent placement renal artery and aortic stents Status post endovascular aneurysm repair (EVAR) Status post right inguinal hernia repair Status post colonoscopy 2015 adenomatous polyp Family History Mother , at age 93 No problems noted. Father , at age 77 AA (aortic aneurysm) Cancer throat and lung Other Hypertension Social History Smoking and tobacco/nicotine status: never used tobacco/nicotine Alcohol intake: never Substance/Drug Use: never Household members: spouse Housing: House Marital status: Current occupational status: retired Physical Exam Narrative: EXAM NARRATIVE: General: Alert, no acute distress. Skin: Warm, dry. Head: Normocephalic, atraumatic. Neck: Supple, trachea midline. Eye: Extraocular movements are intact. Ears, nose, mouth and throat: mucosa moist. Cardiovascular: Regular, Normal peripheral perfusion. Respiratory: Some mild wheeze on exam, respirations are non-labored, breath sounds are equal, Symmetrical chest wall expansion. Gastrointestinal: Soft, Nontender, Non distended, Normal bowel sounds. Musculoskeletal: Normal ROM, no deformity. Neurological: Alert he is oriented to his , no new motor deficits. He does have right-sided weakness with right hand contracture. Has slurred speech. Psychiatric: Patient seems confused/demented. He does answer some questions appropriately Course Vital Signs: Vital signs: Vital Signs Temperature 97.5 F L 08/31/23 08:38 Pulse Rate 105 H 08/31/23 11:33 Respiratory Rate 18 08/31/23 11:19 Blood Pressure 114/95 08/31/23 08:38 Pulse Oximetry 97 08/31/23 11:19 Oxygen Delivery Me thod Room Air 08/31/23 11:19 MDM - Fall Medical Decision Making CT head: No acute intracranial process. no intracranial hemorrhage, no evidence of infarct. no evidence of acute fracture.This was reviewed and interpreted by myself the ER physician. CT of the cervical spine: No fracture. Degenerative changes. Good alignment. No step-offs. This was reviewed and interpreted by myself the emergency room physician. I also reviewed the radiologist report. CT of the thoracic spine: No fracture. Degenerative changes. Good alignment. No step-offs. This was reviewed and interpreted by myself the emergency room physician. CT of the lumbar spine: No fracture. Good alignment. No step-offs. This was reviewed and interpreted by myself the emergency room physician. I reviewed the patient's medical record. Reexamination: Initially the was requesting that the patient be placed in a care home. They were discussing it while he was in the hospital but he had said he did not want to so they went home. She is afraid she cannot take care of him. However after about an hour she has been talking with him and decided she is going to try to take him home again. He adamantly does not want to be in the care home. He remained stable. Stable right-sided weakness. No increased work of breathing. Consultation: I spoke with Dr. Eastman about the patient she had discharged him yesterday and believes he should go to a care home. Consultation: Case management was consulted. Ultimately they have talked with patient and the family and now they have decided they do want to go to the care home. He is already been accepted. Assessment and plan: Fall Head injury Pneumonia History of stroke with right-sided weakness ?IV Levaquin, IV Solu-Medrol and 2 updrafts were given. He had some mild wheeze and he is currently being treated for pneumonia so I gave him another IV dose while he was here thinking he might be going to the care home. However ultimately is decided she wants to take him home -And a turn of events after case management consult patient has decided he will go to the care home. ?IV morphine and Zofran for back pain - Discharged home - Discussed findings and plan with patient. Answered any questions. - All laboratory values were reviewed and interpreted personally by myself, the ER physician - All imaging was reviewed and interpreted personally by myself, the ER physician. - Evaluation and treatment of this problem were appropriate in the emergency setting Lab Data Radiology Impressions Cervical Spine CT 08/31/23 08:42 IMPRESSION: 1. No acute cervical spine fracture. 2. Advanced degenerative changes and spondylosis throughout the cervical spine. Multilevel facet joint arthritis and stenoses. Head CT 08/31/23 08:42 IMPRESSION: 1. No acute intracranial hemorrhage or edema. 2. Moderate volume loss and atrophy with small vessel disease. 3. Prior lacunar infarcts in the LEFT [place] radiata and basal ganglia. Lumbar Spine CT 08/31/23 08:42 IMPRESSION: 1. No acute lumbar spine fracture. Recent study from 08/25/2023 was reviewed. Similar appearance of the vertebral bodies and discs. No acute fracture. 2. Severe lumbar spondylosis. 3. Endovascular graft repair abdominal aorta. Thoracic Spine CT 08/31/23 08:42 IMPRESSION: 1. No acute thoracic spine fracture. 2. Degenerative changes as above. 3. 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 All radiology interpretation(s) finalized by discharge Discharge Plan Discharge Patient Disposition: Home Clinical Impression: Fall, History of stroke, Head injury, Pneumonia Condition: Stable Prescriptions: No Action montelukast 10 mg tablet 10 mg PO DAILY@2100 aspirin 81 mg tablet,delayed release (DR/EC) 81 mg PO DAILY@0900 multivitamin Tablet 1 tab PO QAM ascorbic acid (vitamin C) [Vitamin C] 1,000 mg Tablet 1 g PO DAILY@2100 cetirizine 10 mg Tablet 10 mg PO DAILY@0900 cholecalciferol (vitamin D3) [Vitamin D3] 25 mcg (1,000 unit) Tablet,Chewable 25 mcg PO BID@ omega-3 fatty acids 1,000 mg Capsule 1,000 mg PO QAM tramadol 50 mg tablet 50 mg PO BID@ pantoprazole [Protonix] 40 mg tablet,delayed release (DR/EC) 40 mg PO BID Qty: 60 3RF ferrous sulfate 325 mg (65 mg iron) Tablet 325 mg PO DAILY lidocaine 5 % adhesive patch,medicated 1 patch transdermal DAILY PRN (Reason: Pain) Mucinex DM 30-600 mg Tablet Extended Release 12 Hr 1 tab PO Q12H PRN (Reason: Congestion) naloxone 4 mg/actuation spray,non-aerosol See Rx Instructions .ROUTE .COMPLEX Rx Instructions: USE 1 SPRAY IN ONE NOSTRIL ALTERNATING NOSTRILS EVERY 3 MINUTES IF NO OR MINIMAL RESPONSE. amlodipine 10 mg Tablet 10 mg PO DAILY Qty: 90 0RF metoprolol tartrate 50 mg tablet 50 mg PO BID Qty: 30 0RF levofloxacin 750 mg tablet 750 mg PO DAILY 5 Days Qty: 5 0RF atorvastatin 40 mg Tablet 80 mg PO DAILY@2100 Qty: 0 0RF venlafaxine [Effexor XR] 150 mg capsule,extended release 24hr 150 mg PO DAILY Qty: 30 0RF valsartan 320 mg tablet 320 mg PO DAILY fluticasone propionate 50 mcg/actuation spray,suspension 1 spray INTRANASAL DAILY PRN (Reason: allergies) amoxicillin-pot clavulanate 875-125 mg tablet 1 tab PO BID Discharge Orders: Discharge ED (Routine); Ordered 08/31/23 Ordered By: Mary Ramos Referrals: Zenon Sprague DO [Primary Care Provider] - Discharge Diet: Usual diet Discharge Activity: Resume usual activity Patient Instructions: Fall Prevention for Older Adults (ED) Activity Restrictions/Additional Instructions: Thank you for choosing [facility] for your healthcare needs today. Please realize this is an emergency room and that we are providing you with a medical screening exam and this may not be complete and all inclusive of all the testing and or work up that you may need to determine your ailment or severity of your illness. You have been screened and evaluated and felt safe for discharge. Health conditions do change or evolve sometimes and as such it is important that you follow up with your Primary Doctor to be re checked, 3-5 days is a general good time frame for follow up. You are always welcome to return to the ED for re assessment if your symptoms are worsening or you have new concerns Coding Level of Care Code ED Circulation Clerk for Art Villanueva
--- NOTE | 2023-08-31 10:49 | PC.SOCIAL ---
SNF Placement: Referral was faxed to [facility] on 08/30/23 after patient DC'd home. [employer] Access code: [email or web address] has been completed and signed by Dr. Eastman. CM called and left message w/ Shanelle @ [facility] to f/up on referral and see if patient can DC from ER to SNF.
[2023-08-31 11:19] VITALS: PULSE 104; RESP 18; O2SAT 97
[2023-08-31] MEDS: methylPREDNISolone sod succ 125 mg/2 mL INJ IVP (11:20)
[2023-08-31] MEDS: levofloxacin-dextrose 5 % 750 MG/150 ML PREMIX 100 MG IV (11:21)
[2023-08-31] MEDS: ipratropium-albuterol 3 mL Neb INHALATION (11:23)
[2023-08-31] MEDS: albuterol 2.5 mg/3 mL Neb INHALATION (11:24)
[2023-08-31 11:33] VITALS: PULSE 105
[2023-08-31 12:45] VITALS: RESP 25; O2SAT 95
[2023-08-31] MEDS: ondansetron 2 mg/ML SDV 2 mL 4 MG IVP (12:45)
[2023-08-31] MEDS: morphine 4 mg/mL SDV 1 mL IVP (12:45)
[2023-08-31 12:46] VITALS: BP 122/78; PULSE 107; O2SAT 93
--- NOTE | 2023-08-31 13:07 | PC.SOCIAL ---
SNF Placement Shanelle from [facility] calls and reports that they can accept. Covid test ordered. Faxed DC orders and DC summary from 08/30/23. Instructed Adrianne patient care nurse in ER that she can call report and [facility] THE [facility] will come and transport.
[2023-08-31 13:33] LABS: SARS Covid-2 Antigen negative (Negative)
[2023-08-31 14:18] VITALS: BP 118/82; O2SAT 94
== END 2023-08-31 14:20 | disposition home or self-care (01) ==
PROVIDERS: Emergency Provider Emergency Medicine; PCP Family Medicine
DX: S09.90XA Unspecified injury of head, initial encounter (principal); J18.9 Pneumonia, unspecified organism; Z86.73 Personal history of transient ischemic attack (TIA), and cerebral infarction without residual deficits; Z79.82 Long term (current) use of aspirin; I12.9 Hypertensive chronic kidney disease with stage 1 through stage 4 chronic kidney disease, or unspecified chronic kidney disease; N18.9 Chronic kidney disease, unspecified; E78.5 Hyperlipidemia, unspecified; Z11.52 Encounter for screening for COVID-19; W19.XXXA Unspecified fall, initial encounter
CPT/HCPCS: 70450; 72125; 72128; 72131; 87426; 94640; 96374; 96375; 99285; J1956; J2270; J2405; J2919; J7613

== ENCOUNTER 2023-09-11 17:38 | Emergency (ER) | payer MEDICARE, BC, SELFPAY ==
[2023-09-11 17:39] VITALS: TEMP 37.4
[2023-09-11 17:48] VITALS: BP 138/69
--- NOTE | 2023-09-11 18:03 | XRR_ITS ---
PROCEDURE INFORMATION: Exam: XR Chest Exam date and time: 09/11/2023 6:07 PM Age: 83 years old Clinical indication: Prior surgery; Surgery date: 6+ months; Surgery type: Thoracic aortic stents; Patient HX: Fever; Weakness TECHNIQUE: Imaging protocol: Radiologic exam of the chest. Views: 1 view. COMPARISON: CR (CHEST, ) 08/27/2023 4:22 PM FINDINGS: Lungs: Central vascular prominence without overt edema. Mild bibasilar atelectasis. Chronic fibrotic changes of the bilateral lungs. Pleural spaces: Unremarkable. No pleural effusion. No pneumothorax. Heart/Mediastinum: Unremarkable. No cardiomegaly. Vasculature: Atherosclerotic calcifications. Diaphragm: Asymmetric elevation of the right hemidiaphragm. Bones/joints: Chronic right rib deformities. XR/XR chest 1V portable [id number] IMPRESSION: Chronic asymmetric elevation of the right hemidiaphragm and bilateral fibrotic changes. Central vascular prominence without overt edema.
--- NOTE | 2023-09-11 18:04 | ECG_ITS ---
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 Measurements Intervals [place] Rate: 79 P: 26 KS: 185 QRS: 0 QRSD: 88 T: 29 QT: 347 QTc: 398 Interpretive Statements SINUS RHYTHM WITH OCCASIONAL SUPRAVENTRICULAR PREMATURE COMPLEXES Compared to ECG 08/25/2023 13:35:40 No significant changes Electronically Signed On 09-12-2023 14:09:03 CDT by George Junior M.D. [email or web address]
--- NOTE | 2023-09-11 18:04 | W.ED.FEVER ---
HPI - Fever General: Chief Complaint: Fever Stated Complaint: fever Time Seen by Provider: 09/11/23 17:44 Source: patient and family Mode of arrival: EMS Limitations: no limitations History of Present Illness: This patient was transported from long-term care facility where the patient is undergoing [facility]ization [facility]. Recent hospitalization for pneumonia and was recovering in the long-term care facility. His reports that he has been making good progress and had a great day yesterday ate 3 meals and increased his physical activity however today when she went to see him he was much less active did not act like he felt well and did not have much in the way of food intake today. She discussed this with the staff and they evaluated him and took his temperature and noted he had a fever to 102. In addition to his pneumonia he apparently had a concomitant urinary tract infection as well. No history of known exposure to infectious disease however he is at a long-term care facility with patients, staff and visitors. He has not any nausea vomiting or diarrhea. His cough has been improving and there is no chest pain, abdominal pain etc. He had a prior history of aortic aneurysm that has been stented as well as bilateral hernia repairs. He does not have a history of congestive heart failure or COPD. He does have remote history of having a CVA that left him with expressive dysarthria, right arm and right leg weakness. He uses a walker to aid with ambulation and a splint to help maintain tone on his right forearm. MD elicited complaint: fever Context: recent hospitalization Associated symptoms: Deny flank pain, chest pain, diarrhea, dysuria, extremity pain, headache(s), nasal congestion, nausea or vomiting Review of Systems Const: Reports: fever(s), change in appetite and malaise ENMT: Denies: throat pain, odynophagia, nasal discharge or nasal congestion Card: Denies: chest pain or palpitations Resp: Reports: non-productive cough; Denies: wheezing GI: Denies: nausea, vomiting or diarrhea : Denies: flank pain, difficulty urinating, dysuria or urinary frequency Musc: Denies: back pain, extremity pain or extremity swelling Skin/Breast: Denies: rash Neuro: Denies: headache(s) or seizure-like activity [facility] PFSH: Medical History Pneumonia Acute kidney injury superimposed on chronic kidney disease Generalized weakness Aspiration pneumonia Bibasilar crackles Risk for falls Hypertension Aphasia Expressive aphasia Vitamin D deficiency Peripheral artery disease Anemia Osteoporosis Expressive aphasia Chronic anticoagulation Eliquis due to CVA history Dyslipidemia Degenerative joint disease of spine CVA (cerebral vascular accident) 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 Reported to have hole in his heart but later when attempt was made to repair it was not identified. On chronic anticoagulation with Eliquis, initiated at outside facility, due to history of recurrent strokes. CKD (chronic kidney disease) Single functioning kidney per Surgical History Status post herniorrhaphy right inguinal hernia History of cataract surgery History of intravascular stent placement renal artery and aortic stents Status post endovascular aneurysm repair (EVAR) Status post right inguinal hernia repair Status post colonoscopy 2015 adenomatous polyp Family History Mother , at age 93 No problems noted. Father , at age 77 AA (aortic aneurysm) Cancer throat and lung Other Hypertension Social History Smoking and tobacco/nicotine status: never used tobacco/nicotine Alcohol intake: never Substance/Drug Use: never Household members: spouse Housing: House Marital status: Current occupational status: retired Physical Exam Narrative: EXAM NARRATIVE: Patient is alert and responds to questions with a dysarthric voice. Appears to be comfortable Const: COMMON NORMALS: alert GENERAL APPEARANCE: cooperative NUTRITIONAL APPEARANCE: overweight ORIENTATION/CONSCIOUSNESS: Yes awake HENMT: COMMON NORMALS: normocephalic, Normal nasal mucous membranes and turbinates present and moist oral mucous membranes HEAD & SCALP: normocephalic FACE & SINUS: normal facial exam NOSE: Normal nasal mucous membranes and turbinates present Eye: COMMON NORMALS: Equal, round and reactive pupils present, EOMs intact bilaterally and conjunctivae normal CONJUNCTIVA: Yes conjunctivae normal PUPIL: Yes Equal, round and reactive pupils present Neck/C-Spine: COMMON NORMALS: full ROM, no lymphadenopathy and no JVD Chest: COMMONS NORMALS: normal inspection of the chest Resp: COMMON NORMALS: normal respiratory effort AUSCULTATION: crackles Laterality: left and diminished lung sounds Cardio: COMMON NORMALS: no JVD, regular rate, regular rhythm, No murmurs present (Cardio) and Peripheral pulses 2+ throughout RATE: regular rate RHYTHM: regular rhythm PERIPHERAL PULSES: Peripheral pulses 2+ throughout GI: COMMON NORMALS: Normal to inspection, nondistended, normoactive bowel sounds present, Soft to palpation, non-tender and no masses PALPATION: Yes Soft to palpation Back/Pelvis: COMMON NORMALS: thoracic and lumbar spine normal to inspection, no thoracic nor lumbar tenderness and thoraco-lumbar ROM normal Extremity: COMMON NORMALS: normal to inspection, capillary refill normal, no calf tenderness and no pedal edema Neuro: COMMON NORMALS: moves all extremities and no sensory deficits noted SENSORIUM/ORIENTATION: Yes alert CRANIAL NERVES: Yes CN VII (facial) Laterality: right MOTOR EXAM: Abnormal motor strength present (Right upper, right lower extremity) Skin: COMMON NORMALS: no rashes or lesions noted and turgor normal GENERAL SKIN EXAM: no rashes or lesions noted and turgor normal Course Reevaluation(s): Reevaluation #1: Discussed current findings with patient and spouse. According to current CDC recommendations even vaccinated individuals who have mild to moderate COVID who are at increased risk such as greater than 65 with other comorbidities may benefit from Paxlovid therapy. Time: 20:32 Vital Signs: Vital signs: Vital Signs Temperature 99.3 F 09/11/23 17:39 Blood Pressure 138/69 09/11/23 17:48 MDM - Fever Medical Decision Making This patient presented from [facility] as noted in the HPI. He was recently admitted to this facility for pneumonia and was [facility] and return to his former level of ADL. Differential included recurrent pneumonia, dehydration, urinary tract infection and other potential causes of acute illness. There was no symptoms to suggest ACS or other concerning conditions at this time. Ancillary studies were obtained including a chest x-ray which was reassuring. Other laboratories were reassuring without any evidence of anemia leukocytosis abnormal urinalysis, etc. He was found to be COVID-19 positive. Discussion was engaged with patient and spouse about possible Paxlovid administration due to his increased risk and institutionalization. This medication is being prescribed for this patient. He is stable without any oxygen requirement or other perturbations in his vital signs and is suitable to return to the long-term care facility with return precautions. Medical Records I reviewed the patient's medical records. Lab Data I reviewed the patient's lab results. 09/11/23 18:22 09/11/23 18:22 Radiology Impressions Chest X-Ray 09/11/23 18:03 IMPRESSION: Chronic asymmetric elevation of the right hemidiaphragm and bilateral fibrotic changes. Central vascular prominence without overt edema. Laboratory Results WBC 7.06 10^3/uL (3.29-11.43) 09/11/23 18:22 RBC 4.56 10^6/uL (3.85-5.65) 09/11/23 18:22 Hgb 13.80 g/dL (11.27-16.99) 09/11/23 18:22 Hct 42.5 % (37-53) 09/11/23 18: MCV 93.2 fl (82-101) 09/11/23 18:22 MCH 30.3 pg (27-33) 09/11/23 18: MCHC 32.5 g/dL (30-55) 09/11/23 18: RDW 13.8 % (12.1-15.1) 09/11/23 18: Plt Count 175 10^3/cmm (157-399) 09/11/23 18:22 MPV 10.5 fL (7.4-10.4) H 09/11/23 18:22 Neut % (Auto) 76.2 % 09/11/23 18:22 Lymph % (Auto) 7.2 % 09/11/23 18:22 [place] % (Auto) 12.5 % 09/11/23 18:22 Eos % (Auto) 2.4 % 09/11/23 18:22 Baso % (Auto) 0.6 % 09/11/23 18:22 Neut # (Auto) 5.38 10^3/uL (1.8-7.7) 09/11/23 18: Lymph # (Auto) 0.5 10^3/uL (0.8-4.8) L 09/11/23 18:22 [place] # (Auto) 0.9 10^3/uL (0.2-0.9) 09/11/23 18:22 Eos # (Auto) 0.2 10^3/uL (0.0-0.8) 09/11/23 18:22 Baso # (Auto) 0.0 10^3/uL (0.0-0.1) 09/11/23 18:22 Nucleated RBC % (auto) 0 % 09/11/23 18:22 Nucleated RBCs # 0.0 /100WBC 09/11/23 18:22 Sodium 138 mmol/L (136-145) 09/11/23 18:22 Potassium 4.4 mmol/L (3.5-5.1) 09/11/23 18:22 Chloride 101 mmol/L (98-107) 09/11/23 18:22 Carbon Dioxide 26 mmol/L (22-29) 09/11/23 18:22 Anion Gap 15.4 (5-19) 09/11/23 18:22 BUN 18 mg/dL (8-23) 09/11/23 18:22 Creatinine 1.6 mg/dL (0.7-1.2) H 09/11/23 18:22 GFR Calculation Not Reportable 09/11/23 18:22 Glucose 105 mg/dL (65-115) 09/11/23 18:22 Calculated Osmolality 288 mOsm/kg (285-295) 09/11/23 18:22 Lactic Acid 1.5 mmol/L (0.5-2.2) 09/11/23 18:22 Calcium 9.1 mg/dL (8.5-10.5) 09/11/23 18:22 Total Bilirubin 0.3 mg/dL (0.15-1.2) 09/11/23 18:22 AST 28 U/L (0-40) 09/11/23 18:22 ALT 39 U/L (0-41) 09/11/23 18:22 Alkaline Phosphatase 104 U/L (40-130) 09/11/23 18:22 Total Protein 7.0 g/dL (6.6-8.7) 09/11/23 18:22 Albumin 3.6 g/dL (3.5-5.2) 09/11/23 18:22 Globulin 3.4 g/dL (1.3-4.6) 09/11/23 18:22 Urine Color Yellow (Yellow) 09/11/23 18:49 Urine Appearance Clear (CLEAR) 09/11/23 18:49 Urine pH 7.0 (5-7) 09/11/23 18:49 Ur Specific [place] 1.014 (1.005-1.030) 09/11/23 18:49 Urine Protein Trace (Negative) A 09/11/23 18:49 Urine Glucose (UA) Negative (Normal) 09/11/23 18:49 Urine Ketones Negative (Negative) 09/11/23 18:49 Urine Blood Non-haemolysed trace (Negative) 09/11/23 18:49 Urine Nitrate Negative (Negative) 09/11/23 18:49 Urine Bilirubin Negative (Negative) 09/11/23 18:49 Urine Urobilinogen 0.2 mg/dL (Negative) 09/11/23 18:49 Ur Leukocyte Esterase Negative (Negative) 09/11/23 18:49 Urine RBC 6-10 /hpf (0-2) 09/11/23 18:49 Urine WBC 0-5 /hpf (0-5) 09/11/23 18:49 Ur Squamous Epith Cells 0-5 /hpf (0-5) 09/11/23 18:49 Amorphous Sediment Not Reportable 09/11/23 18:49 Urine Bacteria None seen /hpf (NONE) 09/11/23 18:49 Hyaline Casts 0.40 /lpf 09/11/23 18:49 SARS-CoV-2 Ag (Rapid) positive (Negative) H 09/11/23 18:30 All radiology interpretation(s) finalized by discharge EKG Data EKG 1: I personally reviewed and interpreted this EKG as follows: Interpretation: Contemporaneous review of resting EKG reveals ventricular rate of 79 bpm. Normal AR interval, QRS duration, corrected QT interval. Normal axis. No acute ST-T wave changes noted. Discharge Plan Discharge Patient Disposition: LTCH w Plan Readm Clinical Impression: COVID-19 Condition: Stable Prescriptions: New Paxlovid 150-100 mg tablets,dose pack See Rx Instructions .ROUTE .COMPLEX Qty: 20 0RF Rx Instructions: take ONE 150 mg tablet of nirmatrelvir with ONE 100 mg tablet of ritonavir twice daily for 5 days No Action montelukast 10 mg tablet 10 mg PO DAILY@2100 aspirin 81 mg tablet,delayed release (DR/EC) 81 mg PO DAILY@0900 multivitamin Tablet 1 tab PO QAM ascorbic acid (vitamin C) [Vitamin C] 1,000 mg Tablet 1 g PO DAILY@2100 cetirizine 10 mg Tablet 10 mg PO DAILY@0900 cholecalciferol (vitamin D3) [Vitamin D3] 25 mcg (1,000 unit) Tablet,Chewable 25 mcg PO BID@, omega-3 fatty acids 1,000 mg Capsule 1,000 mg PO QAM tramadol 50 mg tablet 50 mg PO BID@,21 pantoprazole [Protonix] 40 mg tablet,delayed release (DR/EC) 40 mg PO BID Qty: 60 3RF ferrous sulfate 325 mg (65 mg iron) Tablet 325 mg PO DAILY lidocaine 5 % adhesive patch,medicated 1 patch transdermal DAILY PRN (Reason: Pain) Mucinex DM 30-600 mg Tablet Extended Release 12 Hr 1 tab PO Q12H PRN (Reason: Congestion) naloxone 4 mg/actuation spray,non-aerosol See Rx Instructions .ROUTE .COMPLEX Rx Instructions: USE 1 SPRAY IN ONE NOSTRIL ALTERNATING NOSTRILS EVERY 3 MINUTES IF NO OR MINIMAL RESPONSE. amlodipine 10 mg Tablet 10 mg PO DAILY Qty: 90 0RF metoprolol tartrate 50 mg tablet 50 mg PO BID Qty: 30 0RF atorvastatin 40 mg Tablet 80 mg PO DAILY@2100 Qty: 0 0RF venlafaxine [Effexor XR] 150 mg capsule,extended release 24hr 150 mg PO DAILY Qty: 30 0RF valsartan 320 mg tablet 320 mg PO DAILY fluticasone propionate 50 mcg/actuation spray,suspension 1 spray INTRANASAL DAILY PRN (Reason: allergies) amoxicillin-pot clavulanate 875-125 mg tablet 1 tab PO BID Discharge Orders: Discharge ED (Routine); Ordered 09/11/23 Ordered By: Jeffery Dimas Discharge Diet: Advance as tolerated Discharge Activity: Increase activity as tolerated Activity Restrictions/Additional Instructions: As we discussed you have COVID-19. You do not have any findings at this time that required to be hospitalized. We have recommended that you take Paxlovid which is an antiviral medicine to help reduce your symptoms and reduce the likelihood of becoming more ill. Coding Level of Care Code ED Archeologist Classical for Art Villanueva
[2023-09-11 18:42] LABS: Basophils % 0.6 %; Eosinophils # 0.2 10^3/uL (0.0-0.8); Eosinophils % 2.4 %; Hematocrit 42.5 % (37-53); Lymphocytes # 0.5 10^3/uL (0.8-4.8); Lymphocytes % 7.2 %; Mean Corpuscular HGB Conc 32.5 g/dL (30-55); Mean Corpuscular Hemoglobin 30.3 pg (27-33); Mean Corpuscular Volume 93.2 fl (82-101); Mean Platelet Volume 10.5 fL (7.4-10.4); Monocytes # 0.9 10^3/uL (0.2-0.9); Monocytes % 12.5 %; Neutrophils # 5.38 10^3/uL (1.8-7.7); Neutrophils % 76.2 %; Nucleated Red Blood Cells % 0 %; Platelet Count 175 10^3/cmm (157-399); Red Blood Count 4.56 10^6/uL (3.85-5.65); Red Cell Distribution Width 13.8 % (12.1-15.1); White Blood Count 7.06 10^3/uL (3.29-11.43)
[2023-09-11] MEDS: lactated ringers 1,000 ML 999 ML IV (18:42)
[2023-09-11 18:54] LABS: Charge for UA Resulting for Rev
[2023-09-11 18:57] LABS: Bilirubin Urine Negative (Negative); Blood Urine Non-haemolysed trace (Negative); Glucose Urine UA Negative (Normal); Ketones Urine Negative (Negative); Leukocyte Esterase Urine Negative (Negative); Nitrate Urine Negative (Negative); Protein Urine Trace (Negative); Specific Gravity, Urine 1.014 (1.005-1.030); Urine Appearance Clear (CLEAR); Urine Color Yellow (Yellow); Urobilinogen Urine 0.2 mg/dL (Negative)
[2023-09-11 18:58] LABS: Alanine Aminotransferase 39 U/L (0-41); Albumin Level 3.6 g/dL (3.5-5.2); Alkaline Phosphatase 104 U/L (40-130); Anion Gap 15.4 (5-19); Aspartate Amino Transferase 28 U/L (0-40); Blood Urea Nitrogen 18 mg/dL (8-23); Calcium 9.1 mg/dL (8.5-10.5); Carbon Dioxide 26 mmol/L (22-29); Chloride 101 mmol/L (98-107); Creatinine Clr Calc Pharmacy 35.3529; Globulin 3.4 g/dL (1.3-4.6); Glucose 105 mg/dL (65-115); Lactic Sepsis W/Reflex 1.5 mmol/L (0.5-2.2); Osmolality Calculated 288 mOsm/kg (285-295); Potassium 4.4 mmol/L (3.5-5.1); Sodium 138 mmol/L (136-145); Total Bilirubin 0.3 mg/dL (0.15-1.2)
[2023-09-11 19:02] LABS: Bacteria Urine None Seen /hpf; Squamous Epithelial Cell Urine 0-5 /hpf (0-5); WBC Urine 0-5 /hpf (0-5)
[2023-09-11 19:14] LABS: SARS Covid-2 Antigen positive (Negative)
--- NOTE | 2023-09-11 19:47 | PC.NURSE ---
[facility] notified of positive covid result.
== END 2023-09-11 22:38 ==
PROVIDERS: Emergency Provider Emergency Medicine
DX: U07.1 COVID-19 (principal); Z79.82 Long term (current) use of aspirin; I12.9 Hypertensive chronic kidney disease with stage 1 through stage 4 chronic kidney disease, or unspecified chronic kidney disease; N18.9 Chronic kidney disease, unspecified; E78.5 Hyperlipidemia, unspecified; Z86.73 Personal history of transient ischemic attack (TIA), and cerebral infarction without residual deficits
CPT/HCPCS: 36415; 71045; 80053; 81003; 81015; 83605; 85025; 87040; 87426; 93005; 99285; J7120

== ENCOUNTER 2023-11-28 07:55 | Emergency (ER) | payer MEDICARE, BC, SELFPAY ==
[2023-11-28 07:56] VITALS: BP 148/88; PULSE 73; RESP 18; TEMP 36.3; O2SAT 95; BMI 25.1
--- NOTE | 2023-11-28 08:04 | ECG_ITS ---
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
--- NOTE | 2023-11-28 08:06 | CT_ITS ---
WS: [email or web address] Exam: CT chest abdpel w/*[id number] Date/Time of Exam: 11/28/2023 8:15 AM Reason For Exam: trauma - r chest wall pain DLP: 1341.[address] scans at [facility] use at least one of these dose optimization techniques: automated e xposure control; mA and/or kV adjustment per patient size (includes targeted exams where dose is matc hed to clinical indication); or iterative reconstruction. CT scan of the chest with contrast. Small saccular aneurysm identified along the LEFT margin of the aortic arch with thrombus. This measu res approximately 3 cm in greatest diameter and has rim calcification. There is no sign of dissection . The great vessels are patent. The main pulmonary arteries are clear. Coronary artery calcifications are noted. No pericardial effusion. The airway is patent however there is polypoid thickening identi fied along the RIGHT lateral aspect of the trachea at about the level of T1. A small mass in the trac hea is not excluded. No hilar or mediastinal lymphadenopathy. There are patchy infiltrates throughout the RIGHT lung with areas of plaque atelectasis. Mild infiltrates also noted in the LEFT lower lobe. No significant pleural effusion. No destructive bone lesion or chest wall defect. CT/CT chest abdpel w/*[id number] IMPRESSION: 1. Patchy infiltrates noted throughout the RIGHT lung and also of the LEFT lowe r lobe. Developing pneumonia not excluded. 2. 3 cm saccular aneurysm identified along the LEFT margin of the aortic arch w ith thrombus and wall calcification. 3. Polypoid thickening of the RIGHT lateral margin of the trachea at about the level of T1. A small tracheal mass is not excluded. Comparison 06/04/2021. CT scan of the abdomen and pelvis with contrast. Prominent hiatal hernia. Prominent gallbladder but no sign of cholelithiasis or acute cholecystitis. The liver and spleen are unremarkable. The pancreas is no t enlarged. The IVC is patent. Normal adrenal glands. Markedly atrophic RIGHT k idney that show some function. Unremarkable LEFT kidney. No renal obstruction. Lower abdominal aorta endostent secondary to aneurysm repair. 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 The SMA and ROCKY appear to be patent. Small bowel loops are not dilated. Moderate amount of stool in the large bowel . No sign of acute appendix. Aneurysmal dilatation of the common iliac arteries with endostent repair. The appearance is stable. No mass or lymphadenopathy in the pelvis. Wall thickening of the urinary bladder which may be due to under d istention. Prostatomegaly with heterogeneous prostate appearance. The prostate gland measures almost 6 cm in greatest diameter. No lymphadenopathy or mass in the pelvis. No destructive bone lesions are seen. Major arteries in the pelvis are patent. IMPRESSION: 1. Lower abdominal aortic aneurysm repaired with bifurcated endostent the appea chiqui is stable since prior study. 2. No acute process identified in the abdomen or pelvis. 3. Atrophic RIGHT kidney, prostatomegaly, large hiatal hernia as well as other chronic minor findings.
--- NOTE | 2023-11-28 08:06 | CT_ITS ---
WS: [email or web address] Exam: CT cervical spin wo con* [id number] Date/Time of Exam: 11/28/2023 8:15 AM Reason For Exam: trauma DLP: 1274.[address] scans at [facility] use at least one of these dose optimization techniques: automated e xposure control; mA and/or kV adjustment per patient size (includes targeted exams where dose is matc hed to clinical indication); or iterative reconstruction. Comparison 08/31/2023. No acute fracture or dislocation. Moderately advanced degenerative facet changes at all levels. Moder ately advanced degenerative disc changes at C5-6 and C6-7 with spondylosis. Areas of moderate foramin al stenosis seen at C5-6 and C6-7. Paraspinal soft tissues are unremarkable. Moderate calcific plaqui ng of the bilateral carotid arteries. The airway is patent. No neck mass or lymphadenopathy. CT/CT cervical spin wo con* [id number] IMPRESSION: 1. No fracture or malalignment identified. 2. Moderately advanced degenerative changes and spondylosis as detailed above. There is some foraminal stenosis at C5-6 and C6-7.
--- NOTE | 2023-11-28 08:06 | CT_ITS ---
WS: [email or web address] Exam: CT head wo con* [id number] Date/Time of Exam: 11/28/2023 8:15 AM Reason For Exam: trauma DLP: 1274.[address] scans at [facility] use at least one of these dose optimization techniques: automated e xposure control; mA and/or kV adjustment per patient size (includes targeted exams where dose is matc hed to clinical indication); or iterative reconstruction. Comparison 08/31/2023. No acute intracranial bleed or space-occupying mass. Moderately advanced cerebral and cerebellar atro phy with volume loss. Old infarction noted in the LEFT basal ganglia and the LEFT frontal lobe. No ex tra-axial fluid collection. Again noted is inspissated mucus in the sphenoid sinuses. Trace amount of fluid in the RIGHT mastoids. No bony injury or bone destruction. Orbits and optic globes are intact. CT/CT head wo con* [id number] IMPRESSION: 1. No acute intracranial process. 2. Moderately advanced atrophy and volume loss. Old lacunar infarcts in the LEF T basal ganglia. Old LEFT frontal lobe infarct.
--- NOTE | 2023-11-28 08:09 | W.ED.EXTPRO ---
HPI - Extremity Problem General: Chief complaint: Extremity Injury, Upper Stated complaint: shoulder/back pain, fall Time Seen by Provider: 11/28/23 08:01 History of Present Illness: 83-year-old male presents to the emergency room via EMS. He lives at home with his who reported that he fell 2 days ago complaining of severe right-sided chest pain. No reported there is loss consciousness. Patient was given tramadol this morning by his for pain he does seem a bit altered but we will have a UA hip to help establish his baseline. He is difficult to understand. Associated symptoms: Deny chest pain, fever(s) or rash Related Data Home Medications Medication Instructions Recorded Confirmed aspirin 81 mg tablet,delayed 81 mg PO DAILY@0900 07/09/20 11/28/23 release ascorbic acid (vitamin C) 1,000 mg 1 g PO DAILY@2100 09/03/20 11/28/23 tablet (Vitamin C) cetirizine 10 mg tablet 10 mg PO DAILY@0909/03/20 11/28/23 cholecalciferol (vitamin D3) 25 25 mcg PO BID@09/03/20 11/28/23 mcg (1,000 unit) chewable tablet (Vitamin D3) omega-3 fatty acids 1,000 mg 1,000 mg PO QAM 09/21/21 11/28/23 capsule tramadol 50 mg tablet 50 mg PO BID@09/21/21 11/28/23 lidocaine 5 % topical patch 1 patch transdermal DAILY PRN Pain 08/25/23 11/28/23 fluticasone propionate 50 1 spray intranasal DAILY PRN 08/31/23 11/28/23 mcg/actuation nasal allergies spray,suspension omega 4-oeq-ivx-fish oil 1,000 mg 1 cap PO BID 11/28/23 11/28/23 (120 mg-180 mg) capsule (Fish Oil) polyethylene glycol 3350 17 4 g PO DAILY 11/28/23 11/28/23 gram/dose oral powder Previous Rx's Medication Instructions Recorded pantoprazole 40 mg tablet,delayed 40 mg PO BID #60 tabs 09/23/21 release (Protonix) amlodipine 10 mg tablet 10 mg PO DAILY #90 tabs 08/26/23 metoprolol tartrate 50 mg tablet 50 mg PO BID #30 tabs 08/26/23 atorvastatin 40 mg tablet 80 mg (2 x 40 mg) PO DAILY@2100 #0 08/30/23 tabs venlafaxine 150 mg 150 mg PO DAILY #30 caps 08/30/23 capsule,extended release 24 hr (Effexor XR) diclofenac sodium 75 mg 75 mg PO Q12H PRN pain #20 tabs 11/28/23 tablet,delayed release Allergies Allergy/AdvReac Type Severity Reaction Status Date / Time acetylcysteine Allergy nausea/vomi Verified 11/28/23 08:08 ting Review of Systems Const: Denies: fever(s) or chills Card: Denies: chest pain Resp: Denies: dyspnea GI: Denies: abdominal pain : Denies: dysuria, urinary frequency or urinary urgency Musc: Denies: neck pain or back pain Skin/Breast: Denies: rash PFSH ED PFSH: Medical History Pneumonia Acute kidney injury superimposed on chronic kidney disease Generalized weakness Aspiration pneumonia Bibasilar crackles Risk for falls Hypertension Aphasia Expressive aphasia Vitamin D deficiency Peripheral artery disease Anemia Osteoporosis Expressive aphasia Chronic anticoagulation Eliquis due to CVA history Dyslipidemia Degenerative joint disease of spine CVA (cerebral vascular accident) 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 Reported to have hole in his heart but later when attempt was made to repair it was not identified. On chronic anticoagulation with Eliquis, initiated at outside facility, due to history of recurrent strokes. CKD (chronic kidney disease) Single functioning kidney per Surgical History Status post herniorrhaphy right inguinal hernia History of cataract surgery History of intravascular stent placement renal artery and aortic stents Status post endovascular aneurysm repair (EVAR) Status post right inguinal hernia repair Status post colonoscopy 2015 adenomatous polyp Family History Mother , at age 93 No problems noted. Father , at age 77 AA (aortic aneurysm) Cancer throat and lung Other Hypertension Social History Smoking and tobacco/nicotine status: never used tobacco/nicotine Alcohol intake: never Substance/Drug Use: never Household members: spouse Housing: House Marital status: Current occupational status: retired Physical Exam Const: GENERAL APPEARANCE: cooperative ORIENTATION/CONSCIOUSNESS: Yes awake HENMT: COMMON NORMALS: normocephalic, atraumatic and hearing grossly normal bilaterally HEAD & SCALP: normocephalic and atraumatic Chest: OTHER: Severe pain with palpation on the right lateral chest wall no crepitus no subcutaneous air Resp: COMMON NORMALS: normal respiratory effort, No retractions, No use of accessory muscles and clear to auscultation bilaterally AUSCULTATION: clear to auscultation bilaterally Cardio: COMMON NORMALS: regular rate, regular rhythm and No murmurs present (Cardio) RATE: regular rate RHYTHM: regular rhythm GI: COMMON NORMALS: Soft to palpation and No hepatosplenomegaly present AUSCULTATION: Yes normoactive bowel sounds PALPATION: Yes Soft to palpation, No Tenderness to palpation present (GI), No Guarding due to palpation present (GI) and Yes No hepatosplenomegaly present Extremity: COMMON NORMALS: normal to inspection, capillary refill normal, no clubbing, cyanosis or edema, no calf tenderness and no pedal edema Skin: COMMON NORMALS: no rashes or lesions noted GENERAL SKIN EXAM: no rashes or lesions noted Course Vital Signs: Vital signs: Vital Signs Temperature 97.4 F L 11/28/23 07:56 Pulse Rate 82 11/28/23 11:52 Respiratory Rate 18 11/28/23 07:56 Blood Pressure 160/88 11/28/23 11:52 Pulse Oximetry 96 11/28/23 11:52 Oxygen Delivery Me thod Room Air 11/28/23 10:30 MDM - Extremity (Nontraumatic) Medical Decision Making Labs and imaging reviewed no significant critical findings no signs of acute injury. Patient certainly does have a lot of soft tissue injury and discomfort. You can use Tylenol as needed. Will discharge patient home. Initially prescribed diclofenac on reviewing the chart his creatinine is at 1.5 will have him use just Tylenol. To follow-up with his primary care doctor as needed. Medical Records I reviewed the patient's medical records. Lab Data I reviewed the patient's lab results. 11/28/23 08:21 11/28/23 08:21 Radiology Impressions Cervical Spine CT 11/28/23 08:06 IMPRESSION: 1. No fracture or malalignment identified. 2. Moderately advanced degenerative changes and spondylosis as detailed above. There is some foraminal stenosis at C5-6 and C6-7. Chest/Abdomen/Pelvis CT 11/28/23 08:06 IMPRESSION: 1. Patchy infiltrates noted throughout the RIGHT lung and also of the LEFT lower lobe. Developing pneumonia not excluded. 2. 3 cm saccular aneurysm identified along the LEFT margin of the aortic arch with thrombus and wall calcification. 3. Polypoid thickening of the RIGHT lateral margin of the trachea at about the level of T1. A small tracheal mass is not excluded. Comparison 06/04/2021. CT scan of the abdomen and pelvis with contrast. Prominent hiatal hernia. Prominent gallbladder but no sign of cholelithiasis or acute cholecystitis. The liver and spleen are unremarkable. The pancreas is not enlarged. The IVC is patent. Normal adrenal glands. Markedly atrophic RIGHT kidney that show some function. Unremarkable LEFT kidney. No renal obstruction. Lower abdominal aorta endostent secondary to aneurysm repair. 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 The SMA and ROCKY appear to be patent. Small bowel loops are not dilated. Moderate amount of stool in the large bowel. No sign of acute appendix. Aneurysmal dilatation of the common iliac arteries with endostent repair. The appearance is stable. No mass or lymphadenopathy in the pelvis. Wall thickening of the urinary bladder which may be due to under distention. Prostatomegaly with heterogeneous prostate appearance. The prostate gland measures almost 6 cm in greatest diameter. No lymphadenopathy or mass in the pelvis. No destructive bone lesions are seen. Major arteries in the pelvis are patent. IMPRESSION: 1. Lower abdominal aortic aneurysm repaired with bifurcated endostent the appearance is stable since prior study. 2. No acute process identified in the abdomen or pelvis. 3. Atrophic RIGHT kidney, prostatomegaly, large hiatal hernia as well as other chronic minor findings. Head CT 11/28/23 08:06 IMPRESSION: 1. No acute intracranial process. 2. Moderately advanced atrophy and volume loss. Old lacunar infarcts in the LEFT basal ganglia. Old LEFT frontal lobe infarct. Laboratory Results WBC 7.85 10^3/uL (3.29-11.43) 11/28/23 08:21 RBC 4.47 10^6/uL (3.85-5.65) 11/28/23 08:21 Hgb 13.60 g/dL (11.27-16.99) 11/28/23 08:21 Hct 42.2 % (37-53) 11/28/23 08:21 MCV 94.4 fl (82-101) 11/28/23 08:21 MCH 30.4 pg (27-33) 11/28/23 08:21 MCHC 32.2 g/dL (30-55) 11/28/23 08:21 RDW 14.1 % (12.1-15.1) 11/28/23 08:21 Plt Count 184 10^3/cmm (157-399) 11/28/23 08:21 MPV 10.3 fL (7.4-10.4) 11/28/23 08:21 Neut % (Auto) 63.0 % 11/28/23 08:21 Lymph % (Auto) 14.0 % 11/28/23 08:21 Wheeler % (Auto) 9.2 % 11/28/23 08:21 Eos % (Auto) 12.5 % 11/28/23 08:21 Baso % (Auto) 0.8 % 11/28/23 08: Neut # (Auto) 4.95 10^3/uL (1.8-7.7) 11/28/23 08: Lymph # (Auto) 1.1 10^3/uL (0.8-4.8) 11/28/23 08:21 Wheeler # (Auto) 0.7 10^3/uL (0.2-0.9) 11/28/23 08:21 Eos # (Auto) 1.0 10^3/uL (0.0-0.8) H 11/28/23 08:21 Baso # (Auto) 0.1 10^3/uL (0.0-0.1) 11/28/23 08:21 Nucleated RBC % (auto) 0 % 11/28/23 08: Nucleated RBCs # 0.0 /100WBC 11/28/23 08:21 Sodium 135 mmol/L (136-145) L 11/28/23 08:21 Potassium 4.1 mmol/L (3.5-5.1) 11/28/23 08:21 Chloride 99 mmol/L (98-107) 11/28/23 08:21 Carbon Dioxide 27 mmol/L (22-29) 11/28/23 08:21 Anion Gap 13.1 (5-19) 11/28/23 08:21 BUN 13 mg/dL (8-23) 11/28/23 08:21 Creatinine 1.5 mg/dL (0.7-1.2) H 11/28/23 08:21 GFR Calculation Not Reportable 11/28/23 08:21 Glucose 123 mg/dL (65-115) H 11/28/23 08:21 Calculated Osmolality 281 mOsm/kg (285-295) L 11/28/23 08:21 Calcium 8.9 mg/dL (8.5-10.5) 11/28/23 08:21 Total Bilirubin 0.6 mg/dL (0.15-1.2) 11/28/23 08:21 AST 17 U/L (0-40) 11/28/23 08:21 ALT 17 U/L (0-41) 11/28/23 08:21 Alkaline Phosphatase 115 U/L (40-130) 11/28/23 08:21 Total Protein 6.8 g/dL (6.6-8.7) 11/28/23 08:21 Albumin 3.9 g/dL (3.5-5.2) 11/28/23 08:21 Globulin 2.9 g/dL (1.3-4.6) 11/28/23 08:21 Urine Color Yellow (Yellow) 11/28/23 08:20 Urine Appearance Clear (CLEAR) 11/28/23 08:20 Urine pH 7.0 (5-7) 11/28/23 08:20 Ur Specific [place] 1.008 (1.005-1.030) 11/28/23 08:20 Urine Protein Negative (Negative) 11/28/23 08:20 Urine Glucose (UA) Negative (Normal) 11/28/23 08:20 Urine Ketones Negative (Negative) 11/28/23 08:20 Urine Blood 1+ (Negative) A 11/28/23 08:20 Urine Nitrate Negative (Negative) 11/28/23 08:20 Urine Bilirubin Negative (Negative) 11/28/23 08:20 Urine Urobilinogen 0.2 mg/dL (Negative) 11/28/23 08:20 Ur Leukocyte Esterase Negative (Negative) 11/28/23 08:20 Urine RBC 11-20 /hpf (0-2) H 11/28/23 08:20 Urine WBC 0-5 /hpf (0-5) 11/28/23 08:20 Ur Squamous Epith Cells 0-5 /hpf (0-5) 11/28/23 08:20 Urine Bacteria None seen /hpf (NONE) 11/28/23 08:20 Hyaline Casts 0-4 /lpf H 11/28/23 08:20 All radiology interpretation(s) finalized by discharge Discharge Plan Discharge Patient Disposition: Home Clinical Impression: Fall, History of stroke, Acute chest wall pain Condition: Stable Prescriptions: New diclofenac sodium 75 mg tablet,delayed release (DR/EC) 75 mg PO Q12H PRN (Reason: pain) Qty: 20 0RF No Action aspirin 81 mg tablet,delayed release (DR/EC) 81 mg PO DAILY@0900 ascorbic acid (vitamin C) [Vitamin C] 1,000 mg Tablet 1 g PO DAILY@2100 cetirizine 10 mg Tablet 10 mg PO DAILY@0900 cholecalciferol (vitamin D3) [Vitamin D3] 25 mcg (1,000 unit) Tablet,Chewable 25 mcg PO BID@ omega-3 fatty acids 1,000 mg Capsule 1,000 mg PO QAM tramadol 50 mg tablet 50 mg PO BID@ pantoprazole [Protonix] 40 mg tablet,delayed release (DR/EC) 40 mg PO BID Qty: 60 3RF lidocaine 5 % adhesive patch,medicated 1 patch transdermal DAILY PRN (Reason: Pain) amlodipine 10 mg Tablet 10 mg PO DAILY Qty: 90 0RF metoprolol tartrate 50 mg tablet 50 mg PO BID Qty: 30 0RF atorvastatin 40 mg Tablet 80 mg PO DAILY@2100 Qty: 0 0RF venlafaxine [Effexor XR] 150 mg capsule,extended release 24hr 150 mg PO DAILY Qty: 30 0RF fluticasone propionate 50 mcg/actuation spray,suspension 1 spray INTRANASAL DAILY PRN (Reason: allergies) polyethylene glycol 3350 17 gram/dose Powder 4 g PO DAILY omega 1-xkk-mgs-fish oil [Fish Oil] 1,000 (120-180) mg Capsule 1 cap PO BID Discharge Orders: Discharge ED (Routine); Ordered 11/28/23 Ordered By: Ruddy Jackson Discharge Diet: Usual diet Discharge Activity: Resume usual activity Patient Instructions: Opioid Safety, Pain Management Activity Restrictions/Additional Instructions: Thank you for choosing [facility] for your healthcare needs today. It is very important that you follow up as instructed or that you return to the Emergency Department should you have concerns or if your condition changes or worsens in any way. You are seen in the emergency room after a fall. CTs of your head neck chest abdomen pelvis did not show any acute acute fractures. Continue your current medications follow-up your primary care doctor as needed Coding Level of Care Code ED Director Of Clinical Trials for Art Villanueva
[2023-11-28 08:38] LABS: Basophils # 0.1 10^3/uL (0.0-0.1); Basophils % 0.8 %; Eosinophils % 12.5 %; Hematocrit 42.2 % (37-53); Lymphocytes # 1.1 10^3/uL (0.8-4.8); Mean Corpuscular HGB Conc 32.2 g/dL (30-55); Mean Corpuscular Hemoglobin 30.4 pg (27-33); Mean Corpuscular Volume 94.4 fl (82-101); Mean Platelet Volume 10.3 fL (7.4-10.4); Monocytes # 0.7 10^3/uL (0.2-0.9); Monocytes % 9.2 %; Neutrophils # 4.95 10^3/uL (1.8-7.7); Nucleated Red Blood Cells % 0 %; Platelet Count 184 10^3/cmm (157-399); Red Blood Count 4.47 10^6/uL (3.85-5.65); Red Cell Distribution Width 14.1 % (12.1-15.1); White Blood Count 7.85 10^3/uL (3.29-11.43)
[2023-11-28 08:45] VITALS: BP 147/71; PULSE 67; O2SAT 94
[2023-11-28 08:58] LABS: Alanine Aminotransferase 17 U/L (0-41); Albumin Level 3.9 g/dL (3.5-5.2); Alkaline Phosphatase 115 U/L (40-130); Anion Gap 13.1 (5-19); Aspartate Amino Transferase 17 U/L (0-40); Blood Urea Nitrogen 13 mg/dL (8-23); Calcium 8.9 mg/dL (8.5-10.5); Carbon Dioxide 27 mmol/L (22-29); Chloride 99 mmol/L (98-107); Creatinine Clr Calc Pharmacy 38.6673; Globulin 2.9 g/dL (1.3-4.6); Glucose 123 mg/dL (65-115); Osmolality Calculated 281 mOsm/kg (285-295); Potassium 4.1 mmol/L (3.5-5.1); Sodium 135 mmol/L (136-145); Total Bilirubin 0.6 mg/dL (0.15-1.2); Total Protein 6.8 g/dL (6.6-8.7)
[2023-11-28 08:59] LABS: Bilirubin Urine Negative (Negative); Blood Urine 1+ (Negative); Glucose Urine UA Negative (Normal); Ketones Urine Negative (Negative); Leukocyte Esterase Urine Negative (Negative); Nitrate Urine Negative (Negative); Protein Urine Negative (Negative); Specific Gravity, Urine 1.008 (1.005-1.030); Urine Appearance Clear (CLEAR); Urine Color Yellow (Yellow); Urobilinogen Urine 0.2 mg/dL (Negative)
[2023-11-28 09:02] LABS: Add Urine Microscopic? YES; Bacteria Urine None Seen /hpf; Hyaline Casts Urine 0-4 /lpf; Squamous Epithelial Cell Urine 0-5 /hpf (0-5); WBC Urine 0-5 /hpf (0-5)
[2023-11-28 09:11] LABS: Add Urine Culture? No
[2023-11-28] MEDS: iohexol 350 mg/mL 500 mL Btl (per mL) IV (09:39)
[2023-11-28 10:30] VITALS: BP 154/81; PULSE 71; O2SAT 93
[2023-11-28 11:52] VITALS: BP 160/88; PULSE 82; O2SAT 96
--- NOTE | 2023-11-28 13:21 | PC.NURSE ---
PT NOTIFIED TO NOT GIVE PT THE PRESCRIBED DICLOFENAC DUE TO PT CREATININE LEVELS. PT VERBALIZED UNDERSTANDING AND DENIED FURTHER QUESTIONS.
== END 2023-11-28 11:55 | disposition home or self-care (01) ==
PROVIDERS: Emergency Provider Family Medicine
DX: R07.89 Other chest pain (principal); Z86.73 Personal history of transient ischemic attack (TIA), and cerebral infarction without residual deficits; W19.XXXA Unspecified fall, initial encounter
CPT/HCPCS: 70450; 71260; 72125; 74177; 80053; 81001; 85025; 93005; 99285

== ENCOUNTER 2024-06-06 14:12 | Outpatient (CLI) | payer MEDICARE, BC, SELFPAY ==
--- NOTE | 2024-06-06 14:28 | XR_ITS ---
WS: [id number] Chest with right rib detail, 4 views, 06/06/2024 Clinical Data: FALL Comparison: Two-view chest, 12/16/2023 Findings: There is opacity in the left lower lobe which could represent atelectasis and/or pneumonia. There is a hiatal hernia behind the heart. The right diaphragm is elevated. There are old right posterior lateral fifth, sixth and seventh rib fractures. No new fractures are seen. There is an old right mid humeral fracture. No pneumothorax or subcutaneous emphysema is noted. There is an aortic stent graft unchanged XR/XR ribs RT 2V* [id number] Impression: 1. Old right rib fractures but no new right rib fractures are seen. 2. Probable atelectasis and/or possible pneumonia in the left lower lobe. 3. Hiatal hernia behind the heart. 4. Elevation of the right diaphragm. 5. Old right mid humeral fracture.
== END 2024-06-06 14:13 | disposition home or self-care (01) ==
LOC: RAD 14:18
DX: Z87.81 Personal history of (healed) traumatic fracture (principal); W19.XXXA Unspecified fall, initial encounter; R91.8 Other nonspecific abnormal finding of lung field; K44.9 Diaphragmatic hernia without obstruction or gangrene; R93.5 Abnormal findings on diagnostic imaging of other abdominal regions, including retroperitoneum; Z96.89 Presence of other specified functional implants
CPT/HCPCS: 71100

== ENCOUNTER 2024-08-09 14:24 | Outpatient (RCR) | payer MEDICARE, BC, SELFPAY | END 2024-09-06 23:59 | disposition home or self-care (01) | LOC: SPT 14:24 | PROVIDERS: Visit Provider Family Medicine | DX: M62.81 Muscle weakness (generalized) (principal); R26.89 Other abnormalities of gait and mobility | CPT/HCPCS: 97110; 97116; 97161 ==

== ENCOUNTER 2024-08-13 21:46 | Emergency (ER) | payer MEDICARE, BC, SELFPAY ==
[2024-08-13 21:46] VITALS: BP 119/70; PULSE 68; RESP 18; TEMP 36.6; O2SAT 96; BMI 26.7
--- NOTE | 2024-08-13 21:54 | ECG_ITS ---
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 Measurements Intervals [place] Rate: 67 P: 36 TX: 210 QRS: -14 QRSD: 105 T: 69 QT: 406 QTc: 431 Interpretive Statements SINUS RHYTHM WITH FIRST DEGREE AV BLOCK MINIMAL VOLTAGE CRITERIA FOR LVH, CONSIDER NORMAL VARIANT [MEETS CRITERIA IN ONE OF: R(aVL), S(V1), R(V5), R(V5/V6)+S(V1)] POSSIBLE ANTERIOR MYOCARDIAL INFARCTION , OF INDETERMINATE AGE [30 ms Q WAVE IN V3/V4, OR R < 0.2 mV IN V4] Compared to ECG 11/28/2023 08:04:14 First degree AV block now present Myocardial infarct finding now present Electronically Signed On 08-14-2024 08:17:52 CDT by Darius Welch M.D. [email or web address] [id number]
--- OUTSIDE RECORDS SUMMARY | 2024-08-13 21:55 | XMS_ITS | Patient Health Record ---
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) Diagnosis 4 Sacroiliitis, not el sewhere classified (M46.1) Referring Provider First Name Oswaldo Referring Provider Last Name Wilfred Referring Provider Speciality Pain Medic ine Referred Organization [facility] Referred Provider Cari Alston Referred Address [address] [place] [id number], Referred Provider Specialty Pain Medicin e General Notes Isabelle Reaves 11:48:56 AM >pt will flower picker npp 05-28-24, Isabelle Reaves 05/29/2024 02:45:53 PM >picked up npp Referral Priority Routine Medications Medication SIG (Take, Route, Frequency, Duration) Notes Start Date End Date Status Vitamin C 1000 MG 1 tablet Orally Once a day Active [place] 3 Fish Oil 1000 MG 1 capsule Orally Three times a day Active traMADol HCl 50 MG 1 tablet as needed Orally Once a day Active Metoprolol Succinate 50 MG 1 capsule Orally Once a day Active MiraLax 17 GM/SCOOP 1 scoop mixed with 8 ounces of fluid Orally Once a day Active Venlafaxine HCl ER 150 MG 1 tablet with food Orally Once a day Active Aspirin 81 81 MG 1 tablet Orally Once a day Active Pantoprazole Sodium 40 MG 1 tablet 1/2 to 1 hour before morning meal Orally Once a day Active traMADol HCl 50 MG 1 tablet as needed Orally every 6 hours for 30 days Fill date 08/20/2024 Fill 08/16/2024 due to shipping 07/25/2024 09/19/2024 Active Lidocaine 5 % 1 patch remove after 12 hours Externally Once a day Active Mucinex 600 MG 1 tablet as needed Orally every 12 hrs Active Vitamin D3 25 MCG (1000 UT) 1 tablet Orally Once a day Active Atorvastatin Calcium 40 MG 1 tablet Orally Once a day Active amLODIPine Besylate 10 MG 1 tablet Orally Once a day Active Cetirizine HCl 10 MG 1 tablet Orally Once a day Active Fluticasone Furoate 50 MCG/ACT 1 puff Inhalation Once a day Active Social History Tobacco Use: Social History Observation Description Date Details (start date - stop date) Never Smoker NA - NA Tobacco Control (Standard) Question Answer Notes Tobacco use: Nonsmoker Section Notes: Currently taking medications for mental health reasons Problems Problem Type SNOMED Code ICD Code Onset Dates Problem Status W/U Status Risk Notes Problem Chronic pain syndrome (878881314) Chronic pain syndrome (G89.4) Active confirmed Problem 8894547967 Spondylolysis, lumbosacral region (M43.07) Active confirmed Problem 91472974 Sacroiliitis, no t elsewhere classified (M46.1) Active confirmed Problem 816533839 Spondylosis without myelopathy or radiculopathy, lumbar region (M47.816) Active confirmed Problem Lumbar radiculopathy (161117162) Lumbar radiculopathy (M54.16) Active confirmed Problem CVA - Cerebrovascular accident (781305767) CVA (cerebral vascular accident) (I63.9) Active confirmed Problem Abnormal gait (17062552) Abnormality of gait and mobility (R26.9) Active confirmed Problem Aphasia as late effect of cerebrovascular accident (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) 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) Active confirmed Problem Neurogenic claudication (918456934) 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) Active confirmed Vital Signs Height-cm 175.26 cm 07/25/2024 Weight-kg 81.65 kg 07/25/2024 Height 69 in 07/25/2024 Weight 180 lbs 07/25/2024 BMI 26.58 kg/m2 07/25/2024 Encounters Encounter Location Date Provider Diagnosis [facility] [place] [address] [place] [id number] 07/25/2024 Jeremie Gomez Chronic pain syndrom e G89.4 ; Neurogenic claudication due to lumbar spinal stenosis M48.062 ; CVA (cerebral vascular accident) I63.9 ; Aphasia as late effect of cerebrovascular accident I69.320 ; Lumbar radiculopathy M54.16 ; Abnormality of gait and mobility R26.9 and superintendent terminal (current) use of opiate analgesic Z79.891 Assessments Encounter Date Diagnosis (ICD Code) Assessment Notes Treatment Notes Treatment Clinical Notes Section Notes 07/25/2024 Chronic pain syndrome (ICD-10 - G89.4) I had a nice visit with the patient today regarding his chronic pain issues. As noted by his , who provided the vast majority of his history. Based on the history and older imaging, which I reviewed, the worst of his symptoms appear consistent with lumbar spinal stenosis and radiculitis in the setting of multiple CVAs with aphasia and some hemiparesis on the right side as well. At this point, I would like to see how he does with physical therapy, and we will order updated imaging with a lumbar MRI. We will take over prescribing his tramadol and provide 1 month so that he has sufficient medication to get him through the next 2 months. We will see him back in 2 months and proceed accordingly. 07/25/2024 Neurogenic claudication due to lumbar spinal stenosis (ICD-10 - M48.062) 07/25/2024 CVA (cerebral vascular accident) (ICD-10 - I63.9) 07/25/2024 Aphasia as late effect of cerebrovascular accident (ICD-10 - I69.320) 07/25/2024 Lumbar radiculopathy (ICD-10 - M54.16) 07/25/2024 Abnormality of gait and mobility (ICD-10 - R26.9) 07/25/2024 USP (current) use of opiate analgesic (ICD-10 - Z79.891) 07/25/2024 Other I, JULIA Crum, am scribing for Dr. Jeremie Gomez. I, Dr. Jeremie Gomez, personally performed the services described in this documentation, as scribed by JULIA Crum, and it is both accurate and complete. Plan Of Treatment Pending Test Test Name Order Date MRI Lumbar Spine w/o Cont-[id number] 07/26/19 Next Appt Details Provider Name:Jeremie Gomez, 09/19/2024 02:40:00 PM, [address] [place], [address], Insurance Providers Payer Name Payer Address Payer Phone Subscriber Number Group Number Insured Name Patient Relationship to Insured Coverage Start Date Coverage End Date [place] [address] [place] [id number] Ap Guillen Self - patient is the insured BCBS Supplement [address] [place] [address] [id number] Ap Guillen Self - patient is the insured Medical (General) History Medical History History ICD Code High Blood Pressure Heart Disease measles/mumps/rubella bronchitis stroke Depression Arthritis Prostate Problems kidney infection kidney stones Bleeding Disorder Surgical History Surgery Date(Month/Year) tonsillectomy hernia repair cataract removal aneurysm repair x2
--- OUTSIDE RECORDS SUMMARY | 2024-08-13 21:55 | XMS_ITS ---
Author Organization [facility] are Support Name Relationship Address Phone Sherine Bustamante Next of Kin Unknown Johanny Guillen Emergency Contact Unknown Ap Guillen Guarantor [address] [place] [address] Ap Guillen Agent [address] [place] [address] Mindy Nicho Emergency Contact Unknown Immunizations Immunization Status Vaccine Details Vaccine Code CodeSystem Date Notes Influenza completed Influenza, high-dose, split virus, quadrivalent, injectable, preservative free lotNumber: [id number] expiry: 07/30/2022 Mfg: Seqirus Given 0.5 ml Right Deltoid intramuscularly 197 CVX created date: 12/29/2021 consent date: 12/29/2021 administer ed date: 12/01/2021 given by: HERMES SARS-COV-2 (COVID-19) completed SARS-COV-2 (COVID-19) vaccine, D614, prefusion spike recombinant protein subunit (CoV2 preS dTM), AS03 adjuvant added, preservative free, 5mcg/0.5mL dose Mfg: Moderna Given 0.5 ml intramuscularly Step 1 of Multi-step with next step required 225 CVX created date: 07/22/2021 administer ed date: 03/14/2020 Mental Status Section Date Assessment Total Score Description 10/05/2020 BIMS 15 cognitively int act CAM 0 No delirium ind icated PHQ-9 00 09/22/2020 BIMS 09 moderate cognit oksana impairment CAM 0 No delirium ind icated PHQ-9 00 Reason for Referral No Reasons for Referral Entered Social History Social History Observation Description Start Date End Date Code Code System Current Smoking Status Tobacco smoking consumption unknown [id number] SNOMED CT Sex Assigned At Male 1940 [id number] [facility] Gender Identity
--- OUTSIDE RECORDS SUMMARY | 2024-08-13 21:55 | XMS_ITS | Clinical Summary ---
Author Organization [facility] Address [address] [place] [address] Care Team Providers Care Psychiatry Instructor Name Role Phone Jacobo Lubin MD Primary Care Provider Allergies Active Allergy Reactions Criticality Noted Date Comments Atorvastatin Other (See Comments) 08/12/2009 Muscle cramps Chocolate Flavor Anaphylaxis High 08/12/2009 Dark chocolate Oxycodone Other (See Comments) High 09/10/2011 Nightmares Medications METOPROLOL SUCCINATE (TOPROL XL ORAL) Take 100 mg by mouth daily at bedtime. 0 Active diltiazem SR 24 hour (DILTIA XT) 240 mg Oral capsule Take by mouth daily at bedtime. Takes (2) 240 mg strength at bedtime 0 Active TRAMADOL HCL (TRAMADOL ORAL) Take 50 mg by mouth every 4 hours as needed. 0 Active aspirin (TYLER) 81 mg Oral Tab Take 81 mg by mouth daily. 0 Active CALCIUM CARBONATE/VITAM IN D3 (CALCIUM + D ORAL) Take 1 Tab by mouth 2 times daily. 0 Active PANTOPRAZOLE SODIUM (PROTONIX ORAL) Take 40 mg by mouth 2 times daily. 0 Active 0mega-3 fatty acids-vitamin E (FISH OIL) 1,000 mg Oral Cap Take 1,000 mg by mouth 2 times daily. 0 Active tobramycin-dexa methasone (TOBRADEX) 0.3-0.1 % OP DrpS Administer 1 Drop in left eye 4 times daily. 1 Bottle 0 0 Active fosinopril (MONOPRIL) 40 mg Oral tablet Take 40 mg by mouth daily. Takes 2 tabs daily Active multivitamin (DAILY-SHIN) Oral tablet Take 1 Tab by mouth daily. Active ERGOCALCIFEROL, VITAMIN D2, (VITAMIN D ORAL) Take 2,000 Units by mouth daily. Active DULoxetine (CYMBALTA) 20 mg Oral CpDR Take 20 mg by mouth daily. Active amoxicillin-cla vulanate (AUGMENTIN) 875-125 mg tablet Take 1 Tab by mouth every 12 hours. 14 Tab None 3 Active HYDROcodone-johnny taminophen (NORCO) 5-325 mg tablet Take 1 Tab by mouth every 4 hours as needed for Pain, Moderate. 14 Tab None 3 Active promethazine (PHENERGAN) 25 mg tablet Take 1 Tab by mouth every 6 hours as needed for Nausea/Emesis. 8 Tab None 3 Active Active Problems Problem Noted Date Diagnosed Date Elevated LFTs 09/10/2011 Hypotropia 08/07/2009 Diplopia 08/07/2009 Pseudophakia 08/07/2009 Resolved Problems Problem Noted Date Diagnosed Date Resolved Date Nausea & vomiting 09/10/2011 09/12/2011 Abdominal pain, epigastric 09/10/2011 0 09/12/2011 Immunizations Immunization Administration Dates Next Due Influenza Seasonal Unspecified Formulation IM Pneumococcal conjugate, unspecified formulation 12/08/2005 Family History Medical History Relation Name Comments Cancer Father Heart Disease Father Hypertension Father Stroke Father Strabismus Grandchild Cataract Mother Hypertension Mother Relation Name Status Comments Father Grandchild Mother Social History Tobacco Use Types Packs/Day Years Used Date Smoking Tobacco: Former Cigarettes Smokeless Tobacco: Never Comments:quit age 21 Alcohol Use Standard Drinks/Week Comments No 0 (1 standard drink = 0.6 oz pur e alcohol) Sex and Gender Information Value Date Recorded Sex Assigned at Not on file 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 Gender Identity Not on file Sexual Orientation Not on file Occupation Industry Job Start Date Job End Date Not on file Not on file Not on file Not on file Last Filed Vital Signs Vital Sign Reading Time Taken Comments Blood Pressure 132/77 02/05/2013 8:20 PM 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 MECHANIC Pulse 64 02/05/2013 6:16 PM PLUMBING MECHANIC Temperature 37.1 C (98.8 F) 02/05/2013 1:01 PM PLUMBING MECHANIC Respiratory Rate 18 02/05/2013 8:20 PM PLUMBING MECHANIC Oxygen Saturation 95% 02/05/2013 8:20 PM PLUMBING MECHANIC Inhaled Oxygen Concentration - - Weight 77.1 kg (170 lb) 02/05/2013 1:01 PM PLUMBING MECHANIC Height 176.5 cm (5' 9.5 ) 02/05/2013 1:01 PM PLUMBING MECHANIC Body Mass Index 24.74 02/05/2013 1:01 PM PLUMBING MECHANIC Plan of Treatment Health Maintenance Due Date Last Done Comments DTAP/TDAP/TD VACCINES (1 - Tdap) 07/07/1959 PNEUMOCOCCAL VACCINE 50+ YEARS (1 of 1 - PCV) 07/06/18 91 12/08/2005 ZOSTER VACCINE (1 of 2) 1990 RSV VACCINE (60+ or ) (1 - 1-dose 75+ series) 07/07/2015 INFLUENZA VACCINE (#1) 2024 09/09/2011 Insurance [facility] [place] [id number] MEDICARE PART A AND B FIRST ADMINISTRATORS Advance Directives For more information, please contact: [phone] * Full Code (Latest Code Status on File) Date Activated Date Inactivated Comments 09/10/2011 1:18 AM 09/12/2011 3:10 PM * Full Code Date Activated Date Inactivated Comments 08/18/2009 12:38 PM 08/19/2009 2:31 AM * Full Code Date Activated Date Inactivated Comments 08/18/2009 11:54 AM 08/18/2009 12:38 PM * Full Code Date Activated Date Inactivated Comments 08/18/2009 11:37 AM 08/18/2009 11:54 AM Care Teams Psychiatry Instructor Relationship Specialty Start Date End Date Jacobo Lubin MD [address] [place] [id number] PCP - General Family Practice 08/08/09
--- OUTSIDE RECORDS SUMMARY | 2024-08-13 21:55 | XMS_ITS | Patient Health Record ---
Author Organization [facility] Address [address], [place] [id number] Care Team Providers Care Junior Legal Secretary Name Role Phone Luz PITTS, David Primary Care Provider Susan Hardin MD, Oswaldo Unavailable [phone] Govind CONCEPCIONPNati Unavailable [phone] Allergies Allergen (clinical drug ingredient) Drug/Non Drug Allergy documented on EMR Reaction Allergy Type Onset Date Status Chocolate Chocolate (uncoded) Unknown Allergy Active acetylcysteine acetylcysteine Unknown Drug Allergy Active Results Component Value Reference Range Notes Saliva Swab Toxicology Scree n Reviewed date:01/04/2024 06:48:37 AM Interpretation:Consistent Performing Lab: Notes/Report: Consistent Saliva Swab Toxicology Scree n Reviewed date:01/04/2024 06:48:37 AM Interpretation:Consistent Performing Lab: Notes/Report: Consistent Embedded PDF Reviewed date:01/04/2024 09:56:12 AM Interpretation: Performing Lab: Notes/Report: [email or web address], [id number] [address] [address], , L ab Director: Florecita Mendez MD, CLIA ID# [id number] [employer] Results Reviewed date:01/04/2024 09:56:22 AM Interpretation: Performing Lab:[id number] [email or web address], [id number] [facility] [id number] Florecita Mendez MD Notes/Report: [email or web address], [id number] [facility] [address], [place] [address], , L ab Director: Florecita Mendez MD, CLIA ID# [id number] [employer] SCREEN negative 40 ng/mL OXYCODONE SCREEN negative 40 ng/mL Oxymorphone negative 1 ng/mL Buprenorphine Quantification negative 1 ng/mL Norbuprenorphine Quantification negative 2 ng/mL Fentanyl Quantification negative 0.2 ng/mL Norfentanyl Quantification negative 1 ng/mL METHADONE SCREEN negative 50 ng/mL Tapentadol Quantification negative 5 ng/mL Tramadol Quantification positive-> 320 5 ng/mL P-Axlzmnqsf-Znkrhclm Quantification positive-> 320 5 n g/mL BENZODIAZEPINES SCREEN negative 20 ng/mL AMPHETAMINES SCREEN negative 50 ng/mL Carisoprodol Quantification negative 5 ng/mL Meprobamate Quantification negative 5 ng/mL Gabapentin Quantification negative 10 ng/mL Naltrexone Quantification negative 1 ng/mL Naltrexol (Naltrexone metabolite) Quantification negat oksana 1 ng/mL Pregabalin Quantification negative 5 ng/mL Zolpidem Quantification negative 1 ng/mL METHAMPHETAMINES SCREEN negative 50 ng/mL COCAINE METABOLITES SCREEN negative 20 ng/mL CANNABINOIDS SCREEN negative 8 ng/mL MDMA negative 5 ng/mL 6-MATIAS (Heroin metabolite) Quantification negative 1 ng/mL PHENCYCLIDINE SCREEN negative 10 ng/mL Reason For Referral Reason Evaluation for possi ble continuation of treatment (clinic closing due to provider's custodial) Diagnosis 1 Vertebrogenic low ba ck pain (M54.51) Diagnosis 2 Spondylosis without myelopathy or radiculopathy, lumbar region (M47.816) Diagnosis 3 Sacroiliitis, not el sewhere classified (M46.1) Diagnosis 4 Spondylolysis, 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) Referral Organization [facility] Referring Provider First Name Oswaldo Referring Provider Last Name Wilfred Referring Provider Speciality Pain Manag ement Referred Provider Jeremie Gomez Referred Provider Specialty Pain Managem ent General Notes Norah Mejia 10:49:03 AM > FAXED Referral Priority Routine Referral Appointment Date 07/25/2024 Medications Medication SIG (Take, Route, Frequency, Duration) Notes Start Date End Date Status aspirin 81 mg 1 tab orally once a day Active amLODIPine 10 mg 1 tab(s) orally once a day for 30 day(s) Active pantoprazole 40 mg 1 tab orally twice a day Active alendronate 70 mg 1 tab orally once a week Active Narcan 4 mg/0.1 mL as directed intranasally once 04/14/2021 Active multivitamin Multiple Vitamins 1 tab orally once a day Active Lidocaine, Topical 5% 1 patch applied topically 12H on / 12H off Active traMADol 50 mg 1/2 - 1 tab orally Q4-6H prn pain (max 3/day; hold within 4H of planned sleep) for 90 days ICD-10: G89.29 05/17/2024 Active cetirizine 10 mg 1 tab orally once a day Active atorvastatin 40 mg 1 tab orally once a day Active Tylenol Extra Strength 500 mg 2 tab(s) orally 1 X PRN Active Fish Oil 1000 mg 1 cap orally once a day Active Vitamin C 1000 mg 1 tab orally once a day Active venlafaxine 150 mg 1 cap orally once a day Active MiraLax - as directed orally once a day Active Metoprolol Tartrate 50 mg 1 tabs orally 2 times a day Active fluticasone nasal 50 mcg/inh 1 spray(s) in each nostril once a day Active Vitamin D3 10 mcg 1 cap orally twice a day Active Social History Tobacco Use: Social History Observation Description Date Details (start date - stop date) Former Smoker NA - NA Tobacco use: Question Answer Notes : former smoker How long has it been since you last smoked? > 10 years AUDIT-C (Standard) Question Answer Notes Did you have a drink containing alcohol in the p ast year? No Points 0 Interpretation Negative Problems Problem Type SNOMED Code ICD Code Onset Dates Problem Status W/U Status Risk Notes Problem Solitary sacroiliitis (892212425) Sacroiliitis, not elsewhere classified (M46.1) Active confirmed Problem Lumbosacral spondylosis without myelopathy (50670559) Spondylosis without myelopathy or radiculopathy, lumbar region (M47.816) Active confirmed Problem High risk drug monitoring status (413350271) [facility] (current) use of opiate analgesic (Z79.891) Active confirmed Problem Anxiety disorder (183878460) Other specified anxiety disorders (F41.8) Active confirmed Problem Hypersomnia (54496062) Hypersomnia, unspecified (G47.10) Active confirmed Problem Sleep disorder (40267270) Other sleep disorders (G47.8) Active confirmed Problem Chronic pain (34796454) Other chronic pain (G89.29) Active confirmed Problem Acquired spondylolisthesis (846438845) Spondylolysis, lumbosacral region (M43.07) Active confirmed Problem Acquired spondylolisthesis (605661957) Spondylolisthesi s, lumbar region (M43.16) Active confirmed Problem Long-term current use of drug therapy (155974062) Other longterm (current) drug therapy (Z79.899) Active confirmed Problem Neurogenic claudication (554269950) Spinal stenosis, lumbar region with neurogenic claudication (M48.062) Active confirmed Problem Low back pain (108072350) Low back pain, unspecified (M54.50) Active confirmed Problem Pain in lumbar spine (839886091) Vertebrogenic low back pain (M54.51) Active confirmed Vital Signs Temperature 97.6 degrees Fahrenheit 05/17/2024 Blood pressure diastolic 75 mm Hg 05/17/2024 Oximetry 95 % 05/17/2024 Height 70 in 05/17/2024 Blood pressure systolic 128 mm Hg 05/17/2024 Weight 189 lbs 05/17/2024 BMI 27.12 kg/m2 05/17/2024 Encounters Encounter Location Date Provider Diagnosis [facility] [address] [place], [place] [id number] 11/03/2023 Nati Faust Vertebrogenic low ba ck pain M54.51 ; Other chronic pain G89.29 ; Other sleep disorders G47.8 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 Z79.891 [facility] [address] [place], [place] [id number] 12/29/2023 Oswaldo Hardin Vertebrogenic low ba ck pain M54.51 ; Other chronic pain G89.29 ; Other sleep disorders G47.8 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 Z79.891 [facility] [address] [place], [place] [id number] 03/01/2024 Oswaldo Hardin Vertebrogenic low ba ck pain M54.51 ; Other chronic pain G89.29 and Other sleep disorders G47.8 [facility] [address] [place], [place] [id number] 05/17/2024 Oswaldo Hardin Vertebrogenic low ba ck pain M54.51 ; Other chronic pain G89.29 and Other sleep disorders G47.8 [facility] [address] [place], [place] [id number] 01/10/2024 Oswaldo Hardin [facility] [address], [place] [id number] 05/21/2024 Oswaldo Hardin Assessments Encounter Date Diagnosis (ICD Code) Assessment Notes Treatment Notes Treatment Clinical Notes Section Notes 11/03/2023 Vertebrogenic low back pain (ICD-10 - M54.51) Chronic axial lumbosacral spine pain. 12/29/2023 Other chronic pain (ICD-10 - G89.29) Patient's reports that taking his pain medication allows him to be more mobile. Plan to continue oral opioid medication management. 12/29/2023 Vertebrogenic low back pain (ICD-10 - M54.51) Chronic axial lumbosacral spine pain. 05/17/2024 Vertebrogenic low back pain (ICD-10 - M54.51) Chronic axial lumbosacral spine pain. 03/01/2024 Other chronic pain (ICD-10 - G89.29) Patient's reports that taking his pain medication allows him to be more mobile around his home. Plan to continue oral opioid medication management. 03/01/2024 Vertebrogenic low back pain (ICD-10 - M54.51) Chronic axial lumbosacral spine pain. 03/01/2024 Other sleep disorders (ICD-10 - G47.8) Plan to continue to restrict opioid use in relation to sleep for safety concerns. 05/17/2024 Other chronic pain (ICD-10 - G89.29) Patient's reports that taking his pain medication allows him to be more mobile around his home. Plan to continue oral opioid medication management. 12/29/2023 Other sleep disorders (ICD-10 - G47.8) Plan to continue to restrict opioid use in relation to sleep for safety concerns. 11/03/2023 Other sleep disorders (ICD-10 - G47.8) Plan to continue to restrict opioid use in relation to sleep for safety concerns. 11/03/2023 Other chronic pain (ICD-10 - G89.29) Patient's reports that taking his pain medication allows him to be more mobile. Plan to continue oral opioid medication management. 11/03/2023 [facility] (current) use of opiate analgesic (ICD-10 - Z79.891) Tox screen deferred today due to acute illness (curbside visit to protect other patients and some staff). 12/29/2023 [facility] (current) use of opiate analgesic (ICD-10 - Z79.891) 2022 opioid (OUD) risk tool score = 1. This places the patient in the low risk category. Plan oral fluid toxicology screen today with [facility] to monitor for presence of any unprescribed or illicit controlled substance(s), as well as prescribed tramadol (unable to test for tramadol in-office). 05/17/2024 Other sleep disorders (ICD-10 - G47.8) Plan to continue to restrict opioid use in relation to sleep for safety concerns. 12/29/2023 Other The service was provided by ALAN Linn, as part of the ongoing care plan established by Oswaldo Hardin MD, who was present in the office for direct supervision during the encounter. 03/01/2024 Other The service was provided by ALAN Linn, as part of the ongoing care plan established by Oswaldo Hardin MD, who was present in the office for direct supervision during the encounter. 05/17/2024 Other The service was provided by ALAN Linn, as part of the ongoing care plan established by Oswaldo Hardin MD, who was present in the office for direct supervision during the encounter. Patient was provided with a letter at today's visit informing patient that this clinic is closing due to Dr. Hardin's custodial; see scanned document. Terminal prescriptions were given to the patient along with tapering instructions. 11/03/2023 Other Plan Of Treatment No Information Insurance Providers Payer Name Payer Address Payer Phone Subscriber Number Group Number Insured Name Patient Relationship to Insured Coverage Start Date Coverage End Date [employer] Medicare Part B Claims Department [address] [address] [place] [address] [id number] Ap Guillen Self - patient is the insured [employer] [address] [place] [address] [id number] Ap Guillen Self - patient is the insured Medical (General) History Medical History History ICD Code Chronic pain Low back pain Arthritis Degenerative disc disease, lumbar Degenerative joint disease Anemia Arteriosclerotic cardiovascular disease Carotid stenosis, bilateral Chronic kidney disease Dysphagia GERD History of CVA with residual deficit Hypertension Moderate major depression Mixed hyperlipidemia Impaired mobility Osteoporosis Patent foramen ovale Pulmonary embolism Abdominal aortic aneursym Speech impairment, difficult to understa nd Thrombocytopenia Sleep disorder with hypersomnia Surgical History Surgery Date(Month/Year) Tonsillectomy Hernia repair, treated at [facility] by Dr. Des ozuna Vasectomy Cataract surgery, bilateral, performed a t [facility] by Dr. Kendall, 2009 Aneurysm surgery (endovascul ar abdominal aorta repair), performed at [facility] in [place], [place], 05/16/17 Angioplasty, bilateral, with placement of stent, and repair of aortic aneurysm, performed at [facility] in [place], [place] by Dr. Ramesh Lewis, 2018 Colonoscopy, performed at [facility] by Dr. Odin Russo, 11/2021 Hospitalization History Reason Date(Month/Year) COVID-19 and bladder infection, treated at [facility], 09/2023 Pneumoina, 04/2022 GI bleed, treated at [facility] in [place], [place], 05/2021 Cellulitus, treated at [facility], 12/2020 Stroke, treated [facility] in [place], [place] Stroke, treated at [facility]
--- OUTSIDE RECORDS SUMMARY | 2024-08-13 21:56 | XMS_ITS | Data Portability ---
Author Organization [facility] - Gennaro Chapin [facility] Fariba Monk [facility] Address [address] [facility] [address] [place] [address] Care Team Providers Care Dairy Nutrition Specialist Name Role Phone ALBERTA ARCHER Primary Care Provider Assessment Encounter Date Assessment Date Assessment LastModified by Organization Details LastModified Time 10/18/2023 10/18/2023 Has a history of multiple chronic medical issues that are stable on current medications. During the recent hospitalization they did increase his atorvastatin to 40 mg, so refills were provided. Will send referral to home health considering his persistent physical deconditioning and high risk for fall. Patient is homebound so we will send the referral to home health. expresses needs with some ADLs such as bathing as well. [email or web address] Not available 10/19/2023 11:13:12 Plan of Treatment Reminders Order Date Submit Date Provider Last Modified By Organization Details Last Modified Time Details Appointments None recorded. Lab urinalysis, complete 2023 024 [facility] ([facility]), [address] [place], [address], 4 13:40:05 culture, urine 2023 024 [place] [employer] [facility], [address] [place] [address] 248, [facility] [address] [place], [address], 4 04:31:59 Referral home health referral 2023 024 [email or web address] Not available 4 09:56:41 Procedures None recorded. Surgeries None recorded. Imaging [facility], [facility], [facility] ([facility]), [address] [facility], [place], [address], 13:14:02 Medication Orders atorvastati n 40 mg tablet 2023 [email or web address] [facility], [address] [facility], [place], [address], 11:08:56 Patient TargetsNo targets recorded. Patient Instructions Encounter Date Encounter Id Patient Instructions Last Modified By Organization Details Last Modified Time 09/08/2023 [id number] working with therapy, doing well. Blood pressure controlled. [email or web address] Not available 09/08/2023 12:02:54 09/27/2023 [id number] doing well, revovered from covid. Working with therapy. [email or web address] Not available 09/27/2023 13:53:23 10/11/2023 [id number] Doing well, planning to d/c home at the end of the week. Waning PCP closer to home. Not available 10/11/2023 12:45:31 Reason for Referral Home Health Referral for Phy sical deconditioning Referring Physician: Alberta Archer, Family Medicine, Encounter Date: 10/18/2023 Results Created Date Observation Date Name Description Value Unit Range Abnormal Flag Note LastModifiedBy Organization Detail LastModifiedTime 12/16/19 24 12/18/2023 CULTU RE, URINE , ROUTI NE culture, urine, routine SEE NOTE CULTU RE, URINE , ROUTI NE Micro Numbe r: [id number] Test Statu s: Final Speci men Sourc e: Urine Speci men Quali ty: Adequ ate Resul t: Mixed genit al paloma isola paris. These super ficia l bacte aga are not indic ative of a urina ry tract infec tion. No furth er organ ism ident ifica tion is warra nted on this speci men. If clini deanna indic ated, recol lect clean -catc h, mid-s tream urine and trans adwoa immed iatel y to Urine Cultu re Trans port Tube. Not Available [facility] [address] [place], [address], 12/18/2023 04:31:59 12/16/1912/16/2023 urina lysis , compl ete color yellow Not Available [facility] ([facility]) [address] [place], [address], 12/16/2023 12:48:53 12/16/1912/16/2023 urina lysis , compl ete clarity clear clear Not Available [facility] ([facility]) [address] [place] [address], [address], 12/16/2023 12:48:53 12/16/1912/16/2023 urina lysis , compl ete glucose NG negati ve Not Available [facility] ([facility]) [address] [place] [address], [address], 12/16/2023 12:48:53 12/16/19 24 12/16/2023 urina lysis , compl ete bilirubin NG negati ve Not Available [facility] ([facility]) [address] [place] [address], [address], 12/16/2023 12:48:53 12/16/19 24 12/16/2023 urina lysis , compl ete ketones NG negati ve Not Available [facility] ([facility]) [address] [place] [address], [address], 12/16/2023 12:48:53 12/16/19 24 12/16/2023 urina lysis , compl ete specific gravity 1.020 1.005- 1.025 Not Available [facility] ([facility]) [address] [place] [address], [address], 12/16/2023 12:48:53 12/16/19 24 12/16/2023 urina lysis , compl ete pH 6.0 5.0-7. 0 Not Available [facility] ([facility]) [address] [place], [address], 12/16/2023 12:48:53 12/16/19 24 12/16/2023 urina lysis , compl ete protein trace Not Available [facility] ([facility]) [address] [place], [address], 12/16/2023 12:48:53 12/16/19 24 12/16/2023 urina lysis , compl ete uro 0.2 Not Available [facility] ([facility]) [address] [place], [address], 12/16/2023 12:48:53 12/16/19 24 12/16/2023 urina lysis , compl ete nitrate NG negati ve Not Available [facility] ([facility]) [address] [place], [address], 12/16/2023 12:48:53 12/16/19 24 12/16/2023 urina lysis , compl ete blood NG negati ve Not Available [facility] ([facility]) [address] [place], [address], 12/16/2023 12:48:53 12/16/19 24 12/16/2023 urina lysis , compl ete leukocytes NG negati ve Not Available [facility] ([facility]) [address] [place], [address], 12/16/2023 12:48:53 12/16/19 24 12/16/2023 urina lysis , compl ete WBC 3-4 0 Not Available [facility] ([facility]) [address] [place], [address], 12/16/2023 12:48:53 12/16/19 24 12/16/2023 urina lysis , compl ete RBC NG 0 Not Available [facility] ([facility]) [address] [place], [address], 12/16/2023 12:48:53 12/16/19 24 12/16/2023 urina lysis , compl ete epi cells 2-3 0 Not Available [facility] ([facility]) [address] [place], [address], 12/16/2023 12:48:53 12/16/1912/16/2023 urina lysis , compl ete bacteria trace of mucus thread s abnormal Not Available [facility] ([facility]) [address] [place], [address], 12/16/2023 12:48:53 12/16/19 24 12/16/2023 urina lysis , compl ete other NG Not Available [facility] ([facility]) [address] [place], [address], 12/16/2023 12:48:53 12/16/19 24 04/29/2024 XR, chest , 2 view No observ ation record ed. [facility] [address] [place], [address], 04/30/2024 11:04:44 12/16/19 24 12/16/2023 XR, chest , 2 view No observ ation record ed. [facility] [address] [place], [address], 12/19/2023 08:33:39 Result Notes None recorded. Problems Name Problem SNOMED Code Status Onset Date Resolution Date Notes Provider Name and Address Organization Details Recorded Time Esophagog astroduod enoscopy Active 2003 EGD; from ; Date: 03/2003 Michelle sharp [facility] 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 4 09:09:09 Osteoarth ritis 290322383 Active 2020 Michelle Lito [facility] 4 09:09:29 Primary repair of inguinal hernia Active 2020 Inguinal Hernia Repair-Le ft Michelle Plkenzie [facility] 4 09:09:33 Colonosco py Active 2003 Colonosco py; Date: 03/2003 Michelle Lito [facility] 4 09:09:15 Viral hepatitis , type A 36060920 Active 2020 Michellefidencio Morse [facility] 4 09:09:37 Benign essential hypertens ion 6428104 Active 2020 Michelle Plkenzie [facility] 4 09:09:04 Gastroeso phageal reflux disease 162053252 Active 2020 Michellefidencio Morse [facility] 4 09:09:23 Hyperchol esterolem ia 54986888 Active 2020 Michelle Lito [facility] 4 09:09:26 Hospital inpatient stay within past 30 days 24676926631 06 Active 2023 ALLA ARRIOLA [facility]CW[facility] 4 13:34:54 Recurrent falls 090536324 Active 2023 ALLA ARRIOLA [facility] 13:35:06 Hypertens oksana heart disease 26543669 Active 2023 ALLA ARRIOLA aron [facility], L.L.CWindy 13:35:30 Acute kidney injury 23413683 Active 2023 ALLA sharp [facility]CW[facility] 13:35:31 Acute urinary tract infection 769773352 [facility] 13:35:34 Pneumonia 212469286 Active 2023 [facility] 13:35:47 Aortic aneurysm 50141267 Active 2023 CLEMENCIA sharp [facility], LWindyLWindyCWindy 09:56:42 Physical deconditi oning 29344907204 102 Active 2023 Alberta Archer MD [address] [place] [address], [address] , [facility], LWindyLWindyCWindy 10:34:49 Pleural effusion 59552215 Active 2023 Alberta Archer MD [address] [place] [address], [address] , [facility], L.L.CWindy 12:48:26 Dysuria 74574559 Active 2023 Alberta Archer MD [address] [place] [address], [address] , [facility], L.LWindyCWindy 12:48:41 Problem Notes None recorded. Procedures Surgical History Date Name Laterality Status Provider Name and Address Organization Details Recorded Time Hernia Repair completed CLEMENCIA MYRICK [facility], DeidraLVenice 10/18/2023 09:32:53 [facility] 10/18/2023 09:34:01 [facility] De[facility] 10/18/2023 09:34:09 Colonoscopy completed [facility], LWindyLWindyCWindy 10/18/2023 09:55:22 aneurysmectomy of aortic arch with anastomosis completed [facility], LWindyLWindyCWindy 10/18/2023 09:57:16 Imaging Results None recorded. Procedure Notes None recorded. Medical Equipment None Reported. Allergies Allergen ID Allergen Name Allergen Category Reaction Reaction Severity Criticality Documentation Date Start Date Code Code System Note Provider Name and Address Organization Details Recorded Time 67283 penicilli n V potassium medicatio n nausea Not available Not available 09/04/2022 06583 5 RxNorm React ion: Nause a;*in mahamed ance* ; Comme nt: Recor ded 09/30 7:27A M by Savanna piper RN, Offic e Visit ; Promo paris; Signi fican ce: *; Reaso n: Drug aller gy; ; [facility] LWindyLWindyCW[facility] 4 09:46:02 75437 Chocolate Flavor medicatio n swelling Not available Not available 09/04/2022 02392 UNK React ion: dark/ edema ; Comme nt: Recor ded 09/30 7:27A M by Savanna piper RN, Offic e Visit ; Promo paris; Signi fican ce: *; ; CLEMENCIA sharp [facility], LWindyLWindyCWindy 4 09:45:58 46604 acetylcys teine medicatio n hives Not available low 10/18/2023 197 RxNorm CLEMENCIA sharp [facility], LWindyLWindyCWindy 4 09:46:27 Medications Name Sig Start Date Stop Date Status Note LastModified by Organization Details LastModified Time Miralax 17 gram/dose oral powder Take 17 g every day by oral route. active Not Available Not Available No t Available atorvasta tin 40 mg tablet Take 1 tablet every day by oral route. 2023 active Not Available Not Available Not Avai lable atorvasta tin 80 mg tablet 10/17 completed Not Available Not Available Not Available cetirizin e 10 mg tablet Take 1 tablet every day by oral route at bedtime. active Not Available Not Available No t Available cetirizin e 5 mg tablet Take 1 tablet every day by oral route. 10/19 completed Not Available Not Available Not Available metoprolo l succinate ER 50 mg tablet,ex tended release 24 hr Take 1 tablet every day by oral route for 90 days. 10/30 completed Not Available Not Available Not Available sucralfat e 1 gram tablet three times daily 10/17 completed 0; Recorded 10/01/19 21 7:27AM by aRni Arriola RN, Office Visit; Not Available Not Available Not Available venlafaxi ne ER 150 mg capsule,e xtended release 24 hr Take 1 capsule every day by oral route for 90 days. active Not Available Not Available No t Available [facility] Vitamin E 1000 unit capsule Take 1 capsule every day by oral route. active Not Available Not Available No t Available tramadol 50 mg tablet Take 1 tablet twice a day by oral route for 30 days. 2023 active Not Available Not Available Not Avai lable ofloxacin 0.3 % ear drops INSTILL 5 DROPS INTO BOTH EARS TWICE DAILY FOR 7 DAYS active Not Available Not Available No t Available amlodipin e 10 mg tablet Take 1 tablet every day by oral route for 90 days. 2023 active Not Available Not Available Not Avai lable pantopraz ole 40 mg tablet,de layed release two times daily active Not Available Not Available No t Available lidocaine 5 % topical patch active Not Available Not Available Not Available valsartan 320 mg tablet 10/17 completed Not Available Not Available Not Available metoprolo l tartrate 50 mg tablet Take 1 tablet twice a day by oral route. active Not Available Not Available No t Available montel[address] st 10 mg tablet daily 10/17 completed Not Available Not Available Not Available levofloxa miryam 750 mg tablet TAKE 1 TABLET BY MOUTH DAILY FOR 5 DAYS 10/17 completed Not Available Not Available Not Available fluticaso ne propionat e 50 mcg/actua tion nasal spray,jocelynn pension Stevenson 1 spray every day by intranas al route. active Not Available Not Available No t Available Adult Aspirin EC Low Strength 81 mg tablet,de layed release Take 1 tablet every day by oral route. active Not Available Not Available No t Available amoxicill in 875 mg-potass ium clavulana te 125 mg tablet TAKE 1 TABLET BY MOUTH TWICE DAILY 10/17 completed Not Available Not Available Not Available metoprolo l tartrate two times daily 10/17 completed 0; Recorded 10/01/19 21 7:27AM by Rani Arriola, NEFTALY, Office Visit; Not Available Not Available Not Available lisinopri l daily 10/17 completed 0; Recorded 10/01/19 21 7:27AM by Rani Arriola RN, Office Visit; Not Available Not Available Not Available Multivita mins daily 10/17 completed 0; Recorded 10/01/19 21 7:27AM by Rani Arriola RN, Office Visit; Not Available Not Available Not Available Cymbalta daily 10/17 completed 0; Recorded 10/01/19 21 7:27AM by Rani Arriola RN, Office Visit; Not Available Not Available Not Available Fish Oil 300 mg-1,000 mg capsule daily active Not Available Not Available Not Available cholecalc iferol (vitamin D3) 100 mcg (4,000 unit) tablet Take 1 tablet every day by oral route. active Not Available Not Available No t Available Eliquis two times daily 10/17 completed 0; Recorded 10/01/19 21 7:27AM by Rani Arriola RN, Office Visit; Not Available Not Available Not Available naloxone 4 mg/actuat ion nasal spray active Not Available Not Available Not Available Paxlovid 150 mg-100 mg tablets in a dose pack (Moderate Renal Dose) TAKE 1 NIRMATRE LVIR TABLET WITH 1 RITONAVI R TABLET TWICE DAILY FOR 5 DAYS 10/17 completed Not Available Not Available Not Available Vitals Date Recorded Heart rate Respiratory rate Body temperature Oxygen saturation Oxygen saturation in Arterial blood by Pulse oximetry Systolic And Diastolic Provider Name and Address Organization Details Last Updated DateTime 4 80 /min 22 /min 96.8 [degF] 94 % 94 % 140/70 mm[Hg] ALLA ARRIOLA [facility] 4 12:01:24 Date Recorded Heart rate Respiratory rate Body temperature Oxygen saturation Oxygen saturation in Arterial blood by Pulse oximetry Systolic And Diastolic Provider Name and Address Organization Details Last Updated DateTime 4 74 /min 20 /min 98.6 [degF] 96 % 96 % 138/76 mm[Hg] ALLA [facility]CW[facility] 4 13:52:14 Date Recorded Heart rate Respiratory rate Body temperature Oxygen saturation Oxygen saturation in Arterial blood by Pulse oximetry Systolic And Diastolic Provider Name and Address Organization Details Last Updated DateTime 4 80 /min 20 /min 98.6 [degF] 94 % 94 % 140/76 mm[Hg] ALLA [facility] 4 12:43:46 Date Recorded Respiratory rate Body height Body mass index (BMI) Body weight Body temperature Heart rate Oxygen saturation Oxygen saturation in Arterial blood by Pulse oximetry Systolic And Diastolic Provider Name and Address Organization Details Last Updated DateTime 4 20 /min 175.26 cm 28.1 kg/m2 07194.5 5 g 97.5 [degF] 62 /min 99 % 99 % 110/60 mm[Hg] CLEMENCIA MYRICK [facility], L.L[facility]CW[facility] 4 09:45:29 Date Recorded Body height Body temperature Oxygen saturation Oxygen saturation in Arterial blood by Pulse oximetry Heart rate Systolic And Diastolic Provider Name and Address Organization Details Last Updated DateTime 4 175.26 cm 97.8 [degF] 95 % 95 % 65 /min 120/76 mm[Hg] ALY KEITA [facility], L[facility]CW[facility] 4 12:32:39 Social History Question Answer Notes LastModified by Organizat ion Details LastModified Time Tobacco Smoking Status Never Smoker [facility] 10/18/2023 09:57:51 Are You Blind Or Do You Have Difficulty Seeing? No Information not available 10/18/2023 What Is Your Level Of Caffeine Consumption? Moderate Information not available 10/18/2023 Are You Deaf Or Do You Have Serious Difficulty Hearing? Yes Information not available 10/18/2023 What Type Of Diet Are You Following? REGULAR Information not available 10/18/2023 What Is The Highest Grade Or Level Of School You Have Completed Or The Highest Degree You Have Received? [id number] Information not available 10/18/2023 Which Of Your Hands Is Dominant? Right Information not available 10/18/2023 Have You Recently Traveled Abroad? No Information not available 10/18/2023 Do You Have Difficulty Walking Or Climbing Stairs? Yes Information not available 10/18/2023 Are You Currently In School? No Information not available 10/18/2023 Do You Have Any Dietary Restrictions? No Information not available 10/18/2023 Sex: Unknown Functional Status Question Answer Note LastModified by [employer] ion Details LastModified Time Do you use any illicit or recreational drugs? No Information not available 10/18/2023 What is your level of alcohol consumption? None Information not available 10/18/2023 Are you currently employed? No Information not available 10/18/2023 Are you able to walk? NOCHAIR Information not available 10/18/2023 Do you have difficulty doing errands alone? Yes Information not available 10/18/2023 Are you able to care for yourself? No Information n ot available 10/18/2023 Do you have difficulty dressing or bathing? Yes Information not available 10/18/2023 What is your exercise level? None Information not available 10/18/2023 Mental Status Question Answer Note LastModified by Organization D etails LastModified Time Do you have difficulty concentrating, remembering or making decisions? Yes Information no t available 10/18/2023 Family History Relationship Description Onset Age of this Age Resolved Age Notes LastModified by Organization Details LastModified Time Father Malignant neoplastic disease [email or web address] Not available 2023 09:55:58 Medical History No medical history recorded. Immunizations Vaccine Type Date Status Note Provider Nam e and Address Organization Details Recorded Time Influenza, high-dose, quadrivalent, PF 3 completed Michelle Morse [facility], L.LWindyCWindy 10/22/2023 09:10:00 Influenza, high-dose, quadrivalent, PF 1 completed Michellefidencio Morse [facility], LWindyLWindyCWindy 10/22/2023 09:10:00 Influenza, high-dose, quadrivalent, PF 2 completed Michelle Lito [facility], LWindyLWindyCWindy 10/22/2023 09:10:00 COVID-19, mRNA, LNP-S, PF, 30 mcg/0.3 mL dose 1 completed Michellefidencio Morse [facility], LWindyLWindyCWindy 10/22/2023 09:10:00 COVID-19, mRNA, LNP-S, PF, 30 mcg/0.3 mL dose 1 completed Michelle Lito [facility], LWindyLWindyCWindy 10/22/2023 09:10:00 COVID-19, mRNA, LNP-S, PF, 30 mcg/0.3 mL dose 1 [facility], LWindyLWindyCWindy 10/22/2023 09:10:00 COVID-19, mRNA, LNP-S, bivalent, PF, 30 mcg/0.3 mL dose 2 completed [facility], LWindyLWindyCWinyd 10/22/2023 09:10:00 RSV, bivalent, protein subunit RSVpreF, diluent reconstituted, 0.5 mL, PF 3 completed Michelle Lito [facility], LWindyLWindyCWindy 10/22/2023 09:10:00 COVID-19, mRNA, LNP-S, PF, chino-sucrose, 30 mcg/0.3 mL 3 completed Michelle sharp [facility] 10/22/2023 09:10:00 Tdap 2 completed [facility] 10/22/2023 09:10:00 Pneumococcal conjugate PCV 13 8 completed Michelle Morse [facility] 10/22/2023 09:10:00 Influenza, high-dose, trivalent, PF 8 completed Michelle sharp [facility] 10/22/2023 09:10:00 Influenza, high-dose, trivalent, PF 6 completed Michelle sharp [facility] 10/22/2023 09:10:00 Influenza, high-dose, trivalent, PF 5 completed Michelle sharp [facility] 10/22/2023 09:10:00 Influenza, split virus, trivalent, preservative 4 completed Michelle sharp [facility] 10/22/2023 09:10:00 Influenza, split virus, quadrivalent, PF 9 completed Michellefidencio Morse [facility] 10/22/2023 09:10:00 Past Encounters Encounter ID Performer Location Encounter Start Date Encounter Closed Date Diagnosis/Indication Diagnosis SNOMED-CT Code Diagnosis ICD10 Code Diagnosis Note [id number] Dandre Mcmillan DO [facility] ([facility]) [address] [place] [phone] 09/01/2023 12:27:16 09/01/2023 15:54:13 Hospital inpatient stay within past 30 days 2868395187 106 Z76.89 Recurrent falls 79481528 2 R29.6 Hypertensi ve heart disease 18713565 I11.9 Acute kidney injury 1466 9001 N17.9 Acute urin franklin tract infection 081519077 N39.0 Pneumonia 749266538 J18. 9 [id number] Dandre Mcmillan DO [facility] ([facility]) [address] [place], [place] [phone] 5 09/08/2023 08:26:29 09/08/2023 15:41:21 Benign essential hypertension 0051215 I10 Cerebrovas cular accident 890701413 I63.9 Gastroesop hageal reflux disease 837121806 K21.9 [id number] Dandre Mcmillan DO [facility] ([facility]) [address] [place] [address] 5 09/27/2023 08:51:33 09/27/2023 16:44:55 Benign essential hypertension 0731627 I10 Cerebrovas cular accident 655525823 I63.9 [id number] Dandre Mcmillan DO [facility] ([facility]) [address] [place], [place] [phone] 5 10/11/2023 11:45:12 10/11/2023 16:04:30 Benign essential hypertension 0859655 I10 Cerebrovas cular accident 421821127 I63.9 Hypercholesterolemia 136 93451 E78.00 [id number] Alberta Archer MD [facility] ([facility]) [address] [place] [phone] 10/18/2023 09:28:05 10/18/2023 10:58:53 Hypertensive heart disease 92131494 I11.9 Hypercholesterolemia 136 06285 E78.00 Benign ess ential hypertension 3346936 I10 Cerebrovas cular accident 557620420 I63.9 Physical deconditioning 1595111458 9102 R68.89 [id number] Alberta Archer MD [facility] ([facility]) [address] [place], [place] [address] 12/16/2023 12:01:11 12/16/2023 13:14:02 Pleural effusion 23382784 J90 No significan t crackles noted on exam today. Will obtain a chest x-ray noting he had chronic lung changes but nothing acute. No significan t pleural effusion. Dysuria 37199034 R30.0 UA was obtained and did not demonstrat e signs of infection. Will wait urine culture. Health Concerns Section Related Observation LastModified by Organization Detai ls LastModified Time None Recorded Concern Status LastModified by Organization Details LastModified Time None Recorded Advance Directives Directive None Recorded Payers Insurance Date Sequence Insurance Name Policy Number Policy Woodson Covered Member ID Woodson Member ID Guarantor Name 09/02/2023 1 *SELF PAY* Das maxwell Guillen 01/21/2024 2 [place] [id number] Ap Gulilen [id number] Ap Guillen 01/21/2024 1 [place] Ap Guillen [id number] 5 Ap Cheathams 01/21/2024 [place] - [facility] (MEDICARE) Ap Guillen [id number] 5 Ap Guillen Notes Date Note Type Note Provider Name and Address Organization Details Recorded Time 09/08/2023 text/html Care Management - GeneralReported bypatient.Prognosis:e xpected outcome: Context:not current smoker Lifestyle Changes:motivated to continue lifestyle changes Dandre DO Hipolito [address] [place] [address], [phone], [facility] 09/12/2023 11:09:57 09/27/2023 text/html Care Management - GeneralReported bypatient.Prognosis:e xpected outcome: Context:not current smoker Lifestyle Changes:motivated to continue lifestyle changes Dandre DO Hipolito [address] [place] [address], [phone], [facility], LWindyLWindyCWindy 10/03/2023 09:38:15 10/11/2023 text/html Care Management - GeneralReported bypatient.Prognosis:e xpected outcome: Context:not current smoker Lifestyle Changes:motivated to continue lifestyle changes Dandre Mcmillan DO [address] [place] [address], [phone], [facility], LWindyLWindyC. 10/12/2023 08:48:51 10/18/2023 text/html This is a 89-yea r-old gentleman that comes in today to establish care. The patient was recently in the retirement for skilled care after having COVID. The patient has multiple chronic medical issues that are stable on current medications. Patient has had a history of stroke and has difficulty communicating. The patient is unable to care for himself and his does most of his caregiving. Patient is significantly weak still from his stent with COVID and the is requesting continue physical therapy through home health. Alberta Archer MD [address] [place] [address], [phone], [facility] 10/19/2023 11:13:26 12/16/2023 text/html This is a 3-year -old female presents today for evaluation. Patient was told by his home health nurse that he has fluid in his right lung. His is concerned about strong odor to his urine. The patient is incontinent at baseline and is difficult to determine if he needs to have increased frequency. Patient denies any significant shortness of breath. The patient does have issues with chronic aspiration after his stroke. Alberta Archer MD [address] [place] [address], [phone], [facility] 12/18/2023 12:15:38
--- OUTSIDE RECORDS SUMMARY | 2024-08-13 21:56 | XMS_ITS | Encounter Summary ---
Author Organization [facility] Address [address] [place] [address] Care Team Providers Care Radiologic Electronic Specialist Name Role Phone David Escobar MD Primary Care Provide r Encounter Details Date Type Department Care Team (Late st Contact Info) Description 08/07/2024 External Device Data ST[place] ABSTRACTION Provider, Abstract NO ADDRESS ON FILE Social History Tobacco Use Types Packs/Day Years Used Date Smoking Tobacco: Former Cigarettes 0.5 4 S tarted: 1957 Smokeless Tobacco: Never Comments:Quit smoking: quit age 21 Alcohol Use Standard Drinks/Week Comments No 0 (1 standard drink = 0.6 oz pur e alcohol) Sex and Gender Information Value Date Recorded Sex Assigned at Not on file Legal Sex Male 11:52 AM [employer]CRE[employer] Gender Identity Not on file Sexual Orientation Not on file documented as of this encounter Plan of Treatment Upcoming Encounters Date Type Department Care Team (Late st Contact Info) Description 08/15/2024 4:45 PM CDT Appointment [facility] [address] [place] [phone] Jeremie Gomez, DO [address] [place] [phone] 09/03/2024 2:00 PM CDT Office Visit [facility] Heart [facility] V[facility] [place] [address] [place] [phone] Lion Naranjo MD [address] [place] [address] 01/23/2025 2:00 PM [employer]CRE[employer]MER Office Visit [facility] Primary Care [address] [place] [address] David Escobar MD [address] [place] [address] 07/19/2025 1:00 PM CDT Appointment [facility] Laboratory Services [facility] [address] [place] [address] Marycarmen Marin, [facility] [address] [place] [address] 07/19/2025 2:00 PM CDT Office Visit [facility] Oncology and Hematology [address] [place] [address] Marycarmen Marin, [facility] [address] [place] [address] documented as of this encounter Visit Diagnoses Not on filedocumented in this encounter Care Teams Radiologic Electronic Specialist Relationship Specialty Start Date End Date David Escobar MD [address] [place] [address] PCP - General Family Practice 01/17/24 documented as of this encounter
--- OUTSIDE RECORDS SUMMARY | 2024-08-13 21:56 | XMS_ITS | Data Portability ---
Author Organization [place] - [facility], [facility], [facility] - IP Address [address] [place] [address] Assessment Encounter Date Assessment Date Assessment LastModified by Organization Details LastModified Time 12/03/2020 12/03/2020 I discussed the findings with the patient. He continues to be treated for his chronic lower back pain with tramadol and is Side Effects of This Medication. He Is Provided a Refill Today. He Denies Any Falls or Injury However He Was Hospitalized Recently. I Have Offered Him a Referral to Neurosurgery However He Does Not Wish to Proceed. We Will See Him Back in Follow-Up The pt is given a prescription of tramadol today and alternatives of opioid treatment with the patient have been discussed. The patient has tolerated the dose of medication so far. An opioid medication is appropriate for the patient's condition. Risks vs. benefits of opioid therapy have been discussed with the patient. This is a potentially dangerous, scheduled, and high risk medication. The patient understands this and we discussed the risks as well as the benefits of improved pain control with increased function. I reviewed the [place] prescription drug monitoring program today as the patient is on potentially dangerous medications. there is no record of the pt. edward Not available 12/03/2020 13:33:58 Plan of Treatment Reminders Order Date Submit Date Provider Last Modified By Organization Details Last Modified Time Details Appointments None recorded. Lab None recorded. Referral None recorded. Procedures None recorded. Surgeries None recorded. Imaging None recorded. Medication Orders tramadol 50 mg tablet 2020 021 [facility]acy #[id number], [address], [facility] [address], [place], [address], 13:35:04 Patient TargetsNo targets recorded. Patient InstructionsNo instructions recorded. Reason for Referral None Reported. 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 Not Available [facility] 07:20:12 Opioid dependenc e 70660707 Active 2018 (F11.20)Ch ronic narcotic dependence Not Available [facility] 07:20:12 Chronic pain syndrome 890018715 Active 2018 (G89.4)Chr onic pain syndrome Not Available [facility] 07:20:12 History of cerebrova scular accident 187832461 Active 2019 (Z86.73)Hx of stroke Not Available [facility] 07:20:12 Rib pain 876612916 Active 2020 (R07.81)Ri b pain, right sided Not Available [facility] 07:20:12 Lumbar radiculop athy 751856890 Active 2020 (M54.16)Nataliia mbar radiculopa thy Not Available [facility] 07:20:12 Notes:*Hypertension *Arthr itis *Stroke *Stents Problem Notes None recorded. Medical Equipment None Reported. Allergies Allergen ID Allergen Name Allergen Category Reaction Reaction Severity Criticality Documentation Date Start Date Code Code System Note Provider Name and Address Organization Details Recorded Time 94856 acetylcys teine medicatio n Not available Not available Not available 10/09/20202018 197 RxNorm PRELO AD Not Available [facility] 07:17:45 Medications Name Sig Start Date Stop Date Status Note LastModified by Organization Details LastModified Time atorvastatin 80 mg tablet active Not Available Not Available No t Available venlafaxine ER 75 mg capsule,extende d release 24 hr active Not Available Not Availa ble Not Available metoprolol tartrate 100 mg tablet active Not Available Not Available Not Available alendronate 70 mg tablet TAKE 1 TABLET BY MOUTH ONCE WEEKLY active Not Available Not Available No t Available venlafaxine ER 150 mg capsule,extende d release 24 hr active Not Available Not Availa ble Not Available sulfamethoxazol e 800 mg-trimethoprim 160 mg tablet TAKE 2 TABLETS BY MOUTH TWICE DAILY active Not Available Not Available No t Available aspirin 81 mg tablet,delayed release TAKE 1 TABLET BY MOUTH EVERY DAY active Not Available Not Available No t Available tramadol 50 mg tablet 1 tab po q 8 hrs prn pain max of 3 per day active Not Available Not Available No t Available meclizine 25 mg tablet TAKE 1 TABLET BY MOUTH THREE TIMES DAILY NEEDED active Not Available Not Available No t Available cephalexin 500 mg capsule TAKE ONE CAPSULE BY MOUTH FOUR TIMES DAILY FOR 5 DAYS active Not Available Not Available No t Available pantoprazole 40 mg tablet,delayed release active Not Available Not Available Not Available metoprolol tartrate 50 mg tablet TAKE 1 AND 1/2 TABLETS BY MOUTH TWICE DAILY active Not Available Not Available No t Available lisinopril 30 mg tablet active Not Available Not Available No t Available montelukast 10 mg tablet active Not Available Not Available No t Available fluticasone propionate 50 mcg/actuation nasal spray,suspensio n INSTILL 1-2 SPRAYS IN EACH NOSTRIL ONCE DAILY active Not Available Not Available No t Available amoxicillin 875 mg-potassium clavulanate 125 mg tablet TAKE 1 TABLET BY MOUTH TWICE DAILY active Not Available Not Available No t Available duloxetine 30 mg capsule,delayed release active Not Available Not Available Not Available metoprolol tartrate 75 mg tablet active Not Available Not Available Not Available Vitals Date Recorded Body height Body mass index (BMI) Body weight Body temperature Provider Name and Address Organization Details Last Updated DateTime 12/03/2020 175.26 cm 25.8 kg/m2 31450.66 g 96.9 [degF] [facility], [facility] 12/03/2020 12:17:13 Social History None recorded. Functional Status Question Answer Note LastModified by Organizat ion Details LastModified Time Do you use any illicit or recreational drugs? No Information not available 10/09/2020 What is your level of alcohol consumption? None Information not available 10/09/2020 Are you currently employed? No Information not available 10/09/2020 Mental Status None recorded. Family History Nothing Reported Notes:High blood pressure, C olon cancer, Heart disease, Diabetes, Medical History Condition Response Arthritis Y Stent Y Stroke Y Hypertension Y Past Encounters Encounter ID Performer Location Encounter Start Date Encounter Closed Date Diagnosis/Indication Diagnosis SNOMED-CT Code Diagnosis ICD10 Code Diagnosis Note [id number] Ranjan Zaragoza DO [facility] [address] [place] [address] 12/03/2020 11:50:40 12/03/2020 12:34:05 Chronic pain syndrome 709749625 G89.4 Health Concerns Section Related Observation LastModified by Organization Detai ls LastModified Time None Recorded Concern Status LastModified by Organization Details LastModified Time None Recorded Advance Directives Directive None Recorded Payers Insurance Date Sequence Insurance Name Policy Number Policy Woodson Covered Member ID Woodson Member ID Guarantor Name 12/03/2020 1 [place] Ap Guillen [id number] Ap Guillen 12/03/2020 2 [place] [id number] Ap Guillen [id number] Ap Guillen Notes Date Note Type Note Provider Name and Address Organization Details Recorded Time 12/03/2020 text/html 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 He has undergone injections, continued medications, physical therapy, heat, and activity modification with some improvement however he continues to have chronic stable lower back pain. He utilizes tramadol with greater than 50-60% reduction in the side effects. Since his last visit he was hospitalized however he feels his pain has remained stable. MERLINE Balbuena - [facility] 12/03/2020 13:35:16
--- OUTSIDE RECORDS SUMMARY | 2024-08-13 21:56 | XMS_ITS | Clinical Summary ---
[facility] Organization [facility] Address [facility] Attn: [place] [address] Care Team Providers Care Electrician Research Name Role Phone David Escobar MD Primary Care Provide r Allergies Active Allergy Reactions Criticality Noted Date Comments Acetylcysteine Nausea and Vomiting Low 06/05/2021 Chocolate Flavor Anaphylaxis High 08/12/2009 Dark chocolate Oxycodone Other (See Comments) High 09/10/2011 Nightmares Medications aspirin (ECOTRIN EC) 81 mg Tablet, Delayed Release (E.C.) Take 81 mg by mouth daily. Active omega-3 fatty acids-fish oil 300-1,000 mg Capsule Take 1 Capsule by mouth daily. Active venlafaxine (EFFEXOR XR) 150 mg Extended Release 24 hour capsule Take 150 mg by mouth daily. Active fluticasone propionate (FLONASE) 50 mcg/spray [place], Suspension nasal inhaler Administer 2 Sprays in each nostril 1 time daily as needed for Allergies. Active ascorbic acid, vitamin C, (VITAMIN C) 1,000 mg Tablet Take 1,000 mg by mouth daily at bedtime. Active cetirizine (ZyrTEC) 10 mg tablet Take 10 mg by mouth daily. Active cholecalciferol, vitamin D3, 1,000 unit Take 1,000 Units by mouth 2 times daily. Active traMADoL (ULTRAM) 50 mg tablet Take 50 mg by mouth 4 times daily as needed for Pain. Active lidocaine (LIDODERM) 5 % Adhesive Patch, Medicated Apply 1 Patch to affected area every 12 hours. Active amLODIPine (NORVASC) 10 mg tablet Take 1 Tablet (10 mg) by mouth daily. 100 Tablet 3 5 Active pantoprazole (PROTONIX) 40 mg Tablet, Delayed Release (E.C.) Take 1 Tablet (40 mg) by mouth 2 times daily. 200 Tablet 3 5 Active guaiFENesin (Mucinex) 600 mg Extended Release Biphasic tablet Take 600 mg by mouth 2 times daily. 3 Active metoprolol tartrate (LOPRESSOR) 50 mg tablet Take 50 mg by mouth 2 times daily. Dose decreased during NH stay after COVID Active atorvastatin (LIPITOR) 40 mg tabletIndications: Mixed hyperlipidemia Take 1 Tablet (40 mg) by mouth daily. 100 Tablet 3 5 Active Active Problems Problem Noted Date Diagnosed Date History of CVA (cerebrovascular accident) 2024 MGUS (monoclonal gammopathy of unknown significa nce) 01/27/2024 Assessment & Plan (07/20/2024 4:26 PM CDT): Chronic, stable Follows with oncology No recent changes to labs Monitor Anemia 01/27/2024 ASCVD (arteriosclerotic cardiovascular disease) 01/17/2024 MEDARDO (generalized anxiety disorder) 01/17/2024 Assessment & Plan (01/18/2024 7:45 AM LANDSCAPE ARCHITECTURE TEACHER): See above. History of multiple strokes 06/05/2021 Essential hypertension 06/05/2021 Assessment & Plan (07/20/2024 4:26 PM CDT): Chronic, controlled Continue current medication regimen Assessment & Plan (01/18/2024 7:45 AM LANDSCAPE ARCHITECTURE TEACHER): Chronic, stable, well controlled. Continue current management. Abdominal aortic aneurysm 06/05/2021 Osteoporosis 06/13/2020 Dysphagia 03/14/2020 Slurred speech 03/14/2020 Assessment & Plan (07/20/2024 4:26 PM CDT): Chronic, unchanged Monitor Carotid stenosis, bilateral 09/19/2019 Chronic kidney disease 07/12/2019 Assessment & Plan (07/20/2024 4:26 PM CDT): Chronic, stable Labs up-to-date Assessment & Plan (01/18/2024 7:45 AM LANDSCAPE ARCHITECTURE TEACHER): Chronic, stable. Continue current management and monitoring. Mixed hyperlipidemia 08/22/2017 Assessment & Plan (07/20/2024 4:26 PM CDT): Chronic, controlled Continue current medication regimen GERD (gastroesophageal reflux disease) 8 Impaired mobility 06/13/2017 Assessment & Plan (07/20/2024 4:26 PM CDT): S/P AAA (abdominal aortic aneurysm) repair 06/13 DDD (degenerative disc disease), lumbar 04/21/19 18 Patent foramen ovale 03/09/2017 Moderate major depression 01/19/2017 Assessment & Plan (07/20/2024 4:26 PM CDT): Chronic, controlled Continue current medication regimen Assessment & Plan (01/18/2024 7:45 AM LANDSCAPE ARCHITECTURE TEACHER): Stable and Controlled. Continue current treatment. Chronic anticoagulation Chronic anemia Assessment & Plan (07/20/2024 4:26 PM CDT): Chronic, stable Labs up-to-date Assessment & Plan (01/18/2024 7:45 AM LANDSCAPE ARCHITECTURE TEACHER): 2/2 to blood loss. Pt continues to f/u w/ hematology multiple times a year and sees them next week. Resolved Problems Problem Noted Date Diagnosed Date Resolved Date Acute gastrointestinal hemorrhage 06/05/2021 01/17/2024 Acute blood loss anemia 06/05/2021 06/1 04/2024 Wellness examination 04/21/2021 024 Anxiety and depression 06/13/201801/16 Pulmonary embolism 03/09/2017 4 Overview (01/17/2024): hx of PE Nausea \T\ vomiting 09/10/2011 09/12/19 12 Abdominal pain, epigastric 09/10/2011 0 09/12/2011 Elevated LFTs 09/10/2011 01/17/2024 Pseudophakia 08/07/2009 01/17/2024 Hypotropia 08/07/2009 01/17/2024 Diplopia 08/07/2009 01/17/2024 Encounters Date Type Department Care Team Description 08/07/2024 External Device Data STL ABSTRACTION Provider, Abstract 07/26/2024 Orders Only [facility] [address] [place] [address] Jeremie Gomez, Neurogenic claudication due to lumbar spinal stenosis (Primary Dx) 07/20/2024 2:15 PM CDT Office Visit [facility] [address] [place] [address] David Escobar MD Moderate major depression (CMS/HCC) (Primary Dx); Essential hypertension; Chronic anemia; Mixed hyperlipidemia; MGUS (monoclonal gammopathy of unknown significance); Slurred speech; Stage 3b chronic kidney disease (CMS/HCC); Impaired mobility; Physical deconditioning; History of CVA (cerebrovascular accident) 07/20/2024 1:30 PM CDT Office Visit [facility] Oncology and Hematology [address] [place] [phone] Mary[place]armen Marin FNP MGUS (monoclonal gammopathy of unknown significance); Anemia, unspecified type; Chronic kidney disease, unspecified CKD stage 07/20/2024 11:49 AM CDT - 07/20/2024 11:59 PM CDT Hospital Encounter [facility] Laboratory Services [facility] [address] [place] [phone] Marycarmen Marin FNP Discharge Disposition: Home or Self Care 07/20/2024 Telephone [facility] [address] [place] [address] David Escobar MD Referral 07/20/2024 Travel 06/05/2024 External Device Data STL ABSTRACTION Provider, Abstract 06/05/2024 Telephone [facility] Primary Care [address] [place] [phone] David Escobar MD Fall; ORDER FOR XRAY REQUEST from Last 3 Months Immunizations Immunization Administration Dates Next Due (ABRYSVO)(60 YR UP/GA 32-36 WKS) RSV, BIVALENT, PROTEIN SUBUNIT RSVPREF, DILUENT RECONSTITUTED, 0.5 ML, PF 12/14/2022 (ADACEL/BOOSTRIX)(10 YR UP) TDAP VACCINE, 0.5ML, IM 04/21/2021 (PREVNAR 13)(6 WKS UP) PNEUM OCOCCAL CONJUGATE (PCV13) 0.5 ML, IM 01/12/2018 INFLUENZA VACCINE HIGH DOSE QUADRIVALENT 65 YR UP PF IM 12/14/2023,11/18/2022,12/02/2021,2021,11/21/2020,11/25/2017,12/02/2015,1 02/16/2014 INFLUENZA VACCINE QUADRIVALE NT 6 MOS UP CELL DERIVED PF IM 11/10/2018 Influenza Seasonal Unspecifi ed Formulation IM 12/14/2023,11/10/2018,11/10/2013,2011 Influenza Vaccine High Dose 65+ Yrs IM 12/14/2019 Pneumococcal conjugate, unsp ecified formulation 12/08/2005 Td(adult) Unspecified Formulation 04/21/2021 Family History Medical History Relation Name Comments Cancer Father Colon Cancer Father Esophageal Cancer Father Heart Disease Father Hypertension Father Stroke Father Strabismus Grandchild Cataract Mother Hypertension Mother Stroke Mother Relation Name Status Comments Father Grandchild Mother Social History Tobacco Use Types Packs/Day Years Used Date Smoking Tobacco: Former Cigarettes 0.5 4 S tarted: 1957 Smokeless Tobacco: Never Tobacco Cessation:Counseling Given: Not Answered Comments:Quit smoking: quit age 21 Alcohol Use Standard Drinks/Week Comments No 0 (1 standard drink = 0.6 oz pur e alcohol) Sex and Gender Information Value Date Recorded Sex Assigned at Not on file Legal Sex Male 11:52 AM LANDSCAPE ARCHITECTURE TEACHER Gender Identity Not on file Sexual Orientation Not on file Last Filed Vital Signs Vital Sign Reading Time Taken Comments Blood Pressure 135/64 07/20/2024 2:20 PM CDT Pulse 78 07/20/2024 2:20 PM CDT Temperature 36.4 C (97.5 F) 07/20/2024 1:15 PM CDT Respiratory Rate 16 07/20/2024 1:15 PM CDT Oxygen Saturation 96% 07/20/2024 2:20 PM CDT Inhaled Oxygen Concentration - - Weight 82.2 kg (181 lb 3.2 oz) 07/20/2024 2:20 P M CDT Height 175.3 cm (5' 9 ) 07/20/2024 2:20 PM CDT Body Mass Index 26.76 07/20/2024 2:20 PM CDT Plan of Treatment Upcoming Encounters Date Type Department Care Team (Late st Contact Info) Description 08/15/2024 4:45 PM CDT Appointment [facility] [place] [address] [place] [phone] Jeremie Gomez, DO [address] [place] [phone] 09/03/2024 2:00 PM CDT Office Visit [facility] and Vascular [place] [address] [place] [phone] Lion Naranjo MD [address] [place] [phone] 01/23/2025 2:00 PM LANDSCAPE ARCHITECTURE TEACHER Office Visit [facility] [address] [place] [address] David Escobar MD [address] [place] [phone] 07/19/2025 1:00 PM CDT Appointment [facility] Laboratory Services [facility] [address] [place] [phone] Marycarmen Marin, [facility] [address] [place] [phone] 07/19/2025 2:00 PM CDT Office Visit [facility] Oncology and Hematology [address] [place] [address] Marycarmen Marin, [facility] [address] [place] [phone] Health Maintenance Due Date Last Done Comments ZOSTER VACCINE (1 of 2) 1990 PNEUMOCOCCAL VACCINE 50+ YEA RS (2 of 2 - PPSV23) 01/12/2019 01/12/2018, 12/08/2005 COVID-19 Vaccine (2023-2 5 season) 2024 12/14/2023, 11/18/2022, 11/04/2021, Additional history exists INFLUENZA VACCINE (#1) 2024 , 12/14/2023, 11/18/2022, Additional history exists Traditional Medicare (ACO) A nnual Wellness Visit 01/17/2025 01/17/2024 DTAP/TDAP/TD VACCINES (3 - T d or Tdap) 04/22/2031 04/21/2021, 04/21/2021 RSV VACCINE (60+ or ) Completed 12/14/2022 Procedures Procedure Name Priority Date/Time Associated Diagnosis Comments CBC WITH DIFFERENTIAL Routine 07/20/2024 11:54 AM CDT MGUS (monoclonal gammopathy of unknown significance) Anemia, unspecified type Chronic kidney disease, unspecified CKD stage KAPPA/LAMBDA LIGHT CHAINS Routine 07/20/2024 11:54 AM CDT MGUS (monoclonal gammopathy of unknown significance) Anemia, unspecified type Chronic kidney disease, unspecified CKD stage PROTEIN ELECTROPHORESIS W/REFLEX,SERUM Routine 07/20/2024 11:54 AM CDT MGUS (monoclonal gammopathy of unknown significance) Anemia, unspecified type Chronic kidney disease, unspecified CKD stage COMPREHENSIVE METABOLIC PANEL Routine 07/20/2024 11:54 AM CDT MGUS (monoclonal gammopathy of unknown significance) Anemia, unspecified type Chronic kidney disease, unspecified CKD stage FERRITIN Routine 07/20/2024 11:54 AM CDT MGUS (monoclonal gammopathy of unknown significance) Anemia, unspecified type Chronic kidney disease, unspecified CKD stage IMMUNOGLOBULINS IGG IGA IGM Routine 07/20/2024 11:54 AM CDT MGUS (monoclonal gammopathy of unknown significance) Anemia, unspecified type Chronic kidney disease, unspecified CKD stage from Last 3 Months Results * (ABNORMAL) KAPPA/LAMBDA, FREE LIGHT CHAINS (07/20/2024 11:54 AM CDT) [facility] KAPPA FREE LIGHT CHAIN 65.4(H) 3.3 - 19.4 mg/L 07/23/2024 12:52 PM CDT [facility] LAMBDA FREE LIGHT CHAIN 36.5(H) 5.7 - 26.3 mg/L 07/23/2024 12:52 PM CDT [facility] KAPPA/LAMBDA LIGHT CHAIN RATIO 1.79(H) 0.26 - 1.65 07/23/2024 12:52 PM CDT [facility] Comment: Free kappa/lambda ratio in serum of normal individuals is 0.26-1.65. Excess production of free kappa or lambda chains can alter this ratio. Monoclonal free light chains are found in serum of patients with multiple myeloma, Waldenstrom's macroglobulinemia, mu-heavy chain disease, primary amyloidosis, light chain deposition disease, monoclonal gammopathy of undetermined significance, and lymphoproliferative disorders. Measurement of free light chain concentration in serum is useful for diagnosis, prognosis, monitoring disease activity and following response to therapy of these disorders. Blood Venipuncture / Unknown 07/20/2024 11:54 AM CDT 07/20/2024 11:57 AM CDT Narrative [facility] - 07/23/2024 12:52 PM CDT Performing Organization Information: Site ID: [place] Name: [facility] Address: [address] [address] Director: Shoshana Duke MD Marycarmen PHILLIPS CHEMISTRY ORDERABLES Final R esult [facility] [phone] * (ABNORMAL) CBC WITH DIFFERENTIAL (07/20/2024 11:54 AM CDT) WBC 7.9 3.5 - 11.0 K/uL 07/20/2024 12:00 PM CDT [facility] RBC 4.60 4.40 - 5.90 M/uL 07/20/2024 12:00 PM CDT [facility] HEMOGLOBIN 14.1 13.3 - 17.7 g/dL 07/20/2024 12:00 PM CDT [facility] HEMATOCRIT 42.0 40.0 - 52.0 % 07/20/2024 12:00 PM CDT [facility] MCV 91.3 80.5 - 99.7 fL 07/20/2024 12:00 PM CDT [facility] MCH 30.6 26.4 - 34.0 pg 07/20/2024 12:00 PM CDT [facility] MCHC 33.5 31.4 - 36.3 g/dL 07/20/2024 12:00 PM CDT [facility] RDW 14.2 11.0 - 15.0 % 07/20/2024 12:00 PM CDT [facility] PLATELETS 183 150 - 450 K/uL 07/20/2024 12:00 PM CDT [facility] MPV 7.7 7.5 - 11.2 fL 07/20/2024 12:00 PM CDT [facility] NEUTROPHILS 62 50 - 75 % 07/20/2024 12:00 PM CDT [facility] LYMPHOCYTES 14(L) 19 - 48 % 07/20/2024 12:00 PM CDT [facility] MONOCYTES 9 0 - 10 % 07/20/2024 12:00 PM CDT [facility] EOSINOPHILS 14(H) 0 - 6 % 07/20/2024 12:00 PM CDT [facility] BASOPHILS 1 0 - 2 % 07/20/2024 12:00 PM CDT [facility] NEUTROPHIL ABSOLUTE 4.94 >=0.50 K/uL 07/20/2024 12:00 PM CDT [facility] LYMPHOCYTE ABSOLUTE 1.10 K/uL 07/20/2024 12:00 PM CDT [facility] MONOCYTE ABSOLUTE 0.73 K/uL 07/20/2024 12:00 PM CDT [facility] EOSINOPHIL ABSOLUTE 1.10 K/uL 07/20/2024 12:00 PM CDT [facility] BASOPHILS ABSOLUTE 0.06 K/uL 07/20/2024 12:00 PM T [facility] Blood Venipuncture / Unknown 07/20/2024 11:54 AM CDT 07/20/2024 11:57 AM CDT Marycarmen Marin [employer] [facility]ULPER HEMATOLOGY ORDERABLES Final Result [facility] [id number] [address] [place] [address] * IMMUNOGLOBULINS IGG IGA IGM (07/20/2024 11:54 AM CDT) IGG 1,372 540 - 1,822 mg/dL 07/20/2024 1:24 PM CDT [facility] IGA 331 101 - 645 mg/dL 07/20/2024 1:24 PM CDT [facility] IGM 56 22 - 240 mg/dL 07/20/2024 1:24 PM CDT [facility] Blood Venipuncture / Unknown 07/20/2024 11:54 AM CDT 07/20/2024 11:57 AM CDT Marycarmen CONCEPCIONP CHEMISTRY ORDERABLES Final R esult [facility] [id number] [address] [place] [id number] * (ABNORMAL) PROTEIN ELECTROPHORESIS W/REFLEX,SERUM (07/20/2024 11:54 AM CDT) Pathologist [facility] TOTAL PROTEIN 6.7 6.1 - 8.1 g/dL 07/23/2024 7:15 PM CDT [facility] ALBUMIN SPE 3.5(L) 3.8 - 4.8 g/dL 07/23/2024 7:15 PM CDT [facility] ALPHA 1 GLOBULIN SPE 0.3 0.2 - 0.3 g/dL 07/23/2024 7:15 PM CDT [facility] ALPHA 2 GLOBULIN SPE 0.7 0.5 - 0.9 g/dL 07/23/2024 7:15 PM CDT [facility] Beta 1 Globulin 0.5 0.4 - 0.6 g/dL 07/23/2024 7:15 PM CDT [facility] Beta 2 Globulin 0.5 0.2 - 0.5 g/dL 07/23/2024 7:15 PM CDT [facility] GAMMA GLOBULIN 1.1 0.8 - 1.7 g/dL 07/23/2024 7:15 PM CDT [facility] SPE INTERP SEE COMMENT 07/23/2024 7:15 PM CDT [facility] Comment: Hypoalbuminemia may be seen as a result of decreased protein synthesis or protein loss. No restricted band (M-spike) seen. Blood Venipuncture / Unknown 07/20/2024 11:54 AM CDT 07/20/2024 11:57 AM CDT Narrative [facility] - 07/23/2024 7:15 PM CDT Performing Organization Information: Site ID: [place] Name: [email or web address] Address: [address] [address] Director: Shoshana Duke MD Performing Organization Information: Site ID: [place] Name: [facility] Address: [place] [place] [address] Director: Shoshana Duke MD Marycarmen PHILLIPS CHEMISTRY ORDERABLES Final R esult Performing Organization Address City/[facility]/ZIP Co de Phone Number [facility] [phone] * FERRITIN (07/20/2024 11:54 AM CDT) FERRITIN 205.9 21.8 - 274.7 ng/mL 07/20/2024 1:43 PM CDT [facility] Blood Venipuncture / Unknown 07/20/2024 11:54 AM CDT 07/20/2024 11:57 AM CDT Marycarmen Marin [facility] CHEMISTRY ORDERABLES Final R esult [facility] [employer] [facility] [id number] [address] [place] [address] * (ABNORMAL) COMPREHENSIVE METABOLIC PANEL (07/20/2024 11:54 AM CDT) SODIUM 139 136 - 145 mmol/L 07/20/2024 12:14 PM CDT [facility] POTASSIUM 4.1 3.2 - 4.9 mmol/L 07/20/2024 12:14 PM CDT [facility] CHLORIDE 102 98 - 111 mmol/L 07/20/2024 12:14 PM CDT [facility] CO2 30(H) 22 - 29 mmol/L 07/20/2024 12:14 PM CDT [facility] CALCIUM 9.2 8.4 - 10.5 mg/dL 07/20/2024 12:14 PM CDT [facility] BUN 19 6 - 24 mg/dL 07/20/2024 12:14 PM [facility] CREATININE 1.91(H) 0.70 - 1.40 mg/dL 07/20/2024 12:14 PM [facility] Comment:The GFR result is no t clinically significant on patients <18 or >70 years of age. GLUCOSE 152(H) 70 - 115 mg/dL 07/20/2024 12:14 PM [facility] TOTAL PROTEIN 7.1 6.0 - 8.4 g/dL 07/20/2024 12:14 PM [facility] ALBUMIN 3.8 3.5 - 5.2 g/dL 07/20/2024 12:14 PM [facility] BILIRUBIN TOTAL 0.4 0.3 - 1.3 mg/dL 07/20/2024 12:14 PM [facility] ALKALINE PHOSPHATASE 97 40 - 150 U/L 07/20/2024 12:14 PM [facility] AST 19 <=39 U/L 07/20/2024 12:14 PM [facility] ALT 18 <=55 U/L 07/20/2024 12:14 PM [facility] GFR 34 mL/min/1.7 3 sq meter 07/20/2024 12:14 PM [facility] Comment:eGFR calculated with 2020 CKD-EPI equation. Vegetarian diet, extremely high or low muscle mass, and may affect results. Cystatin C with Glomerular Filtration Rate is a suitable alternative for these patients. ANION GAP 7 7 - 16 mmol/L 07/20/2024 12:14 PM [facility] Blood Venipuncture / Unknown 07/20/2024 11:54 AM CDT 07/20/2024 11:57 AM T us Marycarmen PHILLIPS CHEMISTRY ORDERABLES Final R esult [facility] [id number] [address] [place] [phone] from Last 3 Months Insurance [address] [place] [id number] MEDICARE PART A AND B BCBS SUPP Advance Directives For more information, please contact: [phone] * Default Full Code - Needs Discussion (Latest Code Status on File) Date Activated Date Inactivated Comments 06/05/2021 5:03 AM 06/08/2021 5:55 PM Care Teams Electrician Research Relationship Specialty Start Date End Date David Escobar MD [address] [place] [phone] PCP - General Family Practice 01/17/24
--- NOTE | 2024-08-13 22:17 | W.ED.RECABL ---
HPI - Recheck/Abnormal Lab/Rx General: Chief Complaint: Recheck/Abnormal Lab/Rx Stated Complaint: MED MIX UP Time Seen by Provider: 08/13/24 21:54 Source: patient Mode of arrival: EMS Limitations: no limitations History of Present Illness: 84yo male with a history of CVA, CKD, presents with significant other for evaluation after accidentally taking significant other's medications and set up his own medications tonight at approximately 2030. Significant other reports the patient took lisinopril, simvastatin, pantoprazole, metformin, flecainide, hydrocodone, vitamin C, cetirizine, and vitamin for vision health. Patient does take pantoprazole, vitamin C, cetirizine himself. He did not take his own medications tonight, only significant others. Reports that they did contact nurse on-call who recommended they come to the emergency department. Patient denies any ill effects at this time. Related Data Home Medications ?Medication ?Instructions ?Recorded ?Confirmed aspirin 81 mg tablet,delayed 81 mg PO DAILY@0900 07/09/20 11/28/23 release ascorbic acid (vitamin C) 1,000 mg 1 g PO DAILY@2100 09/03/20 11/28/23 tablet (Vitamin C) cetirizine 10 mg tablet 10 mg PO DAILY@0909/03/20 11/28/23 cholecalciferol (vitamin D3) 25 25 mcg PO BID@09/03/20 11/28/23 mcg (1,000 unit) chewable tablet (Vitamin D3) omega-3 fatty acids 1,000 mg 1,000 mg PO QAM 09/21/21 11/28/23 capsule tramadol 50 mg tablet 50 mg PO BID@09/21/21 11/28/23 lidocaine 5 % topical patch 1 patch transdermal DAILY PRN Pain 08/25/23 11/28/23 fluticasone propionate 50 1 spray intranasal DAILY PRN 08/31/23 11/28/23 mcg/actuation nasal allergies spray,suspension omega 0-tur-rdl-fish oil 1,000 mg 1 cap PO BID 11/28/23 11/28/23 (120 mg-180 mg) capsule (Fish Oil) polyethylene glycol 3350 17 4 g PO DAILY 11/28/23 11/28/23 gram/dose oral powder Previous Rx's ?Medication ?Instructions ?Recorded pantoprazole 40 mg tablet,delayed 40 mg PO BID #60 tabs 09/23/21 release (Protonix) amlodipine 10 mg tablet 10 mg PO DAILY #90 tabs 08/26/23 metoprolol tartrate 50 mg tablet 50 mg PO BID #30 tabs 08/26/23 atorvastatin 40 mg tablet 80 mg (2 x 40 mg) PO DAILY@2100 #0 08/30/23 tabs venlafaxine 150 mg 150 mg PO DAILY #30 caps 08/30/23 capsule,extended release 24 hr (Effexor XR) diclofenac sodium 75 mg 75 mg PO Q12H PRN pain #20 tabs 11/28/23 tablet,delayed release Allergies Allergy/AdvReac Type Severity Reaction Status Date / Time acetylcysteine Allergy nausea/vomi Verified 11/28/23 08:08 ting Review of Systems Const: Denies: fever(s), chills or body aches Card: Denies: chest pain or palpitations Resp: Denies: dyspnea GI: Denies: abdominal pain, nausea or vomiting Neuro: Denies: headache(s) or dizziness PFSH ED PFSH: Medical History Pneumonia Acute kidney injury superimposed on chronic kidney disease Generalized weakness Aspiration pneumonia Bibasilar crackles Risk for falls Hypertension Aphasia Expressive aphasia Vitamin D deficiency Peripheral artery disease Anemia Osteoporosis Expressive aphasia Chronic anticoagulation Eliquis due to CVA history Dyslipidemia Degenerative joint disease of spine CVA (cerebral vascular accident) 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 Reported to have hole in his heart but later when attempt was made to repair it was not identified. On chronic anticoagulation with Eliquis, initiated at outside facility, due to history of recurrent strokes. CKD (chronic kidney disease) Single functioning kidney per Surgical History Status post herniorrhaphy right inguinal hernia History of cataract surgery History of intravascular stent placement renal artery and aortic stents Status post endovascular aneurysm repair (EVAR) Status post right inguinal hernia repair Status post colonoscopy 2015 adenomatous polyp Family History Mother , at age 93 No problems noted. Father , at age 77 AA (aortic aneurysm) Cancer throat and lung Other Hypertension Social History Smoking and tobacco/nicotine status: never used tobacco/nicotine Alcohol intake: never Substance/Drug Use: never Household members: spouse Housing: House Marital status: Current occupational status: retired Physical Exam Const: COMMON NORMALS: no acute distress, patient oriented x3 and alert GENERAL APPEARANCE: cooperative ORIENTATION/CONSCIOUSNESS: Yes awake OTHER: Patient is laying reclined on the stretcher in no acute distress. He is interactive with exam appropriately. He is in no acute distress. Significant other is at bedside HENMT: COMMON NORMALS: normocephalic and atraumatic HEAD & SCALP: normocephalic and atraumatic MOUTH: other (Chronic expressive aphasia) Chest: CHEST: Yes Symmetrical chest wall rise Resp: COMMON NORMALS: normal respiratory effort and clear to auscultation bilaterally EFFORT & INSPECTION: Yes able to speak in complete sentences AUSCULTATION: clear to auscultation bilaterally Cardio: COMMON NORMALS: regular rate and regular rhythm RATE: regular rate RHYTHM: regular rhythm Extremity: NARRATIVE EXTREMITY EXAM: Chronic right-sided weakness Neuro: COMMON NORMALS: patient oriented x3 SENSORIUM/ORIENTATION: Yes alert Psych: COMMON NORMALS: cooperative Course Vital Signs: Vital signs: Vital Signs Temperature 97.9 F 08/13/24 21:46 Pulse Rate 68 08/13/24 21:46 Respiratory Rate 18 08/13/24 21:46 Blood Pressure 119/70 08/13/24 21:46 Pulse Oximetry 96 08/13/24 21:46 Oxygen Delivery Me thod Room Air 08/13/24 21:46 MDM - Recheck/Abnormal Lab/Rx Medical Decision Making 84yo male with a history of CVA, CKD, presents with significant other for evaluation after accidentally taking significant other's medications and set up his own medications tonight at approximately 2030. Most significant medication that patient did take is flecainide 100 mg. Patient denies any ill effects at this time. Patient is nontoxic in appearance. Vital signs are stable. Call to poison control at [phone], spoke with pharmacist Sally who advised that unless patient has a sensitivity to flecainide, at this dose he likely will not have any ill effects. If called from home, they would have had patient stay home and monitor. Symptoms if they were to start would begin within 3 to 6 hours. Half-life is 12 to 27 hours. Most common initial symptoms are nausea/vomiting/abdominal pain, headache/dizziness. Recommends reassessment 3 hours after medication ingestion. [id number] glucose 128. Patient reevaluated at 2335. Patient reports that he is feeling fine and is ready to go home. Will proceed with discharge. Advised to avoid taking his nighttime medications tonight to avoid any duplications or interactions. Advised they continue to monitor at home and either contact poison control or return to the emergency department if any worsening symptoms. Recommend follow-up with primary care, call tomorrow with an update of symptoms and to discuss a recheck. Return precautions provided. Medical Records I reviewed the patient's medical records. Lab Data I reviewed the patient's lab results. Laboratory Results POC Glucose 128 mg/dL (70-110) H 08/13/24 21:51 No radiology studies performed this visit Discharge Plan Discharge Patient Disposition: Home Clinical Impression: Accidental drug ingestion Condition: Stable Prescriptions: No Action aspirin 81 mg tablet,delayed release (DR/EC) 81 mg PO DAILY@0900 ascorbic acid (vitamin C) [Vitamin C] 1,000 mg Tablet 1 g PO DAILY@2100 cetirizine 10 mg Tablet 10 mg PO DAILY@0900 cholecalciferol (vitamin D3) [Vitamin D3] 25 mcg (1,000 unit) Tablet,Chewable 25 mcg PO BID@, omega-3 fatty acids 1,000 mg Capsule 1,000 mg PO QAM tramadol 50 mg tablet 50 mg PO BID@ pantoprazole [Protonix] 40 mg tablet,delayed release (DR/EC) 40 mg PO BID Qty: 60 3RF lidocaine 5 % adhesive patch,medicated 1 patch transdermal DAILY PRN (Reason: Pain) amlodipine 10 mg Tablet 10 mg PO DAILY Qty: 90 0RF metoprolol tartrate 50 mg tablet 50 mg PO BID Qty: 30 0RF atorvastatin 40 mg Tablet 80 mg PO DAILY@2100 Qty: 0 0RF venlafaxine [Effexor XR] 150 mg capsule,extended release 24hr 150 mg PO DAILY Qty: 30 0RF fluticasone propionate 50 mcg/actuation spray,suspension 1 spray INTRANASAL DAILY PRN (Reason: allergies) polyethylene glycol 3350 17 gram/dose Powder 4 g PO DAILY omega 2-tzm-alg-fish oil [Fish Oil] 1,000 (120-180) mg Capsule 1 cap PO BID diclofenac sodium 75 mg tablet,delayed release (DR/EC) 75 mg PO Q12H PRN (Reason: pain) Qty: 20 0RF Discharge Orders: Discharge ED (Routine); Ordered 08/13/24 Ordered By: Reynold Quintero Discharge Diet: Usual diet Discharge Activity: Resume usual activity Patient Instructions: Pain Management, Patient Portal & Tiffanie Instructions Activity Restrictions/Additional Instructions: The flecainide will be in your system for the next 12 to 27 hours, but should have already started causing symptoms if any were to develop Please do not take your home medications tonight. You may resume your medications in the morning Follow-up with primary care, call tomorrow with an update of symptoms and to discuss a recheck Return to the emergency department if any rapid worsening symptoms and as needed Print Language: Yakut Coding Level of Care Code ED Scale Operator for Art Villanueva
[2024-08-14 00:32] VITALS: BP 140/64; PULSE 73; RESP 16; O2SAT 95
== END 2024-08-14 00:35 | disposition home or self-care (01) ==
PROVIDERS: Emergency Provider Nurse Practitioner
DX: T46.2X1A Poisoning by other antidysrhythmic drugs, accidental (unintentional), initial encounter (principal); X58.XXXA Exposure to other specified factors, initial encounter; E78.5 Hyperlipidemia, unspecified; Z86.73 Personal history of transient ischemic attack (TIA), and cerebral infarction without residual deficits; N18.9 Chronic kidney disease, unspecified; Z79.82 Long term (current) use of aspirin
CPT/HCPCS: 36416; 82962; 93005; 99283

== ENCOUNTER 2024-09-07 05:00 | Outpatient (RCR) | payer MEDICARE, BC, SELFPAY | END 2024-10-07 23:59 | disposition home or self-care (01) | LOC: SPT 05:00 | PROVIDERS: Visit Provider Family Medicine | DX: M62.81 Muscle weakness (generalized) (principal); R26.89 Other abnormalities of gait and mobility | CPT/HCPCS: 97110; 97116; 97164 ==

== ENCOUNTER 2024-12-27 18:53 | Emergency (ER) | payer BC, MEDICARE, SELFPAY ==
[2024-12-27 18:53] VITALS: BP 117/91; PULSE 92; RESP 16; TEMP 36.6; O2SAT 92
--- NOTE | 2024-12-27 18:56 | XRR_ITS ---
PROCEDURE INFORMATION: Exam: XR Abdomen Exam date and time: 12/27/2024 7:15 PM Age: 84 years old Clinical indication: Vomiting TECHNIQUE: Imaging protocol: Radiologic exam of the abdomen. Views: Frontal supine view of the abdomen. 1 View. COMPARISON: CT chest abdpel w/*[id number] 11/28/2023 9:33 AM FINDINGS: Gastrointestinal tract: Nonobstructive bowel gas pattern. Vasculature: Aortic endograft. Bones/joints: Degenerative changes thoracic spine. XR/XR KUB [id number] IMPRESSION: Nonobstructive bowel gas pattern.
--- OUTSIDE RECORDS SUMMARY | 2024-12-27 18:58 | XMS_ITS | Clinical Summary ---
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 Gender Identity Not on file Sexual Orientation Not on file Occupation Industry Job Start Date Job End Date Not on file Not on file Not on file Not on file Last Filed Vital Signs Vital Sign Reading Time Taken Comments Blood Pressure 132/77 02/05/2013 8:20 PM WICKER WORKER Pulse 64 02/05/2013 6:16 PM WICKER WORKER Temperature 37.1 C (98.8 F) 02/05/2013 1:01 PM WICKER WORKER Respiratory Rate 18 02/05/2013 8:20 PM WICKER WORKER Oxygen Saturation 95% 02/05/2013 8:20 PM WICKER WORKER Inhaled Oxygen Concentration - - Weight 77.1 kg (170 lb) 02/05/2013 1:01 PM WICKER WORKER Height 176.5 cm (5' 9.5 ) 02/05/2013 1:01 PM WICKER WORKER Body Mass Index 24.74 02/05/2013 1:01 PM WICKER WORKER Plan of Treatment Health Maintenance Due Date Last Done Comments DTAP/TDAP/TD VACCINES (1 - Tdap) 07/07/1959 PNEUMOCOCCAL VACCINE 50+ YEARS (1 of 1 - PCV) 07/06/18 91 12/08/2005 ZOSTER VACCINE (1 of 2) 1990 RSV VACCINE (60+ or ) (1 - 1-dose 75+ series) 07/07/2015 INFLUENZA VACCINE (#1) 2024 09/09/2011 Insurance [facility] [place] [address] [place] [place] [id number] MEDICARE PART A AND B FIRST ADMIN[employer]RAT[employer] Advance Directives For more information, please contact: [phone] * Full Code (Latest Code Status on File) Date Activated Date Inactivated Comments 09/10/2011 1:18 AM 09/12/2011 3:10 PM * Full Code Date Activated Date Inactivated Comments 08/18/2009 12:38 PM 08/19/2009 2:31 AM * Full Code Date Activated Date Inactivated Comments 08/18/2009 11:54 AM 08/18/2009 12:38 PM * Full Code Date Activated Date Inactivated Comments 08/18/2009 11:37 AM 08/18/2009 11:54 AM Care Teams Money Market Dealer Relationship Specialty Start Date End Date Jacobo Lubin MD [address] [place] [id number] PCP - General Family Practice 08/08/09
--- OUTSIDE RECORDS SUMMARY | 2024-12-27 18:59 | XMS_ITS | Data Portability ---
Author Organization [facility] - Gennaro Chapin [facility] Fariba Monk [facility] Address [address] [facility] [address] [place] [address] Care Team Providers Care Office Equipment Mechanic Name Role Phone ALBERTA ARCHER Primary Care [...] None recorded. Lab urinalysis, complete 2023 024 [facility] ([facility]), [address] [place], [address], 4 13:40:05 culture, urine 2023 024 CLATONIA Kangsheng Chuangxiang [facility], [address] [place] [address], [facility] [address] [place], [address], 4 04:31:59 Referral home health referral 2023 024 [email or web address] 2 Not available 4 09:56:41 Procedures None recorded. Surgeries None recorded. Imaging XR, [facility], [facility] ([facility]), [address] [facility], [place], [address], 13:14:02 Medication Orders atorvastati n 40 mg tablet 2023 [facility], [address] [facility], [place], [address], 11:08:56 Patient TargetsNo targets recorded. Patient Instructions Encounter Date Encounter Id Patient Instructions Last Modified By Organization Details Last Modified Time 09/08/2023 [id number] working with therapy, doing well. Blood pressure controlled. [email or web address] Not available 09/08/2023 12:02:54 09/27/2023 [id number] doing well, revovered from covid. Working with therapy. [email or web address] Not available 09/27/2023 13:53:23 10/11/2023 [id number] Doing well, planning to d/c home at the end of the week. Waning PCP closer to home. [email or web address] Not available 10/11/2023 12:45:31 Reason for Referral Home Health Referral for Phy sical deconditioning Referring Physician: Alberta Archer, Family Medicine, Encounter Date: 10/18/2023 Results Created Date Observation Date Name Description Value Unit Range Abnormal Flag Note LastModifiedBy Organization Detail LastModifiedTime 12/16/19 24 12/18/2023 CULTU RE, URINE , ROUTI NE culture, urine, routine SEE NOTE CULTU RE, URINE , ROUTI NE Micro Numbe r: [id number] Test Statu s: Final Speci men Sourc e: Urine Speci men Quali ty: Adequ ate Resul t: Mixed genit al paloam isola paris. These super ficia l bacte aga are not indic ative of a urina ry tract infec tion. No furth er organ ism ident ifica tion is warra nted on this speci men. If clini deanna indic ated, recol lect clean -catc h, mid-s tream urine and trans adwoa immed iatel y to Urine Cultu re Trans port Tube. Not Available [facility] [address] [place], [address], 12/18/2023 04:31:59 12/16/1912/16/2023 urina lysis , compl ete color yellow Not Available [facility] ([facility]) [address] [place], [address], 12/16/2023 12:48:53 12/16/1912/16/2023 urina lysis , compl ete clarity clear clear Not Available [facility] ([facility]) [address] [place] [address], [address], 12/16/2023 12:48:53 12/16/1912/16/2023 urina lysis , compl ete glucose NG negati ve Not Available [facility] ([facility]) [address] [place] [address], [address], 12/16/2023 12:48:53 12/16/19 24 12/16/2023 urina lysis , compl ete bilirubin NG negati ve Not Available [facility] ([facility]) [address] [place] [address], [address], 12/16/2023 12:48:53 12/16/19 24 12/16/2023 urina lysis , compl ete ketones NG negati ve Not Available [facility] ([facility]) [address] [place] [address], [address], 12/16/2023 12:48:53 12/16/19 24 12/16/2023 urina lysis , compl ete specific gravity 1.020 1.005- 1.025 Not Available [facility] ([facility]) [address] [place] [address], [address], 12/16/2023 12:48:53 12/16/19 24 12/16/2023 urina lysis , compl ete pH 6.0 5.0-7. 0 Not Available [facility] ([facility]) [address] [place], [address], 12/16/2023 12:48:53 12/16/19 24 12/16/2023 urina lysis , compl ete protein trace Not Available [facility] ([facility]) [address] [place], [address], 12/16/2023 12:48:53 12/16/19 24 12/16/2023 urina lysis , compl ete uro 0.2 Not Available [facility] ([facility]) [address] [place], [address], 12/16/2023 12:48:53 12/16/19 24 12/16/2023 urina lysis , compl ete nitrate NG negati ve Not Available [facility] ([facility]) [address] [place], [address], 12/16/2023 12:48:53 12/16/19 24 12/16/2023 urina lysis , compl ete blood NG negati ve Not Available [facility] ([facility]) [address] [place], [address], 12/16/2023 12:48:53 12/16/19 24 12/16/2023 urina lysis , compl ete leukocytes NG negati ve Not Available [facility] ([facility]) [address] [place], [address], 12/16/2023 12:48:53 12/16/19 24 12/16/2023 urina lysis , compl ete WBC 3-4 0 Not Available [facility] ([facility]) [address] [place], [address], 12/16/2023 12:48:53 12/16/19 24 12/16/2023 urina lysis , compl ete RBC NG 0 Not Available [facility] ([facility]) [address] [place], [address], 12/16/2023 12:48:53 12/16/19 24 12/16/2023 urina lysis , compl ete epi cells 2-3 0 Not Available [facility] ([facility]) [address] [place], [address], 12/16/2023 12:48:53 12/16/1912/16/2023 urina lysis , compl ete bacteria trace of mucus thread s abnormal Not Available [facility] ([facility]) [address] [place], [address], 12/16/2023 12:48:53 12/16/19 24 12/16/2023 urina lysis , compl ete other NG Not Available [facility] ([facility]) [address] [place], [address], 12/16/2023 12:48:53 12/16/19 24 04/29/2024 XR, chest , 2 view No observ ation record ed. [facility] [address] [place], [address], 04/30/2024 11:04:44 12/16/19 24 12/16/2023 XR, chest , 2 view No observ ation record ed. [facility] [address] [place], [address], 12/19/2023 08:33:39 Result Notes None recorded. Problems Name Problem SNOMED Code Status Onset Date Resolution Date Notes Provider Name and Address Organization Details Recorded Time Esophagog astroduod enoscopy Active 2003 EGD; from ; Date: 03/2003 Michelle sharp [facility] 4 09:09:20 Colonosco py Active 2003 Colonosco py; Date: 03/2003 Michellefidencio Morse [facility] 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 4 09:09:09 Osteoarth ritis 041263713 Active 2020 Michelle Lito [facility] 4 09:09:29 Primary repair of inguinal hernia Active 2020 [facility] 4 09:09:33 Viral hepatitis , type A 91976749 Active 2020 Michellefidencio Morse [facility] 4 09:09:37 Benign essential hypertens ion 9925185 Active 2020 Michelle kenzie [facility] 4 09:09:04 Gastroeso phageal reflux disease 946460621 Active 2020 Michellefidencio Morse [facility] 4 09:09:23 Hyperchol esterolem ia 95281792 Active 2020 Bannerkenzie [facility] 4 09:09:26 Hospital inpatient stay within past 30 days 56797288456 06 Active 2023 ALLA ARRIOLA [facility] 4 13:34:54 Recurrent falls 645864890 Active 2023 ALLA ARRIOLA [facility] 13:35:06 Hypertens oksana heart disease 30805458 Active 2023 ALLA ARRIOLA aron [facility]CWindy 13:35:30 Acute kidney injury 14035039 Active 2023 ALLA sharp [facility] 13:35:31 Acute urinary tract infection 007780789 [facility] 13:35:34 Pneumonia 126026484 Active 2023 [facility] 13:35:47 Aortic aneurysm 73647599 Active 2023 CLEMENCIA sharp [facility], LWindyLWindyCWindy 09:56:42 Physical deconditi oning 08915033567 102 Active 2023 Alberta Archer MD [address] [place] [address], [address] , [facility], LWindyLWindyCWindy 10:34:49 Pleural effusion 60521163 Active 2023 Alberta Archer MD [address] [place] [address], [address] , [facility]indy 12:48:26 Dysuria 75028980 Active 2023 Alberta Archer MD [address] [place] [address], [address] , [facility] L.LWindyCWindy 12:48:41 Problem Notes None recorded. Procedures Surgical History Date Name Laterality Status Provider Name and Address Organization Details Recorded Time Hernia Repair completed CLEMENCIA MYRICK [facility], DeidraLVenice 10/18/2023 09:32:53 Tonsillectomy completed CLEMENCIASA MYRICK [facility], L.LWindyCWindy 10/18/2023 09:34:01 Vasectomy [facility] 10/18/2023 09:34:09 Colonoscopy completed [facility] 10/18/2023 09:55:22 aneurysmectomy of aortic arch with anastomosis completed [facility], [facility] 10/18/2023 09:57:16 Imaging Results None recorded. Procedure Notes None recorded. Medical Equipment None Reported. Allergies Allergen ID Allergen Name Allergen Category Reaction Reaction Severity Criticality Documentation Date Start Date Code Code System Note Provider Name and Address Organization Details Recorded Time 99831 penicilli n V potassium medicatio n nausea Not available Not available 09/04/2022 21682 5 RxNorm React ion: Nause a;*in mahamed ance* ; Comme nt: Recor ded 09/30 7:27A M by Savanna piper RN, Offic e Visit ; Promo paris; Signi fican ce: *; Reaso n: Drug aller gy; ; [facility] LW[facility] 4 09:46:02 42234 Chocolate Flavor medicatio n swelling Not available Not available 09/04/2022 React ion: dark/ edema ; Comme nt: Recor ded 09/30 7:27A M by Savanna piper RN, Offic e Visit ; Promo paris; Signi fican ce: *; ; CLEMENCIA sharp [facility], L.LWindyCWindy 4 09:45:58 01360 acetylcys teine medicatio n hives Not available low 10/18/2023 197 RxNorm CLEMENCIA sharp [facility] L.LWindyCWindy 4 09:46:27 Medications Name Sig Start Date [...] e 50 mcg/actua tion nasal spray,jocelynn [address] 1 spray every day by intranas al [...] rate Respiratory rate Body temperature Oxygen saturation Systolic And Diastolic Provider Name and Address Organization Details Last Updated DateTime 4 80 /min 22 /min 96.8 [degF] 94 % 140/70 mm[Hg] ALLA ARRIOLA [facility] 4 12:01:24 Date Recorded Heart rate Respiratory rate Body temperature Oxygen saturation Systolic And Diastolic Provider Name and Address Organization Details Last Updated DateTime 4 74 /min 20 /min 98.6 [degF] 96 % 138/76 mm[Hg] ALLA ARRIOLA [facility] 4 13:52:14 Date Recorded Heart rate Respiratory rate Body temperature Oxygen saturation Systolic And Diastolic Provider Name and Address Organization Details Last Updated DateTime 4 80 /min 20 /min 98.6 [degF] 94 % 140/76 mm[Hg] ALLA ARRIOLA [facility] 4 12:43:46 Date Recorded Respiratory rate Body height Body mass index (BMI) Body weight Body temperature Heart rate Oxygen saturation Systolic And Diastolic Provider Name and Address Organization Details Last Updated DateTime 4 20 /min 175.26 cm 28.1 kg/m2 31854.5 5 g 97.5 [degF] 62 /min 99 % 110/60 mm[Hg] CLEMENCIA RICHMONDG [facility] 4 09:45:29 Date Recorded Body height Body temperature Oxygen saturation Heart rate Systolic And Diastolic Provider Name and Address Organization Details Last Updated DateTime 4 175.26 cm 97.8 [degF] 95 % 65 /min 120/76 mm[Hg] ALY KEITA [facility] 4 12:32:39 Social History Question Answer Notes LastModified by Organizat ion Details LastModified Time Tobacco Smoking Status Never Smoker CLEMENCIA MYRICK aron [facility] 10/18/2023 09:57:51 Are You Blind Or Do [...] Or The Highest Degree You Have Received? [id number] Information not available 10/18/2023 Which Of Your [...] Functional Status Question Answer Note LastModified by Justyle ion Details LastModified Time Do you use any illicit or recreational drugs? No Information not available 10/18/2023 What is your level of alcohol consumption? None Information not available 10/18/2023 Are you currently employed? No Information not available 10/18/2023 Are you able to walk independently without assistance or assistive devices? NOCHAIR Information not available 10/18/2023 Do you have difficulty doing errands alone? Yes Information not available 10/18/2023 Are you able to care for yourself independently? No Information not available 10/18/2023 Do you have difficulty dressing, bathing, grooming, or toileting? Yes Information not available 10/18/2023 What is [...] Influenza, high-dose, quadrivalent, PF 3 completed Michelle Lito [facility] L[facility]LWindyCW[facility] 10/22/2023 09:10:00 Influenza, high-dose, quadrivalent, PF 1 completed Bannerkenzie [facility] L.LWindyCWindy 10/22/2023 09:10:00 Influenza, high-dose, quadrivalent, PF 2 completed Bannerkenzie [facility] 10/22/2023 09:10:00 COVID-19, mRNA, LNP-S, PF, 30 mcg/0.3 mL dose 1 completed Bannerkenzie [facility], L.LWindyCWinyd 10/22/2023 09:10:00 COVID-19, mRNA, LNP-S, PF, 30 mcg/0.3 mL dose 1 completed Bannerkenzie [facility] L.LWindyCWindy 10/22/2023 09:10:00 COVID-19, mRNA, LNP-S, PF, 30 mcg/0.3 mL dose 1 completed Bannerkenzie [facility] L.LWindyCWindy 10/22/2023 09:10:00 COVID-19, mRNA, LNP-S, bivalent, PF, 30 mcg/0.3 mL dose 2 completed [facility] 10/22/2023 09:10:00 RSV, bivalent, protein subunit RSVpreF, diluent reconstituted, 0.5 mL, PF 3 completed [facility] 10/22/2023 09:10:00 COVID-19, mRNA, LNP-S, PF, chino-sucrose, 30 mcg/0.3 mL 3 completed [facility] 10/22/2023 09:10:00 Tdap 2 completed Michelle sharp, [facility] LWindyLWindyC. 10/22/2023 09:10:00 Pneumococcal conjugate PCV 13 8 completed Michelle sharp [facility], LWindyLWindyCWindy 10/22/2023 09:10:00 Influenza, high-dose, trivalent, PF 8 completed Michelle sharp [facility] 10/22/2023 09:10:00 Influenza, high-dose, trivalent, PF 6 completed Michelle sharp [facility], LWindyLWindyCWindy 10/22/2023 09:10:00 Influenza, high-dose, trivalent, PF 5 completed Michelle sharp [facility], LWindyLWindyCWindy 10/22/2023 09:10:00 Influenza, split virus, trivalent, preservative 4 completed Michelle sharp [facility], LWindyLWindyC. 10/22/2023 09:10:00 Influenza, split virus, quadrivalent, PF 9 completed Michelle sharp [facility], LWindyLWindyCWindy 10/22/2023 09:10:00 Past Encounters Encounter ID Performer Location Encounter Start Date Encounter Closed Date Diagnosis/Indication Diagnosis SNOMED-CT Code Diagnosis ICD10 Code Diagnosis IMO Codes Diagnosis Note [id number] Dandre Mcmillan DO [facility] ([facility]) [address] [place] [address] 09/01/2023 12:27:16 09/01/2023 15:54:13 Hospital inpatient stay within past 30 days 1047762430 106 Z76.89 Recurrent falls 62964656 2 R29.6 Hypertensi ve heart disease 90680652 I11.9 Acute kidney injury 1466 9001 N17.9 Acute urin franklin tract infection 582829928 N39.0 Pneumonia 782325887 J18. 9 [id number] Dandre Mcmillan DO [facility] ([facility]) [address] [place] [phone] 09/08/2023 08:26:29 09/08/2023 15:41:21 Benign essential hypertension 4430458 I10 Cerebrovas cular accident 093949431 I63.9 Gastroesop hageal reflux disease 790936549 K21.9 [id number] Dandre Mcmillan DO [facility] ([facility]) [address] [place], [place] [phone] 5 09/27/2023 08:51:33 09/27/2023 16:44:55 Benign essential hypertension 4607868 I10 Cerebrovas cular accident 038332663 I63.9 [id number] Dandre Mcmillan DO [facility] ([facility]) [address] [place], [place] [phone] 10/11/2023 11:45:12 10/11/2023 16:04:30 Benign essential hypertension 4378831 I10 Cerebrovas cular accident 662868682 I63.9 Hypercholesterolemia 136 88931 E78.00 [id number] Alberta Archer MD [facility] ([facility]) [address] [place] [address] 10/18/2023 09:28:05 10/18/2023 10:58:53 Hypertensive heart disease 25174379 I11.9 Hypercholesterolemia 136 87565 E78.00 Benign ess ential hypertension 8182226 I10 Cerebrovas cular accident 622969367 I63.9 Physical deconditioning 5872892441 9102 R68.89 [id number] Alberta Archer MD [facility] ([facility]) [address] [place] [phone] 12/16/2023 12:01:11 12/16/2023 13:14:02 Pleural effusion 03233948 J90 No significan t crackles noted on exam today. Will obtain a chest x-ray noting he had chronic lung changes but nothing acute. No significan t pleural effusion. Dysuria 19589197 R30.0 UA was obtained and did not [...] Name 09/02/2023 1 *SELF PAY* Das maxwell Solis Guillen 01/21/2024 2 [place]PP[place] [id number] Ap Will Guillen [id number] Ap D Guillen 01/21/2024 1 [place] B[place] Ap Will Guillen [id number] Ap D Guillen 01/21/2024 [facility] [place] [facility]-[place] ([place]ICARE) Ap Solis Guillen [id number] 5 Ap Solis Guillen Notes Date Note Type Note Provider Name and Address Organization Details Recorded Time 09/08/2023 text/html Care Management - [facility]Reported [facility], patient reportsexpected outcome: __. For context, patient reportsnot current smoker. For lifestyle changes, patient reportsmotivated to continue lifestyle changes.ROS as noted in the [facility] Dandre Mcmillan [address], [address], [facility] 09/12/2023 11:09:57 09/27/2023 text/html Care Management - [facility]Rep[facility], patient reportsexpected outcome: __. For context, patient reportsnot current smoker. For lifestyle changes, patient reportsmotivated to continue lifestyle changes.ROS as noted in the [facility] Dandre McmillanDO [address] [place] [address], [address], [facility] 10/03/2023 09:38:15 10/11/2023 text/html Care Management - GeneralReported by [facility], patient reportsexpected outcome: __. For context, patient reportsnot current smoker. For lifestyle changes, patient reportsmotivated to continue lifestyle changes.ROS as noted in the [facility] Dandre McmillanDO [address] [place] [address], [phone], [facility] 10/12/2023 08:48:51 10/18/2023 text/html This is a 89-year-old gentleman that comes in today to establish care. The patient was recently in the longterm for skilled care after having COVID. The [...] therapy through home health. Alberta Archer MD [address] [place] [address], [phone], [facility] 10/19/2023 11:13:26 12/16/2023 text/html This is a 3-year-old female presents today for evaluation. Patient was [...] aspiration after his stroke. Alberta Archer MD [address] [place] [address], [phone], [facility] 12/18/2023 12:15:38
--- OUTSIDE RECORDS SUMMARY | 2024-12-27 18:59 | XMS_ITS | Patient Health Record ---
Author Organization [facility] Address [address] [place] [address] Care Team Providers Care Career Coordinator Name Role Phone Jeremie Gomez Unavailable [phone] Allergies Allergen (clinical drug ingredient) Drug/Non Drug Allergy documented on EMR Reaction Allergy Type Onset Date Status acetylcysteine Acetylcysteine Unknown Drug Allergy Active Results Component Value Reference Range Notes MRI Lumbar Spine w/o Cont-72 [id number] Reviewed date:09/18/2024 12:26:04 PM Interpretation: Performing Lab: Notes/Report: Reason For Referral Reason Evaluation for possi ble continuation of treatment Diagnosis 1 Spondylosis without myelopathy or radiculopathy, lumbar region (M47.816) Diagnosis 2 Vertebrogenic low ba ck pain (M54.51) Diagnosis 3 Spondylolysis, 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) Diagnosis 4 Sacroiliitis, not el sewhere classified (M46.1) Referring Provider First Name Oswaldo Referring Provider Last Name Wilfred Referring Provider Speciality Pain Medic ine Referred Organization [facility] Referred Provider Cari Alston Referred Address [address] [place] [address],[place],[phone], Referred Provider Specialty Pain Medicin e General Notes Isabelle Reaves 11:48:56 AM >pt will pickling solution maker npp 05-28-24, Isabelle Reaves 05/29/2024 02:45:53 PM >picked up npp Referral Priority Routine Medications Medication SIG (Take, Route, Frequency, Duration) Notes Start Date End Date Status traMADol HCl 50 MG Tablet 1 tablet as needed Orally every 8 hours; Duration: 30 days As needed Not to exceed 3 per day Fill 11/22/2024 11/23/2024 Active Lidocaine 5 % Patch 1 patch remove after 12 hours Externally twice a day; Duration: 30 days As needed 09/28/2024 Active Metoprolol Succinate 50 MG Capsule ER 24 Hour Sprinkle 1 capsule Orally Once a day Active MiraLax 17 GM/SCOOP Powder 1 scoop mixed with 8 ounces of fluid Orally Once a day Active Mucinex 600 MG Tablet Extended Release 12 Hour 1 tablet as needed Orally every 12 hrs Active [place] 3 Fish Oil 1000 MG Capsule 1 capsule Orally Three times a day Active Pantoprazole Sodium 40 MG Tablet Delayed Release 1 tablet 1/2 to 1 hour before morning meal Orally Once a day Active amLODIPine Besylate 10 MG Tablet 1 tablet Orally Once a day Active Aspirin 81 81 MG Tablet Delayed Release 1 tablet Orally Once a day Active Venlafaxine HCl ER 150 MG Tablet Extended Release 24 Hour 1 tablet with food Orally Once a day Active Atorvastatin Calcium 40 MG Tablet 1 tablet Orally Once a day Active Vitamin C 1000 MG Tablet 1 tablet Orally Once a day Active Cetirizine HCl 10 MG Tablet 1 tablet Orally Once a day Active Vitamin D3 25 MCG (1000 UT) Tablet 1 tablet Orally Once a day Active Fluticasone Furoate 50 MCG/ACT Aerosol Powder Breath Activated 1 puff Inhalation Once a day Active Lidocaine 5 % Patch 1 patch remove after 12 hours Externally Once a day; Duration: 30 days Active Social History Tobacco Use: Social History Observation Description Date Details (start date - stop date) Never Smoker NA - NA Social History Tobacco Use: Social Info Question Answer Notes Tobacco Control (Standard) Tobacco use: Nonsmoker Additional Details Category Social Info Options Details Miscellaneous: Marital status: Sexually active: no Sexual abuse: no 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 De nies Do you drink alcohol? No Section Notes: Currently taking medications for mental health reasons Currently taking medications for mental health reasons Currently taking medications for mental health reasons Problems Problem Type SNOMED Code ICD Code Onset Dates Problem Status W/U Status Risk Notes Problem Chronic pain syndrome (930756889) Chronic pain syndrome (G89.4) Active confirmed Problem Acquired spondylolisthesis (481173392) Spondylolysis, lumbosacral region (M43.07) Active confirmed Problem Solitary sacroiliitis (496749365) Sacroiliitis, not elsewhere classified (M46.1) Active confirmed Problem Lumbosacral spondylosis without myelopathy (97743483) Spondylosis without myelopathy or radiculopathy, lumbar region (M47.816) Active confirmed Problem Lumbar radiculopathy (363900127) Lumbar radiculopathy (M54.16) Active confirmed Problem CVA - Cerebrovascular accident (529192139) CVA (cerebral vascular accident) (I63.9) Active confirmed Problem Abnormal gait (99194094) Abnormality of gait and mobility (R26.9) Active confirmed Problem 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) Active confirmed Problem Neurogenic claudication (608732305) 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) Active confirmed Vital Signs Height-cm 175.26 cm 11/21/2024 Weight-kg 83.92 kg 11/21/2024 Height 69 in 11/21/2024 Weight 185 lbs 11/21/2024 BMI 27.32 kg/m2 11/21/2024 Encounters Encounter Location Date Provider Diagnosis Formerly [facility] [place] [address] [place] [address] 09/19/2024 Jeremie Gomezt Chronic pain syndrom e G89.4 ; Neurogenic claudication due to lumbar spinal stenosis M48.062 ; Lumbar radiculopathy M54.16 ; Aphasia as late effect of cerebrovascular accident I69.320 ; Abnormality of gait and mobility R26.9 ; 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 Z79.891 and CVA (cerebral vascular accident) I63.9 [facility]ly [facility] [place] [address] [place] [address] 11/21/2024 Jeremie Gomez Chronic pain syndrom e G89.4 ; Neurogenic claudication due to lumbar spinal stenosis M48.062 ; Lumbar radiculopathy M54.16 ; [facility] (current) use of opiate analgesic Z79.891 ; Aphasia as late effect of cerebrovascular accident I69.320 ; Abnormality of gait and mobility R26.9 and CVA (cerebral vascular accident) I63.9 [facility] [place] [address] [place] [facility] [place] [address] 07/25/2024 Jeremie Gomez Chronic pain syndrom e G89.4 ; Neurogenic claudication due to lumbar spinal stenosis M48.062 ; CVA (cerebral vascular accident) I63.9 ; Aphasia as late effect of cerebrovascular accident I69.320 ; Lumbar radiculopathy M54.16 ; Abnormality of gait and mobility R26.9 and 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 Z79.891 [facility] [place] [address] [place] [address] 11/22/2024 Jeremie Gomez Lumbar radiculopathy M54.16 [facility] [address] [address] 09/28/2024 Jeremie Gomez [facility] [address] [address] 12/10/2024 Jeremie Gomez Assessments Encounter Date Diagnosis (ICD Code) Assessment [...] to lumbar spinal stenosis (ICD-10 - M48.062) 09/19/2024 Chronic pain syndrome (ICD-10 - G89.4) I had a nice visit with the patient regarding his chronic pain issues. His reports that he's doing ok. He's doing PT and getting by with the medications. He still has plenty from Dr. Hardin. No new prescription was provided today. We will plan to see him back in a couple of months and proceed accordingly. 09/19/2024 Neurogenic claudication due to lumbar spinal stenosis (ICD-10 - M48.062) 11/21/2024 Chronic pain syndrome (ICD-10 - G89.4) I had a nice visit with the patient today regarding his chronic pain issues. His communicates that he has been struggling to get around due to the pain. We reviewed his lumbar MRI, which showed significant spondylosis. We discussed diagnostic LMBBs and LMBRs. His feels like he will be able to communicate success if it is present with the blocks. We will get this scheduled here in the near future. He continues to find the current medication regimen relatively effective overall. His UDS and pill counts have been consistent with his treatment regimen. We will continue his medication regimen unchanged. We will follow up thereafter and proceed accordingly. 11/21/2024 Neurogenic claudication due to lumbar spinal stenosis (ICD-10 - M48.062) RECOMMEND DIAGNOSTIC MEDIAL BRANCH BLOCK, levels L4-5 L5-S1 The patient has an ongoing nonradicular pain component as described above, which we believe could be facet joint mediated. The pain has failed to respond to rest, activity modification NSAIDs therapy, physical therapy, and current prescription medications. Therefore, a diagnostic medial branch block is recommended. Diagnostic medial branch blocks are indicated to determine the source of pain because there is a discrepancy between pathology and complaints, and it is unclear whether patient's pain is central or peripheral in origin. The patient understands that 80% relief is received for a short time in order to be considered successful. If patient has two positive response diagnostic medial branch blocks, then rhizotomy will be considered. If the diagnostic medial branch blocks do not help at least 80%, then patient understands to not proceed with rhizotomy. Patient and provider understand and agree that, per CMS LCD, medial branch blocks will be performed with a minimum interval of two weeks. The procedure and risks were discussed with the patient including but not limited to infection, bleeding, neurological complications, side effects from medications, no change in pain, worsening of pain, or even . We also discussed conservative options, surgical options, and medical management with patient as well. The patient indicates understanding and wishes to proceed with the recommended treatment approach. The patient was given written information about the procedure and all questions were answered. 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 Jeremie Gomez. I, Dr. Jeremie Gomez, personally performed the services described in this documentation, as scribed by JULIA Crum, and it is both accurate and complete. 09/19/2024 Other Susan Luu, am scribing for Dr. Jeremie Gomez. I, Dr. Jeremie Gomez, personally performed the services described in this documentation, as scribed by Susan Hui, and it is both accurate and complete. 11/21/2024 Other I, Susan Hui, am scribing for Dr. Jeremie Gomez. I, Dr. Jeremie Gomez, personally performed the services described in this documentation, as scribed by Susan Hui, and it is both accurate and complete. Plan Of Treatment Pending Test Test Name Order Date Facet Inj. / MBB Lumbar/Sacral, 2 levels - 70022, 22415 01/01/2025 Future Test Test Name Order Date Facet Inj. / MBB Lumbar/Sacral, 2 levels - 97722, 94558 11/23/2024 Next Appt Details Provider Name:Jeremie Gomez, 01/01/2025 01:40:00 PM, [address] [place], [address], Insurance Providers Payer Name Payer Address Payer Phone Subscriber Number Group Number Insured Name Patient Relationship to Insured Coverage Start Date Coverage End Date [place] Medicare [address] [place] [phone] [id number] Ap Guillen Self - patient is the insured BCBS Supplement [address] [place] [address] [id number] Ap Guillen Self - patient is the insured Medical (General) History Medical History History ICD Code High Blood Pressure Heart Disease measles/mumps/rubella bronchitis stroke Depression Arthritis Prostate Problems kidney infection kidney stones Bleeding Disorder Surgical History Surgery Date(Month/Year) tonsillectomy hernia repair cataract removal aneurysm repair x2
--- OUTSIDE RECORDS SUMMARY | 2024-12-27 18:59 | XMS_ITS | Clinical Summary ---
Author Organization [facility] Address [address] [facility] Attn: [place] [address] Care Team Providers Care Dermatology Teacher Name Role Phone David Escobar MD Primary [...] daily. Active fluticasone propionate (FLONASE) 50 mcg/spray [place], Suspension nasal inhaler Administer 2 Sprays in [...] mg) by mouth daily. 100 Tablet 3 02/19/19 25 Active pantoprazole (PROTONIX) 40 mg Tablet, Delayed Release (E.C.) Take 1 Tablet (40 mg) by mouth 2 times daily. 200 Tablet 3 02/19/19 25 Active guaiFENesin (Mucinex) 600 mg Extended Release Biphasic tablet Take 600 mg by mouth 2 times daily. 05/01/19 23 Active atorvastatin (LIPITOR) 40 mg tabletIndications: Mixed hyperlipidemia Take 1 Tablet (40 mg) by mouth daily. 100 Tablet 3 03/08/19 25 Active metoprolol tartrate (LOPRESSOR) 50 mg tablet TAKE ONE AND ONE-HALF TABLETS TWICE A DAY 135 Tablet 7 08/22/19 25 Active Additional Information Patient taking differently: 50 mg Oral TWO TIMES DAILY, Pt's reports Dr Escobar changed dose, Reported on 09/03/2024 Active Problems Problem Noted Date Diagnosed Date History of CVA (cerebrovascular accident) 2024 MGUS (monoclonal gammopathy of unknown significa nce) 01/27/2024 Assessment & Plan (07/20/2024 4:26 PM CDT): Chronic, stable Follows with oncology No recent changes to labs Monitor Anemia 01/27/2024 ASCVD (arteriosclerotic cardiovascular disease) 01/17/2024 MEDARDO (generalized anxiety disorder) 01/17/2024 Assessment & Plan (01/18/2024 7:45 AM PARTS PROFESSIONAL): See above. History of multiple strokes 06/05/2021 Essential hypertension 06/05/2021 Assessment & Plan (07/20/2024 4:26 PM CDT): Chronic, controlled Continue current medication regimen Assessment & Plan (01/18/2024 7:45 AM PARTS PROFESSIONAL): Chronic, stable, well controlled. Continue current management. Abdominal aortic aneurysm 06/05/2021 Osteoporosis 06/13/2020 Dysphagia 03/14/2020 Slurred speech 03/14/2020 Assessment & Plan (07/20/2024 4:26 PM CDT): Chronic, unchanged Monitor Carotid stenosis, bilateral 09/19/2019 Chronic kidney disease 07/12/2019 Assessment & Plan (07/20/2024 4:26 PM CDT): Chronic, stable Labs up-to-date Assessment & Plan (01/18/2024 7:45 AM PARTS PROFESSIONAL): Chronic, stable. Continue current management and monitoring. [...] regimen Assessment & Plan (01/18/2024 7:45 AM PARTS PROFESSIONAL): Stable and Controlled. Continue current treatment. Chronic anticoagulation Chronic anemia Assessment & Plan (07/20/2024 4:26 PM CDT): Chronic, stable Labs up-to-date Assessment & Plan (01/18/2024 7:45 AM PARTS PROFESSIONAL): 2/2 to blood loss. Pt continues to f/u w/ hematology multiple times a year and sees them next week. Resolved Problems Problem Noted Date Diagnosed Date Resolved Date Acute gastrointestinal hemorrhage 06/05/2021 01/17/2024 Acute blood loss anemia 06/05/202107/08 Wellness examination 04/21/2021 024 Anxiety and depression 06/13/201801/16 Pulmonary embolism 03/09/2017 4 Overview (01/17/2024): hx of PE Nausea \T\ vomiting 09/10/2011 09/12/19 12 Abdominal pain, epigastric 09/10/2011 0 09/12/2011 Elevated LFTs 09/10/2011 01/17/2024 Pseudophakia 08/07/2009 01/17/2024 Hypotropia 08/07/2009 01/17/2024 Diplopia 08/07/2009 01/17/2024 Encounters Date Type Department Care Team Description 10/29/2024 Telephone [facility] [address] [place] [address] David Escobar MD Information 10/23/2024 Telephone [facility] [address] [place] [address] David Escobar MD Referral from Last 3 Months Immunizations Immunization Administration [...] on file Legal Sex Male 11:52 AM PARTS PROFESSIONAL Gender Identity Not on file Sexual Orientation Not on file Last Filed Vital Signs Vital Sign Reading Time Taken Comments Blood Pressure 106/70 09/03/2024 1:08 PM CDT Pulse 64 09/03/2024 1:08 PM CDT Temperature 36.4 C (97.5 F) 07/20/2024 1:15 PM CDT Respiratory Rate 16 07/20/2024 1:15 PM CDT Oxygen Saturation 96% 07/20/2024 2:20 PM CDT Inhaled Oxygen Concentration - - Weight 82.1 kg (181 lb) 09/03/2024 1:08 PM CDT Height 175.3 cm (5' 9 ) 09/03/2024 1:08 PM CDT Body Mass Index 26.73 09/03/2024 1:08 PM CDT Plan of Treatment Upcoming Encounters Date Type Department Care Team (Late st Contact Info) Description 01/23/2025 2:00 PM PARTS PROFESSIONAL Office Visit [facility] Primary Care [address] [place] [phone] David Escobar MD [address] [place] [phone] 02/27/2025 10:00 AM PARTS PROFESSIONAL Appointment [facility] Cardiovascular Imaging [place] [address] [place] [phone] Lion Naranjo MD [address] [place] [address] 02/27/2025 11:00 AM PARTS PROFESSIONAL Appointment [facility] Cardiovascular Imaging [place] [address] [place] [facility] [place] [phone] Lion Naranjo MD [address] [place] [address] 02/27/2025 12:00 PM PARTS PROFESSIONAL Office Visit [facility] Heart and Vascular [place] [address] [facility] [place] [place] [address] Lion Naranjo MD [address] [place] [phone] 07/19/2025 1:00 PM CDT Appointment [facility] Laboratory Services [facility] [address] [place] [phone] Marycarmen Marin, [facility] [address] [place] [phone] 07/19/2025 2:00 PM CDT Office Visit [facility] Oncology and Hematology [address] [place] [phone] Marycarmen Marin, [facility] [address] [place] [address] Health Maintenance Due Date Last Done Comments ZOSTER VACCINE (1 of 2) 1990 PNEUMOCOCCAL VACCINE 50+ YEA RS (2 of 2 - PCV20 or PCV21) 01/12/2019 01/12/2018, 12/08/2005 INFLUENZA VACCINE (#1) 2024 , 12/14/2023, 11/18/2022, Additional history exists COVID-19 Vaccine (2023-2 5 season) 2024 12/14/2023, 11/18/2022, 11/04/2021, Additional history exists Traditional Medicare (ACO) A nnual Wellness Visit 01/17/2025 01/17/2024 DTAP/TDAP/TD VACCINES (3 - T d or Tdap) 04/22/2031 04/21/2021, 04/21/2021 RSV VACCINE (60+ or ) Completed 12/14/2022 Insurance MEDICARE PART A AND B BCBS SUPP Advance Directives For more information, please contact: [phone] * Default Full Code - Needs Discussion (Latest Code Status on File) Date Activated Date Inactivated Comments 06/05/2021 5:03 AM 06/08/2021 5:55 PM Care Teams Dermatology Teacher Relationship Specialty Start Date End Date David Escobar MD [address] [place] [phone] PCP - General Family Practice 01/17/24
--- OUTSIDE RECORDS SUMMARY | 2024-12-27 18:59 | XMS_ITS ---
Author Organization [facility] are Support Name Relationship Address Phone Sherine Bustamante Next of Kin Unknown [phone] Johanny Guillen Emergency Contact Unknown Ap Guillen Guarantor [address] [place] [address] Ap Guillen Agent [address] [place] [address] Guillen, Nicho Emergency Contact Unknown Immunizations Immunization Status Vaccine Details Vaccine Code CodeSystem Date Notes Influenza completed Influenza, high-dose, split virus, quadrivalent, injectable, preservative free lotNumber: [id number] expiry: 07/30/2022 Mfg: Seqirus Given 0.5 ml [...] 0 No delirium ind icated [id number] [id number] Insurance Providers Reason for Referral No Reasons for Referral Entered Social History Social History Observation Description Start Date End Date Code Code System Current Smoking Status Tobacco smoking consumption unknown 139372540 SNOMED CT Sex Assigned At Male 1940 [id number] [facility] Gender Identity Sexual Orientation
[2024-12-27 19:07] LABS: Hematocrit 46.0 % (37-53); Hemoglobin 15.20 g/dL (11.27-16.99); Mean Corpuscular HGB Conc 33.0 g/dL (30-55); Mean Corpuscular Hemoglobin 30.2 pg (27-33); Mean Corpuscular Volume 91.3 fl (82-101); Nucleated Red Blood Cells % 0 %; Platelet Count 203 10^3/cmm (157-399); Red Blood Count 5.04 10^6/uL (3.85-5.65); White Blood Count 9.93 10^3/uL (3.29-11.43)
--- NOTE | 2024-12-27 19:14 | W.ED.NAVMDI ---
HPI - Nausea/Vomiting/Diarrhea General: Chief complaint: Nausea/Vomiting/Diarrhea Stated complaint: n/v Time Seen by Provider: 12/27/24 18:54 Source: patient and EMS Mode of arrival: EMS History of Present Illness: 84-year-old male has a history of dementia and by EMS has been having some vomiting today. Patient has had normal bowel movements today. Has had 2-3 episodes of vomiting patient denies any abdominal pain denies any fevers he is at his baseline he is able to tell me his name where he is from confused to the year Related Data Home Medications ?Medication ?Instructions ?Recorded ?Confirmed aspirin 81 mg tablet,delayed 81 mg PO DAILY@0907/09/20 11/28/23 release ascorbic acid (vitamin C) 1,000 mg 1 g PO DAILY@209909/03/20 11/28/23 tablet (Vitamin C) cetirizine 10 mg tablet 10 mg PO DAILY@89909/03/20 11/28/23 cholecalciferol (vitamin D3) 25 25 mcg PO BID@09/03/20 11/28/23 mcg (1,000 unit) chewable tablet (Vitamin D3) omega-3 fatty acids 1,000 mg 1,000 mg PO QAM 09/21/21 11/28/23 capsule tramadol 50 mg tablet 50 mg PO BID@09/21/21 11/28/23 lidocaine 5 % topical patch 1 patch transdermal DAILY PRN Pain 08/25/23 11/28/23 fluticasone propionate 50 1 spray intranasal DAILY PRN 08/31/23 11/28/23 mcg/actuation nasal allergies spray,suspension omega 3-fjn-uhb-fish oil 1,000 mg 1 cap PO BID 11/28/23 11/28/23 (120 mg-180 mg) capsule (Fish Oil) polyethylene glycol 3350 17 4 g PO DAILY 11/28/23 11/28/23 gram/dose oral powder Previous Rx's ?Medication ?Instructions ?Recorded pantoprazole 40 mg tablet,delayed 40 mg PO BID #60 tabs 09/23/21 release (Protonix) amlodipine 10 mg tablet 10 mg PO DAILY #90 tabs 08/26/23 metoprolol tartrate 50 mg tablet 50 mg PO BID #30 tabs 08/26/23 atorvastatin 40 mg tablet 80 mg (2 x 40 mg) PO DAILY@2100 #0 08/30/23 tabs venlafaxine 150 mg 150 mg PO DAILY #30 caps 08/30/23 capsule,extended release 24 hr (Effexor XR) diclofenac sodium 75 mg 75 mg PO Q12H PRN pain #20 tabs 11/28/23 tablet,delayed release ondansetron 4 mg disintegrating 4 mg PO Q6H PRN nausea and 12/27/24 tablet vomiting #14 tabs Allergies Allergy/AdvReac Type Severity Reaction Status Date / Time acetylcysteine Allergy nausea/vomi Verified 11/28/23 08:08 ting Review of Systems GI: Reports: vomiting PFSH ED PFSH: Medical History Pneumonia Acute kidney injury superimposed on chronic kidney disease Generalized weakness Aspiration pneumonia Bibasilar crackles Risk for falls Hypertension Aphasia Expressive aphasia Vitamin D deficiency Peripheral artery disease Anemia Osteoporosis Expressive aphasia Chronic anticoagulation Eliquis due to CVA history Dyslipidemia Degenerative joint disease of spine CVA (cerebral vascular accident) 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 Reported to have hole in his heart but later when attempt was made to repair it was not identified. On chronic anticoagulation with Eliquis, initiated at outside facility, due to history of recurrent strokes. CKD (chronic kidney disease) Single functioning kidney per Surgical History Status post herniorrhaphy right inguinal hernia History of cataract surgery History of intravascular stent placement renal artery and aortic stents Status post endovascular aneurysm repair (EVAR) Status post right inguinal hernia repair Status post colonoscopy 2015 adenomatous polyp Family History Mother , at age 93 No problems noted. Father , at age 77 AA (aortic aneurysm) Cancer throat and lung Other Hypertension Social History Smoking and tobacco/nicotine status: never used tobacco/nicotine Alcohol intake: never Substance/Drug Use: never Household members: spouse Housing: House Marital status: Current occupational status: retired Physical Exam Const: COMMON NORMALS: alert; negative for patient oriented x3 ORIENTATION/CONSCIOUSNESS: Yes oriented to person; not oriented to time HENMT: COMMON NORMALS: normocephalic and atraumatic HEAD & SCALP: normocephalic and atraumatic Eye: COMMON NORMALS: Equal, round and reactive pupils present and EOMs intact bilaterally PUPIL: Yes Equal, round and reactive pupils present Neck/C-Spine: COMMON NORMALS: full ROM and supple Chest: COMMONS NORMALS: normal inspection of the chest and normal palpation of entire chest wall Resp: COMMON NORMALS: normal respiratory effort, No retractions, No use of accessory muscles and clear to auscultation bilaterally AUSCULTATION: clear to auscultation bilaterally Cardio: COMMON NORMALS: regular rate, regular rhythm and No murmurs present (Cardio) RATE: regular rate RHYTHM: regular rhythm GI: COMMON NORMALS: Normal to inspection, nondistended, normoactive bowel sounds present, Soft to palpation, non-tender and no masses PALPATION: Yes Soft to palpation Extremity: COMMON NORMALS: normal to inspection and full ROM Neuro: COMMON NORMALS: moves all extremities and no focal motor deficits; negative for patient oriented x3 SENSORIUM/ORIENTATION: Yes alert, Yes oriented to person and No oriented to time Psych: COMMON NORMALS: Normal thought process present and cooperative THOUGHT PROCESS: Normal thought process present Skin: COMMON NORMALS: no rashes or lesions noted and no wounds GENERAL SKIN EXAM: no rashes or lesions noted Course Vital Signs: Vital signs: Vital Signs Temperature 97.9 F 12/27/24 18:53 Pulse Rate 92 12/27/24 18:53 Respiratory Rate 16 12/27/24 18:53 Blood Pressure 117/91 12/27/24 20:14 Pulse Oximetry 92 12/27/24 20:14 Oxygen Delivery Me thod Room Air 12/27/24 18:53 MDM - Nausea/Vomiting/Diarrhea Medical Decision Making Patient presents here with nausea vomiting differential includes bowel obstruction, gastroenteritis. Patient's blood work here shows no significant abnormalities no signs UTI did CT his abdomen shows no signs of obstruction likely an enteritis patient's been well-appearing here with normal vitals but able to tolerate p.o. after Zofran did go over findings with patient's he is stable for discharge home will prescribe Zofran he is follow-up with PCP and return if worsening. Medical Records I reviewed the patient's medical records. Lab Data I reviewed the patient's lab results. 12/27/24 19:01 12/27/24 19:01 Radiology Impressions KUB X-Ray 12/27/24 18:56 IMPRESSION: Nonobstructive bowel gas pattern. Abdomen/Pelvis CT 12/27/24 19:32 IMPRESSION: 1. Stomach is distended with fluid including a large supra diaphragmatic sliding hiatal hernia component. No findings of gastric outlet obstruction or ulcer. Findings could reflect gastritis or gastroparesis. 2. Severe arterial disease. No current findings of bowel ischemia or infarction; however, patient is at risk. 3. Features of chronic interstitial lung disease are noted, similar to prior exam. 4. Large volume fecal debris throughout the colon suggests constipation. No findings of obstruction. 5. Infrarenal abdominal aorta has been treated with stent graft without evidence of mural instability or perianeurysmal fibrosis. Subtle increased attenuation in the excluded portion of the aneurysm appears similar to prior and may represent a chronic endoleak, stable from prior. 6. Heterogeneous enhancement of the moderately enlarged prostate could reflect prostate cancer. 7. Multilevel spinal canal stenosis. Correlate with any symptoms of neurogenic claudication. Laboratory Results WBC 9.93 10^3/uL (3.29-11.43) 12/27/24 19: RBC 5.04 10^6/uL (3.85-5.65) 12/27/24 19: Hgb 15.20 g/dL (11.27-16.99) 12/27/24 19: Hct 46.0 % (37-53) 12/27/24 19: MCV 91.3 fl (82-101) 12/27/24 19: MCH 30.2 pg (27-33) 12/27/24 19: MCHC 33.0 g/dL (30-55) 12/27/24 19: RDW 13.8 % (12.1-15.1) 12/27/24 19: Plt Count 203 10^3/cmm (157-399) 12/27/24 19: MPV 10.1 fL (7.4-10.4) 12/27/24 19: Neut % (Auto) 83.3 % 12/27/24 19: Lymph % (Auto) 3.9 % 12/27/24 19:01 [place] % (Auto) 4.6 % 12/27/24 19:01 Eos % (Auto) 7.7 % 12/27/24 19:01 Baso % (Auto) 0.2 % 12/27/24 19:01 Neut # (Auto) 8.27 10^3/uL (1.8-7.7) H 12/27/24 19: Lymph # (Auto) 0.4 10^3/uL (0.8-4.8) L 12/27/24 19:01 [place] # (Auto) 0.5 10^3/uL (0.2-0.9) 12/27/24 19:01 Eos # (Auto) 0.8 10^3/uL (0.0-0.8) 12/27/24 19: Baso # (Auto) 0.0 10^3/uL (0.0-0.1) 12/27/24 19:01 Nucleated RBC % (auto) 0 % 12/27/24 19: Nucleated RBCs # 0.0 /100WBC 12/27/24 19:01 Sodium 139 mmol/L (136-145) 12/27/24 19:01 Potassium 4.5 mmol/L (3.5-5.1) 12/27/24 19: Chloride 101 mmol/L (98-107) 12/27/24 19:01 Carbon Dioxide 25 mmol/L (22-29) 12/27/24 19: Anion Gap 17.5 (5-19) 12/27/24 19: BUN 21 mg/dL (8-23) 12/27/24 19: Creatinine 1.6 mg/dL (0.7-1.2) H 12/27/24 19:01 GFR Calculation Not Reportable 12/27/24 19: Glucose 146 mg/dL (65-115) H 12/27/24 19: Calculated Osmolality 294 mOsm/kg (285-295) 12/27/24 19: Calcium 9.1 mg/dL (8.5-10.5) 12/27/24 19:01 Total Bilirubin 0.5 mg/dL (0.15-1.2) 12/27/24 19: AST 17 U/L (0-40) 12/27/24 19:01 ALT 20 U/L (0-41) 12/27/24 19:01 Alkaline Phosphatase 115 U/L (40-130) 12/27/24 19:01 Total Protein 7.4 g/dL (6.6-8.7) 12/27/24 19:01 Albumin 4.2 g/dL (3.5-5.2) 12/27/24 19: Globulin 3.2 g/dL (1.3-4.6) 12/27/24 19:01 Lipase 87 U/L (13-60) H 12/27/24 19:01 Urine Color Yellow (Yellow) 12/27/24 19:48 Urine Appearance Clear (CLEAR) 12/27/24 19:48 Urine pH 6.5 (5-7) 12/27/24 19:48 Ur Specific [place] 1.013 (1.005-1.030) 12/27/24 19:48 Urine Protein Trace (Negative) A 12/27/24 19:48 Urine Glucose (UA) Negative (Normal) 12/27/24 19:48 Urine Ketones Negative (Negative) 12/27/24 19:48 Urine Blood Negative (Negative) 12/27/24 19:48 Urine Nitrate Negative (Negative) 12/27/24 19:48 Urine Bilirubin Negative (Negative) 12/27/24 19:48 Urine Urobilinogen 1.0 mg/dL (Negative) 12/27/24 19:48 Ur Leukocyte Esterase Negative (Negative) 12/27/24 19:48 Amorphous Sediment Not Reportable 12/27/24 19:48 All radiology interpretation(s) finalized by discharge Discharge Plan Discharge Patient Disposition: Home Clinical Impression: Vomiting Condition: Stable Prescriptions: New ondansetron 4 mg tablet,disintegrating 4 mg PO Q6H PRN (Reason: nausea and vomiting) Qty: 14 0RF No Action aspirin 81 mg tablet,delayed release (DR/EC) 81 mg PO DAILY@0900 ascorbic acid (vitamin C) [Vitamin C] 1,000 mg Tablet 1 g PO DAILY@2100 cetirizine 10 mg Tablet 10 mg PO DAILY@0900 cholecalciferol (vitamin D3) [Vitamin D3] 25 mcg (1,000 unit) Tablet,Chewable 25 mcg PO BID@ omega-3 fatty acids 1,000 mg Capsule 1,000 mg PO QAM tramadol 50 mg tablet 50 mg PO BID@09,21 pantoprazole [Protonix] 40 mg tablet,delayed release (DR/EC) 40 mg PO BID Qty: 60 3RF lidocaine 5 % adhesive patch,medicated 1 patch transdermal DAILY PRN (Reason: Pain) amlodipine 10 mg Tablet 10 mg PO DAILY Qty: 90 0RF metoprolol tartrate 50 mg tablet 50 mg PO BID Qty: 30 0RF atorvastatin 40 mg Tablet 80 mg PO DAILY@2100 Qty: 0 0RF venlafaxine [Effexor XR] 150 mg capsule,extended release 24hr 150 mg PO DAILY Qty: 30 0RF fluticasone propionate 50 mcg/actuation spray,suspension 1 spray INTRANASAL DAILY PRN (Reason: allergies) polyethylene glycol 3350 17 gram/dose Powder 4 g PO DAILY omega 0-gkc-rkg-fish oil [Fish Oil] 1,000 (120-180) mg Capsule 1 cap PO BID diclofenac sodium 75 mg tablet,delayed release (DR/EC) 75 mg PO Q12H PRN (Reason: pain) Qty: 20 0RF Discharge Orders: Discharge ED (Routine); Ordered 12/27/24 Ordered By: Ammy Dougherty Discharge Diet: Advance as tolerated Discharge Activity: Resume usual activity Patient Instructions: Acute Nausea and Vomiting (ED) Print Language: Ecuadorean Coding Level of Care Code ED Senior Information Security Architect for Art Villanueva
[2024-12-27 19:28] LABS: Alanine Aminotransferase 20 U/L (0-41); Albumin Level 4.2 g/dL (3.5-5.2); Alkaline Phosphatase 115 U/L (40-130); Anion Gap 17.5 (5-19); Aspartate Amino Transferase 17 U/L (0-40); Blood Urea Nitrogen 21 mg/dL (8-23); Calcium 9.1 mg/dL (8.5-10.5); Carbon Dioxide 25 mmol/L (22-29); Chloride 101 mmol/L (98-107); Globulin 3.2 g/dL (1.3-4.6); Glucose 146 mg/dL (65-115); Lipase 87 U/L (13-60); Osmolality Calculated 294 mOsm/kg (285-295); Potassium 4.5 mmol/L (3.5-5.1); Sodium 139 mmol/L (136-145); Total Protein 7.4 g/dL (6.6-8.7)
[2024-12-27] MEDS: ondansetron 2 mg/ML SDV 2 mL 4 MG IVP (19:32)
--- NOTE | 2024-12-27 19:32 | CTR_ITS ---
PROCEDURE INFORMATION: Exam: CT Abdomen And Pelvis With Contrast Exam date and time: 12/27/2024 7:55 PM Age: 84 years old Clinical indication: Vomiting TECHNIQUE: Imaging protocol: Computed tomography of the abdomen and pelvis with contrast. Radiation optimization: All CT scans at this facility use at least one of these dose optimization techniques: automated exposure control; mA and/or kV adjustment per patient size (includes targeted exams where dose is matched to clinical indication); or iterative reconstruction. Contrast material: [id number]; Contrast volume: 100 ml; Contrast route: INTRAVENOUS (IV); COMPARISON: CT chest abdpel w/*[id number] 11/28/2023 9:33 AM RADIATION DOSE METRICS: Total DLP (mGy-cm): 902.01 FINDINGS: Lungs: There is peripheral reticular opacity throughout each lung base. No acute airspace disease. Heart: Heart size is normal. Liver: Normal configuration. Homogeneous parenchyma. Gallbladder and biliary ducts: No regional inflammation. No calcified stones. No ductal dilation. Pancreas: No edema or visible mass. Spleen: Homogeneous parenchyma without abnormal enlargement. Adrenal glands: Normal configuration. Kidneys and ureters: End-stage atrophy of the right kidney. Normal left kidney without evidence of solid mass or obstruction. Stomach and bowel: There is a large sliding hiatal hernia containing approximately 30% of the stomach. Stomach is fluid filled without visible mass or ulcer. Normal caliber small bowel with normal enhancement. There is sparse diverticular disease in the distal colon without evidence of acute diverticulitis. Large volume of fecal debris is noted throughout the colon suggesting constipation. No bowel wall pneumatosis. Appendix: Normal appendix is confirmed. Intraperitoneal space: No free air. No significant fluid collection. Vasculature: Aneurysm along the undersurface of the aortic arch appears stable from prior exam where the year ago. 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 The stented left renal artery is patent. There is high-grade stenosis at the origin of the celiac artery estimated at 75% diameter reduction. There is high-grade stenosis at the origin of the superior mesenteric artery estimated at greater than 75% diameter reduction. Patent inferior mesenteric artery. Periphery of the mesenteric vessels enhance normally. No portal venous gas. Subtle increased attenuation in the excluded portion of the aneurysm appears similar to prior and may represent a chronic endoleak. No perianeurysmal fibrosis or hemorrhage. Lymph nodes: No enlarged lymph nodes. Urinary bladder: Unremarkable as visualized. Reproductive: Prostate is mildly enlarged and demonstrates heterogeneous enhancement measuring 5.8 x 5.6 x 5.9 cm. No significant seminal vesicle enlargement. Bones/joints: No acute fracture or destructive lesion. Healing right-sided rib fractures are noted. There is moderate to advanced multilevel degenerative disc and facet disease throughout the lumbar spine with multilevel spinal canal stenosis which is most severe at L3-L4 and L4-L5. Minimal sacroiliac osteoarthritis. No significant hip arthropathy. There are bilateral L5 pars interarticularis defects. Normal alignment at L5-S1. Soft tissues: No perineal/perianal abscess or inflammation. No visible skin breakdown. CT/CT abdomen pelvis w con* [id number] IMPRESSION: 1. Stomach is distended with fluid including a large supra diaphragmatic sliding hiatal hernia component. No findings of gastric outlet obstruction or ulcer. Findings could reflect gastritis or gastroparesis. 2. Severe arterial disease. No current findings of bowel ischemia or infarction; however, patient is at risk. 3. Features of chronic interstitial lung disease are noted, similar to prior exam. 4. Large volume fecal debris throughout the colon suggests constipation. No findings of obstruction. 5. Infrarenal abdominal aorta has been treated with stent graft without evidence of mural instability or perianeurysmal fibrosis. Subtle increased attenuation in the excluded portion of the aneurysm appears similar to prior and may represent a chronic endoleak, stable from prior. 6. Heterogeneous enhancement of the moderately enlarged prostate could reflect prostate cancer. 7. Multilevel spinal canal stenosis. Correlate with any symptoms of neurogenic claudication.
[2024-12-27] MEDS: iohexol 350 mg/mL 500 mL Btl (per mL) IV (19:58)
[2024-12-27 20:14] VITALS: BP 117/91; O2SAT 92
[2024-12-27 20:14] LABS: Glucose Urine UA Negative (Normal); Nitrate Urine Negative (Negative); Specific Gravity, Urine 1.013 (1.005-1.030)
[2024-12-27 20:20] LABS: Add Urine Microscopic? YES
[2024-12-27 20:58] VITALS: BP 117/73; PULSE 90; RESP 17; O2SAT 93
== END 2024-12-27 20:59 | disposition home or self-care (01) ==
PROVIDERS: Emergency Provider Emergency Medicine
DX: R11.10 Vomiting, unspecified (principal); Z79.82 Long term (current) use of aspirin; Z86.73 Personal history of transient ischemic attack (TIA), and cerebral infarction without residual deficits; E78.5 Hyperlipidemia, unspecified; I12.9 Hypertensive chronic kidney disease with stage 1 through stage 4 chronic kidney disease, or unspecified chronic kidney disease; N18.9 Chronic kidney disease, unspecified
CPT/HCPCS: 74018; 74177; 80053; 81001; 83690; 85025; 96374; 99285; J2405; J7030

== ENCOUNTER 2024-12-28 09:41 | Emergency (ER) | payer MEDICARE, BC, SELFPAY ==
[2024-12-28 09:41] VITALS: BP 131/73; PULSE 64; RESP 18; TEMP 36.9; O2SAT 92; BMI 22.1
--- OUTSIDE RECORDS SUMMARY | 2024-12-28 09:47 | XMS_ITS | Clinical Summary ---
Author Organization [facility] Address [address] Attn: [place] [address] Care Team Providers Care Fire Behavior Analyst Name Role Phone David Escobar MD Primary [...] daily. Active fluticasone propionate (FLONASE) 50 mcg/spray [place], Suspension nasal inhaler Administer 2 Sprays in [...] 01/17/2024 Assessment & Plan (01/18/2024 7:45 AM BUSINESS OPERATIONS MANAGER): See above. History of multiple strokes 06/05/2021 Essential hypertension 06/05/2021 Assessment & Plan (07/20/2024 4:26 PM CDT): Chronic, controlled Continue current medication regimen Assessment & Plan (01/18/2024 7:45 AM BUSINESS OPERATIONS MANAGER): Chronic, stable, well controlled. Continue current management. Abdominal aortic aneurysm 06/05/2021 Osteoporosis 06/13/2020 Dysphagia 03/14/2020 Slurred speech 03/14/2020 Assessment & Plan (07/20/2024 4:26 PM CDT): Chronic, unchanged Monitor Carotid stenosis, bilateral 09/19/2019 Chronic kidney disease 07/12/2019 Assessment & Plan (07/20/2024 4:26 PM CDT): Chronic, stable Labs up-to-date Assessment & Plan (01/18/2024 7:45 AM BUSINESS OPERATIONS MANAGER): Chronic, stable. Continue current management and monitoring. [...] regimen Assessment & Plan (01/18/2024 7:45 AM BUSINESS OPERATIONS MANAGER): Stable and Controlled. Continue current treatment. Chronic anticoagulation Chronic anemia Assessment & Plan (07/20/2024 4:26 PM CDT): Chronic, stable Labs up-to-date Assessment & Plan (01/18/2024 7:45 AM BUSINESS OPERATIONS MANAGER): 2/2 to blood loss. Pt continues to [...] Type Department Care Team Description 10/29/2024 Telephone [facility] [address] [place] [address] David Escobar MD Information 10/23/2024 Telephone [facility] [address] [place] [address] David Escobar MD Referral from Last 3 [...] on file Legal Sex Male 11:52 AM BUSINESS OPERATIONS MANAGER Gender Identity Not on file Sexual Orientation [...] st Contact Info) Description 01/23/2025 2:00 PM BUSINESS OPERATIONS MANAGER Office Visit [facility] [address] [place] [phone] David Escobar MD [address] [place] [phone] 02/27/2025 10:00 AM BUSINESS OPERATIONS MANAGER Appointment [facility] Cardiovascular Imaging [place] [address] [place] [phone] Lion Naranjo MD [address] [place] [address] 02/27/2025 11:00 AM BUSINESS OPERATIONS MANAGER Appointment [facility] Cardiovascular Imaging [place] [address] [facility] [place] [phone] Lion Naranjo MD [address] [facility] [place] [phone] 02/27/2025 12:00 PM BUSINESS OPERATIONS MANAGER Office Visit [facility] Heart and Vascular [place] [address] [place] [facility] [place] [address] Lion Naranjo MD [address] [facility] [place] [phone] 07/19/2025 1:00 PM CDT Appointment [facility] Laboratory Services [facility] [address] [place] [phone] Marycarmen Marin, [facility] [address] [place] [phone] 07/19/2025 2:00 PM CDT Office Visit [facility] Oncology and Hematology [address] [place] [facility] [place] [phone] Marycarmen Marin, [facility] [address] [place] [phone] Health Maintenance Due Date Last Done Comments [...] Advance Directives For more information, please contact: [phone] * Default Full Code - Needs Discussion (Latest Code Status on File) Date Activated Date Inactivated Comments 06/05/2021 5:03 AM 06/08/2021 5:55 PM Care Teams Fire Behavior Analyst Relationship Specialty Start Date End Date David Escobar MD [address] [place] [phone] PCP - General Family Practice 01/17/24
--- OUTSIDE RECORDS SUMMARY | 2024-12-28 09:47 | XMS_ITS | Clinical Summary ---
Author Organization [facility] Address [address] [place] [address] Care Team Providers Care Senior Dot Net Developer Name Role Phone Jacobo Lubin MD Primary [...] on file Legal Sex Male 4:47 AM PLATE HANGER Gender Identity Not on file Sexual Orientation Not on file Occupation Industry Job Start Date Job End Date Not on file Not on file Not on file Not on file Last Filed Vital Signs Vital Sign Reading Time Taken Comments Blood Pressure 132/77 02/05/2013 8:20 PM PLATE HANGER Pulse 64 02/05/2013 6:16 PM PLATE HANGER Temperature 37.1 C (98.8 F) 02/05/2013 1:01 PM PLATE HANGER Respiratory Rate 18 02/05/2013 8:20 PM PLATE HANGER Oxygen Saturation 95% 02/05/2013 8:20 PM PLATE HANGER Inhaled Oxygen Concentration - - Weight 77.1 kg (170 lb) 02/05/2013 1:01 PM PLATE HANGER Height 176.5 cm (5' 9.5 ) 02/05/2013 1:01 PM PLATE HANGER Body Mass Index 24.74 02/05/2013 1:01 PM PLATE HANGER Plan of Treatment Health Maintenance Due Date Last Done Comments DTAP/TDAP/TD VACCINES (1 - Tdap) 07/07/1959 PNEUMOCOCCAL VACCINE 50+ YEARS (1 of 1 - PCV) 07/06/18 91 12/08/2005 ZOSTER VACCINE (1 of 2) 1990 RSV VACCINE (60+ or ) (1 - 1-dose 75+ series) 07/07/2015 INFLUENZA VACCINE (#1) 2024 09/09/2011 Insurance [facility] [place] [id number] MEDICARE PART A AND B FIRST ADMINISTRATORS Advance Directives For more information, please contact: [phone] * Full Code (Latest Code Status on File) Date Activated Date Inactivated Comments 09/10/2011 1:18 AM 09/12/2011 3:10 PM * Full Code Date Activated Date Inactivated Comments 08/18/2009 12:38 PM 08/19/2009 2:31 AM * Full Code Date Activated Date Inactivated Comments 08/18/2009 11:54 AM 08/18/2009 12:38 PM * Full Code Date Activated Date Inactivated Comments 08/18/2009 11:37 AM 08/18/2009 11:54 AM Care Teams Senior Dot Net Developer Relationship Specialty Start Date End Date Jacobo Lubin MD [address] [place] [id number] PCP - General Family Practice 08/08/09
--- OUTSIDE RECORDS SUMMARY | 2024-12-28 09:47 | XMS_ITS ---
Author Organization [facility] are Support Name Relationship Address Phone Sherine Bustamante Next of Kin Unknown [phone] Johanny Guillen Emergency Contact Unknown [phone] Ap Guillen Guarantor [address] [place] [address] Ap Guillen Agent [address] [place] [address] Guillen, Nicho Emergency Contact Unknown [phone] Immunizations Immunization Status Vaccine Details Vaccine Code CodeSystem Date Notes Influenza completed Influenza, high-dose, split virus, quadrivalent, injectable, preservative free lotNumber: [id number] expiry: 07/30/2022 Mfg: Seqirus Given 0.5 ml [...] Current Smoking Status Tobacco smoking consumption unknown [id number] SNOMED CT Sex Assigned At Male 1940 [address]-1 [facility] Gender Identity Sexual Orientation
--- OUTSIDE RECORDS SUMMARY | 2024-12-28 09:47 | XMS_ITS | Patient Health Record ---
Author Organization [facility] Address [address] [place] [address] Care Team Providers Care In School Suspension Aide Name Role Phone Jeremie Gomez Unavailable [phone] Allergies Allergen (clinical drug ingredient) Drug/Non Drug [...] Provider Speciality Pain Medic ine Referred Organization [facility] Referred Provider Cari Alston Referred Address [address] [place] [address],[place],[id number], Referred Provider Specialty Pain Medicin e General Notes Isabelle Reaves 11:48:56 AM >pt will car pick up driver npp 05-28-24, Isabelle Reaves 05/29/2024 02:45:53 PM [...] as needed Orally every 12 hrs Active [place] 3 Fish Oil 1000 MG Capsule 1 [...] Status Risk Notes Problem Chronic pain syndrome (525657205) Chronic pain syndrome (G89.4) Active confirmed Problem Acquired spondylolisthesis (842896004) Spondylolysis, lumbosacral region (M43.07) Active confirmed Problem Solitary sacroiliitis (040165675) Sacroiliitis, not elsewhere classified (M46.1) Active confirmed Problem Lumbosacral spondylosis without myelopathy (83548983) Spondylosis without myelopathy or radiculopathy, lumbar region (M47.816) Active confirmed Problem Lumbar radiculopathy (909706618) Lumbar radiculopathy (M54.16) Active confirmed Problem CVA - Cerebrovascular accident (036103982) CVA (cerebral vascular accident) (I63.9) Active confirmed Problem Abnormal gait (25128764) Abnormality of gait and mobility (R26.9) Active confirmed Problem 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) Active confirmed Problem Neurogenic claudication (611723064) 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) Active confirmed Vital Signs Height-cm 175.26 cm 11/21/2024 Weight-kg 83.92 kg 11/21/2024 Height 69 in 11/21/2024 Weight 185 lbs 11/21/2024 BMI 27.32 kg/m2 11/21/2024 Encounters Encounter Location Date Provider Diagnosis [facility] [place] [address] [place] [address] 09/19/2024 Jeremie Gomezt Chronic pain syndrom e G89.4 ; Neurogenic claudication due to lumbar spinal stenosis M48.062 ; Lumbar radiculopathy M54.16 ; Aphasia as late effect of cerebrovascular accident I69.320 ; Abnormality of gait and mobility R26.9 ; terminal gauger (current) use of opiate analgesic Z79.891 and CVA (cerebral vascular accident) I63.9 [facility] [place] [address] [place] [address] 11/21/2024 Jeremie Gomez Chronic pain syndrom e G89.4 ; Neurogenic claudication due to lumbar spinal stenosis M48.062 ; Lumbar radiculopathy M54.16 ; custodial (current) use of opiate analgesic Z79.891 ; Aphasia as late effect of cerebrovascular accident I69.320 ; Abnormality of gait and mobility R26.9 and CVA (cerebral vascular accident) I63.9 [facility] [place] [address] [place] [address] 07/25/2024 Jeremie Gomez Chronic pain syndrom e G89.4 ; Neurogenic claudication due to lumbar spinal stenosis M48.062 ; CVA (cerebral vascular accident) I63.9 ; Aphasia as late effect of cerebrovascular accident I69.320 ; Lumbar radiculopathy M54.16 ; Abnormality of gait and mobility R26.9 and terminal gauger (current) use of opiate analgesic Z79.891 [facility] [place] [address] [place] [address] 11/22/2024 Jeremie Gomez Lumbar radiculopathy M54.16 [facility] [address] [address] 09/28/2024 Jeremie Gomez [facility] [address] [address] 12/10/2024 Jeremie Gomez Assessments Encounter Date Diagnosis [...] to lumbar spinal stenosis (ICD-10 - M48.062) 11/22/2024 Lumbar radiculopathy (ICD-10 - M54.16) 11/21/2024 Chronic pain syndrome (ICD-10 - G89.4) [...] and provider understand and agree that, per [facility] LCD, medial branch blocks will be performed [...] the procedure and all questions were answered. 09/19/2024 Chronic pain syndrome (ICD-10 - G89.4) [...] lumbar spinal stenosis (ICD-10 - M48.062) 09/19/2024 Lumbar radiculopathy (ICD-10 - M54.16) 11/21/2024 Lumbar radiculopathy (ICD-10 - M54.16) 07/25/2024 CVA (cerebral vascular accident) (ICD-10 - I63.9) 11/21/2024 terminal gauger (current) use of opiate analgesic (ICD-10 - Z79.891) 07/25/2024 Aphasia as late effect of cerebrovascular accident (ICD-10 - I69.320) 09/19/2024 Aphasia as late effect of cerebrovascular accident (ICD-10 - I69.320) 09/19/2024 Abnormality of gait and mobility (ICD-10 - R26.9) 07/25/2024 Lumbar radiculopathy (ICD-10 - M54.16) 11/21/2024 Aphasia as late effect of cerebrovascular accident (ICD-10 - I69.320) 11/21/2024 Abnormality of gait and mobility (ICD-10 - R26.9) 09/19/2024 terminal gauger (current) use of opiate analgesic (ICD-10 - Z79.891) 07/25/2024 Abnormality of gait and mobility (ICD-10 - R26.9) 07/25/2024 custodial (current) use of opiate analgesic (ICD-10 - Z79.891) 11/21/2024 CVA (cerebral vascular accident) (ICD-10 - I63.9) 09/19/2024 CVA (cerebral vascular accident) (ICD-10 - I63.9) 07/25/2024 Other I, JULIA Crum, am scribing for Dr. Jeremie Gomez. I, Dr. Jeremie Gomez, personally performed the services described in this documentation, as scribed by JULIA Crmu, and it is both accurate and complete. 09/19/2024 Other Bell, Susan Hui, am scribing for Dr. Jeremie [...] Inj. / MBB Lumbar/Sacral, 2 levels - 30160, 53395 01/01/2025 Future Test Test Name Order Date Facet Inj. / MBB Lumbar/Sacral, 2 levels - 62443, [id number] 11/23/2024 Next Appt Details Provider Name:Jeremie Gomez, 01/01/2025 01:40:00 PM, [address] [place], [address], Insurance Providers Payer Name Payer Address Payer Phone Subscriber Number Group Number Insured Name Patient Relationship to Insured Coverage Start Date Coverage End Date [place] [address] [place] [phone] [id number] Ap Guillen Self - patient is the insured BCBS Supplement [address] [place] [address] [id number] Ap Guillen Self - patient is the insured Medical (General) History Medical History History ICD Code High Blood Pressure Heart Disease measles/mumps/rubella bronchitis stroke Depression Arthritis Prostate Problems kidney infection kidney stones Bleeding Disorder Surgical History Surgery Date(Month/Year) aneurysm repair x2 cataract removal hernia repair tonsillectomy
--- NOTE | 2024-12-28 09:55 | XR_ITS ---
WS: [id number] XR chest 1V portable [id number] REASON FOR EXAM: dyspnea/cough FINDINGS: The examination is unchanged compared to 06/06/2024. Moderate tortuosity and ectasia of the ascending and descending thoracic aorta. 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 The heart is not significantly enlarged. There is calcified granulomatous disease bilaterally. There is elevation of the right hemidiaphragm. There are coarse reticular interstitial lung opacities peripherally and in the lower lung jones that are chronic in nature. No acute pulmonary parenchymal or pleural disease is noted. XR/XR chest 1V portable [id number] IMPRESSION: Stable abnormal chest without acute abnormality.
[2024-12-28 10:08] LABS: Hematocrit 41.8 % (37-53); Hemoglobin 13.70 g/dL (11.27-16.99); Mean Corpuscular HGB Conc 32.8 g/dL (30-55); Mean Corpuscular Hemoglobin 30.6 pg (27-33); Mean Corpuscular Volume 93.5 fl (82-101); Nucleated Red Blood Cells % 0 %; Platelet Count 175 10^3/cmm (157-399); Red Blood Count 4.47 10^6/uL (3.85-5.65); White Blood Count 6.14 10^3/uL (3.29-11.43)
--- NOTE | 2024-12-28 10:15 | ED_ITS ---
HPI - Altered Mental Status 2 General: Chief Complaint: Altered Mental Status Stated Complaint: ams Time Seen by Provider: 12/28/24 09:42 History of Present Illness: 84-year-old male presents emergency room with report of altered mental status. Report from EMS was at heart rate from the 40s to the 60s. He has previously had a stroke has some difficulty with speech. There is no family at the bedside when I first seen the patient. He complains of abdominal pain particularly in the right side but no other specific complaints. He denies vomiting or diarrhea. Patient was seen last night that visit was reviewed. Related Data Home Medications ?Medication ?Instructions ?Recorded ?Confirmed aspirin 81 mg tablet,delayed 81 mg PO DAILY@0900 07/0912/28/24 release ascorbic acid (vitamin C) 1,000 mg 1 g PO DAILY@2100 0 09/03/20 12/28/24 tablet (Vitamin C) cetirizine 10 mg tablet 10 mg PO DAILY@0900 09/03/20 12/28/24 cholecalciferol (vitamin D3) 25 25 mcg PO BID@12/28/24 mcg (1,000 unit) chewable tablet (Vitamin D3) omega-3 fatty acids 1,000 mg 1,000 mg PO QAM 09/21/21 12/28/24 capsule tramadol 50 mg tablet 50 mg PO BID@09/21/21 12/28/24 lidocaine 5 % topical patch 1 patch transdermal DAILY PRN Pain 08/25/23 11/28/23 fluticasone propionate 50 1 spray intranasal DAILY PRN 08/31/23 12/28/24 mcg/actuation nasal allergies spray,suspension polyethylene glycol 3350 17 4 g PO DAILY 11/28/2312/09 gram/dose oral powder Previous Rx's ?Medication ?Instructions ?Recorded pantoprazole 40 mg tablet,delayed 40 mg PO BID #60 tab s 09/23/21 release (Protonix) amlodipine 10 mg tablet 10 mg PO DAILY #90 tabs 08/07 10/31 metoprolol tartrate 50 mg tablet 50 mg PO BID #30 tabs 08/26/23 atorvastatin 40 mg tablet 80 mg (2 x 40 mg) PO DAILY@2 100 #0 08/30/23 tabs venlafaxine 150 mg 150 mg PO DAILY #30 caps capsule,extended release 24 hr (Effexor XR) ondansetron 4 mg disintegrating 4 mg PO Q6H PRN nausea and 12/27/24 tablet vomiting #14 tabs cefdinir 300 mg capsule 300 mg PO BID #14 caps 12/28 Allergies Allergy/AdvReac Type Severity Reaction Status Date / Time acetylcysteine Allergy nausea/vomi Verified 11/28/23 08:08 ting Review of Systems 2 Card: Denies: chest pain Resp: Denies: dyspnea GI: Reports: abdominal pain; Denies: nausea or vomiting PFSH ED 2 PFSH: Medical History Pneumonia Acute kidney injury superimposed on chronic kidney disease Generalized weakness Aspiration pneumonia Bibasilar crackles Risk for falls Hypertension Aphasia Expressive aphasia Vitamin D deficiency Peripheral artery disease Anemia Osteoporosis Expressive aphasia Chronic anticoagulation Eliquis due to CVA history Dyslipidemia Degenerative joint disease of spine CVA (cerebral vascular accident) 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 Reported to have hole in his heart but later when attempt was made to repair it was not identified. On chronic anticoagulation with Eliquis, initiated at outside facility, due to history of recurrent strokes. CKD (chronic kidney disease) Single functioning kidney per Surgical History Status post herniorrhaphy right inguinal hernia History of cataract surgery History of intravascular stent placement renal artery and aortic stents Status post endovascular aneurysm repair (EVAR) Status post right inguinal hernia repair Status post colonoscopy 2015 adenomatous polyp Family History Mother , at age 93 No problems noted. Father , at age 77 AA (aortic aneurysm) Cancer throat and lung Other Hypertension Social History Smoking and tobacco/nicotine status: never used tobacco/nicotine Alcohol intake: never Substance/Drug Use: never Household members: spouse Housing: House Marital status: Current occupational status: retired Physical Exam 2 HENMT: COMMON NORMALS: normocephalic, atraumatic and hearing grossly normal bilaterally HEAD & SCALP: normocephalic and atraumatic Resp: COMMON NORMALS: normal respiratory effort, No retractions, No use of accessory muscles and clear to auscultation bilaterally AUSCULTATION: clear to auscultation bilaterally Cardio: COMMON NORMALS: regular rate, regular rhythm and No murmurs present (Cardio) RATE: regular rate RHYTHM: regular rhythm GI: COMMON NORMALS: No hepatosplenomegaly present AUSCULTATION: Yes normoactive bowel sounds PALPATION: Yes Tenderness to palpation present (GI) (Right side), No Guarding due to palpation present (GI) and Yes No hepatosplenomegaly present Extremity: COMMON NORMALS: normal to inspection, capillary refill normal, no clubbing, cyanosis or edema, no calf tenderness and no pedal edema Skin: COMMON NORMALS: no rashes or lesions noted GENERAL SKIN EXAM: no rashes or lesions noted Course 2 Vital Signs: Vital signs: Vital Signs Temperature 98.4 F 12/28/24 09:41 Pulse Rate 71 12/28/24 13:53 Respiratory Rate 18 12/28/24 09:41 Blood Pressure 135/69 12/28/24 13:53 Pulse Oximetry 92 12/28/24 13:53 Oxygen Delivery Me thod Room Air 12/28/24 13:30 Oxygen Flow Rate 3 12/28/24 10:30 MDM - Altered Mental Status Medical Decision Making Medical decision making Social determinants: Limited ability to care for self. Significant other also elderly I reviewed the patient's medical record. I reviewed the patient's current home meds Alternate historians: Family Differential diagnosis Lab Review: Labs reviewed as found on the chart. Creatinine 1.7 which is approximately at his baseline. Initial lactic acid 3.1 however with IV fluids lactic acid improved to 1.9. UA shows cystitis Imaging: Head CT negative for acute pathology chest x-ray normal. CT abdomen shows large esophageal hiatal hernia which is unchanged from previous stable aortic endograft with chronic endoleak suspected. Diffuse constipation Assessment of risk: Level of risk: Moderate Hospitalization considerations: Considered hospitalization over lactic acid improved with fluids Reexamination: Patient states he is feeling much better Assessment and plan: Chronic falls patient obviously would benefit from a higher level of care more assistance. Given initial IV antibiotics he will discharge home on oral antibiotics patient prefers to go home. No otherwise acute findings. Cytosis. Was given IV fluids Medical Records I reviewed the patient's medical records. Lab Data I reviewed the patient's lab results. 12/28/24 09:25 12/28/24 09:25 Radiology Impressions Chest X-Ray 12/28/24 09:55 IMPRESSION: Stable abnormal chest without acute abnormality. Abdomen/Pelvis CT 12/28/24 11:19 IMPRESSION: 1. Large esophageal hiatal hernia. This is unchanged. 2. 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 3. 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 Probably chronic endoleak suspected. 4. Atrophic RIGHT kidney. No hydronephrosis in the LEFT kidney. 5. Markedly enlarged prostate. Correlation PSA. 6. Moderate diffuse pancolonic constipation. Head CT 12/28/24 11:51 IMPRESSION: 1. No evidence of intracranial hemorrhage or mass effect. 2. No acute intracranial findings. 3. Moderate small vessel changes and moderate parenchymal volume loss. 4. Chronic infarct LEFT frontal lobe with encephalomalacia. Chronic lacunar infarcts in the LEFT [place] radiata and basal ganglia. 5. Partial opacification of the sphenoid sinuses with inspissated secretions and sinusitis Laboratory Results WBC 6.14 10^3/uL (3.29-11.43) 12/28/24 09: RBC 4.47 10^6/uL (3.85-5.65) 12/28/24 09:25 Hgb 13.70 g/dL (11.27-16.99) 12/28/24 09:25 Hct 41.8 % (37-53) 12/28/24: MCV 93.5 fl (82-101) 12/28/24:25 MCH 30.6 pg (27-33) 12/28/24 09:25 MCHC 32.8 g/dL (30-55) 12/28/24 09: RDW 14.0 % (12.1-15.1) 12/28/24 09:25 Plt Count 175 10^3/cmm (157-399) 12/28/24 09:25 MPV 10.1 fL (7.4-10.4) 12/28/24 09:25 Neut % (Auto) 80.6 % 12/28/24 09:25 Lymph % (Auto) 8.0 % 12/28/24 09:25 [place] % (Auto) 7.7 % 12/28/24 09:25 Eos % (Auto) 2.8 % 12/28/24 09:25 Baso % (Auto) 0.2 % 12/28/24 09: Neut # (Auto) 4.96 10^3/uL (1.8-7.7) 12/28/24 09: Lymph # (Auto) 0.5 10^3/uL (0.8-4.8) L 12/28/24 09:25 [place] # (Auto) 0.5 10^3/uL (0.2-0.9) 12/28/24 09:25 Eos # (Auto) 0.2 10^3/uL (0.0-0.8) 12/28/24 09: Baso # (Auto) 0.0 10^3/uL (0.0-0.1) 12/28/24 09:25 Nucleated RBC % (auto) 0 % 12/28/24 09: Nucleated RBCs # 0.0 /100WBC 12/28/24 09:25 Sodium 138 mmol/L (136-145) 12/28/24 09:25 Potassium 4.1 mmol/L (3.5-5.1) 12/28/24 09:25 Chloride 102 mmol/L (98-107) 12/28/24 09:25 Carbon Dioxide 24 mmol/L (22-29) 12/28/24 09:25 Anion Gap 16.1 (5-19) 12/28/24 09:25 BUN 20 mg/dL (8-23) 12/28/24 09:25 Creatinine 1.7 mg/dL (0.7-1.2) H 12/28/24 09:25 GFR Calculation Not Reportable 12/28/24 09:25 Glucose 123 mg/dL (65-115) H 12/28/24 09:25 Calculated Osmolality 290 mOsm/kg (285-295) 12/28/24 09:25 Lactic Acid 3.1 mmol/L (0.5-2.2) H 12/28/24 09:25 Lactic Acid (Sepsis) 1.9 mmol/L (0.5-2.2) 12/28/24 11: Calcium 8.5 mg/dL (8.5-10.5) 12/28/24 09: Total Bilirubin 0.6 mg/dL (0.15-1.2) 12/28/24 09: AST 17 U/L (0-40) 12/28/24: ALT 18 U/L (0-41) 12/28/24 09: Alkaline Phosphatase 97 U/L (40-130) 12/28/24 09: Troponin T Baseline 26 ng/L (0-15) H 12/28/24 09: Troponin T 120 Minute 24.74 ng/L (0-15) H 12/28/24 11: Delta Troponin T -1.26 ABS# (0-10) L 12/28/24 11: Total Protein 6.3 g/dL (6.6-8.7) L 12/28/24: Albumin 3.7 g/dL (3.5-5.2) 12/28/24: Globulin 2.6 g/dL (1.3-4.6) 12/28/24 09: Urine Color Yellow (Yellow) 12/28/24 10:33 Urine Appearance Clear (CLEAR) 12/28/24 10:33 Urine pH 6.0 (5-7) 12/28/24 10:33 Ur Specific [place] 1.035 (1.005-1.030) H 12/28/24 10:33 Urine Protein 1+ (Negative) A 12/28/24 10:33 Urine Glucose (UA) Negative (Normal) 12/28/24 10:33 Urine Ketones Negative (Negative) 12/28/24 10:33 Urine Blood Non-haemolysed trace (Negative) 12/28/24 10:33 Urine Nitrate Positive (Negative) A 12/28/24 10:33 Urine Bilirubin Negative (Negative) 12/28/24 10:33 Urine Urobilinogen 1.0 mg/dL (Negative) 12/28/24 10:33 Ur Leukocyte Esterase 1+ (Negative) A 12/28/24 10:33 Urine RBC 3-5 /hpf (0-2) 12/28/24 10:33 Urine WBC 6-10 /hpf (0-5) 12/28/24 10:33 Ur Squamous Epith Cells 0-5 /hpf (0-5) 12/28/24 10:33 Amorphous Sediment Not Reportable 12/28/24 10:33 Urine Bacteria 4+ /hpf (NONE) H 12/28/24 10:33 Hyaline Casts 1.65 /lpf 12/28/24 10:33 All radiology interpretation(s) finalized by discharge Discharge Plan Discharge Patient Disposition: Home Clinical Impression: Cystitis, Chronic back pain, Fall Condition: Stable Prescriptions: New cefdinir 300 mg capsule 300 mg PO BID Qty: 14 0RF No Action aspirin 81 mg tablet,delayed release (DR/EC) 81 mg PO DAILY@0900 ascorbic acid (vitamin C) [Vitamin C] 1,000 mg Tablet 1 g PO DAILY@2100 cetirizine 10 mg Tablet 10 mg PO DAILY@0900 cholecalciferol (vitamin D3) [Vitamin D3] 25 mcg (1,000 unit) Tablet,Chewable 25 mcg PO BID@ omega-3 fatty acids 1,000 mg Capsule 1,000 mg PO QAM tramadol 50 mg tablet 50 mg PO BID@ pantoprazole [Protonix] 40 mg tablet,delayed release (DR/EC) 40 mg PO BID Qty: 60 3RF lidocaine 5 % adhesive patch,medicated 1 patch transdermal DAILY PRN (Reason: Pain) amlodipine 10 mg Tablet 10 mg PO DAILY Qty: 90 0RF metoprolol tartrate 50 mg tablet 50 mg PO BID Qty: 30 0RF atorvastatin 40 mg Tablet 80 mg PO DAILY@2100 Qty: 0 0RF venlafaxine [Effexor XR] 150 mg capsule,extended release 24hr 150 mg PO DAILY Qty: 30 0RF fluticasone propionate 50 mcg/actuation spray,suspension 1 spray INTRANASAL DAILY PRN (Reason: allergies) polyethylene glycol 3350 17 gram/dose Powder 4 g PO DAILY ondansetron 4 mg tablet,disintegrating 4 mg PO Q6H PRN (Reason: nausea and vomiting) Qty: 14 0RF Discharge Orders: Discharge ED (Routine); Ordered 12/28/24 Ordered By: Ruddy Jackson Discharge Diet: Usual diet Discharge Activity: Increase activity as tolerated Patient Instructions: Altered Mental Status (ED), Opioid Safety, Pain Management, Patient Portal & [place] Instructions Activity Restrictions/Additional Instructions: Thank you for choosing [facility] for your healthcare needs today. It is very important that you follow up as instructed or that you return to the Emergency Department should you have concerns or if your condition changes or worsens in any way. Emergency department visits are focused on emergent conditions, in some cases you may require further evaluation on an outpatient basis. You are seen emergency room after a fall. There are no fractures noted scan of your head was negative. You did have a bladder infection. Will discharge you home with oral antibiotics 1 pill twice a day for 7 days follow-up your primary care doctor (Please note that included in your discharge packet is information concerning opioid safety and pain management. 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
[2024-12-28 10:24] LABS: Lactic Sepsis W/Reflex 3.1 mmol/L (0.5-2.2)
[2024-12-28 10:25] LABS: Troponin(5th) Baseline 26 ng/L (0-15)
[2024-12-28 10:26] LABS: Alanine Aminotransferase 18 U/L (0-41); Albumin Level 3.7 g/dL (3.5-5.2); Alkaline Phosphatase 97 U/L (40-130); Anion Gap 16.1 (5-19); Aspartate Amino Transferase 17 U/L (0-40); Blood Urea Nitrogen 20 mg/dL (8-23); Calcium 8.5 mg/dL (8.5-10.5); Carbon Dioxide 24 mmol/L (22-29); Chloride 102 mmol/L (98-107); Globulin 2.6 g/dL (1.3-4.6); Glucose 123 mg/dL (65-115); Osmolality Calculated 290 mOsm/kg (285-295); Potassium 4.1 mmol/L (3.5-5.1); Sodium 138 mmol/L (136-145); Total Protein 6.3 g/dL (6.6-8.7)
[2024-12-28 10:30] VITALS: BP 139/73; PULSE 63; O2SAT 94
[2024-12-28 10:30] LABS: Reflex Lactate Order REFLEX LACTIC ORDERD
--- NOTE | 2024-12-28 10:32 | ECG_ITS ---
[employer] Test Date: 2024-12-28 Pat Name: Ap Guillen Department: Room: Gender: Male Cottage Attendant: : 1940 Requested By: Ruddy Lopez Order Number: [id number] [place] MD: Lucho Naik M.D. Measurements Intervals Page Rate: 63 P: 47 MO: 185 QRS: -20 QRSD: 101 T: 31 QT: 416 QTc: 429 Interpretive Statements SINUS RHYTHM POSSIBLE ANTERIOR MYOCARDIAL INFARCTION , OF INDETERMINATE AGE [30 ms Q WAVE IN V3/V4, OR R < 0.2 mV IN V4] Non diagnostic T wave changes Compared to ECG 08/13/2024 21:54:46 First degree AV block no longer present Myocardial infarct finding still present Electronically Signed On 12-29-2024 14:02:17 LITIGATION MANAGER by Lucho Naik M.D. [email or web address]
[2024-12-28 10:46] LABS: Glucose Urine UA Negative (Normal); Nitrate Urine Positive (Negative)
[2024-12-28 10:51] LABS: Add Urine Microscopic? YES
--- NOTE | 2024-12-28 11:19 | CT_ITS ---
WS: [id number] CT ABDOMEN PELVIS TECHNIQUE: Noncontrast CT of the abdomen and pelvis with coronal and sagittal reformatted images. CLINICAL INFORMATION: Abdominal pain COMPARISON: None. DLP: 872.[address] scans at [facility] use at least one of these dose optimization techniques: automated exposure control; mA and/or kV adjustment per patient size (includes targeted exams where dose is matched to clinical indication); or iterative reconstruction. FINDINGS: Stable aortic endograft with dense vascular calcification. Distended aneurysm sac with suspected chronic endoleak unchanged. Excluded aneurysm sac measures 5.9 x 6.9 cm AP by transverse. Coronary calcification. 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 Normal noncontrast liver and spleen. Normal noncontrast gallbladder. Large esophageal hiatal hernia. Normal noncontrast pancreas. Adrenal glands are normal. Atrophic RIGHT kidney. No hydronephrosis in the LEFT kidney. Markedly enlarged prostate. Moderate pancolonic constipation. No evidence of high-grade obstruction. Small fat-containing RIGHT inguinal hernia. Grade 1 anterolisthesis L5 on S1 with chronic spondylolysis. CT/CT abdomen pelvis wo con [id number] IMPRESSION: 1. Large esophageal hiatal hernia. This is unchanged. 2. 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 3. 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 Probabl y chronic endoleak suspected. 4. Atrophic RIGHT kidney. No hydronephrosis in the LEFT kidney. 5. Markedly enlarged prostate. Correlation PSA. 6. Moderate diffuse pancolonic constipation.
[2024-12-28 11:22] LABS: Specific Gravity, Urine 1.035 (1.005-1.030); UA Slide Review UA Slide Review Perf
[2024-12-28 11:30] VITALS: BP 142/75; PULSE 64; O2SAT 93
[2024-12-28] MEDS: cefTRIAXone 1,000 mg SDV 1000 MG IVP (11:38)
--- NOTE | 2024-12-28 11:51 | CT_ITS ---
WS: [id number] CT HEAD TECHNIQUE: Noncontrast CT of the head obtained from the skullbase to the vertex. CLINICAL INFORMATION: Fall, closed head injury COMPARISON: None. DLP: 1302.[address] scans at [facility] use at least one of these dose optimization techniques: automated exposure control; mA and/or kV adjustment per patient size (includes targeted exams where dose is matched to clinical indication); or iterative reconstruction. FINDINGS: No evidence of intracranial hemorrhage or mass effect. Ventricular system and basal cisterns are patent. Moderate small vessel changes with moderate parenchymal volume loss worse in the LEFT frontal lobe with encephalomalacia. Chronic infarcts in the LEFT higginbotham radiata and LEFT lateral basal ganglia. Vascular calcification. Opacification in the sphenoid sinuses. Mastoid air cells are well aerated. CT/CT head wo con* [id number] IMPRESSION: 1. No evidence of intracranial hemorrhage or mass effect. 2. No acute intracranial findings. 3. Moderate small vessel changes and moderate parenchymal volume loss. 4. Chronic infarct LEFT frontal lobe with encephalomalacia. Chronic lacunar in farcts in the LEFT higginbotham radiata and basal ganglia. 5. Partial opacification of the sphenoid sinuses with inspissated secretions a nd sinusitis
[2024-12-28 11:52] LABS: Lactic Acid level (Lactate) 1.9 mmol/L (0.5-2.2)
[2024-12-28 11:53] LABS: Troponin 5 2HR 24.74 ng/L (0-15)
--- NOTE | 2024-12-28 11:55 | ECG_ITS ---
[facility] Date: 2024-12-28 Pat Name: Ap Guillen Department: Room: Gender: Male Platen Press Feeder: : 1940 Requested By: Ruddy Lopez Order Number: [id number] Carmel MD: Lucho Naik M.D. Measurements Intervals Paulina Rate: 65 P: 42 WA: 193 QRS: -24 QRSD: 98 T: 53 QT: 424 QTc: 443 Interpretive Statements SINUS RHYTHM POSSIBLE ANTERIOR MYOCARDIAL INFARCTION , OF INDETERMINATE AGE [30 ms Q WAVE IN V3/V4, OR R < 0.2 mV IN V4] Compared to ECG 12/28/2024 10:32:29 No significant changes Electronically Signed On 12-29-2024 14:20:37 HEAD START ASSISTANT TEACHER by Lucho Naik M.D. [email or web address]
[2024-12-28 11:57] LABS: Troponin 5 2HR Delta -1.26 ABS# (0-10)
[2024-12-28 13:30] VITALS: BP 135/69; PULSE 69; O2SAT 93
[2024-12-28 13:53] VITALS: BP 135/69; PULSE 71; O2SAT 92
== END 2024-12-28 14:08 | disposition home or self-care (01) ==
PROVIDERS: Emergency Provider Family Medicine; PCP Family Medicine
DX: N30.90 Cystitis, unspecified without hematuria (principal); M54.89 Other dorsalgia; G89.29 Other chronic pain; Z79.82 Long term (current) use of aspirin; Z86.73 Personal history of transient ischemic attack (TIA), and cerebral infarction without residual deficits; E78.5 Hyperlipidemia, unspecified; I12.9 Hypertensive chronic kidney disease with stage 1 through stage 4 chronic kidney disease, or unspecified chronic kidney disease; N18.9 Chronic kidney disease, unspecified
CPT/HCPCS: 36415; 70450; 71045; 74176; 80053; 81001; 83605; 84484; 85025; 87040; 87077; 87086; 87186; 93005; 96361; 96374; 99285; J0696; J7030

== ENCOUNTER 2025-01-10 10:59 | Outpatient (CLI) | payer MEDICARE, BC, SELFPAY ==
[2025-01-10 11:41] LABS: Glucose Urine UA Negative (Normal); Nitrate Urine Positive (Negative); Specific Gravity, Urine 1.008 (1.005-1.030)
[2025-01-10 11:46] LABS: Add Urine Microscopic? YES; Universal Test for UA Present (0)
[2025-01-10 11:58] LABS: UA Slide Review UA Slide Review Perf
== END 2025-01-10 11:00 | disposition home or self-care (01) ==
PROVIDERS: PCP Family Medicine; Visit Provider Family Medicine
DX: Z87.440 Personal history of urinary (tract) infections (principal)
CPT/HCPCS: 81001; 87086

== ENCOUNTER 2025-01-20 09:23 | Observation (INO) | payer MEDICARE, BC, SELFPAY ==
[2025-01-20] VITALS (10 sets, daily range): BP systolic 107–141; BP diastolic 58–70; PULSE 62–123; RESP 16–21; TEMP 36.6–37.2; O2SAT 94–98; BMI 25.9; BMI 26.8
--- OUTSIDE RECORDS SUMMARY | 2025-01-20 09:31 | XMS_ITS | Encounter Summary ---
Author Organization [facility] Address [address] [place] [address] Care Team Providers Care Feed Miller Name Role Phone David Escobar MD Primary Care Provide r Encounter Details Date Type Department Care Team (Late st Contact Info) Description 01/10/2025 Orders Only [facility] [address] [place] [phone] Magdiel Rivas LPN Recent urinary tract infection Social History Tobacco Use Types Packs/Day Years Used Date Smoking Tobacco: Former Cigarettes 0.5 4 S tarted: 1957 Smokeless Tobacco: Never Comments:Quit smoking: quit age 21 Alcohol Use Standard Drinks/Week Comments No 0 (1 standard drink = 0.6 oz pur e alcohol) Sex and Gender Information Value Date Recorded Sex Assigned at Not on file Legal Sex Male 11:52 AM LANDSCAPE PAINTER Gender Identity Not on file Sexual Orientation Not on file documented as of this encounter Plan of Treatment Upcoming Encounters Date Type Department Care Team (Late st Contact Info) Description 01/23/2025 2:00 PM LANDSCAPE PAINTER Office Visit [facility] [address] [place] [phone] David Escobar MD [address] [place] [phone] 02/27/2025 10:00 AM LANDSCAPE PAINTER Appointment [facility] Cardiovascular Imaging [place] [address] [place] [facility] [place] [address] Lion Naranjo MD [address] [place] [address] [place], [place] [address] 02/27/2025 11:00 AM LANDSCAPE PAINTER Appointment [facility] Cardiovascular Imaging [place] [address] [place] [facility] [place] [address] Lion Naranjo MD [address] [place] [facility] [place] [address] 02/27/2025 12:00 PM LANDSCAPE PAINTER Office Visit [facility] Heart and Vascular [place] [address] [place] [facility] [place] [address] Lion Naranjo MD [address] [place] [facility] [place] [address] 07/19/2025 1:00 PM CDT Appointment [facility] Laboratory Services [facility] [address] [place] [phone] Marycarmen Marin [facility] [address] [place] [phone] 07/19/2025 2:00 PM CDT Office Visit [facility] Oncology and Hematology [address] [place] [phone] Marycarmen Marin [facility] [address] [place] [phone] documented as of this encounter Visit Diagnoses Diagnosis Recent urinary tract infection documented in this encounter Care Teams Feed Miller Relationship Specialty Start Date End Date David Escobar MD [address] [place] [phone] PCP - General Family Practice 01/17/24 documented as of this encounter
--- OUTSIDE RECORDS SUMMARY | 2025-01-20 09:31 | XMS_ITS | Encounter Summary ---
Author Organization [facility] Address [address] [place] [address] Care Team Providers Care Transformation Consultant Name Role Phone David Escobar MD Primary Care Provide r Reason for Visit * Reason Onset Date Comments Lab Results 01/18/2025 Encounter Details Date Type Department Care Team (Late st Contact Info) Description 01/18/2025 Telephone [facility] [address] [place] [phone] David Escobar MD [address] [place] [address] Lab Results Social History Tobacco Use Types Packs/Day Years Used Date Smoking Tobacco: Former Cigarettes 0.5 4 S tarted: 1957 Smokeless Tobacco: Never Comments:Quit smoking: quit age 21 Alcohol Use Standard Drinks/Week Comments No 0 (1 standard drink = 0.6 oz pur e alcohol) Sex and Gender Information Value Date Recorded Sex Assigned at Not on file Legal Sex Male 11:52 AM EDITING CLERK Gender Identity Not on file Sexual Orientation Not on file documented as of this encounter Miscellaneous Notes * Addendum Note - Liban Gilbert RN - 01/18/2025 4:12 PM CSTAddended by: LIBAN GILBERT on: 01/18/2025 04:12 PM Modules accepted: Orders ING CLERK * Telephone Encounter - Liban Gilbert RN - 01/18/2025 4:11 PM CST Pt Johanny notified, verbalized understanding. ING CLERK * Telephone Encounter - David Escobar MD - 01/18/2025 4:02 PM EDITING CLERK Antibiotics sent to pharmacy ING CLERK * Addendum Note - David Escobar MD - 01/18/2025 4:02 PM CSTAddended by: DAVID ESCOBAR on: 01/18/2025 04:02 PM Modules accepted: Orders ING CLERK * Telephone Encounter - Liban Gilbert RN - 01/18/2025 2:21 PM CST No he is not apologies ING CLERK * Telephone Encounter - David Escobar MD - 01/18/2025 1:47 PM EDITING CLERK Apologies, I do not think I realized we had an outside UA running. I just reviewed the results and it does show that he has UTI. Is he on antibiotics? ING CLERK * Telephone Encounter - Liban Gilbert RN - 01/18/2025 9:56 AM CST Please advise ING CLERK * Telephone Encounter - Tammy Herman - 01/18/2025 9:35 AM CST Patient spouse is calling to get the U/A results that patient completed last week. Please review and advise [phone] ING CLERK documented in this encounter Plan of Treatment Upcoming Encounters Date Type Department Care Team (Late st Contact Info) Description 01/23/2025 2:00 PM EDITING CLERK Office Visit [facility] [address] [place] [phone] David Esocbar MD [address] [place] [phone] 02/27/2025 10:00 AM EDITING CLERK Appointment [facility] Cardiovascular Imaging [place] [address] [facility] [place] [phone] Lion Naranjo MD [address] [place] [phone] 02/27/2025 11:00 AM EDITING CLERK Appointment [facility] Cardiovascular Imaging [place] [address] [place] [facility] [place] [phone] Lion Naranjo MD [address] [facility] [place] [phone] 02/27/2025 12:00 PM EDITING CLERK Office Visit [facility] Heart and Vascular [place] [address] [facility] [place] [phone] Lion Naranjo MD [address] [place] [place] [phone] 07/19/2025 1:00 PM CDT Appointment [facility] Laboratory Services [facility] [address] [facility] [place] [phone] Marycarmen Marin, SAT ACT INSTRUCTOR [address] [place] [phone] 07/19/2025 2:00 PM CDT Office Visit [facility] Oncology and Hematology [address] [place] [address] Marycarmen Marin, SAT ACT INSTRUCTOR [address] [place] [address] documented as of this encounter Visit Diagnoses Not on filedocumented in this encounter Additional Health Concerns Assessment Noted Time PHQ-9 Depression Total Score: 2 01/17/20 25 11:41 AM EDITING CLERK documented as of this encounter Care Teams Transformation Consultant Relationship Specialty Start Date End Date David Escobar MD [address] [place] [phone] PCP - General Family Practice 01/17/24 documented as of this encounter
--- OUTSIDE RECORDS SUMMARY | 2025-01-20 09:31 | XMS_ITS | Encounter Summary ---
Author Organization [facility] Address [address] [place] [address] Care Team Providers Care Med Aide Name Role Phone David Escobar MD Primary Care Provide r Reason for Visit * Reason Onset Date Comments Medication Refill 01/08/2025 Encounter Details Date Type Department Care Team (Late st Contact Info) Description 01/08/2025 Telephone [facility] Primary Care [address] [place] [phone] David Escobar MD [address] [facility] [address] [place] [address] Medication Refill Social History Tobacco Use Types Packs/Day Years Used Date Smoking Tobacco: Former Cigarettes 0.5 4 S tarted: 1957 Smokeless Tobacco: Never Comments:Quit smoking: quit age 21 Alcohol Use Standard Drinks/Week Comments No 0 (1 standard drink = 0.6 oz pur e alcohol) Sex and Gender Information Value Date Recorded Sex Assigned at Not on file Legal Sex Male 11:52 AM BULK PIGMENT REDUCER Gender Identity Not on file Sexual Orientation Not on file documented as of this encounter Miscellaneous Notes * Telephone Encounter - Magdiel Rivas LPN - 01/14/2025 8:47 AM BULK PIGMENT REDUCER Final urine culture results received and scanned into pt's chart PIGMENT REDUCER * Telephone Encounter - Magdiel Rivas LPN - 01/10/2025 2:28 PM BULK PIGMENT REDUCER Results received. Scanned into chart and forwarded to Dr. Escobar. PIGMENT REDUCER * Addendum Note - Liban Gilbert RN - 01/09/2025 8:45 AM CSTAddended by: LIBAN GILBERT on: 01/09/2025 08:45 AM Modules accepted: Orders PIGMENT REDUCER * Telephone Encounter - Liban Gilbert RN - 01/09/2025 8:45 AM CST Pt notified, verbalized understanding. Faxed lab order to [phone] PIGMENT REDUCER * Telephone Encounter - David Escobar MD - 01/09/2025 7:40 AM BULK PIGMENT REDUCER Yes please, I know it is a pain, but having an updated UA with culture will help us make sure he ketty the right antibiotic PIGMENT REDUCER * Telephone Encounter - Liban Gilbert RN - 01/08/2025 2:47 PM CST This was checked in the ER, Johanny does not think they gave him enough medication. He has been to ER x2 for this and falls. Would you want to order a UA with culture/ PIGMENT REDUCER * Telephone Encounter - Leona Ponce - 01/08/2025 2:03 PM BULK PIGMENT REDUCER Pt was seen at [facility] He was given Cefdinir 300 mg bid Bladder infection Asking for this to be filled at [facility] Pt number is [phone] PIGMENT REDUCER documented in this encounter Plan of Treatment Upcoming Encounters Date Type Department Care Team (Late st Contact Info) Description 01/23/2025 2:00 PM BULK PIGMENT REDUCER Office Visit [facility] Primary Care [address] [place] [phone] David Escobar MD [address] [place] [phone] 02/27/2025 10:00 AM BULK PIGMENT REDUCER Appointment [facility] Cardiovascular Imaging [place] [address] [place] [facility] [place] [phone] Lion Naranjo MD [address] [place] [address] [facility] [place] [phone] 02/27/2025 11:00 AM BULK PIGMENT REDUCER Appointment [facility] Cardiovascular Imaging [place] [address] [facility] [place] [phone] Lion Naranjo MD [address] [facility] [place] [phone] 02/27/2025 12:00 PM BULK PIGMENT REDUCER Office Visit [facility] Heart and Vascular [place] [address] [place] [facility] [place] [phone] Lion Naranjo MD [address] [facility] [place] [address] 07/19/2025 1:00 PM CDT Appointment [facility] Laboratory Services [facility] [address] [place] [phone] Marycarmen Marin, ELEVATOR MECHANIC APPRENTICE [address] [place] [phone] 07/19/2025 2:00 PM CDT Office Visit [facility] Oncology and Hematology [address] [place] [phone] Marycarmen Marin, ELEVATOR MECHANIC APPRENTICE [address] [place] [phone] Scheduled Orders Name Type Priority Associated Diagnoses Orde r Schedule URINALYSIS WITH REFLEX CULTURE Lab Routine Recent urinary tract infection Expected: 01/09/2025, Expires: 01/09/2026 documented as of this encounter Visit Diagnoses Diagnosis Recent urinary tract infection- Primary documented in this encounter Care Teams Med Aide Relationship Specialty Start Date End Date David Escobar MD [address] [place] [phone] PCP - General Family Practice 01/17/24 documented as of this encounter
--- OUTSIDE RECORDS SUMMARY | 2025-01-20 09:31 | XMS_ITS | Patient Health Record ---
Author Organization [facility] Address [address] [place] [address] Care Team Providers Care Chef De Cuisine Name Role Phone Jeremie Gomez Unavailable [phone] Allergies Allergen (clinical drug ingredient) Drug/Non Drug [...] Provider Speciality Pain Medic ine Referred Organization [facility] Referred Provider Cari Alston Referred Address [address] [place] [address],[place],[address], Referred Provider Specialty Pain Medicin e General Notes Isabelle Reaves 11:48:56 AM >pt will knot picker cloth npp 05-28-24, Isabelle Reaves 05/29/2024 02:45:53 PM >picked up npp Referral Priority Routine Medications Medication SIG (Take, Route, Frequency, Duration) Notes Start Date End Date Status Fluticasone Furoate 50 MCG/ACT Aerosol Powder Breath Activated 1 puff Inhalation Once a day Active Cetirizine HCl 10 MG Tablet 1 tablet Orally Once a day Active traMADol HCl 50 MG Tablet 1 tablet as needed Orally every 8 hours; Duration: 30 days As needed Not to exceed 3 per day Fill 11/22/2024 11/23/2024 Active Atorvastatin Calcium 40 MG Tablet 1 tablet Orally Once a day Active Lidocaine 5 % Patch 1 patch remove after 12 hours Externally twice a day; Duration: 30 days As needed 09/28/2024 Active Aspirin 81 81 MG Tablet Delayed [...] with food Orally Once a day Active Pantoprazole Sodium 40 MG Tablet Delayed Release 1 tablet 1/2 to 1 hour before morning meal Orally Once a day Active [place] 3 Fish Oil 1000 MG Capsule 1 capsule Orally Three times a day Active Mucinex 600 MG Tablet Extended Release 12 Hour 1 tablet as needed Orally every 12 hrs Active MiraLax 17 GM/SCOOP Powder 1 scoop mixed with 8 ounces of fluid Orally Once a day Active Metoprolol Succinate 50 MG Capsule ER 24 Hour Sprinkle 1 capsule Orally Once a day Active Lidocaine 5 % [...] Status Risk Notes Problem Chronic pain syndrome (948497473) Chronic pain syndrome (G89.4) Active confirmed Problem Acquired spondylolisthesis (090089993) Spondylolysis, lumbosacral region (M43.07) Active confirmed Problem Solitary sacroiliitis (694476153) Sacroiliitis, not elsewhere classified (M46.1) Active confirmed Problem Lumbosacral spondylosis without myelopathy (68482531) Spondylosis without myelopathy or radiculopathy, lumbar region (M47.816) Active confirmed Problem Lumbar radiculopathy (922203781) Lumbar radiculopathy (M54.16) Active confirmed Problem CVA - Cerebrovascular accident (722011625) CVA (cerebral vascular accident) (I63.9) Active confirmed Problem Abnormal gait (56162155) Abnormality of gait and mobility (R26.9) Active confirmed Problem 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 / MBB Lumbar/Sacr al, 2 levels - 61032, 66285 01/01/2025 01/01/202501-01 Encounters Encounter Location Date Provider Diagnosis [facility] [place] [address] [place] [address] 09/19/2024 Jeremie Gomez Chronic pain syndrom e G89.4 ; Neurogenic claudication due to lumbar spinal stenosis M48.062 ; Lumbar radiculopathy M54.16 ; Aphasia as late effect of cerebrovascular accident I69.320 ; Abnormality of gait and mobility R26.9 ; keno clerk (current) use of opiate analgesic Z79.891 and CVA (cerebral vascular accident) I63.9 [facility] [place] [address] [place] [address] 11/21/2024 Jeremie Gomez Chronic pain syndrom e G89.4 ; Neurogenic claudication due to lumbar spinal stenosis M48.062 ; Lumbar radiculopathy M54.16 ; intermediate (current) use of opiate analgesic Z79.891 ; Aphasia as late effect of cerebrovascular accident I69.320 ; Abnormality of gait and mobility R26.9 and CVA (cerebral vascular accident) I63.9 [facility] [address] [place] [address] 01/01/2025 Jeremie Gomez Neurogenic claudicat ion due to lumbar spinal stenosis M48.062 [facility] [place] [address] [place] [address] 07/25/2024 Jeremie Gomez Chronic pain syndrom e G89.4 ; Neurogenic claudication due to lumbar spinal stenosis M48.062 ; CVA (cerebral vascular accident) I63.9 ; Aphasia as late effect of cerebrovascular accident I69.320 ; Lumbar radiculopathy M54.16 ; Abnormality of gait and mobility R26.9 and intermediate (current) use of opiate analgesic Z79.891 [facility] [place] [address] [place] [phone] 11/22/2024 Jeremie Gomez Lumbar radiculopathy M54.16 [facility] [address] [address] 09/28/2024 Jeremie Gomez [facility] [address] [address] 12/10/2024 Jeremie Gomez Assessments Encounter Date Diagnosis (ICD Code) Assessment Notes Treatment Notes Treatment Clinical Notes Section Notes 01/01/2025 Neurogenic claudication due to lumbar spinal stenosis [...] lumbar spinal stenosis (ICD-10 - M48.062) 07/25/2024 Chronic pain syndrome (ICD-10 - G89.4) [...] (cerebral vascular accident) (ICD-10 - I63.9) 09/19/2024 Lumbar radiculopathy (ICD-10 - M54.16) 11/21/2024 Lumbar radiculopathy (ICD-10 - M54.16) 11/21/2024 keno clerk (current) use of opiate analgesic (ICD-10 - Z79.891) 09/19/2024 Aphasia as late effect of cerebrovascular accident (ICD-10 - I69.320) 07/25/2024 Aphasia as late effect of cerebrovascular accident (ICD-10 - I69.320) 07/25/2024 Lumbar radiculopathy (ICD-10 - M54.16) 09/19/2024 Abnormality of gait and mobility (ICD-10 - R26.9) 11/21/2024 Aphasia as late effect of cerebrovascular accident (ICD-10 - I69.320) 11/21/2024 Abnormality of gait and mobility (ICD-10 - R26.9) 09/19/2024 intermediate (current) use of opiate analgesic (ICD-10 - Z79.891) 07/25/2024 Abnormality of gait and mobility (ICD-10 - R26.9) 09/19/2024 CVA (cerebral vascular accident) (ICD-10 - I63.9) 07/25/2024 keno clerk (current) use of opiate analgesic (ICD-10 - Z79.891) 11/21/2024 CVA (cerebral vascular accident) (ICD-10 - I63.9) 07/25/2024 Other Padma Luu NCMA, am scribing for Dr. Jeremie Gomez. I, Dr. Jeremie Gomez, personally performed the services described in this documentation, as scribed by JULIA Crum, and it is both accurate and complete. 09/19/2024 Other Susan Luu, edy scribing for Dr. Jeremie Gomez. I, Dr. Jeremie Gomez, personally performed the services described in this documentation, as scribed by Susan Hui, and it is both accurate and complete. 11/21/2024 Other Susan Luu am scribing for Dr. Jeremie Gomez. I, Dr. Jeremie Gomez, personally performed the services described in this documentation, as scribed by Susan Hui, and it is both accurate and complete. Plan Of Treatment Future Test Test Name Order Date Facet Inj. / MBB Lumbar/Sacral, 2 levels - 74905, 79073 11/23/2024 Insurance Providers Payer Name Payer Address Payer Phone Subscriber Number Group Number Insured Name Patient Relationship to Insured Coverage Start Date Coverage End Date [place] [address] [place] [phone] [id number] Ap Guillen Self - patient is the insured BCBS Supplement [address] [place] [address] [phone] [id number] Ap Guillen Self - patient is the insured Medical (General) History Medical History History ICD Code High Blood Pressure Heart Disease measles/mumps/rubella bronchitis stroke Depression Arthritis Prostate Problems kidney infection kidney stones Bleeding Disorder Surgical History Surgery Date(Month/Year) tonsillectomy hernia repair cataract removal aneurysm repair x2
--- OUTSIDE RECORDS SUMMARY | 2025-01-20 09:31 | XMS_ITS | Clinical Summary ---
Author Organization [facility] Address [address] Attn: [place] [address] Care Team Providers Care Mammography Technologist Name Role Phone David Escobar MD Primary [...] daily. Active fluticasone propionate (FLONASE) 50 mcg/spray [place], Suspension nasal inhaler Administer 2 Sprays in [...] Dr Escobar changed dose, Reported on 09/03/2024 nitrofurantoin (Macrobid) 100 mg capsule Take 1 Capsule (100 mg) by mouth 2 times daily for 10 days. 20 Capsule 01/19/20 25 025 Active nitrofurantoin (Macrobid) 100 mg capsule Take 1 Capsule (100 mg) by mouth 2 times daily for 10 days. 20 Capsule 01/19/20 25 025 Discontin ued(Reord er) Active Problems Problem Noted Date Diagnosed Date History of CVA (cerebrovascular accident) 2024 MGUS (monoclonal gammopathy of unknown significa nce) 01/27/2024 Assessment & Plan (07/20/2024 4:26 PM CDT): Chronic, stable Follows with oncology No recent changes to labs Monitor Anemia 01/27/2024 ASCVD (arteriosclerotic cardiovascular disease) 01/17/2024 MEDARDO (generalized anxiety disorder) 01/17/2024 Assessment & Plan (01/18/2024 7:45 AM GEOLOGY PROFESSOR): See above. History of multiple strokes 06/05/2021 Essential hypertension 06/05/2021 Assessment & Plan (07/20/2024 4:26 PM CDT): Chronic, controlled Continue current medication regimen Assessment & Plan (01/18/2024 7:45 AM GEOLOGY PROFESSOR): Chronic, stable, well controlled. Continue current management. Abdominal aortic aneurysm 06/05/2021 Osteoporosis 06/13/2020 Dysphagia 03/14/2020 Slurred speech 03/14/2020 Assessment & Plan (07/20/2024 4:26 PM CDT): Chronic, unchanged Monitor Carotid stenosis, bilateral 09/19/2019 Chronic kidney disease 07/12/2019 Assessment & Plan (07/20/2024 4:26 PM CDT): Chronic, stable Labs up-to-date Assessment & Plan (01/18/2024 7:45 AM GEOLOGY PROFESSOR): Chronic, stable. Continue current management and monitoring. [...] regimen Assessment & Plan (01/18/2024 7:45 AM GEOLOGY PROFESSOR): Stable and Controlled. Continue current treatment. Chronic anticoagulation Chronic anemia Assessment & Plan (07/20/2024 4:26 PM CDT): Chronic, stable Labs up-to-date Assessment & Plan (01/18/2024 7:45 AM GEOLOGY PROFESSOR): 2/2 to blood loss. Pt continues to f/u w/ hematology multiple times a year and sees them next week. Resolved Problems Problem Noted Date Diagnosed Date Resolved Date Acute gastrointestinal hemorrhage 06/05/2021 01/17/2024 Acute blood loss anemia 06/05/202107/08 Wellness examination 04/21/2021 024 Anxiety and depression 06/13/201801/16 Pulmonary embolism 03/09/2017 Overview (01/17/2024): hx of PE Nausea \T\ vomiting 09/10/2011 09/12/19 12 Abdominal pain, epigastric 09/10/2011 0 09/12/2011 Elevated LFTs 09/10/2011 01/17/2024 Pseudophakia 08/07/2009 01/17/2024 Hypotropia 08/07/2009 01/17/2024 Diplopia 08/07/2009 01/17/2024 Encounters Date Type Department Care Team Description 01/18/[address] [facility] Primary Care [address] [place] [phone] David Escobar MD Lab Results 01/10/2025 Orders Only [facility] Primary [facility] [address] [place] [phone] Magdiel Rivas LPN Recent urinary tract infection 01/08/[address] [facility] Primary Care [address] [place] [phone] David Escobar MD Medication Refill 10/29/[address] [facility] Primary Care [address] [place] [phone] David Escobar MD Information 10/23/[address] [facility] Primary Care [address] [place] [phone] David Escobar MD Referral from Last 3 [...] on file Legal Sex Male 11:52 AM GEOLOGY PROFESSOR Gender Identity Not on file Sexual Orientation [...] st Contact Info) Description 01/23/2025 2:00 PM GEOLOGY PROFESSOR Office Visit [facility] Primary Care [address] [place] [phone] David Escobar MD [address] [place] [phone] 02/27/2025 10:00 AM GEOLOGY PROFESSOR Appointment [facility] Cardiovascular Imaging [place] [address] [place] [place] [phone] Lion Naranjo MD [address] [place] [place] [phone] 02/27/2025 11:00 AM GEOLOGY PROFESSOR Appointment [facility] Cardiovascular Imaging [place] [address] [place] [place] [address] Lion Naranjo MD [address] [facility] [place] [address] 02/27/2025 12:00 PM GEOLOGY PROFESSOR Office Visit [facility] Heart and Vascular [place] [address] [place] [phone] Lion Naranjo MD [address] [place] [place] [address] 07/19/2025 1:00 PM CDT Appointment [facility] Laboratory Services [facility] [address] [place] [phone] Marycarmen Marin, [facility] [address] [place] [address] 07/19/2025 2:00 PM CDT Office Visit [facility] Oncology and Hematology [address] [place] [address] Marycarmen Marin, SENIOR ANDROID DEVELOPER [address] [place] [phone] Health Maintenance Due Date Last Done Comments ZOSTER VACCINE (1 of 2) 1990 PNEUMOCOCCAL VACCINE 50+ YEA RS (2 of 2 - PCV20 or PCV21) 01/12/2019 01/12/2018, 12/08/2005 INFLUENZA VACCINE (#1) 2024 , 12/14/2023, 11/18/2022, Additional history exists COVID-19 Vaccine (2024-2 6 season) 2024 12/14/2023, 11/18/2022, 11/04/2021, Additional history exists Traditional Medicare (ACO) A nnual Wellness Visit 01/17/2025 01/17/2024 DTAP/TDAP/TD VACCINES (3 - T d or Tdap) 04/22/2031 04/21/2021, 04/21/2021 RSV VACCINE (60+ or ) Completed 12/14/2022 Insurance MEDICARE PART A AND B BC[employer] SUPP Advance Directives For more information, please contact: [phone] * Default Full Code - Needs Discussion (Latest Code Status on File) Date Activated Date Inactivated Comments 06/05/2021 5:03 AM 06/08/2021 5:55 PM Care Teams Mammography Technologist Relationship Specialty Start Date End Date David Escobar MD [address] [place] [phone] PCP - General Family Practice 01/17/24
--- OUTSIDE RECORDS SUMMARY | 2025-01-20 09:31 | XMS_ITS | Clinical Summary ---
Author Organization [facility] Address [address] [place] [address] Care Team Providers Care Drilling Contractor Name Role Phone Jacobo Lubin MD Primary [...] on file Legal Sex Male 4:47 AM MAPPING SPECIALIST Gender Identity Not on file Sexual Orientation Not on file Occupation Industry Job Start Date Job End Date Not on file Not on file Not on file Not on file Last Filed Vital Signs Vital Sign Reading Time Taken Comments Blood Pressure 132/77 02/05/2013 8:20 PM MAPPING SPECIALIST Pulse 64 02/05/2013 6:16 PM MAPPING SPECIALIST Temperature 37.1 C (98.8 F) 02/05/2013 1:01 PM MAPPING SPECIALIST Respiratory Rate 18 02/05/2013 8:20 PM MAPPING SPECIALIST Oxygen Saturation 95% 02/05/2013 8:20 PM MAPPING SPECIALIST Inhaled Oxygen Concentration - - Weight 77.1 kg (170 lb) 02/05/2013 1:01 PM MAPPING SPECIALIST Height 176.5 cm (5' 9.5 ) 02/05/2013 1:01 PM MAPPING SPECIALIST Body Mass Index 24.74 02/05/2013 1:01 PM MAPPING SPECIALIST Plan of Treatment Health Maintenance Due Date Last Done Comments DTAP/TDAP/TD VACCINES (1 - Tdap) 07[birth year]07/1959 PNEUMOCOCCAL VACCINE 50+ YEARS (1 of 1 - PCV) 07/06/18 91 12/08/2005 ZOSTER VACCINE (1 of 2) 1990 RSV VACCINE (60+ or ) (1 - 1-dose 75+ series) 07/07/2015 INFLUENZA VACCINE (#1) 2024 09/09/2011 Insurance [facility] [place] [id number] MEDICARE PART A AND B FIRST ADMINISTRATORS Advance Directives For more information, please contact: [phone] * Full Code (Latest Code Status on File) Date Activated Date Inactivated Comments 09/10/2011 1:18 AM 09/12/2011 3:10 PM * Full Code Date Activated Date Inactivated Comments 08/18/2009 12:38 PM 08/19/2009 2:31 AM * Full Code Date Activated Date Inactivated Comments 08/18/2009 11:54 AM 08/18/2009 12:38 PM * Full Code Date Activated Date Inactivated Comments 08/18/2009 11:37 AM 08/18/2009 11:54 AM Care Teams Drilling Contractor Relationship Specialty Start Date End Date Jacobo Lubin MD [address] [place] [phone] PCP - General Family Practice 08/08/09
--- NOTE | 2025-01-20 09:34 | XRR_ITS ---
PROCEDURE INFORMATION: Exam: XR Chest Exam date and time: 01/20/2025 9:56 AM Age: 84 years old Clinical indication: Fever TECHNIQUE: Imaging protocol: Radiologic exam of the chest. Views: 1 view. COMPARISON: CR XR chest 1V portable [id number] 12/28/2024 10:01 AM FINDINGS: Lungs: Generalized prominence of the interstitium is present throughout the lungs. Pleural spaces: There is mild apical pleural thickening. Heart/Mediastinum: Unremarkable. No cardiomegaly. Diaphragm: There is elevation of the right hemidiaphragm. Bones/joints: Old right rib fractures are identified. XR/XR chest 1V portable [id number] IMPRESSION: Chronic interstitial changes about acute infiltrate identified.
--- NOTE | 2025-01-20 09:38 | W.ED.FEVER ---
Documented by User: ROCHELLE Huerta 01/20/25 11:48 HPI - Fever General: Chief Complaint: Fever Stated Complaint: fever Time Seen by Provider: 01/20/25 09:24 Source: patient, EMS and old records reviewed Mode of arrival: EMS Limitations: physical limitation History of Present Illness: Patient is an 84-year-old male with past medical history of pneumonia, expressive aphasia since CVA, chronic kidney disease, and recently diagnosed urinary tract infection on antibiotics who presents to the emergency department from home due to fevers this morning. He has been at baseline mentation, and only symptom so far is the fevers of which is resolved at this time secondary to being given ibuprofen by EMS staff. Rest of his vitals are stable, temperature 98.6. He has not been vomiting or having any diarrhea. Antibiotics were prescribed 4 days ago. Has not been complaining of any abdominal pain. Due to the patient's condition he is unable to provide any review of systems, but does indicate that he is not having any complaints at this time when I ask him of any symptoms. MD elicited complaint: fever Onset (ago): hour(s) Context: recent antibiotic use (for UTI) Treatments prior to arrival fever: antibiotics Related Data Home Medications ?Medication ?Instructions ?Recorded ?Confirmed aspirin 81 mg tablet,delayed 81 mg PO DAILY@89907/09/20 12/28/24 release ascorbic acid (vitamin C) 1,000 mg 1 g PO DAILY@2100 09/03/20 12/28/24 tablet (Vitamin C) cetirizine 10 mg tablet 10 mg PO DAILY@89909/03/20 12/28/24 cholecalciferol (vitamin D3) 25 25 mcg PO BID@09/03/20 12/28/24 mcg (1,000 unit) chewable tablet (Vitamin D3) omega-3 fatty acids 1,000 mg 1,000 mg PO QAM 09/21/21 12/28/24 capsule tramadol 50 mg tablet 50 mg PO BID@09/21/21 12/28/24 lidocaine 5 % topical patch 1 patch transdermal DAILY PRN Pain 08/25/23 11/28/23 fluticasone propionate 50 1 spray intranasal DAILY PRN 08/31/23 12/28/24 mcg/actuation nasal allergies spray,suspension polyethylene glycol 3350 17 4 g PO DAILY 11/28/23 12/28/24 gram/dose oral powder Previous Rx's ?Medication ?Instructions ?Recorded pantoprazole 40 mg tablet,delayed 40 mg PO BID #60 tabs 09/23/21 release (Protonix) amlodipine 10 mg tablet 10 mg PO DAILY #90 tabs 08/26/23 metoprolol tartrate 50 mg tablet 50 mg PO BID #30 tabs 08/26/23 atorvastatin 40 mg tablet 80 mg (2 x 40 mg) PO DAILY@2100 #0 08/30/23 tabs venlafaxine 150 mg 150 mg PO DAILY #30 caps 08/30/23 capsule,extended release 24 hr (Effexor XR) ondansetron 4 mg disintegrating 4 mg PO Q6H PRN nausea and 12/27/24 tablet vomiting #14 tabs cefdinir 300 mg capsule 300 mg PO BID #14 caps 12/28/24 Allergies Allergy/AdvReac Type Severity Reaction Status Date / Time acetylcysteine Allergy nausea/vomi Verified 11/28/23 08:08 ting Review of Systems General: Reports: ROS unobtainable due to medical condition PFSH ED PFSH: Medical History Pneumonia Acute kidney injury superimposed on chronic kidney disease Generalized weakness Aspiration pneumonia Bibasilar crackles Risk for falls Hypertension Aphasia Expressive aphasia Vitamin D deficiency Peripheral artery disease Anemia Osteoporosis Expressive aphasia Chronic anticoagulation Eliquis due to CVA history Dyslipidemia Degenerative joint disease of spine CVA (cerebral vascular accident) 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 Reported to have hole in his heart but later when attempt was made to repair it was not identified. On chronic anticoagulation with Eliquis, initiated at outside facility, due to history of recurrent strokes. CKD (chronic kidney disease) Single functioning kidney per Surgical History Status post herniorrhaphy right inguinal hernia History of cataract surgery History of intravascular stent placement renal artery and aortic stents Status post endovascular aneurysm repair (EVAR) Status post right inguinal hernia repair Status post colonoscopy 2015 adenomatous polyp Family History Mother , at age 93 No problems noted. Father , at age 77 AA (aortic aneurysm) Cancer throat and lung Other Hypertension Social History Smoking and tobacco/nicotine status: never used tobacco/nicotine Alcohol intake: never Substance/Drug Use: never Household members: spouse Housing: House Marital status: Current occupational status: retired Physical Exam Const: COMMON NORMALS: no acute distress GENERAL APPEARANCE: cooperative and comfortable ORIENTATION/CONSCIOUSNESS: Yes awake OTHER: Expressive aphasia, nontoxic-appearing, at baseline mentation HENMT: COMMON NORMALS: normocephalic and atraumatic HEAD & SCALP: normocephalic and atraumatic THROAT: posterior oropharynx normal Eye: COMMON NORMALS: Equal, round and reactive pupils present and EOMs intact bilaterally PUPIL: Yes Equal, round and reactive pupils present Neck/C-Spine: COMMON NORMALS: full ROM Resp: COMMON NORMALS: normal respiratory effort, No retractions, No use of accessory muscles and clear to auscultation bilaterally AUSCULTATION: clear to auscultation bilaterally Cardio: COMMON NORMALS: regular rate, regular rhythm, S1 normal heart sound present and S2 normal heart sound present RATE: regular rate RHYTHM: regular rhythm HEART SOUNDS: S1 normal heart sound present and S2 normal heart sound present GI: COMMON NORMALS: Soft to palpation and non-tender PALPATION: Yes Soft to palpation Extremity: COMMON NORMALS: normal to inspection, full ROM and no pedal edema Neuro: COMMON NORMALS: moves all extremities, no focal motor deficits and no sensory deficits noted Skin: COMMON NORMALS: no rashes or lesions noted GENERAL SKIN EXAM: no rashes or lesions noted Course Vital Signs: Vital signs: Vital Signs Temperature 98.6 F 01/20/25 09:27 Pulse Rate 62 01/20/25 12:15 Respiratory Rate 16 01/20/25 09:27 Blood Pressure 122/60 01/20/25 12:15 Pulse Oximetry 97 01/20/25 12:15 Oxygen Delivery Me thod Room Air 01/20/25 12:15 MDM - Fever Medical Decision Making Patient presented by ambulance for fevers, has been taking Macrobid for the past 4 days for UTI. History of UTI in the past, reviewing micro report appears that he recently had culture positivity for EBSL, susceptible to carbapenems. Suspect that there has been inadequate treatment with the monotherapy Macrobid as his urinalysis is still showing infection, he has not had a fever here he was given antipyretics prehospital. He does have a history of chronic kidney disease there is no significant increase in this, his lactic acid is normal, there is mild increase in his white cell count but overall he was nontoxic-appearing no vomiting or any other signs of a potential ascending infection. I called [facility] pharmacy, they do not have the IM ertapenem so patient will be admitted for observation and currently is receiving IV meropenem, we will set him up from a hospital standpoint with outpatient medications that are susceptible to his previous urine micro. Overall stable, spoke to Dr. Joiner who is agreeing to place the patient for observation. Family the room agrees with this plan. Lab Data 01/20/25 09:39 01/20/25 09:39 Radiology Impressions Chest X-Ray 01/20/25 09:34 IMPRESSION: Chronic interstitial changes about acute infiltrate identified. Laboratory Results WBC 12.68 10^3/uL (3.29-11.43) H 01/20/25 09:39 RBC 4.02 10^6/uL (3.85-5.65) 01/20/25 09:39 Hgb 12.10 g/dL (11.27-16.99) 01/20/25 09:39 Hct 36.2 % (37-53) L 01/20/25 09:39 MCV 90.0 fl (82-101) 01/20/25 09:39 MCH 30.1 pg (27-33) 01/20/25 09:39 MCHC 33.4 g/dL (30-55) 01/20/25 09:39 RDW 13.9 % (12.1-15.1) 01/20/25 09:39 Plt Count 154 10^3/cmm (157-399) L 01/20/25 09:39 MPV 9.7 fL (7.4-10.4) 01/20/25 09:39 Neut % (Auto) 80.7 % 01/20/25 09:39 Lymph % (Auto) 5.0 % 01/20/25 09:39 Craven % (Auto) 12.8 % 01/20/25 09:39 Eos % (Auto) 0.6 % 01/20/25 09:39 Baso % (Auto) 0.2 % 01/20/25 09:39 Neut # (Auto) 10.23 10^3/uL (1.8-7.7) H 01/20/25 09:39 Lymph # (Auto) 0.6 10^3/uL (0.8-4.8) L 01/20/25 09:39 [place] # (Auto) 1.6 10^3/uL (0.2-0.9) H 01/20/25 09:39 Eos # (Auto) 0.1 10^3/uL (0.0-0.8) 01/20/25 09:39 Baso # (Auto) 0.0 10^3/uL (0.0-0.1) 01/20/25 09:39 Nucleated RBC % (auto) 0 % 01/20/25 09:39 Nucleated RBCs # 0.0 /100WBC 01/20/25 09:39 Sodium 131 mmol/L (136-145) L 01/20/25 09:39 Potassium 3.8 mmol/L (3.5-5.1) 01/20/25 09:39 Chloride 94 mmol/L (98-107) L 01/20/25 09:39 Carbon Dioxide 25 mmol/L (22-29) 01/20/25 09:39 Anion Gap 15.8 (5-19) 01/20/25 09:39 BUN 18 mg/dL (8-23) 01/20/25 09:39 Creatinine 1.6 mg/dL (0.7-1.2) H 01/20/25 09:39 GFR Calculation Not Reportable 01/20/25 09:39 Glucose 145 mg/dL (65-115) H 01/20/25 09:39 Calculated Osmolality 276 mOsm/kg (285-295) L 01/20/25 09:39 Lactic Acid 1.3 mmol/L (0.5-2.2) 01/20/25 09:39 Calcium 8.8 mg/dL (8.5-10.5) 01/20/25 09:39 Total Bilirubin 0.6 mg/dL (0.15-1.2) 01/20/25 09:39 AST 13 U/L (0-40) 01/20/25 09:39 ALT 13 U/L (0-41) 01/20/25 09:39 Alkaline Phosphatase 87 U/L (40-130) 01/20/25 09:39 Total Protein 6.5 g/dL (6.6-8.7) L 01/20/25 09:39 Albumin 3.3 g/dL (3.5-5.2) L 01/20/25 09:39 Globulin 3.2 g/dL (1.3-4.6) 01/20/25 09:39 Urine Color Yellow (Yellow) 01/20/25 10:34 Urine Appearance Turbid (CLEAR) A 01/20/25 10:34 Urine pH 5.5 (5-7) 01/20/25 10:34 Ur Specific [place] 1.015 (1.005-1.030) 01/20/25 10:34 Urine Protein 2+ (Negative) A 01/20/25 10:34 Urine Glucose (UA) Negative (Normal) 01/20/25 10:34 Urine Ketones Negative (Negative) 01/20/25 10:34 Urine Blood 2+ (Negative) A 01/20/25 10:34 Urine Nitrate Negative (Negative) 01/20/25 10:34 Urine Bilirubin Negative (Negative) 01/20/25 10:34 Urine Urobilinogen 1.0 mg/dL (Negative) 01/20/25 10:34 Ur Leukocyte Esterase 3+ (Negative) A 01/20/25 10:34 Urine RBC 6-10 /hpf (0-2) 01/20/25 10:34 Urine WBC >100 /hpf (0-5) H 01/20/25 10:34 Ur Squamous Epith Cells 0-5 /hpf (0-5) 01/20/25 10:34 Amorphous Sediment Not Reportable 01/20/25 10:34 Urine Bacteria 1+ /hpf (NONE) H 01/20/25 10:34 Hyaline Casts 8.90 /lpf 01/20/25 10:34 Influenza A (PCR) Negative (Negative) 01/20/25 09:49 Influenza Type B (PCR) Negative (Negative) 01/20/25 09:49 RSV (PCR) Negative (Negative) 01/20/25 09:49 SARS-CoV-2 (PCR) Negative (Negative) 01/20/25 09:49 All radiology interpretation(s) finalized by discharge Discharge Plan Discharge Patient Disposition: Placed in Observation Admit Provider: Radames Joiner Clinical Impression: Urinary tract infection Qualifiers: Urinary tract infection type: acute cystitis Hematuria presence: without hematuria Qualified Code(s): N30.00 - Acute cystitis without hematuria Coding Level of Care Code ED Channel Development Manager for Chg Fwd Documented by User: Ammy Dougherty MD 01/20/25 12:23 HPI - Fever General: Chief Complaint: Fever Stated Complaint: fever Time Seen by Provider: 01/20/25 09:24 Related Data Home Medications ?Medication ?Instructions ?Recorded ?Confirmed aspirin 81 mg tablet,delayed 81 mg PO DAILY@89907/09/20 12/28/24 release ascorbic acid (vitamin C) 1,000 mg 1 g PO DAILY@209909/03/20 12/28/24 tablet (Vitamin C) cetirizine 10 mg tablet 10 mg PO DAILY@89909/03/20 12/28/24 cholecalciferol (vitamin D3) 25 25 mcg PO BID@09/03/20 12/28/24 mcg (1,000 unit) chewable tablet (Vitamin D3) omega-3 fatty acids 1,000 mg 1,000 mg PO QAM 09/21/21 12/28/24 capsule tramadol 50 mg tablet 50 mg PO BID@09/21/21 12/28/24 lidocaine 5 % topical patch 1 patch transdermal DAILY PRN Pain 08/25/23 11/28/23 fluticasone propionate 50 1 spray intranasal DAILY PRN 08/31/23 12/28/24 mcg/actuation nasal allergies spray,suspension polyethylene glycol 3350 17 4 g PO DAILY 11/28/23 12/28/24 gram/dose oral powder Previous Rx's ?Medication ?Instructions ?Recorded pantoprazole 40 mg tablet,delayed 40 mg PO BID #60 tabs 09/23/21 release (Protonix) amlodipine 10 mg tablet 10 mg PO DAILY #90 tabs 08/26/23 metoprolol tartrate 50 mg tablet 50 mg PO BID #30 tabs 08/26/23 atorvastatin 40 mg tablet 80 mg (2 x 40 mg) PO DAILY@2100 #0 08/30/23 tabs venlafaxine 150 mg 150 mg PO DAILY #30 caps 08/30/23 capsule,extended release 24 hr (Effexor XR) ondansetron 4 mg disintegrating 4 mg PO Q6H PRN nausea and 12/27/24 tablet vomiting #14 tabs cefdinir 300 mg capsule 300 mg PO BID #14 caps 12/28/24 Allergies Allergy/AdvReac Type Severity Reaction Status Date / Time acetylcysteine Allergy nausea[facility]: Medical History Pneumonia Acute kidney injury superimposed on chronic kidney disease Generalized weakness Aspiration pneumonia Bibasilar crackles Risk for falls Hypertension Aphasia Expressive aphasia Vitamin D deficiency Peripheral artery disease Anemia Osteoporosis Expressive aphasia Chronic anticoagulation Eliquis due to CVA history Dyslipidemia Degenerative joint disease of spine CVA (cerebral vascular accident) 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 Reported to have hole in his heart but later when attempt was made to repair it was not identified. On chronic anticoagulation with Eliquis, initiated at outside facility, due to history of recurrent strokes. CKD (chronic kidney disease) Single functioning kidney per Surgical History Status post herniorrhaphy right inguinal hernia History of cataract surgery History of intravascular stent placement renal artery and aortic stents Status post endovascular aneurysm repair (EVAR) Status post right inguinal hernia repair Status post colonoscopy 2015 adenomatous polyp Family History Mother , at age 93 No problems noted. Father , at age 77 AA (aortic aneurysm) Cancer throat and lung Other Hypertension Social History Smoking and tobacco/nicotine status: never used tobacco/nicotine Alcohol intake: never Substance/Drug Use: never Household members: spouse Housing: House Marital status: Current occupational status: retired Course Vital Signs: Vital signs: Vital Signs Temperature 98.6 F 01/20/25 09:27 Pulse Rate 62 01/20/25 12:15 Respiratory Rate 16 01/20/25 09:27 Blood Pressure 122/60 01/20/25 12:15 Pulse Oximetry 97 01/20/25 12:15 Oxygen Delivery Me thod Room Air 01/20/25 12:15 MDM - Fever Medical Decision Making Patient presented by ambulance for fevers, has been taking Macrobid for the past 4 days for UTI. History of UTI in the past, reviewing micro report appears that he recently had culture positivity for EBSL, susceptible to carbapenems. Suspect that there has been inadequate treatment with the monotherapy Macrobid as his urinalysis is still showing infection, he has not had a fever here he was given antipyretics prehospital. He does have a history of chronic kidney disease there is no significant increase in this, his lactic acid is normal, there is mild increase in his white cell count but overall he was nontoxic-appearing no vomiting or any other signs of a potential ascending infection. I called [facility] pharmacy, they do not have the IM ertapenem so patient will be admitted for observation and currently is receiving IV meropenem, we will set him up from a hospital standpoint with outpatient medications that are susceptible to his previous urine micro. Overall stable, spoke to Dr. Joiner who is agreeing to place the patient for observation. Family the room agrees with this plan. 84-year-old male presents here with fever found to have acute cystitis likely causing his fever. He he has failed outpatient antibiotics I agree with history and physical with above midlevel will admit to hospitalist at this time Medical Records I reviewed the patient's medical records. Lab Data I reviewed the patient's lab results. 01/20/25 09:39 01/20/25 09:39 Radiology Impressions Chest X-Ray 01/20/25 09:34 IMPRESSION: Chronic interstitial changes about acute infiltrate identified. Laboratory Results WBC 12.68 10^3/uL (3.29-11.43) H 01/20/25 09:39 RBC 4.02 10^6/uL (3.85-5.65) 01/20/25 09:39 Hgb 12.10 g/dL (11.27-16.99) 01/20/25 09:39 Hct 36.2 % (37-53) L 01/20/25 09:39 MCV 90.0 fl (82-101) 01/20/25 09:39 MCH 30.1 pg (27-33) 01/20/25 09:39 MCHC 33.4 g/dL (30-55) 01/20/25 09:39 RDW 13.9 % (12.1-15.1) 01/20/25 09:39 Plt Count 154 10^3/cmm (157-399) L 01/20/25 09:39 MPV 9.7 fL (7.4-10.4) 01/20/25 09:39 Neut % (Auto) 80.7 % 01/20/25 09:39 Lymph % (Auto) 5.0 % 01/20/25 09:39 [place] % (Auto) 12.8 % 01/20/25 09:39 Eos % (Auto) 0.6 % 01/20/25 09:39 Baso % (Auto) 0.2 % 01/20/25 09:39 Neut # (Auto) 10.23 10^3/uL (1.8-7.7) H 01/20/25 09:39 Lymph # (Auto) 0.6 10^3/uL (0.8-4.8) L 01/20/25 09:39 [place] # (Auto) 1.6 10^3/uL (0.2-0.9) H 01/20/25 09:39 Eos # (Auto) 0.1 10^3/uL (0.0-0.8) 01/20/25 09:39 Baso # (Auto) 0.0 10^3/uL (0.0-0.1) 01/20/25 09:39 Nucleated RBC % (auto) 0 % 01/20/25 09:39 Nucleated RBCs # 0.0 /100WBC 01/20/25 09:39 Sodium 131 mmol/L (136-145) L 01/20/25 09:39 Potassium 3.8 mmol/L (3.5-5.1) 01/20/25 09:39 Chloride 94 mmol/L (98-107) L 01/20/25 09:39 Carbon Dioxide 25 mmol/L (22-29) 01/20/25 09:39 Anion Gap 15.8 (5-19) 01/20/25 09:39 BUN 18 mg/dL (8-23) 01/20/25 09:39 Creatinine 1.6 mg/dL (0.7-1.2) H 01/20/25 09:39 GFR Calculation Not Reportable 01/20/25 09:39 Glucose 145 mg/dL (65-115) H 01/20/25 09:39 Calculated Osmolality 276 mOsm/kg (285-295) L 01/20/25 09:39 Lactic Acid 1.3 mmol/L (0.5-2.2) 01/20/25 09:39 Calcium 8.8 mg/dL (8.5-10.5) 01/20/25 09:39 Total Bilirubin 0.6 mg/dL (0.15-1.2) 01/20/25 09:39 AST 13 U/L (0-40) 01/20/25 09:39 ALT 13 U/L (0-41) 01/20/25 09:39 Alkaline Phosphatase 87 U/L (40-130) 01/20/25 09:39 Total Protein 6.5 g/dL (6.6-8.7) L 01/20/25 09:39 Albumin 3.3 g/dL (3.5-5.2) L 01/20/25 09:39 Globulin 3.2 g/dL (1.3-4.6) 01/20/25 09:39 Urine Color Yellow (Yellow) 01/20/25 10:34 Urine Appearance Turbid (CLEAR) A 01/20/25 10:34 Urine pH 5.5 (5-7) 01/20/25 10:34 Ur Specific [place] 1.015 (1.005-1.030) 01/20/25 10:34 Urine Protein 2+ (Negative) A 01/20/25 10:34 Urine Glucose (UA) Negative (Normal) 01/20/25 10:34 Urine Ketones Negative (Negative) 01/20/25 10:34 Urine Blood 2+ (Negative) A 01/20/25 10:34 Urine Nitrate Negative (Negative) 01/20/25 10:34 Urine Bilirubin Negative (Negative) 01/20/25 10:34 Urine Urobilinogen 1.0 mg/dL (Negative) 01/20/25 10:34 Ur Leukocyte Esterase 3+ (Negative) A 01/20/25 10:34 Urine RBC 6-10 /hpf (0-2) 01/20/25 10:34 Urine WBC >100 /hpf (0-5) H 01/20/25 10:34 Ur Squamous Epith Cells 0-5 /hpf (0-5) 01/20/25 10:34 Amorphous Sediment Not Reportable 01/20/25 10:34 Urine Bacteria 1+ /hpf (NONE) H 01/20/25 10:34 Hyaline Casts 8.90 /lpf 01/20/25 10:34 Influenza A (PCR) Negative (Negative) 01/20/25 09:49 Influenza Type B (PCR) Negative (Negative) 01/20/25 09:49 RSV (PCR) Negative (Negative) 01/20/25 09:49 SARS-CoV-2 (PCR) Negative (Negative) 01/20/25 09:49 Discharge Plan Discharge Patient Disposition: Placed in Observation Admit Provider: Radames Joiner Clinical Impression: Urinary tract infection Qualifiers: Urinary tract infection type: acute cystitis Hematuria presence: without hematuria Qualified Code(s): N30.00 - Acute cystitis without hematuria Coding Level of Care Code ED Channel Development Manager for Art Villanueva
--- NOTE | 2025-01-20 09:39 | ECG_ITS ---
[facility]: 2025-[facility]-20 Pat Name: Ap Guillen Department: Room: Gender: Male Brancher: : 1940 Requested By: Lion Hong Order Number: [id number] Burt MD: Roly Lyle M.D. 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 [email or web address]
[2025-01-20 09:51] LABS: Hematocrit 36.2 % (37-53); Hemoglobin 12.10 g/dL (11.27-16.99); Mean Corpuscular HGB Conc 33.4 g/dL (30-55); Mean Corpuscular Hemoglobin 30.1 pg (27-33); Mean Corpuscular Volume 90.0 fl (82-101); Nucleated Red Blood Cells % 0 %; Platelet Count 154 10^3/cmm (157-399); Red Blood Count 4.02 10^6/uL (3.85-5.65); White Blood Count 12.68 10^3/uL (3.29-11.43)
[2025-01-20 10:08] LABS: Alanine Aminotransferase 13 U/L (0-41); Albumin Level 3.3 g/dL (3.5-5.2); Alkaline Phosphatase 87 U/L (40-130); Anion Gap 15.8 (5-19); Aspartate Amino Transferase 13 U/L (0-40); Blood Urea Nitrogen 18 mg/dL (8-23); Calcium 8.8 mg/dL (8.5-10.5); Carbon Dioxide 25 mmol/L (22-29); Chloride 94 mmol/L (98-107); Globulin 3.2 g/dL (1.3-4.6); Glucose 145 mg/dL (65-115); Osmolality Calculated 276 mOsm/kg (285-295); Potassium 3.8 mmol/L (3.5-5.1); Sodium 131 mmol/L (136-145); Total Protein 6.5 g/dL (6.6-8.7)
[2025-01-20 10:09] LABS: Lactic Sepsis W/Reflex 1.3 mmol/L (0.5-2.2)
[2025-01-20 10:29] LABS: Respiratory Syncytial Virus Ce NEGATIVE (Negative); SARS-CoV-2 PCR NEGATIVE (Negative)
[2025-01-20 10:44] LABS: Glucose Urine UA Negative (Normal); Nitrate Urine Negative (Negative); Specific Gravity, Urine 1.015 (1.005-1.030)
[2025-01-20 10:49] LABS: Add Urine Microscopic? YES
[2025-01-20 11:03] LABS: UA Slide Review UA Slide Review Perf
--- NOTE | 2025-01-20 11:54 | PM.HP ---
Providers/Chief Complaint Admitting Physician: Dr. Joiner Primary Care Provider: David Escobar MD Chief Complaint: fever History of Present Illness Ap Guillen is a 84 year old male w/ pmhx of CKD, pneumonia, hx of CVA with expressive aphasia, and recently diagnosed with UTI (hx of ESBL, E coli 01/10) on 01/16/25 on abx cefdinir and presents to the ED with c/o of persistent fevers, and increased weakness. Due to patient's condition my evaluation was limited. Although, noted to be at bedside. She states that he does not have any other concerns besides the persistent fevers and increased weakness at this time. Denies headache, nasal congestion, cough, shortness of breath, chest pain, ABD pain, N/V/D/C, changes in bowel and bladder habits, and any recent medication changes- per . Micro report reviewed appears that recent culture positive with EBSL, susceptible to carbapenems. Suspect that there has been inadequate tx w/ monotherapy Macrobid as his urinalysis demonstrates current infection. [facility] pharmacy contacted in ED, they do not have the IM ertapenem- patient will be admitted currently and did received IV meropenem in ED. Patient to be set up outpatient medications that are susceptible to his previous urine micro, likely discharge tomorrow. Patient to be admitted to hospitalist services under observation status for further medical management and care. While in ED a CBC, CMP, UA results reviewed and resulted as follows: WBC 12.68, Neut 10.23, lymph 0.6, [place] 1.6, H GB 12.10, HCT 36.2, PLT 154. Na 131, K 3.8, Osmo 276, glucose 145. Field Cane Scaler Helper 1.6, BUN 18, carrol phos 87, LFTs WNL. Total protein 6.5, albumin 3.3. UA as follows: Urine WBC >100, urine bacteria 1+, leukocyte esterase 3+, urine protein 2+, urine blood 2+, hyaline cast 8.9 While in ED the following medications were administered: 500 mL NS, Rocephin 1000 mg IVP, and meropenem 1000 mg IVP Review of Systems General: Reports: ROS unobtainable due to mental status Medications/Allergies Home Medications ?Medication ?Instructions ?Recorded ?Confirmed ?Last Taken ?Type aspirin 81 mg tablet,delayed 81 mg PO DAILY@0900 07/09/20 12/28/24 12/27/24 History release ascorbic acid (vitamin C) 1,000 mg 1 g PO DAILY@2100 09/03/20 12/28/24 12/27/24 History tablet (Vitamin C) cetirizine 10 mg tablet 10 mg PO DAILY@0909/03/20 12/28/24 12/27/24 History cholecalciferol (vitamin D3) 25 25 mcg PO BID@09/03/20 12/28/24 12/27/24 History mcg (1,000 unit) chewable tablet (Vitamin D3) omega-3 fatty acids 1,000 mg 1,000 mg PO QAM 09/21/21 12/28/24 12/27/24 History capsule tramadol 50 mg tablet 50 mg PO BID@09/21/21 12/28/24 12/27/24 History pantoprazole 40 mg tablet,delayed 40 mg PO BID #60 tabs 09/23/21 12/28/24 12/27/24 Rx release (Protonix) lidocaine 5 % topical patch 1 patch transdermal DAILY PRN Pain 08/25/23 11/28/23 Unknown History amlodipine 10 mg tablet 10 mg PO DAILY #90 tabs 08/26/23 12/28/24 12/27/24 Rx metoprolol tartrate 50 mg tablet 50 mg PO BID #30 tabs 08/26/23 12/28/24 12/27/24 Rx atorvastatin 40 mg tablet 80 mg (2 x 40 mg) PO DAILY@2100 #0 08/30/23 12/28/24 12/27/24 Rx tabs venlafaxine 150 mg 150 mg PO DAILY #30 caps 08/30/23 12/28/24 12/27/24 Rx capsule,extended release 24 hr (Effexor XR) fluticasone propionate 50 1 spray intranasal DAILY PRN 08/31/23 12/28/24 Unknown History mcg/actuation nasal allergies spray,suspension polyethylene glycol 3350 17 4 g PO DAILY 11/28/23 12/28/24 12/27/24 History gram/dose oral powder ondansetron 4 mg disintegrating 4 mg PO Q6H PRN nausea and 12/27/24 12/28/24 Unknown Rx tablet vomiting #14 tabs cefdinir 300 mg capsule 300 mg PO BID #14 caps 12/28/24 Unknown Rx Allergies Allergy/AdvReac Type Severity Reaction Status Date / Time acetylcysteine Allergy nausea/vomi Verified 11/28/23 08:08 ting PFSH Acute PFSH: Medical History (Updated 01/20/25 @ 14:26 by Carisa Gonzalez NP) Dyslipidemia Aphasia Expressive aphasia Pneumonia Acute kidney injury superimposed on chronic kidney disease Generalized weakness Aspiration pneumonia Bibasilar crackles Risk for falls Hypertension Vitamin D deficiency Peripheral artery disease Anemia Osteoporosis Expressive aphasia Chronic anticoagulation Eliquis due to CVA history Degenerative joint disease of spine CVA (cerebral vascular accident) 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 Reported to have hole in his heart but later when attempt was made to repair it was not identified. On chronic anticoagulation with Eliquis, initiated at outside facility, due to history of recurrent strokes. CKD (chronic kidney disease) Single functioning kidney per Surgical History Status post herniorrhaphy right inguinal hernia History of cataract surgery History of intravascular stent placement renal artery and aortic stents Status post endovascular aneurysm repair (EVAR) Status post right inguinal hernia repair Status post colonoscopy 2015 adenomatous polyp Family History Mother , at age 93 No problems noted. Father , at age 77 AA (aortic aneurysm) Cancer throat and lung Other Hypertension Social History Smoking and tobacco/nicotine status: never used tobacco/nicotine Alcohol intake: never Substance/Drug Use: never Household members: spouse Housing: House Marital status: Current occupational status: retired Vitals/I&O/Wt Last Vital Signs Temp 98.6 F 01/20/25 09:27 Pulse 64 01/20/25 10:36 Resp 16 01/20/25 09:27 BP 124/67 01/20/25 10:36 Pulse Ox 97 01/20/25 10:36 O2 Del Method Room Air 01/20/25 10:36 01/19/25 01/20/25 01/20/25 22:59 06:59 14:59 Intake Total 500 / 500 Balance 500 / 500 Weight last 48 hrs Weight 79.832 kg Physical Exam Narrative: General: no appearant distress, expressive aphasia, at baseline mentation HEENT: Normo-cephalic, atraumatic, grossly unremarkable exam Cardio: NSR, normal S1-S2 without any murmurs, rubs, or gallops and JVD normal Respiratory: Clear to bilateral upper lobe and lower lobes on auscultation w/o any wheezes, stridor, rhonchi GI: Abd soft, non-tender, non-distended, normo-active bowel sounds present Neuro: Moves all extremities, no sensory deficits, Normal speech Behavior: Appropriate and cooperative Extremities: Adequate palpable pulses. No clubbing, cyanosis or edema. Data 01/20/25 09:39 01/20/25 09:39 Other Labs: 01/20: CXR: Reviewed and results as follows: Generalized prominence of the interstitium is present throughout the lungs. Micro: Microbiology 01/20/25 09:42 Blood Culture - Preliminary Blood SPECIMEN COLLECTED 01/20/25 09:39 Blood Culture - Preliminary Blood SPECIMEN COLLECTED A&P Assessment and plan 1. Acute cystitis without hematuria: 2. History of stroke: 3. Aphasia: 4. Renovascular hypertension: 5. Hyponatremia: Plan: UTI - WBC 12.68, Neut 10.23 - UA: Urine WBC >100, urine bacteria 1+, leukocyte esterase 3+, urine protein 2+, urine blood 2+, hyaline cast 8.9 - Recently diagnosed with UTI (hx of ESBL, E coli 01/10) on 01/16/25 on abx cefdinir outpt. - IVF NS at 50ml/hr - IV abx meropenem 2000 mg q8hr - PRN bladder scans r/o possible retention - Urine culture pending. - Blood culture pending. - 01/20: [facility] pharmacy contacted in ED, they do not have the IM ertapenem- patient will be admitted. Patient received IV meropenem in ED- to be set up outpatient w/medications that are susceptible to his previous urine micro. Will likely Discharge 01/21. Dehydration Hyponatremia - Na 131, Hyaline casts 8.90 - Likely due to decreased appetite/food intake - IVF NS at 50ml/hr Hx of CVA Expressive Aphasia - Continue home medication aspirin - Fall precautions - Aspiration precautions - Level 6 diet, w/ thickened liquids HLD - continue home medication atorvastatin 80mg PO dly Hypertension - Continue home medication metoprolol tartrate 50mg PO BID GERD - Continue home medication protonix 40mg PO dly Depression Anxiety - Continue home medication Venlafaxine 150mg PO dly CODE STATUS: Full Code GI prophylaxis: Protonix 40 mg PO BID VTE prophylaxis: Lovenox 40mg SC dly PDMP PDMP Reviewed: Not Reviewed Attestations Medical Necessity Statement*: Admitted under observation status. Given complexity of patient's presentation, UTI, and required intensity of treatment, a hospitalization under two midnights is anticipated. and High Time for a total of 78 minutes, includes reviewing past or interval history, examining/interviewing patient, placing orders, counseling patient/family/other support, updating patient/family/other support, discussing plan of care with staff, communicating with other healthcare providers, documenting encounter and coordinating care Diagnoses Acute cystitis without hematuria N30.00 Hematuria presence: without hematuria Urinary tract infection type: acute cystitis History of stroke Z86.73 Aphasia R47.01 Renovascular hypertension I15.0 Hypertension type: renovascular hypertension Hyponatremia E87.1
[2025-01-20] MEDS: meropenem 1,000 mg SDV 1000 MG IVP (12:13)
--- NOTE | 2025-01-20 13:44 | PC.NURSE ---
Patient transferred from ED to CSU via a wheelchair at 1344.
[2025-01-20 19:30] LABS: Urine Random Sodium 57 mmol/L
[2025-01-20] MEDS: MEROPENEM 2,000 MG in sodium chloride 0.9% (plus) 50 ML 100 MG IV (20:36)
[2025-01-21] VITALS: BP 148/70; PULSE 89; RESP 16; TEMP 37.1; O2SAT 94
[2025-01-21 03:40] LABS: Hematocrit 37.4 % (37-53); Hemoglobin 12.30 g/dL (11.27-16.99); Mean Corpuscular HGB Conc 32.9 g/dL (30-55); Mean Corpuscular Hemoglobin 30.0 pg (27-33); Mean Corpuscular Volume 91.2 fl (82-101); Nucleated Red Blood Cells % 0 %; Platelet Count 171 10^3/cmm (157-399); Red Blood Count 4.10 10^6/uL (3.85-5.65); White Blood Count 10.34 10^3/uL (3.29-11.43)
[2025-01-21 04:00] VITALS: BP 116/54; PULSE 84; RESP 18; TEMP 37.3; O2SAT 90
[2025-01-21 04:24] LABS: Alanine Aminotransferase 13 U/L (0-41); Albumin Level 3.2 g/dL (3.5-5.2); Alkaline Phosphatase 86 U/L (40-130); Aspartate Amino Transferase 15 U/L (0-40); Blood Urea Nitrogen 18 mg/dL (8-23); Calcium 9.0 mg/dL (8.5-10.5); Carbon Dioxide 23 mmol/L (22-29); Chloride 98 mmol/L (98-107); Globulin 3.4 g/dL (1.3-4.6); Glucose 117 mg/dL (65-115); Magnesium 1.9 mg/dL (1.7-2.3); Osmolality Calculated 281 mOsm/kg (285-295); Sodium 134 mmol/L (136-145); Total Protein 6.6 g/dL (6.6-8.7)
[2025-01-21 04:25] LABS: Anion Gap 17.0 (5-19); Potassium 4.0 mmol/L (3.5-5.1)
[2025-01-21] MEDS: venlafaxine ER (24HR) 150 mg Capsule PO (04:42)
[2025-01-21 07:48] VITALS: BP 104/66; PULSE 70; RESP 14; TEMP 37.7; O2SAT 92
--- NOTE | 2025-01-21 08:43 | PC.CHAP ---
Pastoral Care Encounter/Spiritual Assessment Type of Contact [] Declined heel reducer visit [] Patient/Family/Request visit [] Outpatient visit [] Follow-up visit [] Physician referral [] Code/Alert [x] Routine visit [] Staff referral [] Actively dying [x] Patient sleeping [] Family support [] [] Out of room [] Palliative care [] [] Receiving care in room [] Pre-surgical visit [] Trauma [] Long length of stay [] ICU visit [] Other: Relational/Emotional Strength [] Patient feels connected with others/family/visitors/staff [] Distress [] Loneliness/isolation [] Abandonment Spirituality of Patient [] Person of Sneha [] Attends Tenriism of their Sneha [] Believes in Prayer [] Reads Bible or Rastafari materials [] There are Spiritual issues to be addressed Web Application Dev Specialist Interventions [x] Prayer [] Active listening [] Non-anxious presence [] Spiritual/emotional support [] Crisis/trauma care [] Spiritual counseling [] Bereavement support [] Provided bereavement packet [] Provided Bible/devotional materials [] Provided toy/stuffed animal, coloring book to patient or family member [] Provided Communion [] Anointing/[place]ling [] Salvation [] Completed spiritual assessment [] Other: Impact on Illness or Injury [] Angry [] Fearful [] Anxious [] Often cries [] Exhaustion [] Unable to work [] Unable to attend sabianism [] Unable to walk/stand [] Unable to read [] Unable to drive [] Unable to eat/drink [] Unable to sleep [] Unable to be with family [] Patient intubated [] Other: Summary Time spent with patient
[2025-01-21] MEDS: MEROPENEM 2,000 MG in sodium chloride 0.9% (plus) 50 ML 75 MG IV (08:45)
--- NOTE | 2025-01-21 09:15 | PM.DCS ---
Discharge Providers Date of Admission: 01/20/25 11:42 Date of Discharge: January 21, 2025 Attending Provider at Admission: Radames Joiner Attending Provider at Discharge: Lynn Amador NP Primary Care Provider: David Escobar MD Diagnoses at Discharge Discharge Diagnosis 1. Acute cystitis without hematuria: 2. History of stroke: 3. Aphasia: 4. Renovascular hypertension: 5. Hyponatremia: Reason for Visit Reason for Visit: fever Brief History: Admission: Ap Guillen is a 84 year old male w/ pmhx of CKD, pneumonia, hx of CVA with expressive aphasia, and recently diagnosed with UTI (hx of ESBL, E coli 01/10) on 01/16/25 on abx cefdinir and presents to the ED with c/o of persistent fevers, and increased weakness. Due to patient's condition my evaluation was limited. Although, noted to be at bedside. She states that he does not have any other concerns besides the persistent fevers and increased weakness at this time. Denies headache, nasal congestion, cough, shortness of breath, chest pain, ABD pain, N/V/D/C, changes in bowel and bladder habits, and any recent medication changes- per . Micro report reviewed appears that recent culture positive with EBSL, susceptible to carbapenems. Suspect that there has been inadequate tx w/ monotherapy Macrobid as his urinalysis demonstrates current infection. [facility] pharmacy contacted in ED, they do not have the IM ertapenem- patient will be admitted currently and did received IV meropenem in ED. Patient to be set up outpatient medications that are susceptible to his previous urine micro, likely discharge tomorrow. Patient to be admitted to hospitalist services under observation status for further medical management and care. While in ED a CBC, CMP, UA results reviewed and resulted as follows: WBC 12.68, Neut 10.23, lymph 0.6, [place] 1.6, H GB 12.10, HCT 36.2, PLT 154. Na 131, K 3.8, Osmo 276, glucose 145. Environmental Permitting Specialist 1.6, BUN 18, carrol phos 87, LFTs WNL. Total protein 6.5, albumin 3.3. UA as follows: Urine WBC >100, urine bacteria 1+, leukocyte esterase 3+, urine protein 2+, urine blood 2+, hyaline cast 8.9 While in ED the following medications were administered: 500 mL NS, Rocephin 1000 mg IVP, and meropenem 1000 mg IVP. Hospital Course Hospital Course UTI - WBC 12.68--<10.34 - UA: Urine WBC >100, urine bacteria 1+, leukocyte esterase 3+, urine protein 2+, urine blood 2+, hyaline cast 8.9 - Recently diagnosed with UTI (hx of ESBL, E coli 01/10) on 01/16/25 on abx cefdinir outpt. - IVF NS at 50ml/hr - IV abx meropenem 2000 mg q8hr - PRN bladder scans r/o possible retention - Urine culture pending. - Blood culture pending. - 01/20: [facility] pharmacy contacted in ED, they do not have the IM ertapenem- patient will be admitted. Patient received IV meropenem in ED- to be set up outpatient w/medications that are susceptible to his previous urine micro. Will likely Discharge 01/21. Prescribed ertapenem at discharge. Dehydration Hyponatremia - Na 131, Hyaline casts 8.90, improved Na 134 at discharge - Likely due to decreased appetite/food intake - IVF NS at 50ml/hr completed Hx of CVA Expressive Aphasia - Continue home medication aspirin - Fall precautions - Aspiration precautions - Level 6 diet, w/ thickened liquids HLD - continue home medication atorvastatin 80mg PO dly Hypertension - Continue home medication metoprolol tartrate 50mg PO BID GERD - Continue home medication protonix 40mg PO dly Depression Anxiety - Continue home medication Venlafaxine 150mg PO dly Discharge: Discharges in stable condition, IM Ertapenem daily x 13 days (for a total of 14 days of treatment) based on previous urine culture. Appreciate nursing staff in educating family on IM injection prior to discharge. Patient will have home health of choice at discharge, appreciate case management in coordination. Pending repeat urine culture results at discharge, will follow out patient. Advised to resume home medications as previously prescribed. Advise follow-up with primary care provider in 1 to 2 days. Physical Exam Narrative: General: no appearant distress, expressive aphasia, at baseline mentation HEENT: Normo-cephalic, atraumatic, grossly unremarkable exam Cardio: NSR, normal S1-S2 without any murmurs, rubs, or gallops and JVD normal Respiratory: Clear to bilateral upper lobe and lower lobes on auscultation w/o any wheezes, stridor, rhonchi GI: Abd soft, non-tender, non-distended, normo-active bowel sounds present Neuro: Moves all extremities, no sensory deficits, Normal speech Behavior: Appropriate and cooperative Extremities: Adequate palpable pulses. No clubbing, cyanosis or edema. Right sided weakness at baseline. Discharge Data Studies Completed and Pending Completed Studies During Hospitalization Category Date Time Status XR chest 1V portable [id number] Stat Exams 01/20/25 09:34 Completed Pending at discharge Category Date Time Status Blood Culture Stat Lab 01/20/25 09:42 Results Urine Culture Stat Lab 01/20/25 10:34 Received Radiology Impressions Chest X-Ray 01/20/25 09:34 IMPRESSION: Chronic interstitial changes about acute infiltrate identified. Laboratory Results WBC 10.34 10^3/uL (3.29-11.43) 01/21/25 02:40 RBC 4.10 10^6/uL (3.85-5.65) 01/21/25 02:40 Hgb 12.30 g/dL (11.27-16.99) 01/21/25 02:40 Hct 37.4 % (37-53) 01/21/25 02:40 MCV 91.2 fl (82-101) 01/21/25 02:40 MCH 30.0 pg (27-33) 01/21/25 02:40 MCHC 32.9 g/dL (30-55) 01/21/25 02:40 RDW 13.6 % (12.1-15.1) 01/21/25 02:40 Plt Count 171 10^3/cmm (157-399) 01/21/25 02:40 MPV 10.5 fL (7.4-10.4) H 01/21/25 02:40 Neut % (Auto) 79.9 % 01/21/25 02:40 Lymph % (Auto) 7.8 % 01/21/25 02:40 Borden % (Auto) 11.1 % 01/21/25 02:40 Eos % (Auto) 0.2 % 01/21/25 02:40 Baso % (Auto) 0.3 % 01/21/25 02:40 Neut # (Auto) 8.26 10^3/uL (1.8-7.7) H 01/21/25 02:40 Lymph # (Auto) 0.8 10^3/uL (0.8-4.8) 01/21/25 02:40 Borden # (Auto) 1.2 10^3/uL (0.2-0.9) H 01/21/25 02:40 Eos # (Auto) 0.0 10^3/uL (0.0-0.8) 01/21/25 02:40 Baso # (Auto) 0.0 10^3/uL (0.0-0.1) 01/21/25 02:40 Nucleated RBC % (auto) 0 % 01/21/25 02:40 Nucleated RBCs # 0.0 /100WBC 01/21/25 02:40 Sodium 134 mmol/L (136-145) L 01/21/25 02:40 Potassium 4.0 mmol/L (3.5-5.1) 01/21/25 02:40 Chloride 98 mmol/L (98-107) 01/21/25 02:40 Carbon Dioxide 23 mmol/L (22-29) 01/21/25 02:40 Anion Gap 17.0 (5-19) 01/21/25 02:40 BUN 18 mg/dL (8-23) 01/21/25 02:40 Creatinine 1.7 mg/dL (0.7-1.2) H 01/21/25 02:40 GFR Calculation Not Reportable 01/21/25 02:40 Glucose 117 mg/dL (65-115) H 01/21/25 02:40 Calculated Osmolality 281 mOsm/kg (285-295) L 01/21/25 02:40 Lactic Acid 1.3 mmol/L (0.5-2.2) 01/20/25 09:39 Calcium 9.0 mg/dL (8.5-10.5) 01/21/25 02:40 Magnesium 1.9 mg/dL (1.7-2.3) 01/21/25 02:40 Total Bilirubin 0.6 mg/dL (0.15-1.2) 01/21/25 02:40 AST 15 U/L (0-40) 01/21/25 02:40 ALT 13 U/L (0-41) 01/21/25 02:40 Alkaline Phosphatase 86 U/L (40-130) 01/21/25 02:40 Total Protein 6.6 g/dL (6.6-8.7) 01/21/25 02:40 Albumin 3.2 g/dL (3.5-5.2) L 01/21/25 02:40 Globulin 3.4 g/dL (1.3-4.6) 01/21/25 02:40 Urine Color Yellow (Yellow) 01/20/25 10:34 Urine Appearance Turbid (CLEAR) A 01/20/25 10:34 Urine pH 5.5 (5-7) 01/20/25 10:34 Ur Specific [place] 1.015 (1.005-1.030) 01/20/25 10:34 Urine Protein 2+ (Negative) A 01/20/25 10:34 Urine Glucose (UA) Negative (Normal) 01/20/25 10:34 Urine Ketones Negative (Negative) 01/20/25 10:34 Urine Blood 2+ (Negative) A 01/20/25 10:34 Urine Nitrate Negative (Negative) 01/20/25 10:34 Urine Bilirubin Negative (Negative) 01/20/25 10:34 Urine Urobilinogen 1.0 mg/dL (Negative) 01/20/25 10:34 Ur Leukocyte Esterase 3+ (Negative) A 01/20/25 10:34 Urine RBC 6-10 /hpf (0-2) 01/20/25 10:34 Urine WBC >100 /hpf (0-5) H 01/20/25 10:34 Ur Squamous Epith Cells 0-5 /hpf (0-5) 01/20/25 10:34 Amorphous Sediment Not Reportable 01/20/25 10:34 Urine Bacteria 1+ /hpf (NONE) H 01/20/25 10:34 Hyaline Casts 8.90 /lpf 01/20/25 10:34 Ur Random Sodium 57 mmol/L 01/20/25 10:34 Influenza A (PCR) Negative (Negative) 01/20/25 09:49 Influenza Type B (PCR) Negative (Negative) 01/20/25 09:49 RSV (PCR) Negative (Negative) 01/20/25 09:49 SARS-CoV-2 (PCR) Negative (Negative) 01/20/25 09:49 Vitals Last Vital Signs Temp 99.9 F H 01/21/25 07:48 Pulse 70 01/21/25 07:48 Resp 14 01/21/25 07:48 BP 104/66 01/21/25 07:48 Pulse Ox 92 01/21/25 07:48 O2 Del Method Room Air 01/21/25 04:00 Discharge Plan Discharge Patient Disposition: Home Health Service Condition: Stable Prescriptions: New ertapenem 1 gram recon soln 1 g IM DAILY 13 Days Qty: 10 0RF Continued aspirin 81 mg tablet,delayed release (DR/EC) 81 mg PO DAILY@0900 ascorbic acid (vitamin C) [Vitamin C] 1,000 mg Tablet 1 g PO DAILY@2100 cetirizine 10 mg Tablet 10 mg PO DAILY@0900 cholecalciferol (vitamin D3) [Vitamin D3] 25 mcg (1,000 unit) Tablet,Chewable 25 mcg PO BID@, omega-3 fatty acids 1,000 mg Capsule 1,000 mg PO QAM tramadol 50 mg tablet 50 mg PO BID@ pantoprazole [Protonix] 40 mg tablet,delayed release (DR/EC) 40 mg PO BID Qty: 60 3RF lidocaine 5 % adhesive patch,medicated 1 patch transdermal DAILY PRN (Reason: Pain) amlodipine 10 mg Tablet 10 mg PO DAILY Qty: 90 0RF metoprolol tartrate 50 mg tablet 50 mg PO BID Qty: 30 0RF atorvastatin 40 mg Tablet 80 mg PO DAILY@2100 Qty: 0 0RF venlafaxine [Effexor XR] 150 mg capsule,extended release 24hr 150 mg PO DAILY Qty: 30 0RF fluticasone propionate 50 mcg/actuation spray,suspension 1 spray INTRANASAL DAILY PRN (Reason: allergies) polyethylene glycol 3350 17 gram/dose Powder 4 g PO DAILY ondansetron 4 mg tablet,disintegrating 4 mg PO Q6H PRN (Reason: nausea and vomiting) Qty: 14 0RF Discharge Order = DC NOW: Discharge Order (Routine); Ordered 01/21/25 Ordered By: Lynn Amador Referrals: [facility] [Outside] David Escobar MD [Primary Care Provider, Family Practice] - 01/23/25 2:00 pm Referral Note: Please keep your yearly appointment as scheduled on 01/23 @ 2:00p.m. If you need to reschedule please call Discharge Diet: Usual diet Patient Instructions: Ertapenem (By injection) (INVanz), Urinary Tract Infection in Men (DC), Aphasia (DC), Stroke (DC), Opioid Safety, Patient Portal & Tiffanie Instructions Discharge Attestations Time Spent in Discharge Care*: greater than 30 min Quality Metrics Clinical Quality Measures [ No reported AMI, CVA or VTE this stay] Coding Level of Care Code 28685 Diagnoses Acute cystitis without hematuria N30.00 Hematuria presence: without hematuria Urinary tract infection type: acute cystitis History of stroke Z86.73 Aphasia R47.01 Renovascular hypertension I15.0 Hypertension type: renovascular hypertension Hyponatremia E87.1
[2025-01-21 11:33] VITALS: BP 132/61; PULSE 68; RESP 18; O2SAT 94
--- NOTE | 2025-01-21 13:09 | PC.NURSE ---
Nursing staff gave detailed instructions with demonstration to on giving the antibiotic IM shots. Patients feels comfortable giving these. She stated that she has given her son insulin shots in the past and had to draw up and mix the medication for him. Patients verbally told nursing how to draw up and give.
== END 2025-01-21 15:54 | disposition home health service (06) ==
LOC: ER 11:49 → CSU 12:21
PROVIDERS: Admitting Provider Internal Medicine; Emergency Provider Physician Assistant; PCP Family Medicine; Visit Provider Registered Nurse
DX: N30.00 Acute cystitis without hematuria (principal); Z86.73 Personal history of transient ischemic attack (TIA), and cerebral infarction without residual deficits; R74.01 Elevation of levels of liver transaminase levels; E87.1 Hypo-osmolality and hyponatremia; I12.9 Hypertensive chronic kidney disease with stage 1 through stage 4 chronic kidney disease, or unspecified chronic kidney disease; N18.9 Chronic kidney disease, unspecified; Z79.01 Long term (current) use of anticoagulants; I73.9 Peripheral vascular disease, unspecified; E78.5 Hyperlipidemia, unspecified; Z79.82 Long term (current) use of aspirin; K21.9 Gastro-esophageal reflux disease without esophagitis
CPT/HCPCS: 36415; 51798; 71045; 80053; 81001; 83605; 83735; 84300; 85025; 87040; 87077; 87086; 87186; 87637; 93005; 96361; 96365; 96372; 96375; 99285; G0378; J1650; J2185; J7030; J7040; J9999